=== PATIENT | male | born 1950 | race Caucasian/White ===

== ENCOUNTER 2017-11-17 10:00 | Outpatient (RCR) | payer MEDICARE, SELFPAY | END 2017-11-17 10:01 | disposition home or self-care (01) | LOC: PT 10:00 | PROVIDERS: PCP Family Medicine Addiction Medicine; Visit Provider Family Medicine Addiction Medicine | DX: M99.04 Segmental and somatic dysfunction of sacral region (principal); M54.31 Sciatica, right side; M62.838 Other muscle spasm | CPT/HCPCS: 97010; 97014; 97033; 97035; 97110; 97140; 97163; G0283 ==

== ENCOUNTER → 2018-09-17 09:47 | Outpatient (CLI) | payer MEDICARE, SELFPAY ==
[2018-09-17 11:31] LABS: Anion Gap 13.6 mEq/L (5-15); Blood Urea Nitrogen 19 mg/dL (7-18); Calcium 9.1 mg/dL (8.5-10.1); Carbon Dioxide 31 mmol/L (21.0-32.0); Chloride 102 mmol/L (98-107); Creatinine,Serum 1.13 mg/dL (0.70-1.30); Estimated Glomerular Filt Rate 65 ml/min (>60); GFR (African American) 79 ML/MIN (>60); Glucose 150 mg/dL (74-106); Potassium 3.6 mmoL/L (3.5-5.1); Sodium 143 mmol/L (136-145)
== END ==
PROVIDERS: Visit Provider Family Medicine Addiction Medicine
DX: M79.89 Other specified soft tissue disorders (principal); I10 Essential (primary) hypertension
CPT/HCPCS: 36415; 80048

== ENCOUNTER 2018-10-19 11:00 | Outpatient (RCR) | payer MEDICARE, SELFPAY | END 2018-10-19 11:05 | disposition home or self-care (01) | LOC: PT 11:00 | PROVIDERS: PCP Family Medicine Addiction Medicine; Visit Provider Orthopaedic Surgery Adult Reconstructive Orthopaedic Surgery | DX: Z96.641 Presence of right artificial hip joint (principal); M25.551 Pain in right hip | CPT/HCPCS: 97010; 97014; 97110; 97140; 97163; G0283 ==

== ENCOUNTER 2018-11-25 21:03 | Inpatient (IN) ==
[2018-11-25 21:16] LABS: Basophils % 0.3 % (0.1-2.0); Eosinophils # 0.3 K/mm3 (0.0-0.4); Eosinophils % 2.3 % (0.1-12.0); Hematocrit 39.2 % (42.0-52.0); Hemoglobin 12.9 g/dL (14.1-18.0); Lymphocytes # 2.4 K/mm3 (0.7-4.5); Lymphocytes % 19.4 % (10-50); Mean Corpuscular HGB Conc 32.8 g/dL (31.8-35.4); Mean Corpuscular Volume 88.2 fl (80-94); Mean Platelet Volume 7.3 fl (7.4-10.4); Monocytes # 0.8 K/mm3 (0.1-1.0); Monocytes % 6.6 % (1.7-9.3); Neutrophils # 8.8 K/mm3 (1.8-7.8); Neutrophils % 71.3 % (37.0-80.0); Platelet Count 234 K/mm3 (142-424); Red Blood Count 4.45 M/mm3 (4.60-6.20); Red Cell Distribution Width 15.2 % (11.5-17.5); White Blood Count 12.4 K/mm3 (4.8-10.8)
--- NOTE | 2018-11-25 21:19 | Emergency Department Note ---
ED Disposition Clinical Impression: ST elevation myocardial infarction (STEMI) Qualifiers: Involved coronary artery: unspecified coronary artery Qualified Code(s): I21.3 - ST elevation (STEMI) myocardial infarction of unspecified site Disposition: Admitted As Inpatient Condition on Discharge: Critical - Critical Care Critical Care Time: No Attestation: On 11/25/18, the high probability of a clinically significant, sudden or life threatening deterioration of the following system(s) required my full and direct attention, intervention and personal management. The time I documented below is in addition to time spent performing reported procedures but includes the following listed in this critical care notation. Medical Decision Making - Medical Records Medical records reviewed: Yes: I reviewed the patient's medical records. - Maikel Inquiry Pt receiving controlled substance: No Vital Signs: 11/25/18 21:03 11/25/18 21:20 11/25/18 22:02 Temperature 98.4 F 98.5 F Temperature Source Oral Pulse Rate 45 L Pulse Rate [Right] 58 L Respiratory Rate 18 18 18 Blood Pressure 135/85 Blood Pressure [Right Arm] 130/90 Blood Pressure Mean [Right Arm] 103 02 Sat by Pulse Oximetry 97 Oxygen Delivery Method Room Air Nasal Cannula - Lab Data Lab results reviewed: Yes: I reviewed the patient's lab results. Lab Results 11/25/18 21:05: WBC 12.4 H, RBC 4.45 L, Hgb 12.9 L, Hct 39.2 L, MCV 88.2, MCH 28.9, MCHC 32.8, RDW 15.2, Plt Count 234, MPV 7.3 L, Neut % (Auto) 71.3, Lymph % (Auto) 19.4, [place] % (Auto) 6.6, Eos % (Auto) 2.3, Baso % (Auto) 0.3, Neut # (Auto) 8.8 H, Lymph # (Auto) 2.4, [place] # (Auto) 0.8, Eos # (Auto) 0.3, Baso # (Auto) 0.0 11/25/18 21:05: Sodium 143, Potassium 3.0 L, Chloride 105, Carbon Dioxide 27, Anion Gap 14.0, BUN 22 H, Creatinine 1.35 H, Estimated Creat Clear 76, Estimated GFR 53 L, Est GFR ( Amer) 64, Glucose 155 H, Calcium 9.4, Troponin I 0.65 H 11/25/18 21:05: PT 10.7, INR 1.03, APTT 22.3 L Result diagrams: 11/25/18 21:05 11/25/18 21:05 Orders (Tests/Meds): ED MEDICATIONS Generic Name Dose Route Start Last Admin Trade Name Freq PRN Reason Stop Dose Admin Diphenhydramine HCl 50 mg 11/25/18 21:17 Benadryl 50mg/1ml Vial IV 11/25/18 21:18 ONCE ONE Fentanyl Citrate 50 mcg 11/25/18 21:17 11/25/18 22:07 Fentanyl 100mcg/2ml Vial IV 11/26/18 21:18 100 mcg Q3MINP PRN Administration Moderate to Severe Pain Fentanyl Citrate 25 mcg 11/25/18 21:17 Fentanyl 100mcg/2ml Vial IV 11/26/18 21:18 Q3MINP PRN Moderate to Severe Pain Flumazenil 0.2 mg 11/25/18 21:17 Romazicon 0.1mg/Ml 5ml Vial IV 11/25/18 23:00 NEEDED PRN Sedation Heparin Sodium (Porcine) 10,000 unit 11/25/18 21:17 11/25/18 21:58 Heparin 1,000 Units/Ml 10ml Vial ([employer]) IV 11/26/18 01:17 3,000 unit NEEDED PRN Administration [facility] [employer] Heparin Sodium/Sodium Chloride 3,000 unit 11/25/18 21:17 11/25/18 22:01 Heparin 1000 Units/500ml Ns ([employer] [facility] Magistrate) IV 11/25/18 21:18 3,000 unit ONCE ONE Administration Sodium Chloride 1,000 mls @ 999 mls/hr 11/25/18 21:15 11/25/18 21:10 Sod Chlor 0.9% 1000ml Bag IV 11/25/18 22:15 999 mls/hr .Q1H1M RAUL Administration Sodium Chloride 1,000 mls @ 25 mls/hr 11/25/18 21:30 Sod Chlor 0.9% 1000ml Bag IV 11/26/18 21:17 .Q25H RAUL Lidocaine HCl 20 ml 11/25/18 21:17 11/25/18 22:00 Lidocaine 1% 20ml Mdv IJ 11/25/18 21:18 10 ml ONCE ONE Administration Midazolam HCl 1 mg 11/25/18 21:17 11/25/18 22:09 Midazolam 1mg/Ml 5ml Vial IV 11/26/18 21:17 2 mg Q3MINP PRN Administration Sedation Midazolam HCl 1 mg 11/25/18 21:17 Midazolam 2mg/2ml Vial IV 11/26/18 21:17 Q3MINP PRN Sedation Naloxone HCl 0.4 mg 11/25/18 21:17 Narcan 0.4mg/Ml Vial IV 11/26/18 21:17 Q5MINP PRN Decreased Respirations Nitroglycerin 800 mcg 11/25/18 21:17 11/25/18 22:02 Nitroglycerin 800mcg/8ml Syr ([employer] Magistrate) IV 11/26/18 21:17 500 mcg NEEDED PRN Administration [facility] [employer] Verapamil HCl 2.5 mg 11/25/18 21:17 11/25/18 22:00 Verapamil 2.5mg/Ml 2ml Vial IV 11/25/18 21:18 2.5 mg ONCE ONE Administration Discontinued Medications Generic Name Dose Route Start Last Admin Trade Name Freq PRN Reason Stop Dose Admin Heparin Sodium (Porcine) 10,000 unit 11/25/18 21:09 11/25/18 21:10 Heparin Sodium 5,000 Units/Ml Vial SQ 11/25/18 21:10 10,000 unit ONCE ONE Administration Ticagrelor 180 mg 11/25/18 21:09 11/25/18 21:10 Brilinta 90mg Tablet PO 11/25/18 21:10 180 mg ONCE ONE Administration ORDERS Category Date Time Status XR chest portable Stat Exams 11/25/18 21:08 Taken 12-lead EKG Request [ECG Request by /Nse] Stat Y 11/25/18 21:22 Ordered - Radiology Data #1 Image(s): Chest Image Reviewed: Yes I reviewed the patient's radiology image Preliminary Findings: Abnormal (cm) - ECG Data Tracing #1 Normal Sinus Rhythm: Yes Arrhythmias present: other (second degree ht block ) Ischemic changes: ST elevation - Physician Consults Physician Consulted: caron Reason -: Admission Additional Consult: nathaniel Reason -: Pt condition Chest Pain HPI - General Chief Complaint: Chest Pain Stated Complaint: Stemi alert Time Seen by Provider: 11/25/18 21:05 Mode of Arrival: EMS Source of Information: Patient, EMS, Medical Record Limitations: No Limitations Description of Symptoms (Recalled from ER Triage Doc. by RN): Pt states CP 30 mins [employer]IC and soa 30mins ago. - History of Present Illness HPI narrative: acute onset of chest pain and was found to have acute stemi -pt with no other c/o at this time MD complaint: chest pain indicative of cardiac Onset (ago): hour(s) Duration: constant Activity at onset: during rest Pain location: substernal Severity: moderate Quality: heaviness Risk Factors for CAD: Family Hx of CAD Treatments prior to or on arrival for Cardiac Chest Pain: aspirin, nitroglycerin - SARI Score for Stemi Age of Patient: 60-69 years old Heart Rate: 50-69 bpm Systolic Blood Pressure: 120-139 mmhg Serum Creatinine: 1.20-1.59 mg/dl CHF [place] Class: I-No CHF Other Risk Factors: ST Segment Deviation Stemi Risk Score: 133 - Related Data Home Medications Medication Instructions Recorded Confirmed Amlodipine Besylate 10 mg PO DAILY 10/30/18 10/30/18 Atorvastatin Calcium [Atorvastatin 40 mg PO HS 10/30/18 10/30/18 40mg Tab] Lisinopril [Lisinopril 40mg Tablet] 40 mg PO DAILY 10/30/18 10/30/18 Montelukast Sodium [Singulair 10mg 10 mg PO PM 10/30/18 10/30/18 tablet] cloNIDine HCl [cloNIDine 0.2mg 0.2 mg PO DAILY 10/30/18 10/30/18 Tablet] hydroCHLOROthiazide [HCTZ 25mg 25 mg PO DAILY 10/30/18 10/30/18 tab] Previous Rx's Medication Instructions Recorded Hydrocod/Acet 5/325 mg [[place] 1 tab PO Q6HP PRN #8 tab 10/30/18 5/325mg tablet] levoFLOXacin [Levaquin 500mg 500 mg PO DAILY #7 tab 10/30/18 tab] Allergies Allergy/AdvReac Type Severity Reaction Status Date / Time cephalexin [From Keflex] Allergy Verified 10/30/18 04:16 [facility] History - Hepatitis A Screen Drug use history?: No High risk sexual behaviors?: No History of sexually transmitted infection?: No Currently employed?: No Childcare worker?: No Do you have indoor plumbing?: Yes Do you have electricity?: Yes Attestation statement:: This patient has been screened for Hepatitis A risk factors. I have reviewed the patient's past medical history: Yes Laterality Cases: Right: Total Hip Replacement, Bilateral: Tonsillectomy - Social History Alcohol Intake: never Occupational Status: retired ROS Obtained: Yes All systems reviewed & no additional complaints - Constitutional Constitutional: Denies fever(s) - Eyes Eyes: Denies change in vision - ENT Ears, Nose, Mouth, and Throat: Denies sore throat - Cardiovascular Cardiovascular: Reports chest pain, Reports dyspnea - Respiratory Respiratory: No cough - Gastrointestinal Gastrointestingal: Denies: abdominal pain - Genitourinary Male Genitourinary: Denies hematuria - Musculoskeletal Musculoskeletal: Denies joint swelling - Integumentary/Breasts Skin/Breast: Denies rash - Neurologic Neurologic: Denies seizure-like activity Physical Exam - General General appearance: alert, obese - Head Head exam: normocephalic - Eye Eye exam: Present: PERRL, EOMI - ENT ENT exam: Present: mucous membranes dry - Neck Neck exam: Present: trachea midline - Respiratory Respiratory exam: Present: normal lung sounds bilaterally. Absent: respiratory distress - Cardiovascular Cardiovascular exam: Present: bradycardia, systolic murmur - Abdominal Exam Abdominal exam: Present: soft - Extremities Exam Extremities exam: Present: full ROM - Neurological Exam Neurological exam: Present: alert, oriented X3, CN II-XII intact - Psychiatric Psychiatric exam: Present: normal affect - Skin Skin exam: Absent: rash
[2018-11-25 21:26] LABS: Activated Partial Thrombo Time 22.3 seconds (23.6-34.0); INR 1.03 (0.9-1.1); Prothrombin Time 10.7 seconds (9.4-11.8)
[2018-11-25 21:46] LABS: Calcium 9.4 mg/dL (8.5-10.1)
[2018-11-26 05:46] LABS: Basophils % 0.1 % (0.1-2.0); Eosinophils % 0.3 % (0.1-12.0); Hematocrit 36.4 % (42.0-52.0); Hemoglobin 11.8 g/dL (14.1-18.0); Lymphocytes # 0.9 K/mm3 (0.7-4.5); Lymphocytes % 9.9 % (10-50); Mean Corpuscular HGB Conc 32.6 g/dL (31.8-35.4); Mean Corpuscular Volume 88.7 fl (80-94); Mean Platelet Volume 7.7 fl (7.4-10.4); Monocytes # 0.5 K/mm3 (0.1-1.0); Monocytes % 5.9 % (1.7-9.3); Neutrophils # 7.3 K/mm3 (1.8-7.8); Neutrophils % 83.9 % (37.0-80.0); Platelet Count 219 K/mm3 (142-424); Red Cell Distribution Width 15.1 % (11.5-17.5); White Blood Count 8.8 K/mm3 (4.8-10.8)
[2018-11-26 05:56] LABS: Anion Gap 13.3 mEq/L (5-15); Chol/HDL Ratio 2.7 (1-3.5)
[2018-11-26 06:11] LABS: Calcium 8.5 mg/dL (8.5-10.1)
--- NOTE | 2018-11-26 07:28 | Pharmacy Consult Notes ---
[facility] Pharmacy VTE Monitoring - Patient Demographics Admission date: 11/25/18 Report Date: 11/26/18 Time: 07:28 Allergies/Adverse Reactions: Patient Allergies cephalexin [From Keflex] Allergy (Verified 11/25/18 23:22) Hives Height: 1.75 m Weight: 101.6 kg Patient Problems: Current Active Problems ST elevation myocardial infarction (STEMI) (Acute) - VTE Risk Labs: VTE Related Lab Results Hgb 11.8 g/dL (14.1-18.0) L 11/26/18 05:25 Hct 36.4 % (42.0-52.0) L 11/26/18 05:25 Plt Count 219 K/mm3 (142-424) 11/26/18 05:25 PT 10.7 seconds (9.4-11.8) 11/25/18 21:05 INR 1.03 (0.9-1.1) 11/25/18 21:05 APTT 22.3 seconds (23.6-34.0) L 11/25/18 21:05 BUN 19 mg/dL (7-18) H 11/26/18 05:25 Creatinine 1.21 mg/dL (0.70-1.30) 11/26/18 05:25 Estimated Creat Clear 85 mL/min (50-200) 11/26/18 05:25 Was VTE Risk Assessment Performed: Yes VTE Score: 6 VTE Risk Level: Moderate Risk - Prophylaxis VTE Prophylaxis Ordered?: Yes Types of VTE Prophylaxis: TEDS Knee High, Pharmacological Location of Applied Device: Bilateral Lower Extremeties Pharmacologic Type: Other (BRILINTA) - VTE Diagnosis Confirmed Treatment or plan recommended: Continue Current Treatment
--- NOTE | 2018-11-26 09:13 | Cardiology Report ---
APPROVED REPORT EXAM: Comprehensive 2D, Doppler, and color-flow Echocardiogram Automat Watcher: Olivia Woodson CRT Ht: 5 ft 9 in Wt: 224lbs BSA: 2.17 BP: 114/68 mmHg Indications: stemi, 4 stents last night, cp, sob, htn,external pacer 2D Dimensions LVOT 2.00 cm (M/F) 1.5-2.5 M-Mode Dimensions RVDd 2.30 cm (0.9-2.6)LA Diam 4.40 cm (1.9-4.0) LVDd 5.40 cm (3.5-5.7)Ao Diam 3.20 cm (2.0-3.7) LVDs 2.90 cm (3.5-5.7)AV Cusp 2.00 cm (1.5-2.6) IVSd 1.30 cm (0.6-1.1)PWd 1.10 cm (0.6-1.1) EF (Teich) 77.20% FS 46.30% EDV (Teich) 141.00 mLESV (Teich) 32.20 mL LV Diastology E/A Ratio 0.70MED E' 6.43 (< 7 cm/sec) E'/MED E' Ratio12.40 (>14)LAT E' 6.04 (<10 cm/sec) E/LAT E' Ratio 13.20 (>14) Aortic Valve AoV Peak Andrea. 179.00 (50-130 cm/s)AI PHT 403.00 ms AO Peak GR. 13.00 mmHg Mitral Valve MV E Max Andrea. 80.00 (40-130 cm/s)MV A Velocity 107.00 (40-130 cm/s) E/A Ratio 0.70 Pulmonary Valve PA Accel Time 102.00 (>120 msec) Tricuspid Valve TR P. [id number] cm/sRAP Estimate 10.00 mmHg RVSP 39.00 mmHg Left Ventricle Left atrium is mildly enlarged, left ventricle is normal size, mild concentric left ventricular hypertrophy, visually estimated ejection fraction approximately 50%, there is moderate hypokinesis involving the inferior apical, apical and distal septal wall. Grade 1 diastolic dysfunction seen without tissue Doppler evidence of raise left atrial pressure. Right Ventricle Right atrium and right ventricular mildly enlarged with normal contractility, there is a catheter noted traversing from inferior vena cava to right atrium and right ventricle which is likely a pacemaker lead. Aortic Valve Aortic valve is thickened and calcified leaflet continue to display good mobility, there is no aortic stenosis, there is mild aortic insufficiency. Mitral Valve Mitral valve is grossly normal, there is no mitral stenosis, there is mild mitral regurgitation. Tricuspid Valve Tricuspid valve is grossly normal, there is mild tricuspid regurgitation, tricuspid regurgitation jet velocity is inadequate for calculation of the right ventricular systolic pressure. Pulmonic Valve Pulmonic valve is poorly visualized. Great Vessels Aortic root is normal size. Pericardium No significant pericardial effusion noted. Conclusion 1. Biatrial enlargement, normal left ventricular size, mild concentric left ventricular hypertrophy, visually estimated ejection fraction 50% with segmental wall motion abnormalities described above, grade 1 diastolic dysfunction seen without tissue Doppler evidence of raise left atrial pressure. 2. Mildly enlarged right ventricle with normal contractility. 3. Mild aortic, mild mitral and tricuspid regurgitation. 4. No significant pericardial effusion noted. Inferior vena cava is normal size with normal inspiratory collapse. Electronically signed by : Mayco Dolan, 11/26/2018 09:13:00
--- NOTE | 2018-11-26 09:18 | Consult Report ---
History of Present Illness Consult date: 11/26/18 Requesting physician: Luc Jason Consult reason: chest pain Chief complaint: STEMI Additional Medical History:: 1. Hypertension, treated for many years 2. History of right hip surgery last month 3. Family history of colon cancer in his mother who at age 47 4. Family history of stroke in his father in his 70s History of present illness: 68-year-old white male presented to the ER via EMS for acute onset of chest pain while ambulating in his house. Patient states symptoms felt like an elephant sitting on his chest that included lightheadedness and dizziness and home oxygen monitor showing a heart rate in the 30s. Patient was diagnosed with inferior ST elevation NE and taken straight to the cardiac Second Time Worker where coronary stenting was performed. Due to bradycardia, a temporary intracardiac pacemaker was placed. This a.m. patient states he is feeling much better with no discomfort. He continues to intermittently pace. [facility] History Medical History: Reports:: Hypertension Denies:: Cancer, Diabetes Mellitus Type 1, Diabetes Mellitus Type 2, MRSA *Have you ever received a pneumonia vaccine?: No *Have you received a flu vaccine this season?: No (refused) Other Medical History: Reports: Sinus Problems (2 allergy shots once a week) Laterality Cases: Right: Total Hip Replacement, Bilateral: Tonsillectomy Other Surgeries: Yes: Colonoscopy (nov) Amputation: No Fractures: No - *Social History Educational Level: Completed High School Smoking Status: Never smoker Alcohol Intake: current Alcohol Intake Frequency:: a few times a week *Occupational Status:: retired Housing: house Household Members: significant other *Travel in the last 8 weeks: None Family Hx:: Heart Attack Meds Home Medications Medication Instructions Recorded Confirmed Type Amlodipine Besylate 10 mg PO DAILY 10/30/18 11/25/18 History Atorvastatin Calcium [Atorvastatin 40 mg PO HS 10/30/18 11/25/18 History 40mg Tab] Lisinopril [Lisinopril 40mg Tablet] 40 mg PO DAILY 10/30/18 11/25/18 History Montelukast Sodium [Singulair 10mg 10 mg PO HS 10/30/18 11/26/18 History tablet] hydroCHLOROthiazide [HCTZ 25mg 25 mg PO DAILY 10/30/18 11/25/18 History tab] Potassium Chloride [Micro-K 10mEq 10 meq PO DAILY 11/26/18 11/26/18 History cap] Allergies Allergy/AdvReac Type Severity Reaction Status Date / Time cephalexin [From Keflex] Allergy Hives Verified 11/25/18 23:22 Review of Systems - *Cardiovascular Reports chest pain, Reports shortness of breath - *Respiratory Reports shortness of breath, Denies cough - *Gastrointestinal Denies abdominal pain, Denies loose stools, Denies nausea, Denies vomiting - *Genitourinary Denies blood in urine - *Musculoskeletal Denies joint pain, Denies back pain - *Neurologic Denies seizure-like activity Exam Vital signs and Labs for Last 24 Hours: Temp Pulse Resp BP Pulse Ox 98.7 F 71 19 114/68 95 11/26/18 04:00 11/26/18 06:00 11/26/18 06:00 11/26/18 06:00 11/26/18 06:00 Laboratory Results - last 24 hr 11/25/18 21:04: Activated Clotting Time 317 H* 11/25/18 21:05: WBC 12.4 H, RBC 4.45 L, Hgb 12.9 L, Hct 39.2 L, MCV 88.2, MCH 28.9, MCHC 32.8, RDW 15.2, Plt Count 234, MPV 7.3 L, Neut % (Auto) 71.3, Lymph % (Auto) 19.4, [place] % (Auto) 6.6, Eos % (Auto) 2.3, Baso % (Auto) 0.3, Neut # (Auto) 8.8 H, Lymph # (Auto) 2.4, [place] # (Auto) 0.8, Eos # (Auto) 0.3, Baso # (Auto) 0.0 11/25/18 21:05: Sodium 143, Potassium 3.0 L, Chloride 105, Carbon Dioxide 27, Anion Gap 14.0, BUN 22 H, Creatinine 1.35 H, Estimated Creat Clear 76, Estimated GFR 53 L, Est GFR ( Amer) 64, Glucose 155 H, Calcium 9.4, Troponin I 0.65 H 11/25/18 21:05: PT 10.7, INR 1.03, APTT 22.3 L 11/26/18 05:25: WBC 8.8 D, RBC 4.10 L, Hgb 11.8 L, Hct 36.4 L, MCV 88.7, MCH 28.9, MCHC 32.6, RDW 15.1, Plt Count 219, MPV 7.7, Neut % (Auto) 83.9 H, Lymph % (Auto) 9.9 L, [place] % (Auto) 5.9, Eos % (Auto) 0.3, Baso % (Auto) 0.1, Neut # (Auto) 7.3, Lymph # (Auto) 0.9, [place] # (Auto) 0.5, Eos # (Auto) 0.0, Baso # (Auto) 0.0 11/26/18 05:25: Sodium 141, Potassium 3.3 L, Chloride 105, Carbon Dioxide 26, Anion Gap 13.3, BUN 19 H, Creatinine 1.21, Estimated Creat Clear 85, Estimated GFR 60, Est GFR ( Amer) 72, Glucose 182 H, Calcium 8.5, Magnesium 1.8, Triglycerides 96, Cholesterol 117 L, LDL Cholesterol 55, VLDL Cholesterol 19, HDL Cholesterol 43, Cholesterol/HDL Ratio 2.7 I & O for Last 24 hours: Intake & Output 11/23/18 11/24/18 11/25/18 11/26/18 11:59 11:59 11:59 11:59 Intake Total 1000 / 1000 Output Total 600 / 600 Balance 400 / 400 Weight 223 lb 15.834 oz - *Routine HEENT Exam Head: Present: normocephalic Eye: Present: EOMI, PERRL ENT: Present: mucous membranes moist - *Routine Neck Exam Present: supple. Absent: JVD, carotid bruit - *Routine Respiratory Exam Present: CTA bilaterally. Absent: accessory muscle use, rales, rhonchi, wheezes - *Routine Cardiovascular Exam Present: RRR, murmur. Absent: gallop, rubs - *Routine Abdominal Exam Present: soft. Absent: tenderness, distended, guarding - *Routine Extremities Exam Present: edema. Absent: calf tenderness - *Routine Neurological Exam Present: alert, oriented X3, moving all extremities Assessment and Plan (1) ST elevation myocardial infarction (STEMI) Current visit: Yes Status: Acute Qualifiers: Involved coronary artery: unspecified coronary artery Qualified Code(s): I21.3 - ST elevation (STEMI) myocardial infarction of unspecified site Category: Medical Code(s): I21.3 - ST elevation (STEMI) myocardial infarction of unspecified site (2) Bradycardia Current visit: Yes Status: Acute Category: Medical Code(s): R00.1 - Bradycardia, unspecified (3) History of hypertension Current visit: Yes Status: Acute Category: Medical Code(s): Z86.79 - Personal history of other diseases of the circulatory system - Assessment and plan all Dx Assessment and Plan for all problems:: 1. Continue dual antiplatelet therapy with aspirin 81 mg daily and Brilinta 90 mg twice daily. 2. Will reduce temporary pacemaker to VVI mode at 60 bpm and continue to follow. Patient may need a permanent pacemaker prior to discharge but would like to wait at least 48 hours to make that decision. 3. Echocardiogram performed this morning is pending at this time 4. Continue statin therapy with LDL goal less than 55 5. Continue nitroglycerin paste. 6. Supplemental potassium due to hypokalemia
--- NOTE | 2018-11-26 09:41 | History & Physical Report ---
*Admission Date: 11/25/18 *Chief complaint: Chest pain, STEMI *History of present illness: Mr. Cervantes is a pleasant 68-year-old male who states he was at home yesterday feeding his dog when he noted acute onset of chest pain feeling like "an elephant sitting on my chest". He says something just did not feel right at the time, he complained of feeling dizzy and lightheaded.. He was by himself as his partner had gone to get [employer]. He thought about waiting for his partner to return home but instead called 911 emergently as the pain was not easing up. He was brought by EMS to the ER where the Commercial Field Inspector had been activated due to a STEMI alert noticed on EKG in the field. He was emergently taken to the Commercial Field Inspector for intervention where 6 stents (4 in the RCA and 2 in the left circumflex) were placed. Additionally he had an intraprocedural temporary pacemaker placed prior to intervention with stenting due to bradycardia and arrhythmia. This morning he says he feels much better. Has very minimal pain and discomfort. Still requiring intermittent pacing though significantly improved on telemetry. He is accompanied by his partner. Denies any shortness of breath, nausea, dizziness, vomiting. [facility] History Medical History: Reports:: Hypertension Denies:: Cancer, Diabetes Mellitus Type 1, Diabetes Mellitus Type 2, MRSA *Have you ever received a pneumonia vaccine?: No *Have you received a flu vaccine this season?: No (refused) Other Medical History: Reports: Sinus Problems (2 allergy shots once a week) Laterality Cases: Right: Total Hip Replacement, Bilateral: Tonsillectomy Other Surgeries: Yes: Colonoscopy (nov) Amputation: No Fractures: No - *Social History Educational Level: Completed High School Smoking Status: Never smoker Alcohol Intake: current Alcohol Intake Frequency:: a few times a week *Occupational Status:: retired Housing: house Household Members: significant other *Travel in the last 8 weeks: None Family Hx:: Heart Attack Review of Systems - Review of Systems Review of systems:: pertinent systems reviewed and negative unless documented below - *Neurologic Denies seizure-like activity Meds Home Medications Medication Instructions Recorded Confirmed Type Amlodipine Besylate 10 mg PO DAILY 10/30/18 11/25/18 History Atorvastatin Calcium [Atorvastatin 40 mg PO HS 10/30/18 11/25/18 History 40mg Tab] Lisinopril [Lisinopril 40mg Tablet] 40 mg PO DAILY 10/30/18 11/25/18 History Montelukast Sodium [Singulair 10mg 10 mg PO HS 10/30/18 11/26/18 History tablet] hydroCHLOROthiazide [HCTZ 25mg 25 mg PO DAILY 10/30/18 11/25/18 History tab] Potassium Chloride [Micro-K 10mEq 10 meq PO DAILY 11/26/18 11/26/18 History cap] Allergies Allergy/AdvReac Type Severity Reaction Status Date / Time cephalexin [From KeAnthillz] Allergy Hives Verified 11/25/18 23:22 Exam Vital signs and Labs for Last 24 Hours: Temp Pulse Resp BP Pulse Ox 98.7 F 71 19 114/68 95 11/26/18 04:00 11/26/18 06:00 11/26/18 06:00 11/26/18 06:00 11/26/18 06:00 Laboratory Results - last 24 hr 11/25/18 21:04: Activated Clotting Time 317 H* 11/25/18 21:05: WBC 12.4 H, RBC 4.45 L, Hgb 12.9 L, Hct 39.2 L, MCV 88.2, MCH 28.9, MCHC 32.8, RDW 15.2, Plt Count 234, MPV 7.3 L, Neut % (Auto) 71.3, Lymph % (Auto) 19.4, [place] % (Auto) 6.6, Eos % (Auto) 2.3, Baso % (Auto) 0.3, Neut # (Auto) 8.8 H, Lymph # (Auto) 2.4, [place] # (Auto) 0.8, Eos # (Auto) 0.3, Baso # (Auto) 0.0 11/25/18 21:05: Sodium 143, Potassium 3.0 L, Chloride 105, Carbon Dioxide 27, Anion Gap 14.0, BUN 22 H, Creatinine 1.35 H, Estimated Creat Clear 76, Estimated GFR 53 L, Est GFR ( Amer) 64, Glucose 155 H, Calcium 9.4, Troponin I 0.65 H 11/25/18 21:05: PT 10.7, INR 1.03, APTT 22.3 L 11/26/18 05:25: WBC 8.8 D, RBC 4.10 L, Hgb 11.8 L, Hct 36.4 L, MCV 88.7, MCH 28.9, MCHC 32.6, RDW 15.1, Plt Count 219, MPV 7.7, Neut % (Auto) 83.9 H, Lymph % (Auto) 9.9 L, [place] % (Auto) 5.9, Eos % (Auto) 0.3, Baso % (Auto) 0.1, Neut # (Auto) 7.3, Lymph # (Auto) 0.9, [place] # (Auto) 0.5, Eos # (Auto) 0.0, Baso # (Auto) 0.0 11/26/18 05:25: Sodium 141, Potassium 3.3 L, Chloride 105, Carbon Dioxide 26, Anion Gap 13.3, BUN 19 H, Creatinine 1.21, Estimated Creat Clear 85, Estimated GFR 60, Est GFR ( Amer) 72, Glucose 182 H, Calcium 8.5, Magnesium 1.8, Triglycerides 96, Cholesterol 117 L, LDL Cholesterol 55, VLDL Cholesterol 19, HDL Cholesterol 43, Cholesterol/HDL Ratio 2.7 I & O for Last 24 hours: Intake & Output 11/23/18 11/24/18 11/25/18 11/26/18 23:59 23:59 23:59 23:59 Intake Total 1000 / 1000 Output Total 600 / 600 Balance 1000 / 725 -600 / -600 Weight 101.605 kg 101.6 kg - *Routine HEENT Exam Head: Present: normocephalic Eye: Present: EOMI, PERRL ENT: Present: mucous membranes moist - *Routine Neck Exam Present: supple. Absent: lymphadenopathy - *Routine Respiratory Exam Present: CTA bilaterally - *Routine Cardiovascular Exam Present: RRR Comments: with occasional ectopic beats - *Routine Abdominal Exam Present: soft, normoactive bowel sounds. Absent: tenderness - *Routine Extremities Exam Absent: cyanosis, clubbing, edema Comments: right radial insertion site with no bleeding. - *Routine Skin Exam Present: warm. Absent: rash - *Routine Neurological Exam Present: alert, oriented X3 Assessment and Plan (1) ST elevation myocardial infarction (STEMI) Current visit: Yes Status: Acute Qualifiers: Involved coronary artery: unspecified coronary artery Qualified Code(s): I21.3 - ST elevation (STEMI) myocardial infarction of unspecified site Category: Medical Code(s): I21.3 - ST elevation (STEMI) myocardial infarction of unspecified site (2) Bradycardia Current visit: Yes Status: Acute Category: Medical Code(s): R00.1 - Bradycardia, unspecified (3) History of hypertension Current visit: Yes Status: Acute Category: Medical Code(s): Z86.79 - Personal history of other diseases of the circulatory system (4) Class 1 obesity Current visit: Yes Status: Chronic Category: Medical Code(s): E66.9 - Obesity, unspecified complicates all aspects of care. - Assessment and plan all Dx Assessment and Plan for all problems:: 68-year-old male with history of hypertension who presented with STEMI to the ER. Emergently taken to [facility] [employer] [facility] for intervention. Continues to require intermittent pacing at this time. Currently on post-cath therapy with Brilinta, aspirin, verapamil. Will transition to goal-directed therapy including a statin, beta-patrick, JEREMIAH inhibitor in time when medically appropriate. Cardiology continue to follow along. Appreciate their recommendations on continued pacing need. Given acute TN, need for pacing, cardiac stenting, anticipate patient will be with us for the next 48 hours for monitoring as he has significant increased risk and sudden cardiac . Continues to require inpatient management. Patient is a full code Patient does not have a living will in place however has specified that he would prefer his partner who is at bedside to be his medical surrogate. Discussed the order of surrogate decision maker by law to patient and he states he does have adult children. Recommend he solidify his wishes with a living well over the coming weeks after discharge. Condition fair prognosis good
--- NOTE | 2018-11-26 14:35 | Electrocardiograph Report ---
APPROVED REPORT Exam: Resting ECG HR:71 bpm ECG Measurements Heart Rate 71 AXES PA 296 P 71 QRSd 88 QRS -26 QT 414 T70 QTc 449 <Conclusion> Electronic ventricular pacemaker Electronically signed by : Luc Jason, 11/26/2018 14:35:07
--- NOTE | 2018-11-26 14:38 | Electrocardiograph Report ---
APPROVED REPORT Exam: Resting ECG HR:48 bpm ECG Measurements Heart Rate 48 AXES OK P 68 QRSd 100 QRS 27 QT 474 T97 QTc 423 <Conclusion> Sinus rhythm with 2nd degree AV block (Mobitz I) ST elevation, consider inferior injury or acute infarct ACUTE OR Consider right ventricular involvement in acute inferior infarct Abnormal ECG Electronically signed by : Luc Jason, 11/26/2018 14:38:07
[2018-11-27 10:40] LABS: Anion Gap 14.3 mEq/L (5-15); Bilirubin,Direct 0.2 mg/dL (0.0-0.2); Bilirubin,Indirect 0.6 mg/dL (0.0-0.9); Bilirubin,Total 0.8 mg/dL (0.2-1.0); Calcium 8.7 mg/dL (8.5-10.1); Total Protein,Serum 7.3 gm/dL (6.4-8.2)
--- NOTE | 2018-11-27 12:02 | Progress Note ---
Internal Medicine - PN: Subj *Date: 11/27/18 *Time: 11:58 Interval history: Mr. Cervantes is comfortable in bed this morning Pacemaker is been turned down to 50 with normal sinus rhythm seen on telemetry. Patient's heart appears to be improving from arrhythmia standpoint. Overall patient feels well. Denies any chest pain, shortness of breath, nausea, vomiting. Is complaining of some constipation and difficulty going to the bathroom on the bedpan. Otherwise feels at his baseline at this time. Exam Vital signs and Labs for Last 24 Hours: Temp Pulse Resp BP Pulse Ox 97.7 F 62 17 148/91 H 95 11/27/18 04:00 11/27/18 10:00 11/27/18 10:00 11/27/18 10:00 11/27/18 10:00 Laboratory Results - last 24 hr 11/27/18 10:10: Sodium 142, Potassium 3.3 L, Chloride 103, Carbon Dioxide 28, Anion Gap 14.3, BUN 12 D, Creatinine 0.97, Estimated Creat Clear 103, Estimated GFR 77, Est GFR ( Amer) 93 D, Glucose 139 H, Calcium 8.7, Magnesium 1.9, Total Bilirubin 0.8, Direct Bilirubin 0.2, Indirect Bilirubin 0.6, AST 241 H, ALT 50, Alkaline Phosphatase 78, Total Protein 7.3, Albumin 4.0 I & O for Last 24 hours: Intake & Output 11/24/18 11/25/18 11/26/18 11/27/18 23:59 23:59 23:59 23:59 Intake Total 1000 / 1000 480 / 480 200 / 200 Output Total 1100 / 1100 475 / 475 Balance 1000 / 725 -620 / -620 -275 / -275 Weight 101.605 kg 101.6 kg Narrative: - *Routine HEENT Exam Head: Present: normocephalic Eye: Present: EOMI, PERRL ENT: Present: mucous membranes moist - *Routine Neck Exam Present: supple. Absent: lymphadenopathy - *Routine Respiratory Exam Present: CTA bilaterally - *Routine Cardiovascular Exam Present: Normal sinus rhythm on telemetry, regular rate and rhythm on exam. No ectopic beats, murmurs, gallops. - *Routine Abdominal Exam Present: soft, normoactive bowel sounds. Absent: tenderness - *Routine Extremities Exam Absent: cyanosis, clubbing, 1+ edema in bilateral lower extremities Comments: right radial insertion site with no bleeding. - *Routine Skin Exam Present: warm. Absent: rash - *Routine Neurological Exam Present: alert, oriented X3 Assessment and Plan (1) ST elevation myocardial infarction (STEMI) Current visit: Yes Status: Acute Qualifiers: Involved coronary artery: unspecified coronary artery Qualified Code(s): I21.3 - ST elevation (STEMI) myocardial infarction of unspecified site Category: Medical Code(s): I21.3 - ST elevation (STEMI) myocardial infarction of unspecified site (2) Bradycardia Current visit: Yes Status: Acute Category: Medical Code(s): R00.1 - Bradycardia, unspecified (3) History of hypertension Current visit: Yes Status: Acute Category: Medical Code(s): Z86.79 - Pers onal history of other diseases of the circulatory system (4) Class 1 obesity Current visit: Yes Status: Chronic Category: Medical Code(s): E66.9 - Obesity, unspecified - Assessment and plan all Dx Assessment and Plan for all problems:: 68-year-old male status post STEMI with placement of 6 stents. Has done well for the past 24 hours. No longer requiring external pacemaker for sinus rhythm. Patient initiated on statin and JEREMIAH inhibitor yesterday. If tolerates having the pacemaker turned down with a normal sinus rhythm seen on EKG, we will plan to pull pacer wires today. Patient otherwise doing well and asymptomatic. At t his time will need continued monitoring through tomorrow as he is still within a sensitive window and at risk for sudden cardiac given he is less than 48 hours out from his LA. Tolerating regular diet. No signs of bleeding on exam. Blood pressure improving. Continues to require inpatient management. Full code.
[2018-11-28 06:02] LABS: Basophils % 0.2 % (0.1-2.0); Eosinophils # 0.3 K/mm3 (0.0-0.4); Hematocrit 38.8 % (42.0-52.0); Lymphocytes # 1.5 K/mm3 (0.7-4.5); Lymphocytes % 14.4 % (10-50); Mean Corpuscular HGB Conc 30.9 g/dL (31.8-35.4); Mean Corpuscular Volume 91.6 fl (80-94); Mean Platelet Volume 7.3 fl (7.4-10.4); Monocytes # 0.8 K/mm3 (0.1-1.0); Monocytes % 7.6 % (1.7-9.3); Neutrophils # 7.6 K/mm3 (1.8-7.8); Neutrophils % 74.7 % (37.0-80.0); Platelet Count 202 K/mm3 (142-424); Red Blood Count 4.24 M/mm3 (4.60-6.20); Red Cell Distribution Width 15.3 % (11.5-17.5); White Blood Count 10.1 K/mm3 (4.8-10.8)
[2018-11-28 06:26] LABS: Albumin Level 3.2 gm/dL (3.4-5.0); Anion Gap 13.7 mEq/L (5-15); Bilirubin,Total 1.2 mg/dL (0.2-1.0); Calcium 8.6 mg/dL (8.5-10.1); Globulin 3.1 gm/dl (1.3-3.2); Total Protein,Serum 6.3 gm/dL (6.4-8.2)
--- NOTE | 2018-11-28 09:48 | Progress Note ---
Internal Medicine - PN: Subj *Date: 11/28/18 *Time: 09:44 Interval history: Mr. Cervantes is done well over the past 24 hours. Tolerated removal of pacemaker well with no arrhythmias or adverse events. Heart rate consistently 70-90. Has struggled with some hypertension over the past 12 to 24 hours even with increased doses of lisinopril, reinitiation of amlodipine. Denies chest pain, shortness of breath. Able to have bowel movement after some prune juice yesterday and states his stomach feels much better. Has no significant complaints this morning and overall feels improved. Exam Vital signs and Labs for Last 24 Hours: Temp Pulse Resp BP Pulse Ox 98.9 F 82 18 137/85 95 11/28/18 03:50 11/28/18 08:00 11/28/18 08:00 11/28/18 08:00 11/28/18 08:00 Laboratory Results - last 24 hr 11/27/18 10:10: Sodium 142, Potassium 3.3 L, Chloride 103, Carbon Dioxide 28, Anion Gap 14.3, BUN 12 D, Creatinine 0.97, Estimated Creat Clear 103, Estimated GFR 77, Est GFR ( Amer) 93 D, Glucose 139 H, Calcium 8.7, Magnesium 1.9, Total Bilirubin 0.8, Direct Bilirubin 0.2, Indirect Bilirubin 0.6, AST 241 H, ALT 50, Alkaline Phosphatase 78, Total Protein 7.3, Albumin 4.0 11/28/18 05:30: WBC 10.1, RBC 4.24 L, Hgb 12.0 L, Hct 38.8 L, MCV 91.6, MCH 28.3, MCHC 30.9 L, RDW 15.3, Plt Count 202, MPV 7.3 L, Neut % (Auto) 74.7, Lymph % (Auto) 14.4, [place] % (Auto) 7.6, Eos % (Auto) 3.0, Baso % (Auto) 0.2, Neut # (Auto) 7.6, Lymph # (Auto) 1.5, [place] # (Auto) 0.8, Eos # (Auto) 0.3, Baso # (Auto) 0.0 11/28/18 05:30: Sodium 142, Potassium 3.7, Chloride 106, Carbon Dioxide 26, Anion Gap 13.7, BUN 11, Creatinine 0.97, Estimated Creat Clear 113, Estimated GFR 77, Est GFR ( Amer) 93, Glucose 148 H, Calcium 8.6, Total Bilirubin 1.2 H, AST 122 H D, ALT 38, Alkaline Phosphatase 68, Total Protein 6.3 L, Albumin 3.2 L D, Globulin 3.1, Albumin/Globulin Ratio 1.0 L I & O for Last 24 hours: Intake & Output 11/25/18 11/26/18 11/27/18 11/28/18 23:59 23:59 23:59 23:59 Intake Total 1000 / 1000 480 / 480 1061 / 1061 480 / 480 Output Total 1100 / 1100 2500 / 2500 1400 / 1400 Balance 1000 / 725 -620 / -620 -1439 / -1439 -920 / -920 Weight 101.605 kg 101.6 kg 111.329 kg Narrative: - *Routine HEENT Exam Head: Present: normocephalic Eye: Present: EOMI, PERRL ENT: Present: mucous membranes moist - *Routine Neck Exam Present: supple. Absent: lymphadenopathy - *Routine Respiratory Exam Present: CTA bilaterally - *Routine Cardiovascular Exam Present: Normal sinus rhythm, regular rate, No ectopic beats, murmurs, gallops. - *Routine Abdominal Exam Present: soft, normoactive bowel sounds. Absent: tenderness - *Routine Extremities Exam Absent: cyanosis, clubbing, 1+ edema in bilateral lower extremities Comments: right radial insertion site with no bleeding; right femoral insertion site from sheath and pacemaker clean dry and intact with no bruising or bleeding - *Routine Skin Exam Present: warm. Absent: rash - *Routine Neurological Exam Present: alert, oriented X3 Assessment and Plan (1) ST elevation myocardial infarction (STEMI) Current visit: Yes Status: Acute Qualifiers: Involved coronary artery: right coronary artery Qualified Code(s): I21.11 - ST elevation (STEMI) myocardial infarction involving right coronary artery Category: Medical Code(s): I21.3 - ST elevation (STEMI) myocardial infarction of unspecified site AL affecting both right coronary and left circumflex. Received 6 stents. On goal-directed therapy except for beta-patrick at this time. Patient tolerating antiplatelet therapy, JEREMIAH inhibitor, statin. Continue to monitor on telemetry. (2) Bradycardia Current visit: Yes Status: Resolved Category: Medical Code(s): R00.1 - Bradycardia, unspecified (3) Class 1 obesity Current visit: Yes Status: Chronic Category: Medical Code(s): E66.9 - Obesity, unspecified Complicates all aspects of his care (4) Hypertension Current visit: Yes Status: Acute Qualifiers: Hypertension type: essential hypertension Qualified Code(s): I10 - Essential (primary) hypertension Category: Medical Code(s): I10 - Essential (primary) hypertension Patient has been more hypertensive since intervention. Currently on lisinopril 20 twice daily, amlodipine 10. Initiate HCTZ. Will obtain EKG today as patient would benefit from a beta-patrick for goal-directed therapy given post AL however CT interval greater than 200 at this time. If EKG shows CT interval lower than 200 (no first-degree block) we will look to initiate carvedilol for dual beta-blockade and blood pressure benefit. However if continues to have pro minent first-degree block, he has responded well to Nitropaste and would consider long-acting nitrate. Goal less than 130/80 - Assessment and plan all Dx Assessment and Plan for all problems:: 68-year-old male status post AL. Continues to have hypertension above goal. Repeat EKG today and further optimization of blood pressure management. Continues to require inpatient management at this time.
--- NOTE | 2018-11-28 23:41 | Discharge Summary ---
General - General Admission date:: 11/25/18 Discharge date: 11/29/18 HPI HPI: Mr. Cervantes is a pleasant 68-year-old male who states he was at home yesterday feeding his dog when he noted acute onset of chest pain feeling like "an elephant sitting on my chest". He says something just did not feel right at the time, he complained of feeling dizzy and lightheaded.. He was by himself as his partner had gone to get [employer]. He thought about waiting for his partner to return home but instead called 911 emergently as the pain was not easing up. He was brought by EMS to the ER where the Stave Jointer had been activated due to a STEMI alert noticed on EKG in the field. He was emergently taken to the [facility] for intervention where 6 stents (4 in the RCA and 2 in the left circumflex) were placed. Additionally he had an intraprocedural temporary pacemaker placed prior to intervention with stenting due to bradycardia and arrhythmia. This morning he says he feels much better. Has very minimal pain and discomfort. Still requiring intermittent pacing though significantly improved on telemetry. He is accompanied by his partner. Denies any shortness of breath, nausea, dizziness, vomiting. Hospital Course Hospital Course: Mr. Cervantes is a 68-year-old male who presented to the ER with a STEMI alert. Was emergently taken to the [facility] with placement of 6 stents (for the RCA, 2 in the left circumflex). Patient also had bradycardic arrhythmia needing pacemaker placement at time of left heart cath. Continued on temporary pacemaker for approximately 24 hours with gradual improvement in red devil pacer resuming function likely secondary to cardiac stenting from patient's DC. He was initiated on goal-directed therapy with JEREMIAH inhibitor and tapped at time of stent placement. Over the course of it his admission he gradually had a statin initiated as well as low-dose beta-patrick as his blood pressure and heart rate permitted. Pacemaker was removed after approximately 48 hours. Prior to removal, patient was turned down to 40 beats a minute and patient noted to have normal sinus rhythm. First-degree heart block was noted with a LA interval of 206 on EKG at time of removal however this improved over the next 24 hours to a LA interval of 190 allowing for initiation of low-dose carvedilol. Patient had no episodes of chest pain after heart cath. Was fatigued but able to ambulate independently and had no acute needs from physical therapy. Initial echo showed EF of approximately 50% with some regional wall motion abnormalities as expected. Patient tolerated regular diet. Blood pressure improved to goal of less than 130/80. Clinically he had stabilized and was medically stable for discharge home with close follow-up in the clinic and with cardiology. We will plan for cardiac rehab in the outpatient setting. Patient denies shortness of breath, chest pain, nausea, vomiting, bleeding or easy bruising. Plan to follow-up with cardiology in approximately 2 weeks Objective Vital signs: Temp Pulse Resp BP Pulse Ox 98.7 F 80 20 142/94 H 98 11/28/18 20:00 11/28/18 20:00 11/28/18 20:00 11/28/18 20:00 11/28/18 20:00 Narrative: - *Routine HEENT Exam Head: Present: normocephalic Eye: Present: EOMI, PERRL ENT: Present: mucous membranes moist - *Routine Neck Exam Present: supple. Absent: lymphadenopathy - *Routine Respiratory Exam Present: CTA bilaterally - *Routine Cardiovascular Exam Present: Normal sinus rhythm, regular rate, No ectopic beats, murmurs, gallops. - *Routine Abdominal Exam Present: soft, normoactive bowel sounds. Absent: tenderness - *Routine Extremities Exam Absent: cyanosis, clubbing, 1+ edema in bilateral lower extremities Comments: right radial insertion site with no bleeding; right femoral insertion site from sheath and pacemaker clean dry and intact with no bruising or bleeding - *Routine Skin Exam Present: warm. Absent: rash - *Routine Neurological Exam Present: alert, oriented X3 Results Labs on day of discharge: Labs from last 24 hours 11/28/18 11/28/18 05:30 05:30 WBC 10.1 RBC 4.24 L Hgb 12.0 L Hct 38.8 L MCV 91.6 MCH 28.3 MCHC 30.9 L RDW 15.3 Plt Count 202 MPV 7.3 L Neut % (Auto) 74.7 Lymph % (Auto) 14.4 [place] % (Auto) 7.6 Eos % (Auto) 3.0 Baso % (Auto) 0.2 Neut # (Auto) 7.6 Lymph # (Auto) 1.5 [place] # (Auto) 0.8 Eos # (Auto) 0.3 Baso # (Auto) 0.0 Sodium 142 Potassium 3.7 Chloride 106 Carbon Dioxide 26 Anion Gap 13.7 BUN 11 Creatinine 0.97 Estimated Creat Clear 113 Estimated GFR 77 Est GFR ( Amer) 93 Glucose 148 H Calcium 8.6 Total Bilirubin 1.2 H AST 122 H D ALT 38 Alkaline Phosphatase 68 Total Protein 6.3 L Albumin 3.2 L D Globulin 3.1 Albumin/Globulin Ratio 1.0 L DS: Diagnosis - Discharge Diagnosis (1) ST elevation myocardial infarction (STEMI) Status: Acute (2) Bradycardia Status: Resolved (3) Class 1 obesity Status: Chronic (4) Hypertension Status: Resolved Discharge Plan - Patient Discharge Instructions ACTIVITY: Limited activity, No heavy lifting DIET: low fat, low cholesterol Patient Instructions: Heart Attack, DI for Surgical Site Infection, DI for Bradycardia - Follow up Plan Follow up with: Wu Ponce MD [Staff Physician] - 12/06/18 11:45 am (please arrive 15 minutes early for appointment bring list of medicines and insurance cards) Rory Correa MD [Staff Physician] - 12/06/18 9:40 am Disposition: Home, Self-Senior Living Medications: Home Medications Medication Instructions Recorded Confirmed Type Amlodipine Besylate 10 mg PO DAILY 10/30/18 11/25/18 History Atorvastatin Calcium [Atorvastatin 40 mg PO HS 10/30/18 11/25/18 History 40mg Tab] Montelukast Sodium [Singulair 10mg 10 mg PO HS 10/30/18 11/26/18 History tablet] Potassium Chloride [Micro-K 10mEq 10 meq PO DAILY 11/26/18 11/26/18 History cap] Aspirin [Aspirin 81mg EC Tab] 81 mg PO DAILY 30 Days #30 11/28/18 Rx tablet. Carvedilol [Coreg 3.125mg Tablet] 3.125 mg PO BID 30 Days #60 tab 11/28/18 Rx Lisinopril [Zestril 20mg tab] 20 mg PO BID 30 Days #60 tab 11/28/18 Rx Ticagrelor [Brilinta 90mg Tablet] 90 mg PO BID 30 Days #60 tab 11/28/18 Rx Prescriptions/Medication Reconciliation: New Aspirin [Aspirin 81mg EC Tab] 81 mg PO DAILY 30 Days #30 tablet. Ticagrelor [Brilinta 90mg Tablet] 90 mg PO BID 30 Days #60 tab Carvedilol [Coreg 3.125mg Tablet] 3.125 mg PO BID 30 Days #60 tab Lisinopril [Zestril 20mg tab] 20 mg PO BID 30 Days #60 tab Continued Montelukast Sodium [Singulair 10mg tablet] 10 mg PO HS Atorvastatin Calcium [Atorvastatin 40mg Tab] 40 mg PO HS Amlodipine Besylate 10 mg PO DAILY Potassium Chloride [Micro-K 10mEq cap] 10 meq PO DAILY Discontinued Lisinopril [Lisinopril 40mg Tablet] 40 mg PO DAILY hydroCHLOROthiazide [HCTZ 25mg tab] 25 mg PO DAILY - Problem Reconciliation Problems Reviewed?: Yes
--- NOTE | 2018-11-29 09:14 | Progress Note ---
Subjective Date: 11/29/18 Time: 09:11 Principal diagnosis: STEMI Interval history: 68-year-old white male sitting in bedside chair in no acute distress. Patient denies any chest pain, pressure or tightness. He states he feels great. Temporary pacemaker wire pulled out on Thursday after patient maintained heart rates in the 80s. Due to to elevated blood pressure carvedilol was started yesterday as a part of goal-directed therapy after STEMI with improvement in blood pressure and heart rate in the 60s. Patient has been ambulating in the hallway today without complications. States he is ready to go home. Exam Vital signs and Labs for Last 24 Hours: Temp Pulse Resp BP Pulse Ox 97.6 F 76 19 149/92 H 97 11/29/18 08:00 11/29/18 08:00 11/29/18 08:00 11/29/18 08:00 11/29/18 08:00 I & O for Last 24 hours: Intake & Output 11/26/18 11/27/18 11/28/18 11/29/18 11:59 11:59 11:59 11:59 Intake Total 1000 / 1000 680 / 680 1341 / 1341 1320 / 1320 Output Total 600 / 600 975 / 975 3425 / 3425 500 / 500 Balance 400 / 400 -295 / -295 -2084 / -2084 820 / 820 Weight 223 lb 15.834 oz 245 lb 7 oz 243 lb 4 oz - *Routine HEENT Exam Head: Present: normocephalic Eye: Present: EOMI, PERRL ENT: Present: mucous membranes moist - *Routine Respiratory Exam Present: CTA bilaterally. Absent: accessory muscle use, rales, rhonchi, wheezes - *Routine Cardiovascular Exam Present: RRR. Absent: murmur, gallop, rubs - *Routine Neurological Exam Present: alert, oriented X3, moving all extremities Progress Note: A&P (1) ST elevation myocardial infarction (STEMI) Status: Acute Current Visit: Yes (2) Bradycardia Status: Resolved Current Visit: Yes (3) Class 1 obesity Status: Chronic Current Visit: Yes (4) Hypertension Status: Acute Current Visit: Yes Assessment and Plan for All Diagnoses:: 1. ST elevation CO with two-vessel stenting (RCA and circumflex) x6 stents total. On aspirin and Brilinta. Patient also on JEREMIAH inhibitor and beta-patrick along with statin therapy. 2. Marked bradycardia, resolved with temporary pacemaker bridging now removed. 3. Hypertension, improved blood pressure on multiple medications including JEREMIAH inhibitor, beta-patrick and calcium channel patrick 4. Hyperlipidemia, on statin therapy 5. Agree with discharge home. Follow-up in our office in 1 week.
--- NOTE | 2018-11-29 17:25 | Electrocardiograph Report ---
APPROVED REPORT Exam: Resting ECG HR:85 bpm ECG Measurements Heart Rate 85 AXES IL 190 P 80 QRSd 94 QRS -29 QT 374 T-34 QTc 445 <Conclusion> Sinus rhythm with premature atrial complexes Inferior infarct, age undetermined Abnormal ECG Electronically signed by : Laron Man, 11/29/2018 17:25:02
--- NOTE | 2018-12-01 13:45 | Electrocardiograph Report ---
APPROVED REPORT Exam: Resting ECG HR:76 bpm ECG Measurements Heart Rate 76 AXES AR 206 P 75 QRSd 92 QRS -19 QT 394 T2 QTc 443 <Conclusion> Normal sinus rhythm Old NS changes in III Abnormal ECG Electronically signed by : Luc Jason, 12/01/2018 13:45:36
== END 2018-11-29 12:45 | disposition home or self-care (01) | DRG 246 ==
LOC: ER 21:03 → CATHLAB 21:20 → ICU 21:56 → 2ND 11-26 17:35
PROVIDERS: ADMIT Internal Medicine Adolescent Medicine; ATTEND Internal Medicine Adolescent Medicine
CPT/HCPCS: 36415; 71010; 71045; 80048; 80053; 80061; 80076; 83735; 84484; 85025; 85347; 85610; 85730; 92941; 92943; 93005; 93306; 93458; 94761; 96365; 96375; 97162; 99152; 99153; 99284; C1725; C1769; C1876; C1894; C9606; C9607; C9608; J1644; Q9967; S0077

== ENCOUNTER 2018-12-14 10:08 | Outpatient (RCR) | payer MEDICARE, SELFPAY | END 2018-12-14 10:10 | disposition home or self-care (01) | LOC: PT 10:08 | PROVIDERS: Visit Provider Internal Medicine | DX: Z95.5 Presence of coronary angioplasty implant and graft (principal) | CPT/HCPCS: 93798 ==

== ENCOUNTER → 2019-01-10 12:57 | Outpatient (CLI) | payer MEDICARE, SELFPAY ==
[2019-01-10 14:38] LABS: Anion Gap 12.6 mEq/L (5-15); Blood Urea Nitrogen 16 mg/dL (7-18); Calcium 8.7 mg/dL (8.5-10.1); Carbon Dioxide 28 mmol/L (21.0-32.0); Chloride 105 mmol/L (98-107); Creatinine,Serum 1.08 mg/dL (0.70-1.30); Estimated Glomerular Filt Rate 68 ml/min (>60); GFR (African American) 83 ML/MIN (>60); Glucose 98 mg/dL (74-106); Potassium 3.6 mmoL/L (3.5-5.1); Sodium 142 mmol/L (136-145)
[2019-01-10 14:43] LABS: Hemoglobin A1C 5.6 % (0.0-7.0)
== END ==
PROVIDERS: Internal Medicine Adolescent Medicine; Visit Provider Nurse Practitioner Family
DX: I25.10 Atherosclerotic heart disease of native coronary artery without angina pectoris (principal); Z79.899 Other long term (current) drug therapy
CPT/HCPCS: 36415; 80048; 83036

== ENCOUNTER → 2019-02-07 11:23 | Outpatient (CLI) | payer MEDICARE, SELFPAY ==
[2019-02-07 13:56] LABS: Anion Gap 12.2 mEq/L (5-15); Blood Urea Nitrogen 16 mg/dL (7-18); Calcium 8.7 mg/dL (8.5-10.1); Carbon Dioxide 29 mmol/L (21.0-32.0); Chloride 106 mmol/L (98-107); Creatinine,Serum 0.97 mg/dL (0.70-1.30); Estimated Glomerular Filt Rate 77 ml/min (>60); GFR (African American) 93 ML/MIN (>60); Glucose 96 mg/dL (74-106); Potassium 4.2 mmoL/L (3.5-5.1); Sodium 143 mmol/L (136-145)
== END ==
PROVIDERS: Visit Provider Nurse Practitioner Family
DX: E78.5 Hyperlipidemia, unspecified (principal); I10 Essential (primary) hypertension; I25.10 Atherosclerotic heart disease of native coronary artery without angina pectoris; R60.9 Edema, unspecified; Z95.5 Presence of coronary angioplasty implant and graft
CPT/HCPCS: 36415; 80048

== ENCOUNTER 2019-09-03 11:21 | Emergency (ER) | payer MEDICARE, SELFPAY ==
[2019-09-03 11:22] VITALS: BP 171/90; PULSE 61; RESP 16; TEMP 37.2; O2SAT 97; BMI 34.4
[2019-09-03 11:58] LABS: Appearance,Urine SL CLOUDY (Clear); Bilirubin,Urine Negative (Negative); Blood, Urine Negative (Negative); Color,Urine YELLOW (Yellow); Glucose,Urine (UA) Negative (Negative); Ketones,Urine Negative (Negative); Leukocyte Esterase,Urine 2+ (Negative); Microscopic, Urine URINE MICROSCOPIC (MICROSCOPIC); Nitrate,Urine Negative (Negative); Protein,Urine Negative (Negative); Specific Gravity, Urine 1.015 (1.005-1.030); Urobilinogen,Urine 0.2 EU/dl (0.2)
[2019-09-03 12:12] LABS: Bacteria,Urine 1+ /lpf; Squamous Epithelial Cell,Urine Occasional #/hpf (0-5); WBC,Urine 20-50 #/hpf (0-3)
--- NOTE | 2019-09-03 13:33 | HMH.EDGENADL ---
ED Disposition Clinical Impression: UTI (urinary tract infection) Qualifiers: Urinary tract infection type: site unspecified Hematuria presence: without hematuria Qualified Code(s): N39.0 - Urinary tract infection, site not specified Disposition: Home, Self-Care Condition on Discharge: Good Instructions: DI for Urinary Tract Infection (UTI) Additional Instructions: Cipro as prescribed additional instructions for URINARY TRACT INFECTION: See your physician in 2-3 days for follow up and culture results. Return immediately if you have an uncontrollable fever greater than 102 degrees, severe back or abdominal pain, inability to urinate, or repetitive vomiting. Prescriptions: Ciprofloxacin HCl [Ciprofloxacin 500mg Tab] 500 mg PO BID #20 tab Transmission Status: Received by [employer] #[id number] Referrals: Wu Ponce MD [Primary Care Provider] - - Critical Care Critical Care Time: No Attestation: On 09/03/19, the high probability of a clinically significant, sudden or life threatening deterioration of the following system(s) required my full and direct attention, intervention and personal management. The time I documented below is in addition to time spent performing reported procedures but includes the following listed in this critical care notation. Medical Decision Making - Maikel Inquiry Pt receiving controlled substance: No Vital Signs: 09/03/19 11:22 09/03/19 13:43 Temperature 98.9 F 98.9 F Temperature Source Oral Pulse Rate 61 Pulse Rate [Left Radial] 61 Respiratory Rate 16 16 Blood Pressure 171/90 H Blood Pressure [Right Arm] 171/90 H Blood Pressure Mean [Right Arm] 117 Blood Pressure Source Automatic Cuff Blood Pressure Position Sitting Blood Pressure Position [Right Arm] Sitting 02 Sat by Pulse Oximetry 97 Oxygen Delivery Method Room Air Room Air - Lab Data Lab Results 09/03/19 11:35: Urine Color Yellow, Urine Appearance Sl cloudy, Urine pH 6.0, Ur Specific Percival 1.015, Urine Protein Negative, Urine Glucose (UA) Negative, Urine Ketones Negative, Urine Blood Negative, Urine Nitrate Negative, Urine Bilirubin Negative, Urine Urobilinogen 0.2, Ur Leukocyte Esterase 2+ A, Urine RBC 3-5, Urine WBC 20-50, Ur Squamous Epith Cells Occasional, Urine Bacteria 1+ Orders (Tests/Meds): ED MEDICATIONS Discontinued Medications Generic Name Dose Route Start Last Admin Trade Name Freq PRN Reason Stop Dose Admin Levofloxacin 500 mg 09/03/19 13:33 09/03/19 13:39 Levaquin 500mg Tab PO 09/03/19 13:34 500 mg ONCE ONE Administration Protocol ORDERS Category Date Time Status Urine Culture Stat Micro 09/03/19 11:35 Received General Adult HPI - General Chief complaint: Urogenital-Male Stated complaint: possible uti Time Seen by Provider: 09/03/19 13:23 Mode of Arrival: Ambulatory Limitations: No Limitations Description of Symptoms (Recalled from ER Triage Doc. by RN): TO ED PER PVT CAR WITH C/O DIFFICULTY URINATING, URINARY FREQ, URGENCY, AND PAIN IN TESTICLES WHEN URINATING. STATES SYMPTOMS STARTED YESTERDAY DENIES FEVER, CHILLS, NAUSEA, VOMITING - History of Present Illness HPI narrative: 2-day history of dysuria and hesitancy. Drank some cranberry juice and took ibuprofen and symptoms have improved. He says he thinks he has had this 1 previous time. No fever, flank pain, abdominal pain, or vomiting. No swelling of the scrotum or testicular pain. States he also has a history of a mildly enlarged prostate and is on medication for that. Has an appointment with his primary care provider, Dr. Ponce, on 09/05/2019. - Related Data Home Medications Medication Instructions Recorded Confirmed Atorvastatin Calcium [Lipitor 40mg 40 mg PO HS 10/30/18 01/31/19 Tab] Montelukast Sodium [Singulair 10mg 10 mg PO HS 10/30/18 01/31/19 tablet] amlodipine 10 mg tablet 5 mg PO DAILY tab 01/31/19 01/31/19 tamsulosin 0.4 mg capsule 0.4 mg
[2019-09-03 13:43] VITALS: BP 171/90; PULSE 61; RESP 16; TEMP 37.2; O2SAT 97
== END 2019-09-03 13:45 | disposition home or self-care (01) ==
PROVIDERS: Emergency Provider Emergency Medicine; PCP Internal Medicine Adolescent Medicine
DX: N30.00 Acute cystitis without hematuria (principal); I10 Essential (primary) hypertension; I25.10 Atherosclerotic heart disease of native coronary artery without angina pectoris; I25.2 Old myocardial infarction; Z88.1 Allergy status to other antibiotic agents; Z96.641 Presence of right artificial hip joint; Z90.09 Acquired absence of other part of head and neck; Z79.899 Other long term (current) drug therapy
CPT/HCPCS: 81001; 87086; 99282

== ENCOUNTER → 2020-01-19 12:47 | Outpatient (CLI) | payer MEDICARE, SELFPAY ==
--- NOTE | 2020-01-19 12:51 | MR_ITS ---
PROCEDURE: MR LUMBAR SPINE WO CON CLINICAL INDICATION: LOW BACK PAIN HX CORTISONE SHOTS IN BACK. HAD NERVES BURNT IN BACK. [id number] AGO PT FELL AND LANDED ON BACK AND HAS HAD BACK PAIN SINCE. NO PRIOR. COMPARISON: CT CT ABDOMEN PELVIS W CON from 10/30/2018 TECHNIQUE: Standard multiplanar multiecho sequences are performed without contrast. 3-D MIP and myelographic images are also rendered and reviewed FINDINGS: There is normal alignment. The spinal cord ends at the L1 level.. T11-T12: Degenerative disc disease with minimal bulging disc T12-L1: Degenerative disc disease. L1-L2: Degenerate disc disease with bulging disc with facet and ligamentum hypertrophy with mild bilateral foraminal narrowing. L2-L3: Degenerative disc disease with bulging disc along with moderate facet and ligamentum hypertrophy with a small broad-based left paracentral and foraminal disc protrusion. There is mild to moderate right foraminal narrowing and moderate to severe left foraminal narrowing with type 1 endplate changes at this level. L3-L4: Mild bulging disc with moderate facet and ligamentum hypertrophy. There is minimal right foraminal disc protrusion with moderate bilateral foraminal narrowing. There is borderline canal stenosis. L4-5: Concentric bulging disc with degenerative disc disease with facet and ligamentum hypertrophy with moderate bilateral foraminal narrowing. A sclerotic focus is present in the L4 vertebral body and may be due to a bone island. There is canal stenosis at this level with bilateral lateral recess narrowing. Small amount fluid is present in the facet joints with facet arthritic changes L5-S1: Severe degenerative disc disease with bulging disc with facet and ligamentum hypertrophy. Arthritic changes are present involving the facets with hypertrophy with severe bilateral foraminal narrowing No extruded herniated disc. There are bilateral renal cortical cysts. IMPRESSION: Multilevel lumbar spondylosis with bulging disc, degenerative disc disease, facet ligamentum hypertrophy with lateral recess and foraminal narrowing and canal stenosis. Please see above for detailed description at each level. Dictated by: Malik Mercedes MD 01/21/2020 18:33 Malik Mercedes MD in [facility] 01/21/2020 18:33
== END ==
PROVIDERS: PCP Internal Medicine Adolescent Medicine; Visit Provider Orthopaedic Surgery Adult Reconstructive Orthopaedic Surgery
DX: M54.5 Low back pain (principal)
CPT/HCPCS: 72148; 76376

== ENCOUNTER → 2020-10-26 09:24 | Outpatient (CLI) | payer MEDICARE, SELFPAY | PROVIDERS: Visit Provider Internal Medicine Adolescent Medicine | DX: R35.0 Frequency of micturition (principal) | CPT/HCPCS: 87086; 87088; 87186 ==

== ENCOUNTER → 2020-12-31 18:56 | Outpatient (CLI) | payer MEDICARE, SELFPAY ==
[2020-12-31 19:15] LABS: Hemoglobin A1C 5.9 % (4.0-6.0)
[2020-12-31 19:18] LABS: Alanine Aminotransferase 15 U/L (12-78); Albumin Level 4.1 g/dl (3.5-5.0); Albumin/Globulin Ratio 1.8 (1.1-1.8); Alkaline Phosphatase 52 U/L (38-126); Anion Gap 7.7 mEq/L (5-15); Aspartate Amino Transferase 29 U/L (17-59); Bilirubin,Total 0.9 mg/dl (0.2-1.3); Blood Urea Nitrogen 17 mg/dl (9-20); Calcium 9.2 mg/dl (8.4-10.2); Carbon Dioxide 34 mmol/L (22.0-30.0); Chloride 100 mmol/L (98-107); Chol/HDL Ratio 2.7 (1-3.5); Cholesterol 108 mg/dl (140-200); Estimated Glomerular Filt Rate 84 ml/min (>60); GFR (African American) 101 ML/MIN (>60); Globulin 2.3 g/dL (1.3-3.2); Glucose 145 mg/dl (74-100); HDL Cholesterol 40 mg/dl (40-60); Potassium 3.7 mmoL/L (3.5-5.1); Sodium 138 mmol/L (136-145); Total Protein,Serum 6.4 g/dl (6.3-8.2); Triglycerides 85 mg/dl (30-150); VLDL Cholesterol 17 mg/dL (0-40)
[2020-12-31 19:29] LABS: Direct LDL Cholesterol 80.67 mg/dL (100-129)
== END ==
PROVIDERS: Visit Provider Internal Medicine Adolescent Medicine
DX: I10 Essential (primary) hypertension (principal); E78.2 Mixed hyperlipidemia; Z79.899 Other long term (current) drug therapy
CPT/HCPCS: 80053; 80061; 83036

== ENCOUNTER → 2021-05-11 12:28 | Outpatient (CLI) | payer MEDICARE, SELFPAY | PROVIDERS: Visit Provider Internal Medicine Adolescent Medicine | DX: R30.0 Dysuria (principal) | CPT/HCPCS: 87086; 87088; 87186 ==

== ENCOUNTER 2022-04-22 00:02 | Emergency (ER) | payer MEDICARE, SELFPAY ==
[2022-04-22] VITALS (9 sets, daily range): BP systolic 160–176; BP diastolic 83–99; PULSE 74–84; RESP 16–20; TEMP 36.8–37.1; O2SAT 90–96; BMI 37.3; BMI 42.5
[2022-04-22 00:39] LABS: Microscopic, Urine URINE MICROSCOPIC (MICROSCOPIC)
--- NOTE | 2022-04-22 00:42 | PC.NURSE ---
Rounded on patient no concerns voiced at this time.
[2022-04-22 00:43] LABS: Appearance,Urine CLEAR (Clear); Basophils % 0.1 % (0.1-2.0); Bilirubin,Urine Negative (Negative); Blood, Urine TRACE-I (Negative); Color,Urine YELLOW (Yellow); Eosinophils # 0.2 K/mm3 (0.0-0.4); Eosinophils % 1.1 % (0.1-12.0); Glucose,Urine (UA) Negative (Negative); Hematocrit 42.2 % (42.0-52.0); Hemoglobin 14.3 g/dL (14.1-18.0); Ketones,Urine Negative (Negative); Leukocyte Esterase,Urine 1+ (Negative); Lymphocytes # 1.2 K/mm3 (0.7-4.5); Lymphocytes % 8.3 % (10-50); Mean Corpuscular HGB Conc 33.8 g/dL (31.8-35.4); Mean Corpuscular Hemoglobin 29.6 pg (27.0-31.2); Mean Corpuscular Volume 87.6 fl (80-94); Monocytes # 0.9 K/mm3 (0.1-1.0); Monocytes % 6.1 % (1.7-9.3); Neutrophils # 11.9 K/mm3 (1.8-7.8); Neutrophils % 84.3 % (37.0-80.0); Nitrate,Urine POSITIVE (Negative); PH,Urine 6.5 (5.0-8.5); Platelet Count 384 K/mm3 (142-424); Protein,Urine Negative (Negative); Red Blood Count 4.82 M/mm3 (4.60-6.20); Red Cell Distribution Width 13.4 % (11.5-17.5); White Blood Count 14.1 K/mm3 (4.8-10.8)
[2022-04-22 00:49] LABS: Chloride 97 mmol/L (98-107); Sodium 133 mmol/L (136-145)
[2022-04-22 00:50] LABS: Potassium 3.2 mmoL/L (3.5-5.1)
[2022-04-22 00:52] LABS: Alanine Aminotransferase 15 U/L (12-78); Alkaline Phosphatase 77 U/L (38-126); Aspartate Amino Transferase 22 U/L (17-59); Bilirubin,Total 1.4 mg/dl (0.2-1.3); Blood Urea Nitrogen 16 mg/dl (9-20); Creatinine Clearance Estimated 67 mL/min (50-200); Estimated Glomerular Filt Rate 96 ml/min (>60); GFR (African American) 116 ML/MIN (>60)
[2022-04-22 00:53] LABS: Albumin Level 3.4 g/dl (3.5-5.0); Albumin/Globulin Ratio 1.1 (1.1-1.8); Anion Gap 8.2 mEq/L (5-15); Calcium 8.4 mg/dl (8.4-10.2); Carbon Dioxide 31 mmol/L (22.0-30.0); Glucose 149 mg/dl (74-100); Total Protein,Serum 6.4 g/dl (6.3-8.2)
[2022-04-22 00:58] LABS: C-Reactive Protein 105.4 mg/L (0-4)
[2022-04-22 01:07] LABS: Bacteria,Urine 1+ /lpf
--- NOTE | 2022-04-22 01:12 | CT_ITS ---
PROCEDURE INFORMATION: Exam: CT Abdomen And Pelvis With Contrast Exam date and time: 04/22/2022 1:58 AM Age: 71 years old Clinical indication: Abdominal pain; Prior surgery; Additional info: Pain, hematuria, urinary retention TECHNIQUE: Imaging protocol: Computed tomography of the abdomen and pelvis with contrast. Radiation optimization: All CT scans at this facility use at least one of these dose optimization techniques: automated exposure control; mA and/or kV adjustment per patient size (includes targeted exams where dose is matched to clinical indication); or iterative reconstruction. Contrast material: ISOVUE; Contrast volume: 75 ml; Contrast route: IV; REPORTING DATA: Count of CT and Cardiac NM exams in prior 12 months: This patient has received 0 known CTs and 0 known cardiac nuclear medicine studies in the 12 months prior to the current study. COMPARISON: CT ABDOMEN PELVIS W CON 10/30/2018 5:10 AM FINDINGS: Liver: No acute findings. No mass. Gallbladder and bile ducts: The patient is status post cholecystectomy. Prominence of the common bile duct, not unexpected after cholecystectomy and not significantly changed. Pancreas: No acute findings, focal abnormality or ductal dilation. Spleen: No splenomegaly or focal abnormality. Adrenal glands: Normal. No mass. Kidneys and ureters: Simple appearing bilateral renal cysts. No enhancing renal lesion. No obstructive uropathy. There is subtle bilateral periureteral inflammatory changes, greater on the left. Stomach and bowel: No bowel obstruction or significant mucosal thickening. Appendix: No evidence of appendicitis. Intraperitoneal space: No free air. Trace free fluid in the left lower quadrant. Vasculature: No abdominal aortic aneurysm. Lymph nodes: No pathologically enlarged lymph nodes. Urinary bladder: Arvizu catheter in the urinary bladder. Diffusely thickened urinary bladder wall at least partially related to nondistention. Reproductive: Partially visualized bilateral hydroceles. Bones/joints: Status post right hip replacement. Multilevel degenerative changes in the spine, most severe at L5-S1 and L2-L3. No acute osseous findings. Soft tissues: Bilateral uncomplicated fat containing inguinal hernias. IMPRESSION: 1. No acute obstructive uropathy. 2. Subtle bilateral periureteral inflammatory changes, left greater than right. Consider urinary tract infection. 3. Arvizu catheter in the urinary bladder. Diffuse bladder wall thickening at least partially related to nondistention but cystitis and chronic outlet obstruction should be considered in the appropriate clinical circumstance. Further characterization with nonemergent ultrasound or cystography if clinically indicated. 4. Small bilateral partially visualized hydroceles are nonspecific. 5. Fat containing uncomplicated bilateral inguinal hernias. COMMENTS: Consistent with the [employer]'s Incidental Findings Committee white paper (J Am Yarely Radiol 2018): Any incidental renal lesion less than 1 cm or classified as too small to characterize, or any incidental cystic renal lesion characterized as simple-appearing, is likely benign. No follow-up imaging is recommended for these lesions per consensus recommendations based on imaging criteria.
[2022-04-22 01:16] LABS: Procalcitonin 0.066 ng/mL (0.0-2.0)
[2022-04-22 01:32] LABS: Erythrocyte Sedimentation Rate 62 mm/hr (0-20)
[2022-04-22 01:47] LABS: Lactic Acid 0.8 mmol/L (0.7-2.1)
--- NOTE | 2022-04-22 01:48 | PC.NURSE ---
patient gone to CT at this time.
--- NOTE | 2022-04-22 02:06 | PC.NURSE ---
patient back in room from [facility] at this time.
--- NOTE | 2022-04-22 03:13 | PC.NURSE ---
Rounded on patient, no concerns voiced at this time.
--- NOTE | 2022-04-22 03:44 | HMH.EDUROGM ---
Discharge Plan Disposition Patient Disposition: Home, Self-Care Prescriptions Prescriptions: New levofloxacin 500 mg tablet 500 mg PO DAILY Qty: 5 0RF No Action tamsulosin 0.4 mg capsule 0.4 mg PO DAILY carvedilol 3.125 mg tablet 6.25 mg PO BID indapamide 2.5 mg tablet 2.5 mg PO DAILY potassium chloride 10 mEq capsule, extended release 10 meq PO DAILY Qty: 30 5RF Rx Instructions: take one capsule by mouth once daily aspirin [Adult Low Dose Aspirin] 81 mg tablet,delayed release (DR/EC) 81 mg PO DAILY PRN (Reason: CAD) tadalafil [Cialis] 20 mg tablet 20 mg PO DAILY PRN (Reason: ED ) Rx Instructions: administer approximately 30min before sexual activity; do not use more than 1 dose per 24hrs atorvastatin 40 MG tablet 40 mg PO HS cyclobenzaprine 10 mg tablet 10 mg PO TIDP PRN (Reason: muscle relaxer) Label Comments: TAKE 1 TABLET BY MOUTH THREE TIMES DAILY NEEDED FOR PAIN tramadol 50 mg tablet 50 mg PO TIDP PRN (Reason: Pain) clopidogrel 75 mg tablet 75 mg PO DAILY Rx Instructions: TAKE ONE TABLET BY MOUTH ONCE A DAY lisinopril 40 mg tablet 40 mg PO BID Referrals Follow up/Referrals: Luc Jason MD [Primary Care Provider] - See instructions Clinical Impressions Clinical Impression: UTI (urinary tract infection), Lumbar radicular syndrome, Acute urinary retention Instructions Patient Instructions: DI for Urinary Tract Infection (UTI), DI for Urinary Retention in Men Discharge ED Provider: Angle (ED)Guillaume Male Urogenital HPI General Chief complaint: Urogenital-Male Stated complaint: Possible UTI Time Seen by Provider: 04/22/22 03:15 Mode of Arrival: Wheelchair Source of Information: Patient and Medical Record Limitations: No Limitations Description of Symptoms (Recalled from ER Triage Doc. by RN): pt c/o frequent urination with minimal output as well as, feeling like he is unable to void. pt thinks he has a UTI and reportedly had one two weeks ago. PVR 441ml pt also c/o some chronic lower back pain, pt scheduled for MRI Thursday. History of Present Illness HPI Narrative: pt with urinary sx and felt unable to void and presented to the ed - has hx of back pain and has radicular sx but no saddle parasthesia but some element of neurogenic claudication - back pain about same - no fever or rash Onset (ago): hour(s) Duration: intermittent Severity: moderate Reports urinary retention Related Data Home Medications Medication Instructions Recorded Confirmed atorvastatin 40 mg tablet 40 mg PO HS Cholesterol 10/30/18 04/22/22 tamsulosin 0.4 mg capsule 0.4 mg PO DAILY bph 01/31/19 04/22/22 carvedilol 3.125 mg tablet 6.25 mg PO BID High blood pressure 08/08/19 04/22/22 indapamide 2.5 mg tablet 2.5 mg PO DAILY . 08/08/19 04/22/22 tadalafil 20 mg tablet (Cialis) 20 mg PO DAILY PRN ED 02/28/20 04/22/22 aspirin 81 mg tablet,delayed 81 mg PO DAILY PRN CAD 08/28/20 04/22/22 release (Adult Low Dose Aspirin) clopidogrel 75 mg tablet 75 mg PO DAILY antiplatelet 04/22/22 04/22/22 cyclobenzaprine 10 mg tablet 10 mg PO TIDP PRN muscle relaxer 04/22/22 04/22/22 lisinopril 40 mg tablet 40 mg PO BID High blood pressure 04/22/22 04/22/22 tramadol 50 mg tablet 50 mg PO TIDP PRN Pain 04/22/22 04/22/22 Previous Rx's Medication Instructions Recorded potassium chloride 10 mEq 10 meq PO DAILY Supplement #30 caps 08/08/19 capsule,extended release levofloxacin 500 mg tablet 500 mg PO DAILY #5 tabs 04/22/22 Allergies Allergy/AdvReac Type Severity Reaction Status Date / Time cephalexin [From Keflex] Allergy Hives Verified 04/22/22 00:44 [facility] Disclaimer: The information contained in this section may have been updated after the patient was seen, as this information can be updated by other users. Social History Smoking Status: Never smoker alcohol intake: never substance use type: denies use cu
--- NOTE | 2022-04-22 04:09 | PC.NURSE ---
in room at this time.
--- NOTE | 2022-04-22 04:13 | PC.NURSE ---
Asked MD if patient would be able to have rocephin with cephalexin allergy. Apparent reaction per patient to cephalexin is a rash. MD states that they are safe.
== END 2022-04-22 04:58 | disposition home or self-care (01) ==
PROVIDERS: Emergency Provider Emergency Medicine; PCP Internal Medicine Adolescent Medicine
DX: N39.0 Urinary tract infection, site not specified (principal); R33.9 Retention of urine, unspecified
CPT/HCPCS: 51702; 72158; 74177; 76376; 80053; 81001; 83605; 84145; 85025; 85651; 86140; 87086; 87088; 87186; 96361; 96374; 96375; 99284; 99285; A9576; J0131; J0696; Q9967

== ENCOUNTER → 2022-04-22 12:52 | Outpatient (CLI) | payer MEDICARE, SELFPAY ==
--- NOTE | 2022-04-22 12:59 | MR_ITS ---
FINAL REPORT CLINICAL HISTORY: LOWER BACK PAIN , LESION NOTED L4 VERTEBRAL BODY ON CT weakness in both legs COMPARISON: January 19, 2020 FINDINGS: Multiplanar MR imaging of the lumbar spine was performed without and with contrast. On the sagittal T2-weighted images, disc degeneration is seen throughout. The vertebral alignment is normal. There is no evidence of fracture. There is a presumed hemangioma in L3. There are multiple other small masses in the lumbar vertebrae that are stable and likely benign. There is severe endplate change at multiple levels but greatest at L4-L5. Findings have significantly progressed. There is contrast enhancement of the L4-L5 endplates. The spite the contrast enhancement severe degenerative change of the endplates is favored over osteomyelitis. Correlate clinically. The conus has an unremarkable appearance. L1-2: There is an annular bulge, facet arthropathy, and vertebral osteophytes. There is moderate bilateral neural foraminal narrowing. L2-3: There is an annular bulge, facet arthropathy, and vertebral osteophytes. A right paracentral disc protrusion indents the thecal sac. There is moderate central canal stenosis with an AP thecal sac diameter of 6 mm. There is moderate right and severe left neural foraminal narrowing. L3-4: There is an annular bulge, facet arthropathy, and vertebral osteophytes. There is moderate right and severe left neural foraminal narrowing. There is moderate central canal stenosis with an AP thecal sac diameter of 6 mm. L4-5: There is an annular bulge, facet arthropathy, and vertebral osteophytes. There is moderate central canal stenosis with an AP thecal sac diameter of 6 mm. There is severe bilateral neural foraminal narrowing. L5-S1: There is an annular bulge, facet arthropathy, and vertebral osteophytes. There is partial lumbarization of S1. There is moderate right and severe left neural foraminal narrowing. IMPRESSION: Overall progression of degenerative change with severe, worsening endplate change and contrast enhancement at L4-L5. Findings at L4-L5 favor severe degenerative endplate change attendant osteomyelitis. Right paracentral disc protrusion at L2-L3 indents the thecal sac. Multilevel areas of neural foraminal narrowing and central canal stenosis. Presumed hemangioma in L3 with multiple other small stable masses which are likely benign. Reviewed, Interpreted and Dictated by Rod Taylor III, MD Transcribed by Misael Gupta Authenticated and [facility]
== END ==
PROVIDERS: PCP Internal Medicine Adolescent Medicine; Visit Provider Orthopaedic Surgery Adult Reconstructive Orthopaedic Surgery
DX: M54.50 Low back pain, unspecified (principal)
CPT/HCPCS: 72158; 76376; A9576

== ENCOUNTER → 2022-05-19 10:48 | Outpatient (CLI) | payer MEDICARE, SELFPAY ==
[2022-05-19 12:07] LABS: Basophils % 0.3 % (0.1-2.0); Eosinophils # 0.2 K/mm3 (0.0-0.4); Eosinophils % 2.6 % (0.1-12.0); Hematocrit 43.5 % (42.0-52.0); Hemoglobin 13.8 g/dL (14.1-18.0); Lymphocytes # 1.4 K/mm3 (0.7-4.5); Lymphocytes % 19.1 % (10-50); Mean Corpuscular HGB Conc 31.8 g/dL (31.8-35.4); Mean Corpuscular Hemoglobin 28.3 pg (27.0-31.2); Mean Corpuscular Volume 89.1 fl (80-94); Mean Platelet Volume 7.5 fl (7.4-10.4); Monocytes # 0.4 K/mm3 (0.1-1.0); Monocytes % 5.9 % (1.7-9.3); Neutrophils # 5.2 K/mm3 (1.8-7.8); Neutrophils % 72.1 % (37.0-80.0); Platelet Count 222 K/mm3 (142-424); Red Blood Count 4.89 M/mm3 (4.60-6.20); Red Cell Distribution Width 13.9 % (11.5-17.5); White Blood Count 7.2 K/mm3 (4.8-10.8)
[2022-05-19 12:25] LABS: Alanine Aminotransferase 15 U/L (12-78); Albumin Level 3.4 g/dl (3.5-5.0); Albumin/Globulin Ratio 1.5 (1.1-1.8); Alkaline Phosphatase 81 U/L (38-126); Anion Gap 8.8 mEq/L (5-15); Aspartate Amino Transferase 26 U/L (17-59); Bilirubin,Total 0.8 mg/dl (0.2-1.3); Blood Urea Nitrogen 11 mg/dl (9-20); Calcium 8.6 mg/dl (8.4-10.2); Carbon Dioxide 31 mmol/L (22.0-30.0); Chloride 100 mmol/L (98-107); Estimated Glomerular Filt Rate 111 ml/min (>60); GFR (African American) 135 ML/MIN (>60); Globulin 2.3 g/dL (1.3-3.2); Glucose 121 mg/dl (74-100); Potassium 3.8 mmoL/L (3.5-5.1); Sodium 136 mmol/L (136-145); Total Protein,Serum 5.7 g/dl (6.3-8.2)
== END ==
PROVIDERS: PCP Internal Medicine Adolescent Medicine; Visit Provider Nurse Practitioner Family
DX: N30.00 Acute cystitis without hematuria (principal)
CPT/HCPCS: 36415; 80053; 85025

== ENCOUNTER → 2022-05-20 15:28 | Outpatient (CLI) | payer MEDICARE, SELFPAY ==
--- NOTE | 2022-05-20 15:37 | CT_ITS ---
FINAL REPORT TECHNIQUE: Axial images through the abdomen and pelvis were performed without contrast. This study was performed with techniques to keep radiation doses as low as reasonably achievable, (ALARA). Individualized dose reduction techniques using automated exposure control or adjustment of mA and/or kV according to the patient's size were employed. CLINICAL HISTORY: HEMATURIA COMPARISON: 04/22/2022 FINDINGS: ABDOMEN: The lung bases are clear. The heart size is normal. There is a low-attenuation area in the left lobe of the liver with known portal vein to hepatic vein shunt. The liver is otherwise homogeneous. The gallbladder is absent. There are scattered calcifications throughout the pancreas, probably due to chronic pancreatitis. The spleen is normal. No adrenal mass is identified. The aorta is normal in caliber. There is no significant free fluid or adenopathy. There are benign-appearing cysts in both kidneys. Individual cysts measure up to 3.2 cm in diameter. Multiple exophytic foci are seen arising from the lateral aspect of the left kidney, probably due to small cysts. There may be a tiny nonobstructing stone in the lower pole of the left kidney. There is no hydronephrosis. PELVIS: The appendix is normal. Streak artifact is seen from right hip prosthesis. There are small cysts arising from the wall of the urinary bladder. There is no significant free fluid or adenopathy. IMPRESSION: Chronic pancreatitis. Stable benign-appearing cysts in both kidneys. Nonobstructing left renal stone. Reviewed, Interpreted and Dictated by Bernard Taveras MD Transcribed by Shante Mejia Authenticated and [facility]
== END ==
PROVIDERS: PCP Internal Medicine Adolescent Medicine; Visit Provider Nurse Practitioner Family
DX: R31.9 Hematuria, unspecified (principal)
CPT/HCPCS: 74176

== ENCOUNTER → 2022-09-01 09:45 | Outpatient (CLI) | payer MEDICARE, SELFPAY ==
[2022-09-01 11:14] LABS: Alanine Aminotransferase 14 U/L (12-78); Albumin Level 4.1 g/dl (3.5-5.0); Albumin/Globulin Ratio 1.7 (1.1-1.8); Alkaline Phosphatase 56 U/L (38-126); Anion Gap 9.6 mEq/L (5-15); Aspartate Amino Transferase 25 U/L (17-59); Bilirubin,Total 1.2 mg/dl (0.2-1.3); Blood Urea Nitrogen 15 mg/dl (9-20); Calcium 9.4 mg/dl (8.4-10.2); Carbon Dioxide 36 mmol/L (22.0-30.0); Chloride 98 mmol/L (98-107); Estimated Glomerular Filt Rate 83 ml/min (>60); GFR (African American) 101 ML/MIN (>60); Globulin 2.4 g/dL (1.3-3.2); Glucose 106 mg/dl (74-100); Lipase 189 U/L (23-300); Potassium 3.6 mmoL/L (3.5-5.1); Sodium 140 mmol/L (136-145); Total Protein,Serum 6.5 g/dl (6.3-8.2); Triglycerides 103 mg/dl (30-150)
[2022-09-01 13:36] LABS: Basophils % 0.4 % (0.1-2.0); Eosinophils # 0.4 K/mm3 (0.0-0.4); Eosinophils % 5.4 % (0.1-12.0); Hematocrit 45.4 % (42.0-52.0); Hemoglobin 14.8 g/dL (14.1-18.0); Lymphocytes # 1.9 K/mm3 (0.7-4.5); Lymphocytes % 27.9 % (10-50); Mean Corpuscular HGB Conc 32.5 g/dL (31.8-35.4); Mean Corpuscular Hemoglobin 28.9 pg (27.0-31.2); Mean Corpuscular Volume 88.8 fl (80-94); Monocytes # 0.6 K/mm3 (0.1-1.0); Monocytes % 7.9 % (1.7-9.3); Neutrophils # 4.1 K/mm3 (1.8-7.8); Neutrophils % 58.4 % (37.0-80.0); Platelet Count 202 K/mm3 (142-424); Red Blood Count 5.12 M/mm3 (4.60-6.20); White Blood Count 6.9 K/mm3 (4.8-10.8)
[2022-09-02 16:05] LABS: IgG, Subclass 1 543 mg/dL (248-810); IgG, Subclass 2 222 mg/dL (130-555); IgG, Subclass 3 32 mg/dL (15-102); IgG, Subclass 4 9 mg/dL (2-96)
[2022-09-27 11:54] LABS: Phosphatidylethanol (PEth) NEGATIVE
== END ==
PROVIDERS: Physician Assistant; PCP Nurse Practitioner Family; Visit Provider Nurse Practitioner Family
DX: K86.1 Other chronic pancreatitis (principal); Z79.899 Other long term (current) drug therapy; Z71.41 Alcohol abuse counseling and surveillance of alcoholic
CPT/HCPCS: G0480; 36415; 80053; 80321; 82787; 83690; 84478; 85025

== ENCOUNTER 2023-03-04 10:00 | Outpatient (RCR) | payer MEDICARE, SELFPAY | END 2023-03-04 11:00 | disposition home or self-care (01) | LOC: PT 10:00 | PROVIDERS: PCP Nurse Practitioner Family; Visit Provider Orthopaedic Surgery | DX: M48.061 Spinal stenosis, lumbar region without neurogenic claudication (principal) | CPT/HCPCS: 97110; 97163; 97530; 97535 ==

== ENCOUNTER 2023-04-01 12:00 | Outpatient (CLI) | payer MEDICARE, SELFPAY ==
[2023-04-01 12:15] LABS: Basophils % 0.3 % (0.1-2.0); Eosinophils # 0.2 K/mm3 (0.0-0.4); Eosinophils % 3.5 % (0.1-12.0); Hematocrit 42.9 % (42.0-52.0); Hemoglobin 15.1 g/dL (14.1-18.0); Lymphocytes # 2.1 K/mm3 (0.7-4.5); Lymphocytes % 29.9 % (10-50); Mean Corpuscular HGB Conc 35.2 g/dL (31.8-35.4); Mean Corpuscular Hemoglobin 30.3 pg (27.0-31.2); Mean Corpuscular Volume 86.1 fl (80-94); Mean Platelet Volume 7.9 fl (7.4-10.4); Monocytes # 0.4 K/mm3 (0.1-1.0); Monocytes % 5.5 % (1.7-9.3); Neutrophils # 4.2 K/mm3 (1.8-7.8); Neutrophils % 60.8 % (37.0-80.0); Platelet Count 201 K/mm3 (142-424); Red Blood Count 4.99 M/mm3 (4.60-6.20); Red Cell Distribution Width 14.5 % (11.5-17.5); White Blood Count 6.9 K/mm3 (4.8-10.8)
[2023-04-01 13:02] LABS: Alanine Aminotransferase 21 U/L (12-78); Albumin Level 4.3 g/dl (3.5-5.0); Albumin/Globulin Ratio 1.9 (1.1-1.8); Alkaline Phosphatase 58 U/L (38-126); Anion Gap 10.7 mEq/L (5-15); Aspartate Amino Transferase 36 U/L (17-59); Bilirubin,Total 1.1 mg/dl (0.2-1.3); Blood Urea Nitrogen 22 mg/dl (9-20); Calcium 9.6 mg/dl (8.4-10.2); Carbon Dioxide 31 mmol/L (22.0-30.0); Chloride 103 mmol/L (98-107); Chol/HDL Ratio 3.6 (1-3.5); Cholesterol 135 mg/dl (140-200); Estimated Glomerular Filt Rate 66 ml/min (>60); GFR (African American) 80 ML/MIN (>60); Globulin 2.3 g/dL (1.3-3.2); Glucose 90 mg/dl (74-100); HDL Cholesterol 37 mg/dl (40-60); Potassium 3.7 mmoL/L (3.5-5.1); Sodium 141 mmol/L (136-145); Total Protein,Serum 6.6 g/dl (6.3-8.2); Triglycerides 116 mg/dl (30-150); VLDL Cholesterol 23 mg/dL (0-40)
[2023-04-01 13:12] LABS: Direct LDL Cholesterol 73.64 mg/dL (100-129)
== END 2023-04-01 23:59 ==
PROVIDERS: PCP Internal Medicine; Visit Provider Internal Medicine
DX: I21.11 ST elevation (STEMI) myocardial infarction involving right coronary artery (principal); I25.10 Atherosclerotic heart disease of native coronary artery without angina pectoris; I10 Essential (primary) hypertension; E78.2 Mixed hyperlipidemia; R60.0 Localized edema; E66.9 Obesity, unspecified; Z68.35 Body mass index [BMI] 35.0-35.9, adult; Z79.899 Other long term (current) drug therapy
CPT/HCPCS: 36415; 80053; 80061; 85025

== ENCOUNTER 2023-05-29 15:25 | Outpatient (CLI) | payer MEDICARE, SELFPAY ==
--- NOTE | 2023-05-29 15:25 | CT_ITS ---
FINAL REPORT CLINICAL HISTORY: dizziness COMPARISON: None FINDINGS: Axial images of the head were obtained without contrast. Coronal and sagittal reformatted images were also obtained. This study was performed with techniques to keep radiation doses as low as reasonably achievable (ALARA). Individualized dose reduction techniques using automated exposure control or adjustment of mA and/or kV according to the patient's size were employed. There is mild generalized age appropriate atrophy. There is no evidence of intracranial hemorrhage or mass. The ventricular size is within normal limits. There is no evidence of shift of the midline structures. No skull abnormality is seen on the bone window images. IMPRESSION: No acute intracranial abnormality. Reviewed, Interpreted and Dictated by Rod Taylor III, MD Transcribed by Maya Quintanilla Authenticated and [facility]
== END 2023-05-29 23:59 | disposition home or self-care (01) ==
LOC: RAD 15:25
PROVIDERS: PCP Internal Medicine; Visit Provider Nurse Practitioner
DX: R42 Dizziness and giddiness (principal)
CPT/HCPCS: 70450

== ENCOUNTER 2023-06-02 14:16 | Outpatient (CLI) | payer MEDICARE, SELFPAY | END 2023-06-02 23:59 | disposition home or self-care (01) | LOC: RT 14:17 | PROVIDERS: PCP Internal Medicine; Visit Provider Nurse Practitioner | DX: R42 Dizziness and giddiness (principal); M54.9 Dorsalgia, unspecified; G89.29 Other chronic pain; R94.31 Abnormal electrocardiogram [ECG] [EKG]; R06.00 Dyspnea, unspecified | CPT/HCPCS: 93270 ==

== ENCOUNTER 2023-06-04 13:11 | Outpatient (CLI) | payer MEDICARE, SELFPAY ==
[2023-06-04 13:51] LABS: Creatinine,Urine Random 49 mg/dL (Not Estab.)
[2023-06-04 13:54] LABS: Microalbumin/Creatinine Ratio 74.4
[2023-06-04 14:06] LABS: Anion Gap 11.7 mEq/L (5-15); Blood Urea Nitrogen 17 mg/dl (9-20); Calcium 9.5 mg/dl (8.4-10.2); Carbon Dioxide 31 mmol/L (22.0-30.0); Chloride 102 mmol/L (98-107); Estimated Glomerular Filt Rate 74 ml/min (>60); GFR (African American) 89 ML/MIN (>60); Glucose 127 mg/dl (74-100); Potassium 3.7 mmoL/L (3.5-5.1); Sodium 141 mmol/L (136-145)
[2023-06-04 14:17] LABS: NT Pro Brain Natriuretic Pep. 885 pg/mL (0-125)
== END 2023-06-04 23:59 | disposition home or self-care (01) ==
LOC: LAB.DROPOF 13:12
PROVIDERS: PCP Internal Medicine; Visit Provider Internal Medicine
DX: R79.89 Other specified abnormal findings of blood chemistry; I50.9 Heart failure, unspecified; I11.0 Hypertensive heart disease with heart failure
CPT/HCPCS: 80048; 82043; 82570; 83880

== ENCOUNTER 2023-06-16 11:42 | Outpatient (CLI) | payer MEDICARE, SELFPAY ==
--- NOTE | 2023-06-16 | CA_ITS ---
APPROVED REPORT Exam: Pharmacologic Technologist: Funmi Fairchild, Ht: 5 ft 7 in Wt: 233 lbs BSA: 2.16 m2 HR: 69 bpm BP: 211/108 mmHg Medical History Medications: Lisinopril,,,,, Gabapentin,,,,, Atorvastatin,,,,, Carvedilol,,,,, TAMSULOSIN,,,,, Tylenol,,,,, Montelukast,,,,, CloPIdogrel,,,,, Meclizine,,,,, INdapamide,,,,, CiALIS,,,,, Cardiac Risk Factors: HTN, Hyperlipidemia, FHX of CAD Stress Test Details Test: LEXISCAN HR Resting HR: 69 bpm Max Heart Rate (APMHR): 149 bpm Max HR Achieved: 104 bpm Target HR (85% APMHR): 127 bpm % of APMHR: 70 Recovery HR: 86 bpm BP Resting BP: 211/108 mmHg Max BP: 214/114 mmHg Recovery BP: 200.0/118.0 mmHg ECG Resting ECG: Normal sinus rhythm, frequent PACs, atrial runs Stress ECG: Significant ST changes Arrhythmia: PACs, atrial runs, PVCs Clinical Exercise duration: 04:43 min Highest Stage Achieved: Stress ECG Conclusion The patient's blood pressure is noted to be elevated at baseline, for which she underwent pharmacologic stress testing. During lexiscan pt experinced dyspnea and dizziness. PACs and PVCs noted. Ectopy: PACs, PVCs, atrial runs ST changes: No significant ST changes. Conclusion: EKG portion unremarkable related to lexiscan infusion. Myoview images reported separately. Test Summary REST . . . . . . . Sitting REST 05:06 . . 69 . 211/108 . . Stage 1 . . . . . . . Myoview Injected Stage 1 01:00 . . 83 . . . . Stage 2 01:00 . . 87 . 204/ 99 . . Stage 3 01:00 . . 89 . 183/110 . . Stage 4 01:00 . . 82 . 211/ 99 . . Stage 4 01:43 . . 76 . 211/ 99 . Stop exercise at 04:43 RECOVERY 01:00 . . 83 . 214/114 . . RECOVERY 02:00 . . 81 . 214/114 . . RECOVERY 03:00 . . 82 . 200/118 . . RECOVERY 04:00 . . 79 . 200/118 . . RECOVERY 05:00 . . 79 . 200/118 . . RECOVERY 06:00 . . 74 . 210/117 . . RECOVERY 07:00 . . 76 . 210/117 . . RECOVERY 08:00 . . 76 . 210/117 . . RECOVERY 08:29 . . 69 . 210/117 . . Electronically signed by : Sylvia Ortiz MD 06/18/2023 14:26:50
--- NOTE | 2023-06-16 11:42 | NM_ITS ---
APPROVED REPORT Exam: Nuclear Stress Test Indication: CAD, 6 STENTS, H/O [place], HTN, HYPERLIPIDEMIA, FM HX, SOB, FATIGUE Patient Location: Outpatient Stress Tech: Funmi [facility] Tech:Shirley Elena, ARRT, RT (R)(N) Ht: 5 ft 7 in Wt: 230 lbs HR: 69 bpm BP: 211/108 mmHg BSA: 2.15 m2 TID: 1.08 BMI: 36.0 History: CAD, 6 STENTS, H/O [place], HTN, HYPERLIPIDEMIA, FM HX, SOB, FATIGUE PT WAS UNABLE TO LAY ON STOMACH FOR PRONE IMAGES Procedure: Patient received 0.0 mg of intravenous Lexiscan, resting heart rate 69 bpm, resting blood pressure 211/108 mmHg, with Lexiscan maximum heart rate achieved was 104 bpm which is % of the maximum predicted heart rate and blood pressure was 214/114 mmHg. With Lexiscan, patient denied any complaint of chest pain. Cardiac Stress and Resting SPECT Images: Cardiac Stress and Resting SPECT images were obtained using technetium 99m Myoview 30.7 mCi stress and 10.51 mCi at rest. The patient is unable to lie on his abdomen. Therefore, prone stress imaging could not be performed. This may affect the diagnostic interpretation of the study findings. Resting and stress imaging in supine positions demonstrate a large sized, severe, fixed perfusion defect in the basal to mid inferior LV wall. Gated imaging demonstrates moderate reduction in global LV systolic function. There is akinesis of the basal to mid inferior LV wall. LVEF is calculated at 38%. Conclusion: Large sized, severe, fixed perfusion defect in the basal to mid inferior LV wall. No evidence of reversible ischemia. Gated imaging demonstrates moderate reduction in global LV systolic function. There is akinesis of the basal to mid inferior LV wall. LVEF is calculated at 38%. Electronically signed by : Sylvia Ortiz MD 06/18/2023 14:28:39
--- NOTE | 2023-06-16 12:46 | CA_ITS ---
APPROVED REPORT EXAM: Comprehensive 2D, Doppler, and color-flow Echocardiogram Tree Girdler: Olivia Woodson CRT Ht: 5 ft 7 in Wt: 234lbs BSA: 2.16 BP: 156/84 mmHg Indications: Abnormal ECG, Peripheral Edema, CAD, Hyperlipidemia, Hypertension/HDD 2D Dimensions LA Volume 83.30 mL LA Volume Index 38.56 mL/m2 (M/F) 16-34 M-Mode Dimensions RVDd 2.89 cm (0.9-2.6) LA Diam 4.62 cm (1.9-4.0) LVDd 5.10 cm (3.5-5.7) LVDs 3.57 cm (3.5-5.7) IVSd 1.87 cm (0.6-1.1) PWd 1.23 cm (0.6-1.1) EF (Teich) 56.90% FS 30.00% EDV (Teich) 123.80 mL TAPSE 3.02 (<1.7) ESV (Teich) 53.30 mL LV Diastology E Decel Time 200 (160-240 msec) E/A Ratio 1.1 MED A' 10.70 cm/s LAT A' 10.10 cm/s Aortic Valve AI PHT 506.00 ms AO Peak GR. 24.70 mmHg Mitral Valve MV E Max Andrea. 115.0 (40-130 cm/s) MV A Velocity 103.0 (40-130 cm/s) E/A Ratio 1.11 MV PHT 59.0 ms Pulmonary Valve PV Peak Velocity 145.0 (50-150 cm/s) Tricuspid Valve TR P. Velocity 403.00 cm/s RAP Estimate 10.00 mmHg RVSP 74.90 mmHg Left Ventricle The left ventricle is normal size. LVEDd=5.6 cm. LVESd=3.7 cm. The left ventricular systolic function is normal. The left ventricular ejection fraction is within the normal range. There is increased LV wall thickness. There is normal LV segmental wall motion. Transmitral Doppler flow pattern suggests impaired LV relaxation. LVEF is 50-55%. Right Ventricle The right ventricle is normal size. The right ventricular systolic function is normal. Atria Left atrium is mildly dilated. The right atrium size is normal. There is no Doppler evidence of interatrial shunt. Aortic Valve The aortic valve opens well. There is no aortic valvular stenosis. Mild aortic regurgitation. Mitral Valve The mitral valve is normal in structure. No evidence of mitral valve stenosis. Trace mitral valve regurgitation. Tricuspid Valve The tricuspid valve leaflets are thin and pliable. Trace tricuspid regurgitation. RVSP is 25-30 mmHg. Pulmonic Valve The pulmonary valve is normal in structure. Trace pulmonic regurgitation. Great Vessels The aortic root is normal in size. The ascending aorta is not well visualized. IVC is normal in size and collapses >50% with inspiration. Pericardium There is no pericardial effusion. Other Information Study Quality: Fair Conclusion Normal biventricular size and systolic function. Mild LA dilation. Mild AI. Electronically signed by : Sylvia Ortiz MD 06/21/2023 16:01:15
[2023-06-16] MEDS: SODIUM CHLORIDE 0.9% 10ML SYR (RAD ONLY) 10 ML IV ×2 (13:41)
[2023-06-16] MEDS: ISOTOPE MYOVIEW (PER STUDY) 1 DOSE IV (13:41)
[2023-06-16] MEDS: REGADENOSON 0.4MG/5ML SYRINGE 0.400000000000000022 MG IV (13:41)
[2023-06-16] MEDS: cloNIDine 0.1MG TABLET 0.100000000000000006 MG PO (14:27)
== END 2023-06-16 23:59 | disposition home or self-care (01) ==
LOC: RAD 11:42
PROVIDERS: PCP Internal Medicine; Visit Provider Nurse Practitioner
DX: R94.31 Abnormal electrocardiogram [ECG] [EKG] (principal); M54.9 Dorsalgia, unspecified; G89.29 Other chronic pain; R06.00 Dyspnea, unspecified; R42 Dizziness and giddiness
CPT/HCPCS: 78452; 93017; 93018; 93306; A9502; J2785

== ENCOUNTER 2023-07-07 11:04 | Day surgery (SDC) | payer MEDICARE, SELFPAY ==
[2023-07-07] VITALS (11 sets, daily range): BP systolic 123–198; BP diastolic 84–95; PULSE 67–90; RESP 16–21; TEMP 36.2–36.7; O2SAT 93–96; BMI 36.8
--- NOTE | 2023-07-07 07:18 | IR_ITS ---
APPROVED REPORT Patient Location: Outpatient PROCEDURES 1. Pocket formation for Permanent Pacemaker Placement. 2. Placement of an atrial sensing and pacing coil into the right atrial appendage. 3. Placement of a ventricular sensing and pacing coil in the right ventricular apex. 4. Permanent Pacemaker Placement. INDICATION Sick sinus syndrome Informed consent was obtained prior to the procedure. COMPLICATIONS NONE Estimated Blood Loss: LESS THAN 10 ML TECHNIQUE 1% Lidocaine with epinephrine used to anesthetized the left anterior aspect of the chest. Scalpel was used to make the initial cutaneous incision while electrocautery was used to dissect down tinto the fascia. The fascia was lifted off the pectoralis muscle and digitally manipulated creating a pocket for the pacemaker. The patient was then placed in Trendelenburg position and the subclavian vein was accessed twice via the Selinger technique, there are two wires in the vein. A 6 Trinidadian sheath was placed under fluoroscopic guidance into the subclavian vein over one of the wires while keeping the other wire in place within the subclavian vein. The dilator was removed from the sheath. Using fluoroscopic guidance, the ventricular lead was placed into the right ventricular apex, screwed and secured into place. Electronic interrogation proved acceptable thresholds and voltage within the lead. Using 3-0 silk, the ventricular lead was then secured into place. Lead was secured to the facia using the 3-0 silk. Following this, the sheath was pealed away. An additional 6 Trinidadian fresh sheath and dilator was placed over the existing wire. Using fluoroscopic guidance, the atrial lead was the placed into the right atrial appendage and screwed and secured in place. Electrical interrogation demonstrated acceptable thresholds and voltage number. The atrial lead was then secured into place using 3-0 silk. 1 gram of Ancef was used to flush the pocket. Following the pacemaker generator being secured to the fascia and in place, Monocryl was used to close the subcutaneous layers while ezio were used to close the cutaneous layer. A pressure dressing was placed and the patient was transferred to the postop holding area in stable condition for postoperative care. INTERROGATION Generator Model number: Tmaara DIAZ [id number] Generator Serial number: [id number] Atrial lead model number: Tendril STS [id number] Atrial lead serial number: [id number] P-wave: 0.4mV Impedance: 440 Ohms Threshold: Right Ventricular lead model number: Shayy STS [id number] Right Ventricular lead serial number: [id number] R-wave: >12.0mV Impedance: 680 Ohms Threshold: 0.5V@0.4ms Pacing Parameters: Mode: DDDR Base/Max Track:60 ppm / 130 ppm No diaphragmatic stimulation at 10 volts. IMPRESSION 1. Successful pocket formation for Permanent Pacemaker Placement. 2. Successful placement of an atrial sensing and pacing coil into the right atrial appendage. 3. Successful placement of a ventricular sensing and pacing coil in the right ventricular apex. 4. Successful permanent Pacemaker Placement. PLAN 1. Postop wound care. Electronically signed by : Rory Correa MD 07/09/2023 10:34:33
[2023-07-07 11:30] LABS: Chloride 103 mmol/L (98-107); Sodium 141 mmol/L (136-145)
[2023-07-07 11:31] LABS: Potassium 3.4 mmoL/L (3.5-5.1)
[2023-07-07 11:33] LABS: Blood Urea Nitrogen 19 mg/dl (9-20); Estimated Glomerular Filt Rate 74 ml/min (>60); GFR (African American) 89 ML/MIN (>60)
[2023-07-07 11:34] LABS: Anion Gap 11.4 mEq/L (5-15); Calcium 9.5 mg/dl (8.4-10.2); Carbon Dioxide 30 mmol/L (22.0-30.0); Glucose 122 mg/dl (74-100)
--- NOTE | 2023-07-07 14:12 | P.PNANES_ITS ---
[facility] Disclaimer: The information contained in this section may have been updated after the patient was seen, as this information can be updated by other users. Medical History Paroxysmal A-fib Sick sinus syndrome Tachy-devonte syndrome Heart failure Surgical History H/O removal of cyst History of tonsillectomy and adenoidectomy Hx of cholecystectomy History of total right hip replacement History of back surgery Family History Mother Cancer colon cancer metastasized to liver and other organs Father Coronary artery disease Stroke Heart attack Sister Alcoholism Lupus Social History (Updated 07/07/23 @ 12:12 by Mary Gill RN) Smoking Status: Never smoker alcohol intake: current alcohol intake frequency: a few times a month substance use type: denies use current occupational status: other Travel in the last 8 weeks: None household members: other housing: other caffeine: Yes (couple cups of coffee) [facility] Anesthesia Checklist Patient Identification Patient Identification: Arm Band and Verbal (Name & ) Structural Data Admitted From: Home Planned Operative Procedure/s: Dual Chamber PPM Consent for Planned Operative Procedure(s) Verified: Yes Verified Documents: Surgical Consent and History and Physical NPO Status Verified Time NPO: 08:00 Chart Verification Results Verified: CBC, BMP, ECG and Chest Xray Additional verifications Patient : No Anesthesia Reactions: No Cardiovascular Assessment Pulse Rhythm: Irregular Peripheral Edema: No Airway Assessment Mallampati Score:: Class II C-Spine Mobility Assessed: Yes (FROM) TMJ Mobility Assessed: Yes Dentition: Good Dentition (Top front permanent bridge intact. Nothing loose per pt.) Neurological Assessment Level of Consciousness: Awake, Alert, Appropriate and Follows Commands Hx Seizures: No Numbness or tingling in extremities: No Anesthesia Plan Anesthesia Risk discussed: Yes Anesthesia Plan: Verified ASA Class: III Anesthesia Type: MAC
[2023-07-07 14:20] LABS: Basophils % 0.4 % (0.1-2.0); Eosinophils # 0.3 K/mm3 (0.0-0.4); Eosinophils % 3.8 % (0.1-12.0); Hematocrit 40.8 % (42.0-52.0); Hemoglobin 14.2 g/dL (14.1-18.0); Lymphocytes # 1.8 K/mm3 (0.7-4.5); Lymphocytes % 24.9 % (10-50); Mean Corpuscular HGB Conc 34.7 g/dL (31.8-35.4); Mean Corpuscular Hemoglobin 30.9 pg (27.0-31.2); Mean Corpuscular Volume 89.1 fl (80-94); Mean Platelet Volume 8.1 fl (7.4-10.4); Monocytes # 0.6 K/mm3 (0.1-1.0); Monocytes % 7.7 % (1.7-9.3); Neutrophils # 4.5 K/mm3 (1.8-7.8); Neutrophils % 63.1 % (37.0-80.0); Platelet Count 201 K/mm3 (142-424); Red Blood Count 4.58 M/mm3 (4.60-6.20); Red Cell Distribution Width 14.4 % (11.5-17.5); White Blood Count 7.2 K/mm3 (4.8-10.8)
--- NOTE | 2023-07-07 15:31 | XR_ITS ---
FINAL REPORT CLINICAL HISTORY: Post pacemaker COMPARISON: None FINDINGS: A single portable view of the chest was obtained. An atrioventricular pacemaker is present with ezio adjacent to the pacemaker. The mediastinum is within normal limits. No acute pulmonary abnormality is identified. Mild chronic changes of the lung bases are present. There is no evidence of pneumothorax. The bony thorax is intact. IMPRESSION: No active cardiopulmonary disease. Reviewed, Interpreted and Dictated by Bernard Taveras MD Transcribed by Maya Quintanilla Authenticated and . [facility]
--- NOTE | 2023-07-07 15:35 | P.PNANES_ITS ---
[facility] Anesthesia Record Part I Anesthesia Record I Intake, IV Amount: 500 Hydration: Adequate Estimated blood loss (mL): 25 Urine output (mL): 0 Blood Products used (#): none Blood Pressure: 123/84 SaO2: 94 Pulse Rate: 67 Airway Patency: Patent Respiratory Rate: 16 Temperature: 97.2 F Patient is:: Awake (Talking) and Stable Stable to PACU at:: 15:35
== END 2023-07-07 17:54 | disposition home or self-care (01) ==
PROVIDERS: PCP Internal Medicine; Visit Provider Internal Medicine
DX: I49.5 Sick sinus syndrome (principal); R94.31 Abnormal electrocardiogram [ECG] [EKG]; E66.9 Obesity, unspecified; I25.10 Atherosclerotic heart disease of native coronary artery without angina pectoris; E78.2 Mixed hyperlipidemia; R60.0 Localized edema; I45.5 Other specified heart block; I48.0 Paroxysmal atrial fibrillation; Z79.899 Other long term (current) drug therapy; Z68.36 Body mass index [BMI] 36.0-36.9, adult; I10 Essential (primary) hypertension; E78.5 Hyperlipidemia, unspecified
CPT/HCPCS: 33208; 36415; 71045; 80048; 85025; C1785; C1898

== ENCOUNTER 2023-07-30 10:00 | Outpatient (RCR) | payer MEDICARE, SELFPAY ==
--- NOTE | 2023-06-19 12:11 | HMH.PTOPWND ---
Rehab Outpt Wound Evaluation Rehab OP Wound Evaluation Start: 06/19/23 11:59 Freq: Status: Active Protocol: Document 06/19/23 12:00 LYNDON (Rec: 06/19/23 12:11 PHODODIE [id number]) E-signed By Gadiel Russo, PT Subjective/History History History This is the initial PT eval for Rory Cervantes, 72 yowm who presents with c/o B LE edema increased x ~ 1 yr. He reports having an extensive lumbar surgery ~ 1 yr ago which required extensive rehab . He also has hx of cardiac issues with past AL, stents x 6 and recent issues with HTN control. He reports feeling much better over the past several weeks now that his HTN is better controlled with medication changes, Subjective Subjective Pt has no c/opain at this time . Minimal edema in the R LE, but 1+ pitting edema in the L foot and ankle. New diagnosis of cancer in past 12 No months? Lymphedema Eval Classification of Lymphedema Secondary Lymphedema Yes Stemmer's sign Stemmer's Sign yes Stage of Lymphedema Lymphedema stages Stage I (Pitting edema, reduces w/ elevation, no fibrosis) Skin Changes Dry Skin Yes Discoloration of Skin Yes Other Changes Yes Pain Scale Pain Scale (0-10) 0 Affected Extremities Areas Affected by Lymphedema/Edema Right Lower Extremity,Left Lower Extremity Lower Extremity Measurements Left MTP Measurement (cm) 25.5 Heel Measurement (cm) 34.4 10 cm Proximal to Lateral Malleoli 27.1 Measurement (cm) 20 cm Proximal to Lateral Malleoli 38.9 Measurement (cm) 30 cm Proximal to Lateral Malleoli 38.7 Measurement (cm) 40 cm Proximal to Lateral Malleoli 43.1 Measurement (cm) 50 cm Proximal to Lateral Malleoli 49.8 Measurement (cm) 60 cm Proximal to Lateral Malleoli 0 Measurement (cm) Lower Extremity Measurement Total (cm) 257.5 Right MTP Measurement (cm) 25.1 Heel Measurement (cm) 34.4 10 cm Proximal to Lateral Malleoli 26.5 Measurement (cm) 20 cm Proximal to Lateral Malleoli 36.0 Measurement (cm) 30 cm Proximal to Lateral Malleoli 40.3 Measurement (cm) 40 cm Proximal to Lateral Malleoli 41.3 Measurement (cm) 50 cm Proximal to Lateral Malleoli 49.1 Measurement (cm) 60 cm Proximal to Lateral Malleoli 0 Measurement (cm) Lower Extremity Measurement Total (cm) 252.7 Manual Lymphatic Drainage Treatment Area MLD Treatment Area Right Upper Extremity,Left Upper Extremity Wound Problems/Impairments Impairments Problems/Impairmments Palpation Tenderness,Impaired Endurance,Impaired Balance, Increased Edema,Lymphedema Present,Impaired Self Care/ Self Management Prognosis Rehab Potential Good Clinical Impression Consistent with Diagnosis Yes Short Term Goals Number of Weeks 2 Decrease Edema Yes: no pitting edema Patient to Understand Lymphedema Yes Treatment and Exercises Decrease Girth Measurments by (cm) Yes: L LE total by 5 cm Jail Goals Number of Weeks 4 Decrease Lymphedema Yes: no fibrotic edema Patient to be Ind w/ HEP Yes Patient to be Ind w/ Donning/Jackpot Yes Compression Garments Patient to Adhere Lymphedema Precautions Yes Decrease Girth Measurments by (cm) Yes: B LE total by 10 cm ea Outpatient Therapy Plan of Care Treatment Plan May Include Therapeutic Exercise Including Home Yes Exercise Program Manual Therapy Techniques Yes Neuromuscular Re-education Yes Therapeutic Activities to Return to Yes Previous Functional/Work Level ADL/Self Care Education Yes Orthotics/Bracing/Splinting Yes Vasopneumatic Compression Pump Yes Manual Lymphatic Drainage Yes Eval/Re-Eval Yes Frequency Times per week 2 Duration Number of Weeks 4 Addendums This patient is a candidate for social No or vocational rehab? Patient/Guardian verbally acknowledges Yes understanding of treatment program and consents to further treatment? Patient/Guardian verbally acknowledges Yes understanding of diagnosis, prognosis and goals for treatment? Eval Complexity PT Charges 69663 - High Complexity PHYSICIAN CERTIFICATION: I certify the specified therapy services for Rory Cervantes are required, authorized, and reviewed every 30 days.
--- NOTE | 2023-07-20 15:00 | HMH.RHREAS ---
Rehab Reassessment Rehab OP Re-assessment Start: 06/19/23 11:59 Freq: Status: Active Protocol: Document 07/20/23 14:52 PHORNE (Rec: 07/20/23 15:00 PHORNE Laptop) E-signed By Gadiel Russo, PT Rehab Re-assessment Subjective Subjective Pt reports no c/o increased discomfort in B LE, but he continues to have difficulty with swelling any time he sits for any length of time. He reports he bought 2 pair of compression stockings to wear during the day. Objective Objective Notes Circumferential Measurements: R LE total is 241.2 cm which is -11.5 cm since IE. L LE total is 243.4 cm which is -14.1 cm since IE. Edema: 1+ pitting edema remains in B ankle and foot. Pain 0/10 this date. Assessment Progress Assessment Progressing as Expected Assessment Notes Pt has shown significant reduction in overall edema based on circumferential measurements. He continues to have pitting edema in B ankles and feet and can not sit for long periods of time without increased edema. He continues to need skilled intervention to return to prior level of function. Patient goals met ST/3 LT/[address] LT/5 Plan Plan Continue per initial POC. Frequency of Therapy 2 x/wk Duration of therapy 4 wks Time and Billing Re-Eval Time 11 Re-Eval Billing Units 0 PHYSICIAN CERTIFICATION: I certify the specified therapy services for Rory Cervantes are required, authorized, and reviewed every 30 days.
== END 2023-07-30 11:05 | disposition home or self-care (01) ==
LOC: PT 10:00
PROVIDERS: Visit Provider Internal Medicine
DX: I89.0 Lymphedema, not elsewhere classified (principal)
CPT/HCPCS: 97110; 97140; 97163; 97164

== ENCOUNTER 2023-10-06 11:01 | Day surgery (SDC) | payer MEDICARE, SELFPAY ==
[2023-07-31 11:27] VITALS: BMI 36.8
[2023-10-01 12:57] VITALS: BMI 38.0
[2023-10-06 11:12] VITALS: BP 135/75; PULSE 63; RESP 18; TEMP 36.2; O2SAT 97
[2023-10-06] MEDS: LACTATED RINGERS 1000ML 1,000 ML 25 ML IV (11:17)
--- NOTE | 2023-10-06 11:27 | P.PCN_ITS ---
Procedure: Date: 10/06/23 Patient Date of :: 1950 Procedure Performed:: Colonoscopy with polypectomy Indications:: History of colon polyps Performing Provider:: Jose Cueva MD Referring Provider:: . Sedation:: Monitored anesthesia care Procedure:: After informed consent was obtained the patient was taken to the endoscopy suite. Sedation ensued after the patient was transferred to the left lateral d ecubitus position. Pulse, blood pressure, and oxygen saturation were monitored throughout the procedure. Digital rectal exam revealed no significant abnormality. The colonoscope was placed in position. The entire colon was evaluated. The colonoscope was carefully removed and the patient was transferred to recovery in stable condition. Please see findings and specimens below for detail. Findings:: Bowel preparation fair Moderate spasticity/lack of relaxation Hemorrhoidal tags Sessile cecal polyp Specimens:: Sessile cecal polyp (cold snare and cold biopsy forceps) Recommendations:: Timing of repeat colonoscopy is pending pathology will likely be around 3-5 years. Complications:: No immediate Estimated blood obtained (mL): 1 Colonoscopy Component Colonoscopy Component Was a colonoscopy performed during today's procedure?: Yes Recommended follow up colonoscopy of at least 10 years?: No If no, follow up colonoscopy recommended in ___ years?: (See above) Reason for not recommending >/= 10 yr follow-up interval?: (See above)
--- NOTE | 2023-10-06 11:32 | P.PNANES_ITS ---
[facility] Disclaimer: The information contained in this section may have been updated after the patient was seen, as this information can be updated by other users. Medical History Hypertension Febrile illness, acute UTI (urinary tract infection) Pacemaker Paroxysmal A-fib Sick sinus syndrome Tachy-devonte syndrome Heart failure Surgical History H/O removal of cyst History of tonsillectomy and adenoidectomy Hx of cholecystectomy History of total right hip replacement History of back surgery Family History Mother Cancer Father Coronary artery disease Stroke Heart attack Sister Alcoholism Lupus Social History Smoking Status: Never smoker alcohol intake: current alcohol intake frequency: a few times a month substance use type: denies use current occupational status: other Travel in the last 8 weeks: None household members: other housing: other caffeine: Yes (couple cups of coffee) [facility] Anesthesia Checklist Patient Identification Patient Identification: Arm Band and Verbal (Name & ) Structural Data Admitted From: Home Planned Operative Procedure/s: Colonoscopy Consent for Planned Operative Procedure(s) Verified: Yes Verified Documents: Surgical Consent and History and Physical NPO Status Verified Time NPO: 00:00 Additional verifications Anesthesia Reactions: No Airway Assessment Mallampati Score:: Class IV C-Spine Mobility Assessed: Yes TMJ Mobility Assessed: Yes Dentition: Good Dentition Neurological Assessment Level of Consciousness: Awake Hx Seizures: No Numbness or tingling in extremities: No Anesthesia Plan Anesthesia Risk discussed: Yes Anesthesia Plan: Verified ASA Class: III Anesthesia Type: MAC
[2023-10-06 11:40] VITALS: O2SAT 97
[2023-10-06 12:04] VITALS: BP 96/61; PULSE 67; RESP 18; TEMP 36.8; O2SAT 93
[2023-10-06 12:14] VITALS: BP 100/63; PULSE 62; RESP 18; O2SAT 95
[2023-10-06 12:24] VITALS: BP 97/70; PULSE 61; RESP 18; O2SAT 97
[2023-10-06 12:40] VITALS: BP 101/67; PULSE 68; RESP 18; O2SAT 96
== END 2023-10-06 12:40 | disposition home or self-care (01) ==
PROVIDERS: PCP Internal Medicine; Visit Provider Surgery
PROC: 0DJD8ZZ Inspection of Lower Intestinal Tract, Via Natural or Artificial Opening Endoscopic (ICD-10-PCS; CPT 45385; principal; 2023-10-06 11:55)
DX: Z12.11 Encounter for screening for malignant neoplasm of colon (principal); Z86.010 Personal history of colon polyps; D12.0 Benign neoplasm of cecum; K64.9 Unspecified hemorrhoids
CPT/HCPCS: 45385; J7120

== ENCOUNTER 2023-10-13 11:43 | Inpatient (IN) | payer MEDICARE, SELFPAY ==
[2023-10-13] VITALS (8 sets, daily range): BP systolic 158–179; BP diastolic 81–110; PULSE 60–82; RESP 18; TEMP 36.7–36.8; O2SAT 94–98; BMI 38.0; BMI 37.6
--- NOTE | 2023-10-13 12:12 | CT_ITS ---
FINAL REPORT CLINICAL HISTORY: perineal abscess, hx deep space infxn r/o fistula COMPARISON: Abdomen and pelvis dated 05/20/2022 FINDINGS: Axial images through the pelvis were performed by computed tomography after the administration of IV contrast. Sagittal and coronal reconstruction images were performed. This study was performed with techniques to keep radiation doses as low as reasonably achievable (ALARA). Individualized dose reduction techniques using automated exposure control or adjustment of mA and/or kV according to the patient's size were employed. There is streak artifact resulting secondary to posterior fusion hardware at the L4-5 and L5-S1 levels, and a prosthetic right hip. There are bilateral bladder diverticula present, larger on the right than on the left, and there is lobular indentation of the prostate into the inferior aspect of the bladder. There is inflammatory reaction in the left perineal area, with a small amount of subcutaneous emphysema, and a small fluid collection measuring 2.2 cm in greatest diameter. This is best seen on image #89 of series 1001. No free fluid is noted in the pelvis. IMPRESSION: Inflammatory reaction in the left perineal area, with a small amount of subcutaneous emphysema and a small fluid collection as described above measuring 2.2 cm in diameter. This does not clearly connect to any viscera in the pelvis. Reviewed, Interpreted and Dictated by Bernard Taveras MD Transcribed by Maya Quintanilla Authenticated and . [facility]
--- NOTE | 2023-10-13 12:31 | HMH.EDGENADL ---
Discharge Plan Disposition Patient Disposition: Admitted Condition: Fair Chief Complaint: Skin/Abscess/Foreign Body Prescriptions Prescriptions: No Action [place] 3-6-9 1,200 mg capsule 1 cap PO DAILY Men's 50 Plus Multivitamin 400-20-370 mcg tablet 1 tab PO DAILY acetaminophen [Tylenol Extra Strength] 500 mg tablet 500 mg PO Q6H PRN (Reason: Pain) lisinopril 40 mg tablet 40 mg PO BID Qty: 180 3RF Xarelto 20 mg tablet 20 mg PO DAILY Qty: 30 3RF Rx Instructions: must administer with evening meal tadalafil [Cialis] 20 mg tablet 20 mg PO DAILY PRN (Reason: ED ) Rx Instructions: administer approximately 30min before sexual activity; do not use more than 1 dose per 24hrs montelukast 10 mg tablet 10 mg PO DAILY Qty: 30 2RF hydrochlorothiazide 25 mg tablet 25 mg PO QDAY Qty: 90 3RF atorvastatin 40 mg tablet 40 mg PO DAILY Qty: 90 1RF levocetirizine 5 mg tablet 5 mg PO QPM PRN (Reason: (Drug) Ingestion) tamsulosin 0.4 mg capsule 0.8 mg PO DAILY 90 Days Qty: 180 0RF carvedilol [Coreg] 25 mg tablet 25 mg PO BID Qty: 60 5RF Rx Instructions: give with food (meal/snack) Referrals Follow up/Referrals: Rory Pak DO [Primary Care Provider] - See instructions Clinical Impressions Clinical Impression: Abscess of perineum Instructions Patient Instructions: DI for Skin Abscess Print Language Print Language: Nepali Discharge ED Provider: Lincoln Sr Adult HPI General Chief complaint: Skin/Abscess/Foreign Body Stated complaint: possible boil inner thigh Time Seen by Provider: 10/13/23 11:50 Mode of Arrival: Ambulatory Source of Information: Patient Limitations: No Limitations Description of Symptoms (Recalled from ER Triage Doc. by RN): PT REPORTS PAINFUL BOIL TO PERINEUM STARTED 2 DAYS AGO History of Present Illness HPI narrative: Patient is a 72-year-old male with history of hypertension, sick sinus syndrome s/p pacemaker placement, CAD, A-fib on Xarelto, perineal abscess requiring operative incision and drainage. Patient arrives today for about 3 days of worsening perineal pain and swelling. He reports that it has grown slightly. He denies any significant drainage from the area or bleeding. He denies history of IBS or IBD. Has noticed no blood in stool or pus in the stool. Is urinating appropriately. Denies any pain in the testicles. Has tried Tylenol at home which provides moderate relief of the pain, however the swelling is still there. He denies any fevers, chills, vomiting, diarrhea. About 20 years ago, patient had a similar presentation which required operative intervention and IV antibiotics for a month. Related Data Home Medications ?Medication ?Instructions ?Recorded ?Confirmed tadalafil 20 mg tablet (Cialis) 20 mg PO DAILY PRN ED 02/28/20 10/06/23 acetaminophen 500 mg tablet 500 mg PO Q6H PRN Pain 03/26/23 10/06/23 (Tylenol Extra Strength) fish, borage, flaxseed oils-omega 1 cap PO DAILY 03/26/23 10/06/23 3,6,9 comb no.1 1,200 mg capsule ([place] 3-6-9) [id number]-pdn-gngdm acid-vit 1 tab PO DAILY 03/26/23 10/06/23 K-lycop 400 mcg-20 mcg-370 mcg tablet (Men's 50 Plus Multivitamin) levocetirizine 5 mg tablet 5 mg PO QPM PRN (Drug) Ingestion 08/24/23 10/06/23 Previous Rx's ?Medication ?Instructions ?Recorded tamsulosin 0.4 mg capsule 0.8 mg (2 x 0.4 mg) PO DAILY bph 04/27/23 90 days #180 caps montelukast 10 mg tablet 10 mg PO DAILY #30 tabs 05/13/23 hydrochlorothiazide 25 mg tablet 25 mg PO QDAY #90 tabs 07/02/23 carvedilol 25 mg tablet (Coreg) 25 mg PO BID #60 tabs 08/04/23 atorvastatin 40 mg tablet 40 mg PO DAILY #90 tabs 08/14/23 lisinopril 40 mg tablet 40 mg PO BID High blood pressure 08/17/23 #180 tabs rivaroxaban 20 mg tablet (Xarelto) 20 mg PO DAILY #30 tabs 08/17/23 Allergies Allergy/AdvReac Type Severity Reaction Status Date / Time cephalexin [From Keflex] Allergy Hives Verified 10/06/23 11:10 [facility] Disclaimer: The information contained in this section may have been updated after the patient was seen, as this information can be updated by other users. Medical History Hypertension Febrile illness, acute UTI (urinary tract infection) Pacemaker Paroxysmal A-fib Sick sinus syndrome Tachy-devonte syndrome Heart failure Surgical History H/O removal of cyst History of tonsillectomy and adenoidectomy Hx of cholecystectomy History of total right hip replacement History of back surgery Family History Mother Cancer Father Coronary artery disease Stroke Heart attack Sister Alcoholism Lupus Social History Smoking Status: Never smoker alcohol intake: current alcohol intake frequency: a few times a month substance use type: denies use current occupational status: other Travel in the last 8 weeks: None household members: other housing: other caffeine: Yes (couple cups of coffee) ROS Obtained: Yes All systems reviewed & no additional complaints except as documented Physical Exam General General appearance: alert and in no apparent distress Head Head exam: atraumatic and normocephalic Eye Eye exam: Present normal appearance Chest Chest inspection: Present symmetric chest wall rise Respiratory Respiratory exam: Absent respiratory distress or stridor Cardiovascular Cardiovascular exam: Present regular rate, normal rhythm and Pacemaker/defibrillator Abdominal Exam Abdominal exam: Absent distention exam: Present normal testicular lie, circumcised and other (There is roughly a 6 cm x 2 cm area of erythema and in the central aspect of the erythema there is an area of fluctuance that is about 3 cm x 1 cm with scant sanguinous discharge coming from the central punctum. No fluid is able to be expressed on my exam. No lymphadenopathy noted.); Absent testicular tenderness, urethral discharge or scrotal swelling Extremities Exam Extremities exam: Present normal inspection Neurological Exam Neurological exam: Present alert and oriented X3 Psychiatric Psychiatric exam: Present normal mood Skin Skin exam: Present warm and dry Medical Decision Making Maikel Inquiry Pt receiving controlled substance: No Vital Signs: 10/13/23 11:44 10/13/23 12:19 10/13/23 13:01 Temperature 98.2 F Temperature Source Oral Pulse Rate 62 64 Pulse Rate [Radial] 82 Respiratory Rate 18 Blood Pressure 172/87 H 177/86 H Blood Pressure [Left Arm] 179/81 H Blood Pressure Mean 99 Blood Pressure Mean [Left Arm] 113 Blood Pressure Source [Left Arm] Automatic Cuff Blood Pressure Position [Left Arm] Sitting 02 Sat by Pulse Oximetry 98 98 96 Oxygen Delivery Method Room Air Room Air 10/13/23 14:01 Temperature Temperature Source Pulse Rate 61 Pulse Rate [Radial] Respiratory Rate Blood Pressure 158/82 H Blood Pressure [Left Arm] Blood Pressure Mean Blood Pressure Mean [Left Arm] Blood Pressure Source [Left Arm] Blood Pressure Position [Left Arm] 02 Sat by Pulse Oximetry 97 Oxygen Delivery Method Lab Data Lab Results 10/13/23 12:12: WBC 11.2 H, RBC 4.73, Hgb 14.2, Hct 43.2, MCV 91.4, MCH 30.0, MCHC 32.8, RDW 13.9, Plt Count 196, MPV 8.4, Neut % (Auto) 80.1 H, Lymph % (Auto) 12.2, [place] % (Auto) 5.9, Eos % (Auto) 1.5, Baso % (Auto) 0.4, Neut # (Auto) 9.0 H, Lymph # (Auto) 1.4, [place] # (Auto) 0.7, Eos # (Auto) 0.2, Baso # (Auto) 0.0, ESR 41 H, Sodium 140, Potassium 3.4 L, Chloride 101, Carbon Dioxide 35 H, Anion Gap 7.4, BUN 14, Creatinine 1.00, Estimated Creat Clear 106, Estimated GFR 74, Est GFR ( Amer) 89, Glucose 110 H, Calcium 8.9, Total Bilirubin 1.8 H, AST 28, ALT 16, Alkaline Phosphatase 59, C-Reactive Protein 58.4 H, Total Protein 7.2, Albumin 4.2, Globulin 3.0, Albumin/Globulin Ratio 1.4 10/13/23 12:12 10/13/23 12:12 Orders (Tests/Meds): ED MEDICATIONS Generic Name Dose Route Start Last Admin Trade Name Freq PRN Reason Stop Dose Admin Piperacillin Sod/Tazobactam 100 mls @ 200 mls/hr 10/13/23 15:30 Sod 4.5 gm/ Sodium Chloride IV 10/23/23 15:29 Q8H RAUL Miscellaneous 1 each 10/13/23 15:30 Vancomycin Consult Request NOTAPPLIC 11/12/23 15:29 CONSULT PHARM[facility]Y [facility] Discontinued Medications Generic Name Dose Route Start Last Admin Trade Name Alex PRN Reason Stop Dose Admin Acetaminophen 1,000 mg 10/13/23 12:12 10/13/23 13:01 Acetaminophen 500mg Tab PO 10/13/23 12:13 1,000 mg ONCE ONE Administration Iopamidol 75 ml 10/13/23 13:28 10/13/23 13:28 Iopamidol-370 (76%);100ml Bottle IV 10/13/23 13:29 75 ml ONCE ONE Administration Ketorolac Tromethamine 15 mg 10/13/23 12:12 10/13/23 13:01 Ketorolac 30mg/Ml Vial IV 10/13/23 12:13 15 mg ONCE ONE Administration Sodium Chloride 10 ml 10/13/23 13:28 10/13/23 13:28 Sodium Chloride 0.9% 10ml Syr (Rad Only) IV 10/13/23 13:29 10 ml ONCE ONE Administration ORDERS Category Date Time Status CT pelvis w con Stat Cat Scan 10/13/23 12:12 Completed C-Reactive Protein Stat Lab 10/13/23 12:12 Completed Complete Blood Count Auto Diff Stat Lab 10/13/23 12:12 Completed Comprehensive Metabolic Panel Stat Lab 10/13/23 12:12 Completed Erythrocyte Sedimentation Rate Stat Lab 10/13/23 12:12 Completed Blood Culture Stat Micro 10/13/23 12:12 Received Medical Decision Narrative: In summary, this 72-year-old male presents to the emergency department today with perineal pain, abscess. On initial evaluation patient is afebrile, hemodynamically stable and in no acute distress. Physical exam reveals area of fluctuance and erythema in the perineum. Differential diagnosis includes but is not limited to abscess, cellulitis, deep space infection, fistula. Based on these concerns, I ordered CBC CMP ESR CRP CT pelvis with IV contrast. Patient received Tylenol, Toradol, vancomycin, Zosyn for treatment. Labs personally reviewed demonstrate mild leukocytosis to 11, elevated CRP, no electrolyte disturbance.. CT imaging personally interpreted demonstrate area of fat stranding in the left proximal scrotal area extending into the perineum. Abscess measuring 4 x 2 cm.. Scant foci of gas. lrinec score calculated to be 4. I had an interactive discussion with general surgery, Dr. Drake who reviewed patient's imaging and clinical history with myself. We came to the joint agreement that patient should be started on broad-spectrum antibiotics and watched overnight with frequent reassessments with positive operative intervention tomorrow. N.p.o. at midnight.. Consulted hospitalist who agrees to admit the patient to service for further workup benefit and management and patient returns to their service hemodynamically stable condition. On reassessment patient reports improvement in his pain. All questions answered. Admitted to the hospital in hemodynamically stable condition.. Of note, social determinants of health include lives far away. Critical Care Critical Care Time Critical Care Time: No
[2023-10-13 12:44] LABS: Basophils % 0.4 % (0.1-2.0); Eosinophils # 0.2 K/mm3 (0.0-0.4); Eosinophils % 1.5 % (0.1-12.0); Hematocrit 43.2 % (42.0-52.0); Hemoglobin 14.2 g/dL (14.1-18.0); Lymphocytes # 1.4 K/mm3 (0.7-4.5); Lymphocytes % 12.2 % (10-50); Mean Corpuscular HGB Conc 32.8 g/dL (31.8-35.4); Mean Corpuscular Volume 91.4 fl (80-94); Mean Platelet Volume 8.4 fl (7.4-10.4); Monocytes # 0.7 K/mm3 (0.1-1.0); Monocytes % 5.9 % (1.7-9.3); Neutrophils % 80.1 % (37.0-80.0); Platelet Count 196 K/mm3 (142-424); Red Blood Count 4.73 M/mm3 (4.60-6.20); Red Cell Distribution Width 13.9 % (11.5-17.5); White Blood Count 11.2 K/mm3 (4.8-10.8)
[2023-10-13 12:54] LABS: Albumin Level 4.2 g/dl (3.5-5.0); Chloride 101 mmol/L (98-107); Potassium 3.4 mmoL/L (3.5-5.1); Sodium 140 mmol/L (136-145)
[2023-10-13 12:56] LABS: Alanine Aminotransferase 16 U/L (12-78); Anion Gap 7.4 mEq/L (5-15); Aspartate Amino Transferase 28 U/L (17-59); Blood Urea Nitrogen 14 mg/dl (9-20); Carbon Dioxide 35 mmol/L (22.0-30.0); Creatinine Clearance Estimated 106 mL/min (50-200); Estimated Glomerular Filt Rate 74 ml/min (>60); GFR (African American) 89 ML/MIN (>60)
[2023-10-13 12:57] LABS: Albumin/Globulin Ratio 1.4 (1.1-1.8); Alkaline Phosphatase 59 U/L (38-126); Bilirubin,Total 1.8 mg/dl (0.2-1.3); Calcium 8.9 mg/dl (8.4-10.2); Glucose 110 mg/dl (74-100); Total Protein,Serum 7.2 g/dl (6.3-8.2)
[2023-10-13] MEDS: KETOROLAC 30MG/ML VIAL 15 MG IV (13:01)
[2023-10-13] MEDS: ACETAMINOPHEN 500MG TAB 1000 MG PO (13:01)
--- NOTE | 2023-10-13 13:01 | PC.NURSE ---
PT MEDICATED AND WARM BLANKET PROVIDED. CALL LIGHT WITHIN REACH
[2023-10-13 13:02] LABS: C-Reactive Protein 58.4 mg/L (0-4)
--- NOTE | 2023-10-13 13:16 | PC.NURSE ---
PT TO CT
[2023-10-13] MEDS: IOPAMIDOL-370 (76%);100ML BOTTLE 75 ML IV (13:28)
[2023-10-13] MEDS: SODIUM CHLORIDE 0.9% 10ML SYR (RAD ONLY) 10 ML IV (13:28)
[2023-10-13 15:06] LABS: Erythrocyte Sedimentation Rate 41 mm/hr (0-20)
--- NOTE | 2023-10-13 15:17 | PC.NURSE ---
paged for er md
--- NOTE | 2023-10-13 15:22 | PC.NURSE ---
poncho garcia speaking with
--- NOTE | 2023-10-13 15:38 | P.HP_ITS ---
History of Present Illness *Admission Date: 10/13/23 *Reason for visit:: abscess *History of present illness: 72-year-old male with history of tacky/bradycardia syndrome, CAD, hypertension. Presented to the ER with complaint of painful lesion in his perineum for the past 2 days. Denies any fever, nausea, vomiting. States that he noticed a painful lesion and felt like he was sitting on something 2 days ago. Had his partner take a look at it and found to have a tender lesion that was draining dark smelly material. Denies any known history of IBS or IBD. Of note had a colonoscopy performed a week ago with no noted lesion at that time. Has been having normal urine output and stool output. On workup in the ER, found to have White count of 11.2, CT of abdomen pelvis with abscess with small amount of gas. Low concern for necrotizing fasciitis. Surgery consulted and evaluated in the ER. Plan for initial IV antibiotics and reevaluation for I&D in the morning. Medicine consulted for admission. On evaluation after arriving to the floor, patient is comfortable on room air. Denies any chest pain or shortness of breath. [facility] Disclaimer: The information contained in this section may have been updated after the patient was seen, as this information can be updated by other users. Medical History Hypertension Febrile illness, acute UTI (urinary tract infection) Pacemaker Paroxysmal A-fib Sick sinus syndrome Tachy-devonte syndrome Heart failure Surgical History H/O removal of cyst History of tonsillectomy and adenoidectomy Hx of cholecystectomy History of total right hip replacement History of back surgery Family History Mother Cancer Father Coronary artery disease Stroke Heart attack Sister Alcoholism Lupus Social History Smoking Status: Never smoker alcohol intake: current alcohol intake frequency: a few times a month substance use type: denies use current occupational status: other Travel in the last 8 weeks: None household members: other housing: other caffeine: Yes (couple cups of coffee) Review of Systems Review of Systems Review of systems (narrative): 14 point review of systems performed, pertinent positives and negatives as per HPI Meds Home Medications and Allergies Home Medications ?Medication ?Instructions ?Recorded ?Confirmed ?Type tadalafil 20 mg tablet (Cialis) 20 mg PO DAILYP PRN Erectile 02/28/20 10/13/23 History Dysfunction acetaminophen 500 mg tablet 500 mg PO Q6HP PRN Mild Pain 03/26/23 10/13/23 History (Tylenol Extra Strength) (Scale Score 1-4) fish, borage, flaxseed oils-omega 1 cap PO DAILY 03/26/23 10/13/23 History 3,6,9 comb no.1 1,200 mg capsule ([place] 3-6-9) wvqnmmzdawec-opq-bzeqk acid-vit 1 tab PO DAILY 03/26/23 10/13/23 History K-lycop 400 mcg-20 mcg-370 mcg tablet (Men's 50 Plus Multivitamin) carvedilol 25 mg tablet (Coreg) 25 mg PO BID #60 tabs 08/04/23 10/13/23 Rx atorvastatin 40 mg tablet 40 mg PO DAILY #90 tabs 08/14/23 10/13/23 Rx hydrochlorothiazide 25 mg tablet 25 mg PO DAILY 10/13/23 10/13/23 History lisinopril 40 mg tablet 40 mg PO BID 10/13/23 10/13/23 History rivaroxaban 20 mg tablet (Xarelto) 20 mg PO QPMWITHMEAL 10/13/23 10/13/23 History New Prescriptions to Start Prescriptions: Allergies Allergy/AdvReac Type Severity Reaction Status Date / Time cephalexin [From Keflex] Allergy Hives Verified 10/06/23 11:10 Exam Data for Last 24 hours Vital signs and Labs for Last 24 Hours: Temp Pulse Resp BP Pulse Ox O2 Del Method 98.2 F 62 18 176/110 H 94 L Room Air 10/13/23 11:44 10/13/23 15:25 10/13/23 11:44 10/13/23 15:25 10/13/23 15:25 10/13/23 15:25 Laboratory Results - last 24 hr 10/13/23 12:12: WBC 11.2 H, RBC 4.73, Hgb 14.2, Hct 43.2, MCV 91.4, MCH 30.0, MCHC 32.8, RDW 13.9, Plt Count 196, MPV 8.4, Neut % (Auto) 80.1 H, Lymph % (Auto) 12.2, [place] % (Auto) 5.9, Eos % (Auto) 1.5, Baso % (Auto) 0.4, Neut # (Auto) 9.0 H, Lymph # (Auto) 1.4, [place] # (Auto) 0.7, Eos # (Auto) 0.2, Baso # (Auto) 0.0, ESR 41 H, Sodium 140, Potassium 3.4 L, Chloride 101, Carbon Dioxide 35 H, Anion Gap 7.4, BUN 14, Creatinine 1.00, Estimated Creat Clear 106, Estimated GFR 74, Est GFR ( Amer) 89, Glucose 110 H, Calcium 8.9, Total Bilirubin 1.8 H, AST 28, ALT 16, Alkaline Phosphatase 59, C-Reactive Protein 58.4 H, Total Protein 7.2, Albumin 4.2, Globulin 3.0, Albumin/Globulin Ratio 1.4 I & O for Last 24 hours: Intake & Output 10/10/23 10/11/23 10/12/23 10/13/23 23:59 23:59 23:59 23:59 Weight 110.223 kg Constitutional Constitutional: no acute distress *Routine HEENT Exam Head: Present normocephalic Eye: Present EOMI and PERRL ENT: Present mucous membranes moist *Routine Neck Exam Neck: Present supple; Absent lymphadenopathy *Routine Respiratory Exam Respiratory: Present CTA bilaterally; Absent rhonchi, wheezes or crackles *Routine Cardiovascular Exam Cardiovascular: Present RRR *Routine Abdominal Exam Abdominal: Present soft and normoactive bowel sounds; Absent tenderness *Routine Rectal Exam Rectal:: deferred *Routine Genitalia Exam Genitalia:: normal male Comment:: Tender draining abscess left perineum, draining old blood and purulent material. *Routine Extremities Exam Extremities: Absent cyanosis, clubbing or edema *Routine Skin Exam Skin: Present warm; Absent rash *Routine Neurological Exam Neurological: Present alert, oriented X3 and moving all extremities; Absent altered mental status Assessment and Plan *Assessment and plan (1) Abscess of perineum: Status: Acute Category: Medical Code(s): L02.215 - Cutaneous abscess of perineum (2) Hypertension: Status: Resolved Qualifiers: Hypertension type: essential hypertension Qualified Code(s): I10 - Essential (primary) hypertension Category: Medical Code(s): I10 - Essential (primary) hypertension (3) Pacemaker: Status: Acute Category: Medical Code(s): Z95.0 - Presence of cardiac pacemaker (4) HLD (hyperlipidemia): Status: Chronic Qualifiers: Hyperlipidemia type: mixed hyperlipidemia Qualified Code(s): E78.2 - Mixed hyperlipidemia Category: Medical Code(s): E78.5 - Hyperlipidemia, unspecified (5) CAD (coronary artery disease): Status: Chronic Qualifiers: Associated angina: without angina Coronary Disease-Associated Artery/Lesion type: [place] artery [place] vs. 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 Discussed case with ER, request admission for IV antibiotics. I agreed to admit for further management. Started on vancomycin and ertapenem. Surgery evaluating. Problems addressed as follows: Perineal abscess -Per my review of CT, small abscess about an inch in diameter, gas but low concern for gas producing infection. His lesion is spontaneous draining, suspect air has gotten the wound from expressing purulence and material. -Continue IV vancomycin and ertapenem daily. -Close monitoring of kidney function while on antibiotics. -Surgery consulted, plan for I&D in the morning. Patient n.p.o. at midnight - Kidney function normal with BUN 14, creatinine 1.0. Glucose normal at 110. Inflammatory markers elevated with CRP 58. White count elevated 11.2. Hemoglobin 14.4. Continue carvedilol 25 mg twice daily for hypertension and CAD Continue hydrochlorothiazide daily for hypertension Continue lisinopril 40 mg twice daily for hypertension Holding relative low, last dose last night on 10/11 Repeat CBC, CMP, magnesium ordered for the morning Full code Holding anticoagulation in the setting of possible I&D Cardiac diet, n.p.o. at midnight
--- NOTE | 2023-10-13 15:38 | PC.NURSE ---
kylee at bs
--- NOTE | 2023-10-13 15:38 | PC.NURSE ---
DR GOLDBERG AT BEDSIDE
--- NOTE | 2023-10-13 15:44 | EXP.SURG.CON ---
History of Present Illness *Admission Date: 10/13/23 *Reason for visit:: Perineal abscess *History of present illness: Patient is a 72-year-old male from [place] with a history of hypertension, sick sinus syndrome with previous pacemaker placement, coronary artery disease, atrial fibrillation on Xarelto. Patient states that about 20 years ago he had a mass removed from the left perineum and it sounds as though he developed a wound dehiscence secondary to soft tissue infection in the area had to heal by secondary intention. He was in his usual state of health until past 2 or 3 days when he had increasing pain in the left perineum and had noted some swelling. Thorough evaluation in the emergency department revealed leukocytosis of 11,000. C-reactive protein of 58. He had a pelvic CT performed which reveals inflammatory reaction in the left perineal area with a small amount of subcutaneous emphysema and small fluid collection measuring 2.2 cm. Given these findings surgery was consulted. [facility] Disclaimer: The information contained in this section may have been updated after the patient was seen, as this information can be updated by other users. Medical History Hypertension Febrile illness, acute UTI (urinary tract infection) Pacemaker Paroxysmal A-fib Sick sinus syndrome Tachy-devonte syndrome Heart failure Surgical History H/O removal of cyst History of tonsillectomy and adenoidectomy Hx of cholecystectomy History of total right hip replacement History of back surgery Family History Lupus Sister Coronary artery disease Father Alcoholism Sister Heart attack Father Cancer Mother Stroke Father Social History Smoking Status: Never smoker alcohol intake: current alcohol intake frequency: a few times a month substance use type: denies use current occupational status: other Travel in the last 8 weeks: None household members: other housing: other caffeine: Yes (couple cups of coffee) Meds Home Medications and Allergies Home Medications ?Medication ?Instructions ?Recorded ?Confirmed ?Type tadalafil 20 mg tablet (Cialis) 20 mg PO DAILYP PRN Erectile 02/28/20 10/13/23 History Dysfunction acetaminophen 500 mg tablet 500 mg PO Q6HP PRN Mild Pain 03/26/23 10/13/23 History (Tylenol Extra Strength) (Scale Score 1-4) fish, borage, flaxseed oils-omega 1 cap PO DAILY 03/26/23 10/13/23 History 3,6,9 comb no.1 1,200 mg capsule ([place] 3-6-9) lbrdjmpkturl-gcr-ydvvj acid-vit 1 tab PO DAILY 03/26/23 10/13/23 History K-lycop 400 mcg-20 mcg-370 mcg tablet (Men's 50 Plus Multivitamin) carvedilol 25 mg tablet (Coreg) 25 mg PO BID #60 tabs 08/04/23 10/13/23 Rx atorvastatin 40 mg tablet 40 mg PO DAILY #90 tabs 08/14/23 10/13/23 Rx hydrochlorothiazide 25 mg tablet 25 mg PO DAILY 10/13/23 10/13/23 History lisinopril 40 mg tablet 40 mg PO BID 10/13/23 10/13/23 History rivaroxaban 20 mg tablet (Xarelto) 20 mg PO QPMWITHMEAL 10/13/23 10/13/23 History New Prescriptions to Start Prescriptions: Allergies Allergy/AdvReac Type Severity Reaction Status Date / Time cephalexin [From Keflex] Allergy Hives Verified 10/06/23 11:10 Exam (Inpt) Vital signs and Labs for Last 24 Hours: Temp Pulse Resp BP Pulse Ox O2 Del Method 98.2 F 62 18 176/110 H 94 L Room Air 10/13/23 11:44 10/13/23 15:25 10/13/23 11:44 10/13/23 15:25 10/13/23 15:25 10/13/23 15:25 Laboratory Results - last 24 hr 10/13/23 12:12: WBC 11.2 H, RBC 4.73, Hgb 14.2, Hct 43.2, MCV 91.4, MCH 30.0, MCHC 32.8, RDW 13.9, Plt Count 196, MPV 8.4, Neut % (Auto) 80.1 H, Lymph % (Auto) 12.2, [place] % (Auto) 5.9, Eos % (Auto) 1.5, Baso % (Auto) 0.4, Neut # (Auto) 9.0 H, Lymph # (Auto) 1.4, [place] # (Auto) 0.7, Eos # (Auto) 0.2, Baso # (Auto) 0.0, ESR 41 H, Sodium 140, Potassium 3.4 L, Chloride 101, Carbon Dioxide 35 H, Anion Gap 7.4, BUN 14, Creatinine 1.00, Estimated Creat Clear 106, Estimated GFR 74, Est GFR ( Amer) 89, Glucose 110 H, Calcium 8.9, Total Bilirubin 1.8 H, AST 28, ALT 16, Alkaline Phosphatase 59, C-Reactive Protein 58.4 H, Total Protein 7.2, Albumin 4.2, Globulin 3.0, Albumin/Globulin Ratio 1.4 I & O for Labs for Last 24 Hours: Intake & Output 10/11/23 10/12/23 10/13/23 10/14/23 11:59 11:59 11:59 11:59 Weight 243 lb Constitutional: no acute distress Head: Present normocephalic Cardiac: Present Reg Rate and Rhythm Comments:: In the left perineum near the base of the scrotum there is a linear area of erythema and induration with some central fluctuance consistent with soft tissue infection with abscess. Results Labs 10/13/23 12:12 10/13/23 12:12 Labs: Laboratory Results - last 24 hr 10/13/23 12:12: WBC 11.2 H, RBC 4.73, Hgb 14.2, Hct 43.2, MCV 91.4, MCH 30.0, MCHC 32.8, RDW 13.9, Plt Count 196, MPV 8.4, Neut % (Auto) 80.1 H, Lymph % (Auto) 12.2, [place] % (Auto) 5.9, Eos % (Auto) 1.5, Baso % (Auto) 0.4, Neut # (Auto) 9.0 H, Lymph # (Auto) 1.4, [place] # (Auto) 0.7, Eos # (Auto) 0.2, Baso # (Auto) 0.0, ESR 41 H, Sodium 140, Potassium 3.4 L, Chloride 101, Carbon Dioxide 35 H, Anion Gap 7.4, BUN 14, Creatinine 1.00, Estimated Creat Clear 106, Estimated GFR 74, Est GFR ( Amer) 89, Glucose 110 H, Calcium 8.9, Total Bilirubin 1.8 H, AST 28, ALT 16, Alkaline Phosphatase 59, C-Reactive Protein 58.4 H, Total Protein 7.2, Albumin 4.2, Globulin 3.0, Albumin/Globulin Ratio 1.4 Assessment and Plan *Assessment and plan (1) Abscess of perineum: Status: Acute Category: Medical Code(s): L02.215 - Cutaneous abscess of perineum Plan Given the patient's comorbidities and due to the fact that he is on anticoagulant, I feel the best plan of action would be admission for initiation of broad-spectrum antibiotic coverage, holding anticoagulants, and plan for early interval incision and drainage under anesthesia.
--- NOTE | 2023-10-13 15:44 | EXP.PHA.CONS ---
Pharmacy Consult Date: 10/13/23 Time: 15:45 Referring provider: DR. LUBIN Reason for Consult:: VANCOMYCIN DOSING Allergies Allergy/AdvReac Type Severity Reaction Status Date / Time cephalexin [From Keflex] Allergy Hives Verified 10/06/23 11:10 Home Medications ?Medication ?Instructions ?Recorded ?Confirmed ?Type tadalafil 20 mg tablet (Cialis) 20 mg PO DAILYP PRN Erectile 02/28/20 10/13/23 History Dysfunction acetaminophen 500 mg tablet 500 mg PO Q6HP PRN Mild Pain 03/26/23 10/13/23 History (Tylenol Extra Strength) (Scale Score 1-4) fish, borage, flaxseed oils-omega 1 cap PO DAILY 03/26/23 10/13/23 History 3,6,9 comb no.1 1,200 mg capsule ([place] 3-6-9) tjfcvalbsfwb-sgs-iutch acid-vit 1 tab PO DAILY 03/26/23 10/13/23 History K-lycop 400 mcg-20 mcg-370 mcg tablet (Men's 50 Plus Multivitamin) carvedilol 25 mg tablet (Coreg) 25 mg PO BID #60 tabs 08/04/23 10/13/23 Rx atorvastatin 40 mg tablet 40 mg PO DAILY #90 tabs 08/14/23 10/13/23 Rx hydrochlorothiazide 25 mg tablet 25 mg PO DAILY 10/13/23 10/13/23 History lisinopril 40 mg tablet 40 mg PO BID 10/13/23 10/13/23 History rivaroxaban 20 mg tablet (Xarelto) 20 mg PO QPMWITHMEAL 10/13/23 10/13/23 History New Prescriptions to Start Prescriptions: Height: 1.7 m Weight: 110.223 kg Laboratory Results:: Laboratory Results - last 24 hr 10/13/23 12:12: WBC 11.2 H, RBC 4.73, Hgb 14.2, Hct 43.2, MCV 91.4, MCH 30.0, MCHC 32.8, RDW 13.9, Plt Count 196, MPV 8.4, Neut % (Auto) 80.1 H, Lymph % (Auto) 12.2, [place] % (Auto) 5.9, Eos % (Auto) 1.5, Baso % (Auto) 0.4, Neut # (Auto) 9.0 H, Lymph # (Auto) 1.4, [place] # (Auto) 0.7, Eos # (Auto) 0.2, Baso # (Auto) 0.0, ESR 41 H, Sodium 140, Potassium 3.4 L, Chloride 101, Carbon Dioxide 35 H, Anion Gap 7.4, BUN 14, Creatinine 1.00, Estimated Creat Clear 106, Estimated GFR 74, Est GFR ( Amer) 89, Glucose 110 H, Calcium 8.9, Total Bilirubin 1.8 H, AST 28, ALT 16, Alkaline Phosphatase 59, C-Reactive Protein 58.4 H, Total Protein 7.2, Albumin 4.2, Globulin 3.0, Albumin/Globulin Ratio 1.4 Medical History: Medical History (Updated 10/13/23 @ 15:31 by Lincoln Sr MD) Hypertension Febrile illness, acute UTI (urinary tract infection) Pacemaker Paroxysmal A-fib Sick sinus syndrome Tachy-devonte syndrome Heart failure Assessment and Plan Assessment and plan all Dx Assessment and Plan for all problems:: Pharmacokinetic dosing service Objective: Patient: Floor: Age: 72 yo Serum creatinine: 1 mg/dL Height: 67.0 Inches Weight (kg): 110.2 Assessment: IBW (kg): 66.10 Dosing wt(kg): 110.2 Estimated Creatinine clearance (ml/min): 63.3 CRCL method: Cockcroft and Gault using ibw(default). Drug selected: Vancomycin Loading dose (mg): 0 Vd (liters): 88.2 (factor used: 0.8 L/kg) Kuldeep (hr-1): 0.057 Half life (hrs): 12.16 Recommended dose: 1500 mg Interval: 12 hrs Infusion time (hrs): 2.0 Predicted peak (mcg/mL): 32.4 Predicted trough (mcg/mL): 18.32 Total body weight is being used for vancomycin dosing. Recommendations: Give Vancomycin 1500 mg q 12 hrs with an expected Cpeak of 32.4 mcg/ml and an expected Ctrough of 18.32 mcg/ml ----Vanco only - ignore for aminoglycosides----- CLvanco= 5.03 L/hr AUC 0-24 /SARANYA Data: SARANYA 0.5 mcg/mL: AUC/SARANYA: 1192.8 SARANYA 1.0 mcg/mL: AUC/SARANYA: 596.4 --------- SARANYA 1.5 mcg/mL: AUC/SARANYA: 397.6 SARANYA 2.0 mcg/mL: AUC/SARANYA: 298.2
--- NOTE | 2023-10-13 15:46 | HMH.PHAINT1 ---
Pharmacy Intervention Comments: MEDICATION RECONCILIATION COMPLETED ON PATIENT USING EXTERNAL FILL HISTORY FROM PHARMACY AND LIST FROM CARDIOLOGY OFFICE. -JUSTUS FINNEGAN, [place]
--- NOTE | 2023-10-13 15:47 | PC.NURSE ---
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
[2023-10-13] MEDS: ERTAPENEM SODIUM 1 GM in 0.9 % SODIUM CHLORIDE 50 ML IV (15:53)
--- NOTE | 2023-10-13 16:10 | PC.NURSE ---
REPORT CALLED KATHE ONTIVEROS
--- NOTE | 2023-10-13 16:37 | PC.NURSE ---
arrived by wheelchair from ed.
--- NOTE | 2023-10-13 18:01 | PC.NURSE ---
pt arrived to the floor about 1630 from the ED. pt will be started on abx and reevaluated in the morning by Dr. Drake to decide if an I &D is necessary. consent signed and in the chart. Pt has elevated BP in the 170s/90s-100s that was present in the ER. pt on room air, a & Ox4, and independent. IV in the rt forearm SL. Dr Ponce evaluated perianal wound which has a small amount of foul smelling sanguineous fluid and is between the gluteal folds below the scrotum. 4x4 gauze placed between the area per Dr. Ponce's request. pt verbalizes no pain at the moment. call light within reach.
--- NOTE | 2023-10-13 18:19 | PC.NURSE ---
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
[2023-10-13] MEDS: CARVEDILOL 25MG TABLET 25 MG PO (20:43)
[2023-10-14] VITALS (23 sets, daily range): BP systolic 102–183; BP diastolic 65–102; PULSE 57–91; RESP 16–21; TEMP 36.4–37.6; O2SAT 90–96; BMI 28.1
--- NOTE | 2023-10-14 03:27 | PC.NURSE ---
NPO after Midnight for R&D of perineal abcess. Consent signed. Resting in bed at this time. No complaints voiced. Ambulatory to the Bathroom independently.
[2023-10-14] MEDS: VANCOMYCIN/WATER FOR INJ (PEG) 1.5 GM/300 ML PIGGYBACK IV ×2 (04:27→17:56)
--- NOTE | 2023-10-14 06:14 | PC.NURSE ---
Patient transported via bed to OR for I & D of perineal abcess.
--- NOTE | 2023-10-14 06:18 | PC.NURSE ---
pt off floor to surgery @06:17
[2023-10-14] MEDS: CLINDAMYCIN PHOSPHATE/D5W 900 MG/50 ML PIGGYBACK 100 MG IV (06:44)
[2023-10-14] MEDS: ROPIVACAINE 0.5% 30ML VIAL 150 MG (07:00)
[2023-10-14] MEDS: LIDOCAINE 1% 20ML MDV 20 ML (07:00)
--- NOTE | 2023-10-14 07:04 | P.OP_ITS ---
Date of procedure: 10/14/23 Pre-op Diagnosis:: Left perineal abscess Post-op Diagnosis:: Same Procedure performed:: Incision and drainage of complex left perineal abscess with debridement of skin and subcutaneous tissue Surgeon:: Rod Drake MD SOFTWARE DEVELOPMENT INTERN:: Arvind Lan Anesthesia: LMA Estimated blood loss (mL): 15 Operative findings:: He had some necrosis of the skin with focal underlying necrosis of subcutaneous tissues consistent with focal necrotizing cellulitis. There was brown discharge/pus present. Operative note:: Patient was taken the operating room. He was given preoperative intravenous antibiotics. In the operating room he was placed in a supine position. General anesthesia was induced via LMA. He was positioned in lithotomy position. The area was prepped and draped in the standard surgical fashion. There was evidence of some focal necrosis of the skin with an area that was draining. Limited incision was made with electrocautery. There was brownish pus which exuded from the wound. This was sent for culture. Wound was probed. It was open somewhat superiorly. It did track deeply. Wound was opened and any loculations were broken free. There was noted to be some necrosis of subcutan eous tissues medially towards the scrotum. This was debrided with electrocautery. Some of the overlying devitalized/necrotic skin was debrided with electrocautery. Local anesthetic was infiltrated. Wound was packed with a dry 4 x 4 gauze. Clean dry sterile dressing was applied. . Condition: stable Disposition: PACU Complications:: None immediately apparent
--- NOTE | 2023-10-14 07:14 | P.PNANES_ITS ---
[facility] Disclaimer: The information contained in this section may have been updated after the patient was seen, as this information can be updated by other users. Medical History Hypertension Febrile illness, acute UTI (urinary tract infection) Pacemaker Paroxysmal A-fib Sick sinus syndrome Tachy-devonte syndrome Heart failure Surgical History H/O removal of cyst History of tonsillectomy and adenoidectomy Hx of cholecystectomy History of total right hip replacement History of back surgery Family History Mother Cancer Father Coronary artery disease Stroke Heart attack Sister Alcoholism Lupus Social History Smoking Status: Never smoker alcohol intake: current alcohol intake frequency: a few times a month substance use type: denies use current occupational status: other Travel in the last 8 weeks: None household members: other housing: other caffeine: Yes (couple cups of coffee) [facility] Anesthesia Checklist Patient Identification Patient Identification: Arm Band Structural Data Admitted From: Inpatient Planned Operative Procedure/s: I&D Perineal Abscess Consent for Planned Operative Procedure(s) Verified: Yes Verified Documents: Surgical Consent and History and Physical NPO Status Verified Time NPO: 00:00 Additional verifications Anesthesia Reactions: No Airway Assessment Mallampati Score:: Class II C-Spine Mobility Assessed: Yes TMJ Mobility Assessed: Yes Dentition: Good Dentition Neurological Assessment Level of Consciousness: Awake, Alert and Appropriate Anesthesia Plan Anesthesia Risk discussed: Yes Anesthesia Plan: Verified ASA Class: III Anesthesia Type: General
--- NOTE | 2023-10-14 07:14 | P.PNANES_ITS ---
[facility] Anesthesia Record Part I Anesthesia Record I Intake, IV Amount: 300 Hydration: Adequate Estimated blood loss (mL): 5 Urine output (mL): 0 Blood Products used (#): none Blood Pressure: 102/66 SaO2: 93 Pulse Rate: 71 Airway Patency: Patent Respiratory Rate: 16 Temperature: 99.6 F Patient is:: Drowsy and Stable Stable to PACU at:: 07:10
--- NOTE | 2023-10-14 07:36 | SUR.PHASEI ---
0736- called report to Luz Maria RN on second floor. Current vitals given. Patient to be transported by this RN in bed to room 214. Dressing CDI, no complaints of pain form the patient.
[2023-10-14 09:06] LABS: Basophils % 0.2 % (0.1-2.0); Eosinophils # 0.2 K/mm3 (0.0-0.4); Eosinophils % 1.5 % (0.1-12.0); Hematocrit 40.9 % (42.0-52.0); Hemoglobin 13.5 g/dL (14.1-18.0); Lymphocytes # 0.7 K/mm3 (0.7-4.5); Lymphocytes % 7.2 % (10-50); Mean Corpuscular Hemoglobin 30.4 pg (27.0-31.2); Mean Corpuscular Volume 92.2 fl (80-94); Mean Platelet Volume 8.3 fl (7.4-10.4); Monocytes # 0.3 K/mm3 (0.1-1.0); Neutrophils # 8.7 K/mm3 (1.8-7.8); Neutrophils % 88.1 % (37.0-80.0); Platelet Count 183 K/mm3 (142-424); Red Blood Count 4.43 M/mm3 (4.60-6.20); Red Cell Distribution Width 13.8 % (11.5-17.5); White Blood Count 9.9 K/mm3 (4.8-10.8)
[2023-10-14 09:09] LABS: MANUAL DIFFERENTIAL MANUAL DIFFERENTIAL (MANUAL DIFF)
[2023-10-14 09:10] LABS: Albumin Level 3.9 g/dl (3.5-5.0); Chloride 103 mmol/L (98-107); Potassium 3.7 mmoL/L (3.5-5.1); Sodium 138 mmol/L (136-145)
[2023-10-14 09:12] LABS: Anion Gap 8.7 mEq/L (5-15); Blood Urea Nitrogen 15 mg/dl (9-20); Carbon Dioxide 30 mmol/L (22.0-30.0); Creatinine Clearance Estimated 71 mL/min (50-200); Estimated Glomerular Filt Rate 66 ml/min (>60); GFR (African American) 80 ML/MIN (>60)
[2023-10-14 09:13] LABS: Alanine Aminotransferase 14 U/L (12-78); Albumin/Globulin Ratio 1.4 (1.1-1.8); Alkaline Phosphatase 65 U/L (38-126); Aspartate Amino Transferase 25 U/L (17-59); Bilirubin,Total 1.3 mg/dl (0.2-1.3); Calcium 8.3 mg/dl (8.4-10.2); Globulin 2.7 g/dL (1.3-3.2); Glucose 165 mg/dl (74-100); Magnesium 1.8 mg/dl (1.6-2.3); Total Protein,Serum 6.6 g/dl (6.3-8.2)
[2023-10-14 09:19] LABS: C-Reactive Protein 55.6 mg/L (0-4)
[2023-10-14] MEDS: LISINOPRIL 20MG TABLET 40 MG PO ×2 (09:27→20:11)
[2023-10-14] MEDS: hydroCHLOROthiazide 25MG TABLET 25 MG PO (09:27)
[2023-10-14] MEDS: CARVEDILOL 25MG TABLET 25 MG PO ×2 (09:27→20:11)
--- NOTE | 2023-10-14 10:17 | EXP.ANES.II ---
[facility] Anesthesia Record Part II Anesthesia Record Part II Discharge Time: 07:30 Destination: Surgical Day Care (OP Surgery) PACU nurse assessment reviewed?: Yes Patient Condition:: Good Anesthesia Complications:: None Swallowing reflex intact?: Yes Airway Patency: Patent Cyanosis?: No Blood Pressure: 128/70 SaO2: 95 Respiratory Rate: 18 Pulse Rate: 65 Temperature: 99.6 F Mental Status: Alert & Oriented Pain level:: 0 Nausea and/or vomitting:: None Intake, IV Amount: 0 Hydration: Adequate
[2023-10-14 10:43] LABS: Lymphocytes % 12 % (10-50); Monocytes % 3 % (2-9); Neutrophils % 85 % (42-76); Platelet Estimate Normal; RBC Morphology Normal; Total Cells Counted 100
--- NOTE | 2023-10-14 15:38 | P.PN_ITS ---
Subjective *Date: 10/14/23 *Time: 15:38 Interval history: Status post surgery this morning. Tolerated well. Having a little bit of pain in the left perineal region. Afebrile. Stable on room air. Tolerating p.o. intake. Has had 2 bowel movements this morning. Medical Exam Vital signs and Labs for Last 24 Hours: Vital Signs Temp Pulse Pulse Resp BP BP Pulse Ox 10/14/23 14:50 10/14/23 14:20 67 18 169/75 H 94 L 10/14/23 13:20 64 18 167/65 H 92 L 10/14/23 13:00 10/14/23 12:20 98.7 F 63 19 150/77 H 95 10/14/23 11:20 61 18 144/69 H 92 L 10/14/23 11:00 10/14/23 10:20 69 18 173/78 H 91 L 10/14/23 10:19 18 10/14/23 09:50 98.6 F 67 19 173/96 H 94 L 10/14/23 09:20 99.3 F 69 19 183/91 H 93 L 10/14/23 09:00 10/14/23 08:50 71 19 143/90 H 94 L 10/14/23 08:35 57 L 19 126/73 93 L 10/14/23 08:20 63 20 119/91 H 90 L 10/14/23 08:05 66 20 142/102 H 92 L 10/14/23 07:52 10/14/23 07:50 97.6 F 65 21 143/91 H 92 L 10/14/23 07:30 99.6 F 65 18 128/70 95 10/14/23 07:25 99.6 F 61 18 135/83 96 10/14/23 07:20 99.6 F 66 18 126/77 95 10/14/23 07:15 99.6 F 71 16 102/66 L 10/14/23 07:10 99.6 F 70 18 102/66 L 94 L 10/14/23 05:00 10/14/23 04:00 98.7 F 91 H 18 142/82 H 90 L 10/14/23 03:00 10/14/23 01:00 10/14/23 00:00 98.5 F 68 18 156/95 H 96 10/13/23 23:00 10/13/23 21:00 10/13/23 20:00 97 10/13/23 20:00 98.3 F 61 18 165/98 H 97 10/13/23 19:00 10/13/23 18:14 10/13/23 17:00 98.2 F 70 18 96 10/13/23 17:00 10/13/23 16:17 98.0 F 60 18 172/95 H O2 Del Method 10/14/23 14:50 Room Air 10/14/23 14:20 Room Air 10/14/23 13:20 Room Air 10/14/23 13:00 Room Air 10/14/23 12:20 Room Air 10/14/23 11:20 Room Air 10/14/23 11:00 Room Air 10/14/23 10:20 Room Air 10/14/23 10:19 10/14/23 09:50 Room Air 10/14/23 09:20 Room Air 10/14/23 09:00 Room Air 10/14/23 08:50 Room Air 10/14/23 08:35 Room Air 10/14/23 08:20 Room Air 10/14/23 08:05 Room Air 10/14/23 07:52 Room Air 10/14/23 07:50 Room Air 10/14/23 07:30 Room Air 10/14/23 07:25 Room Air 10/14/23 07:20 Room Air 10/14/23 07:15 10/14/23 07:10 Room Air 10/14/23 05:00 Room Air 10/14/23 04:00 Room Air 10/14/23 03:00 Room Air 10/14/23 01:00 Room Air 10/14/23 00:00 Room Air 10/13/23 23:00 Room Air 10/13/23 21:00 Room Air 10/13/23 20:00 Room Air 10/13/23 20:00 Room Air 10/13/23 19:00 Room Air 10/13/23 18:14 Room Air 10/13/23 17:00 Room Air 10/13/23 17:00 Room Air 10/13/23 16:17 Room Air Intake and Output 10/13/23 10/14/23 10/14/23 23:59 07:59 15:59 Intake Total 960 / 1500 540 / 1500 Output Total 201 / 501 300 / 501 Balance 759 / 999 240 / 999 Intake: Intake, Oral Amount 360 / 900 540 / 900 Intake, Total IV Amount 600 / 600 0 / 600 Vancomycin/Water For Inj (Peg) 300 / 300 1.5 gm In 300 ml @ 150 mls/hr IV Q12H [facility] Rx#:[id number] Output: Output, Urine Amount 201 / 501 300 / 501 Other: Number of Voids 0 Number of Unmeasured Voids 0 1 Number of Bowel Movements 1 1 Weight 109.032 kg 81.42 kg Patient Weight 10/14/23 23:59 Weight 81.42 kg Laboratory Results - last 24 hr 10/14/23 08:58: WBC 9.9, RBC 4.43 L, Hgb 13.5 L, Hct 40.9 L, MCV 92.2, MCH 30.4, MCHC 33.0, RDW 13.8, Plt Count 183, MPV 8.3, Neut % (Auto) 88.1 H, Lymph % (Auto) 7.2 L, [place] % (Auto) 3.0, Eos % (Auto) 1.5, Baso % (Auto) 0.2, Neut # (Auto) 8.7 H, Lymph # (Auto) 0.7, [place] # (Auto) 0.3, Eos # (Auto) 0.2, Baso # (Auto) 0.0, Total Counted 100, Neutrophils % (Manual) 85 H, Lymphocytes % (Manual) 12, Monocytes % (Manual) 3, Platelet Estimate Normal, RBC Morphology Normal, Sodium 138, Potassium 3.7, Chloride 103, Carbon Dioxide 30, Anion Gap 8.7, BUN 15, Creatinine 1.10, Estimated Creat Clear 71, Estimated GFR 66, Est GFR ( Amer) 80, Glucose 165 H D, Calcium 8.3 L, Magnesium 1.8, Total Bilirubin 1.3, AST 25, ALT 14, Alkaline Phosphatase 65, C-Reactive Protein 55.6 H, Total Protein 6.6, Albumin 3.9, Globulin 2.7, Albumin/Globulin Ratio 1.4 I & O for Labs for Last 24 Hours: Intake & Output 10/11/23 10/12/23 10/13/23 10/14/23 23:59 23:59 23:59 23:59 Intake Total 1500 / 1500 Output Total 501 / 501 Balance 999 / 999 Weight 109.032 kg 81.42 kg Microbiology Reports for the Last 24 Hours: Microbiology 10/13/23 12:12 Blood Blood Culture - Preliminary NO GROWTH AFTER 24 HOURS 10/13/23 12:33 Blood Blood Culture - Preliminary NO GROWTH AFTER 24 HOURS Constitutional: Present no acute distress, obese and cooperative Head: Present atraumatic and normocephalic ENT: Present normal exam Respiratory: Present normal respiratory effort; Absent rhonchi, wheezes or crackles Cardiac: Present Reg Rate and Rhythm GI: Present soft and normal bowel sounds; Absent distention or tenderness (male): Present normal inspection Comment:: Incision left perineum lateral to scrotum. Gauze packing in place. Slight bloody discharge Extremities: Present normal inspection and full ROM Skin: Present intact; Absent erythema Neuro: Present Grossly Intact, alert, awake, oriented x 3 and moves all extremities Assessment and Plan *Assessment and plan (1) Abscess of perineum: Status: Acute Category: Medical Code(s): L02.215 - Cutaneous abscess of perineum (2) Hypertension: Status: Resolved Qualifiers: Hypertension type: essential hypertension Qualified Code(s): I10 - Essential (primary) hypertension Category: Medical Code(s): I10 - Essential (primary) hypertension (3) Pacemaker: Status: Acute Category: Medical Code(s): Z95.0 - Presence of cardiac pacemaker (4) HLD (hyperlipidemia): Status: Chronic Qualifiers: Hyperlipidemia type: mixed hyperlipidemia Qualified Code(s): E78.2 - Mixed hyperlipidemia Category: Medical Code(s): E78.5 - Hyperlipidemia, unspecified (5) CAD (coronary artery disease): Status: Chronic Qualifiers: Coronary Disease-Associated Artery/Lesion type: [place] artery [place] vs. 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 Discussed case with ER, request admission for IV antibiotics. I agreed to admit for further management. Started on vancomycin and ertapenem. Status post surgical incision and drainage today. Tolerated well. Continue to monitor overnight with IV antibiotics. Surgery assisting with care. Problems addressed as follows: Perineal abscess -Per my review of CT, small abscess about an inch in diameter, gas but low concern for gas producing infection. His lesion is spontaneous draining, suspect air has gotten the wound from expressing purulence and material. -Continue IV vancomycin and ertapenem daily. -Close monitoring of kidney function while on antibiotics. Repeat CBC, CMP, CRP, and magnesium ordered for the morning - White count normal at 9.9, kidney function normal with BUN 15, creatinine 1.1. CRP stable at 55. -Surgery consulted, plan for I&D in the morning. Patient n.p.o. at midnight - Kidney function normal with BUN 14, creatinine 1.0. Glucose normal at 110. Inflammatory markers elevated with CRP 58. White count elevated 11.2. Hemoglobin 14.4. Continue carvedilol 25 mg twice daily for hypertension and CAD Continue hydrochlorothiazide daily for hypertension Continue lisinopril 40 mg twice daily for hypertension Holding Xarelto, last dose last night on 10/11 Full code Holding anticoagulation, will resume tomorrow. Cardiac diet
[2023-10-14] MEDS: ERTAPENEM SODIUM 1 GM in 0.9 % SODIUM CHLORIDE 50 ML IV (16:47)
--- NOTE | 2023-10-14 17:37 | PC.NURSE ---
Pt is currently resting in bed. Has ambulated in room without difficulty. Has had a shower this shift. No complaints voiced. BP has been elevated at times this shift but has improved this afternoon. DSG to perineum has been changed this shift x3 due to soiling. Small amount sanguineous drainage noted. Pt tolerated well. Education on DSG change provided to significant other and also performed. No concerns noted at this time. Call light within reach.
--- NOTE | 2023-10-14 20:03 | PC.NURSE ---
Dr Donald notified re HTN. Patient to receive Coreg 25 mg and Lisinopril 40 mg .
[2023-10-14] MEDS: ATORVASTATIN 40MG TABLET 40 MG PO (20:11)
--- NOTE | 2023-10-14 21:24 | PC.NURSE ---
manual BP 178/100. Dr Donald notified.
[2023-10-14] MEDS: AMLODIPINE 5MG TABLET 5 MG PO (21:52)
--- NOTE | 2023-10-14 21:58 | PC.NURSE ---
Medicated with Norvasc 5 mg po as ordered for elevated BP.
[2023-10-15 04:00] VITALS: BP 162/94; PULSE 70; RESP 16; TEMP 36.5; O2SAT 97; BMI 38.2
[2023-10-15] MEDS: VANCOMYCIN/WATER FOR INJ (PEG) 1.5 GM/300 ML PIGGYBACK IV (04:36)
[2023-10-15 06:22] LABS: Basophils % 0.3 % (0.1-2.0); Eosinophils # 0.2 K/mm3 (0.0-0.4); Eosinophils % 1.5 % (0.1-12.0); Hemoglobin 12.9 g/dL (14.1-18.0); Lymphocytes # 1.5 K/mm3 (0.7-4.5); Lymphocytes % 15.1 % (10-50); Mean Corpuscular HGB Conc 32.3 g/dL (31.8-35.4); Mean Corpuscular Volume 92.9 fl (80-94); Monocytes # 0.6 K/mm3 (0.1-1.0); Monocytes % 5.9 % (1.7-9.3); Neutrophils # 7.7 K/mm3 (1.8-7.8); Neutrophils % 77.1 % (37.0-80.0); Platelet Count 193 K/mm3 (142-424); Red Blood Count 4.31 M/mm3 (4.60-6.20); Red Cell Distribution Width 13.7 % (11.5-17.5)
[2023-10-15 06:24] LABS: Albumin Level 3.5 g/dl (3.5-5.0); Chloride 106 mmol/L (98-107); Potassium 3.2 mmoL/L (3.5-5.1); Sodium 139 mmol/L (136-145)
[2023-10-15 06:26] LABS: Alanine Aminotransferase 11 U/L (12-78); Aspartate Amino Transferase 22 U/L (17-59); Blood Urea Nitrogen 17 mg/dl (9-20); Creatinine Clearance Estimated 106 mL/min (50-200); Estimated Glomerular Filt Rate 83 ml/min (>60); GFR (African American) 101 ML/MIN (>60)
[2023-10-15 06:27] LABS: Albumin/Globulin Ratio 1.3 (1.1-1.8); Alkaline Phosphatase 59 U/L (38-126); Anion Gap 8.2 mEq/L (5-15); Bilirubin,Total 0.6 mg/dl (0.2-1.3); Calcium 8.3 mg/dl (8.4-10.2); Carbon Dioxide 28 mmol/L (22.0-30.0); Globulin 2.6 g/dL (1.3-3.2); Glucose 137 mg/dl (74-100); Magnesium 1.9 mg/dl (1.6-2.3); Total Protein,Serum 6.1 g/dl (6.3-8.2)
[2023-10-15 06:33] LABS: C-Reactive Protein 35.9 mg/L (0-4)
[2023-10-15 07:45] VITALS: BP 143/99; PULSE 59; RESP 18; TEMP 36.8; O2SAT 95
--- NOTE | 2023-10-15 08:32 | P.DS_ITS ---
General Admission date:: 10/13/23 Discharge date: 10/15/23 HPI HPI HPI: 72-year-old male with history of tacky/bradycardia syndrome, CAD, hypertension. Presented to the ER with complaint of painful lesion in his perineum for the past 2 days. Denies any fever, nausea, vomiting. States that he noticed a painful lesion and felt like he was sitting on something 2 days ago. Had his partner take a look at it and found to have a tender lesion that was draining dark smelly material. Denies any known history of IBS or IBD. Of note had a colonoscopy performed a week ago with no noted lesion at that time. Has been having normal urine output and stool output. On workup in the ER, found to have White count of 11.2, CT of abdomen pelvis with abscess with small amount of gas. Low concern for necrotizing fasciitis. Surgery consulted and evaluated in the ER. Plan for initial IV antibiotics and reevaluation for I&D in the morning. Medicine consulted for admission. On evaluation after arriving to the floor, patient is comfortable on room air. Denies any chest pain or shortness of breath. Hospital Course Hospital Course Hospital Course: 72-year-old male with abscess to the perineum. Discussed case with ER, request admission for IV antibiotics. I agreed to admit for further management. Started on vancomycin and ertapenem. Status post surgical incision and drainage 10/13, Tolerated well. Treated for 48 hours with IV antibiotics. Did well during admission. Tolerating dressing changes. Will transition oral antibiotics and discharge home. Close follow-up with surgery next week. Patient's partner counseled on wound care, home health ordered. Problems addressed as follows: Perineal abscess -Per my review of CT, small abscess about an inch in diameter, gas but low concern for gas producing infection. His lesion is spontaneous draining, suspect air has gotten the wound from expressing purulence and material. Initiated on vancomycin and ertapenem. Taken for I&D with tolerance of procedure. Overall doing better. CRP improved from 55-35 with source control and IV antibiotics. Trending in the right direction. White count remained normal, 10 on day of discharge. Kidney function electrolytes normal. Surgery assisted with care. Recommended daily dressing change with dry gauze or as needed if becomes soiled. Home health ordered to assist with dressing changes a few times a week and to monitor wound. Follow-up with surgery in 1 week for evaluation. Addition to clindamycin 300 mg 3 times a day for 5 days and Levaquin 750 mg daily for an additional 4 doses to complete 7 days total of broad-spectrum antibiotics. Continue carvedilol 25 mg twice daily for hypertension and CAD Continue hydrochlorothiazide daily for hypertension Continue lisinopril 40 mg twice daily for hypertension Resume Xarelto Stable to discharge home. Counseled on wound care needs, antibiotics. Pain meds sent for pain control during dressing changes. Total time spent on discharge 36 minutes in counseling, documentation, chart review, and direct care with patient. Exam Data for Last 24 hours Vital signs and Labs for Last 24 Hours: Temp Pulse Resp BP Pulse Ox O2 Del Method 98.2 F 59 L 18 143/99 H 95 Room Air 10/15/23 07:45 10/15/23 07:45 10/15/23 07:45 10/15/23 07:45 10/15/23 07:45 10/15/23 07:45 Laboratory Results - last 24 hr 10/14/23 08:58: WBC 9.9, RBC 4.43 L, Hgb 13.5 L, Hct 40.9 L, MCV 92.2, MCH 30.4, MCHC 33.0, RDW 13.8, Plt Count 183, MPV 8.3, Neut % (Auto) 88.1 H, Lymph % (Auto) 7.2 L, [place] % (Auto) 3.0, Eos % (Auto) 1.5, Baso % (Auto) 0.2, Neut # (Auto) 8.7 H, Lymph # (Auto) 0.7, [place] # (Auto) 0.3, Eos # (Auto) 0.2, Baso # (Auto) 0.0, Total Counted 100, Neutrophils % (Manual) 85 H, Lymphocytes % (Manual) 12, Monocytes % (Manual) 3, Platelet Estimate Normal, RBC Morphology Normal, Sodium 138, Potassium 3.7, Chloride 103, Carbon Dioxide 30, Anion Gap 8.7, BUN 15, Creatinine 1.10, Estimated Creat Clear 71, Estimated GFR 66, Est GFR ( Amer) 80, Glucose 165 H D, Calcium 8.3 L, Magnesium 1.8, Total Bilirubin 1.3, AST 25, ALT 14, Alkaline Phosphatase 65, C-Reactive Protein 55.6 H, Total Protein 6.6, Albumin 3.9, Globulin 2.7, Albumin/Globulin Ratio 1.4 10/15/23 05:26: WBC 10.0, RBC 4.31 L, Hgb 12.9 L, Hct 40.0 L, MCV 92.9, MCH 30.0, MCHC 32.3, RDW 13.7, Plt Count 193, MPV 8.0, Neut % (Auto) 77.1, Lymph % (Auto) 15.1, [place] % (Auto) 5.9, Eos % (Auto) 1.5, Baso % (Auto) 0.3, Neut # (Auto) 7.7, Lymph # (Auto) 1.5, [place] # (Auto) 0.6, Eos # (Auto) 0.2, Baso # (Auto) 0.0, Sodium 139, Potassium 3.2 L, Chloride 106, Carbon Dioxide 28, Anion Gap 8.2, BUN 17, Creatinine 0.90, Estimated Creat Clear 106, Estimated GFR 83, Est GFR ( Amer) 101 D, Glucose 137 H, Calcium 8.3 L, Magnesium 1.9, Total Bilirubin 0.6, AST 22, ALT 11 L, Alkaline Phosphatase 59, C-Reactive Protein 35.9 H D, Total Protein 6.1 L, Albumin 3.5 D, Globulin 2.6, Albumin/Globulin Ratio 1.3 I & O for Last 24 hours: Intake & Output 10/12/23 10/13/23 10/14/23 10/15/23 23:59 23:59 23:59 23:59 Intake Total 3050 / 3050 300 / 300 Output Total 601 / 601 525 / 525 Balance 2449 / 2449 -225 / -225 Weight 109.032 kg 81.42 kg 110.359 kg Microbiology Reports for the Last 24 Hours: Microbiology 10/14/23 06:45 Groin - Abscess Gram Stain - Final 10/14/23 06:45 Groin - Abscess Abscess Culture - Preliminary NO GROWTH AFTER 24 HOURS 10/13/23 12:12 Blood Blood Culture - Preliminary NO GROWTH AFTER 24 HOURS 10/13/23 12:33 Blood Blood Culture - Preliminary NO GROWTH AFTER 24 HOURS Constitutional Constitutional: no acute distress, obese and cooperative *Routine HEENT Exam Head: Present normocephalic Eye: Present EOMI and PERRL ENT: Present mucous membranes moist *Routine Neck Exam Neck: Present supple; Absent lymphadenopathy *Routine Respiratory Exam Respiratory: Present CTA bilaterally; Absent rhonchi, wheezes or crackles *Routine Cardiovascular Exam Cardiovascular: Present RRR *Routine Abdominal Exam Abdominal: Present soft and normoactive bowel sounds; Absent tenderness *Routine Rectal Exam Patient deferred: visual exam *Routine Exam Comments: Physical normal, 1 inch by half manage incision left of scrotum and perineal region, beefy red appearance. No drainage or purulence. No surrounding erythema. *Routine Extremities Exam Extremities: Absent cyanosis, clubbing or edema *Routine Skin Exam Skin: Present warm; Absent rash *Routine Neurological Exam Neurological: Present alert, oriented X3 and moving all extremities; Absent altered mental status Results Data Completed and Pending Labs on day of discharge: Labs from last 24 hours 10/15/23 10/14/23 05:26 08:58 WBC 10.0 9.9 RBC 4.31 L 4.43 L Hgb 12.9 L 13.5 L Hct 40.0 L 40.9 L MCV 92.9 92.2 MCH 30.0 30.4 MCHC 32.3 33.0 RDW 13.7 13.8 Plt Count 193 183 MPV 8.0 8.3 Neut % (Auto) 77.1 88.1 H Lymph % (Auto) 15.1 7.2 L [place] % (Auto) 5.9 3.0 Eos % (Auto) 1.5 1.5 Baso % (Auto) 0.3 0.2 Neut # (Auto) 7.7 8.7 H Lymph # (Auto) 1.5 0.7 [place] # (Auto) 0.6 0.3 Eos # (Auto) 0.2 0.2 Baso # (Auto) 0.0 0.0 Total Counted 100 Neutrophils % (Manual) 85 H Lymphocytes % (Manual) 12 Monocytes % (Manual) 3 Platelet Estimate Normal RBC Morphology Normal Sodium 139 138 Potassium 3.2 L 3.7 Chloride 106 103 Carbon Dioxide 28 30 Anion Gap 8.2 8.7 BUN 17 15 Creatinine 0.90 1.10 Estimated Creat Clear 106 71 Estimated GFR 83 66 Est GFR ( Amer) 101 D 80 Glucose 137 H 165 H D Calcium 8.3 L 8.3 L Magnesium 1.9 1.8 Total Bilirubin 0.6 1.3 AST 22 25 ALT 11 L 14 Alkaline Phosphatase 59 65 C-Reactive Protein 35.9 H D 55.6 H Total Protein 6.1 L 6.6 Albumin 3.5 D 3.9 Globulin 2.6 2.7 Albumin/Globulin Ratio 1.3 1.4 Preliminary micro results at discharge 10/14/23 06:45 Abscess Culture - Preliminary Groin - Abscess NO GROWTH AFTER 24 HOURS 10/13/23 12:12 Blood Culture - Preliminary Blood NO GROWTH AFTER 24 HOURS 10/13/23 12:33 Blood Culture - Preliminary Blood NO GROWTH AFTER 24 HOURS DS: Diagnosis Discharge Diagnosis (1) Abscess of perineum: Status: Acute Code(s): L02.215 - Cutaneous abscess of perineum (2) Hypertension: Status: Resolved Code(s): I10 - Essential (primary) hypertension Qualifiers: Hypertension type: essential hypertension Qualified Code(s): I10 - Essential (primary) hypertension (3) Pacemaker: Status: Acute Code(s): Z95.0 - Presence of cardiac pacemaker (4) HLD (hyperlipidemia): Status: Chronic Code(s): E78.5 - Hyperlipidemia, unspecified Qualifiers: Hyperlipidemia type: mixed hyperlipidemia Qualified Code(s): E78.2 - Mixed hyperlipidemia (5) CAD (coronary artery disease): Status: Chronic Code(s): I25.10 - Atherosclerotic heart disease of solomon coronary artery without angina pectoris Qualifiers: Associated angina: without angina Coronary Disease-Associated Artery/Lesion type: [place] artery [place] vs. transplanted heart: solomon heart Qualified Code(s): I25.10 - Atherosclerotic heart disease of solomon coronary artery without angina pectoris (6) Paroxysmal A-fib: Status: Acute Code(s): I48.0 - Paroxysmal atrial fibrillation (7) Chronic anticoagulation: Status: Acute Code(s): Z79.01 - floatman (current) use of anticoagulants Meds Home Medications and Allergies Home Medications ?Medication ?Instructions ?Recorded ?Confirmed ?Type tadalafil 20 mg tablet (Cialis) 20 mg PO DAILYP PRN Erectile 02/28/20 10/13/23 History Dysfunction acetaminophen 500 mg tablet 500 mg PO Q6HP PRN Mild Pain 03/26/23 10/13/23 History (Tylenol Extra Strength) (Scale Score 1-4) fish, borage, flaxseed oils-omega 1 cap PO DAILY 03/26/23 10/13/23 History 3,6,9 comb no.1 1,200 mg capsule ([place] 3-6-9) quzqvmswaane-trv-nnvrx acid-vit 1 tab PO DAILY 03/26/23 10/13/23 History K-lycop 400 mcg-20 mcg-370 mcg tablet (Men's 50 Plus Multivitamin) carvedilol 25 mg tablet (Coreg) 25 mg PO BID #60 tabs 08/04/23 10/13/23 Rx atorvastatin 40 mg tablet 40 mg PO DAILY #90 tabs 08/14/23 10/13/23 Rx hydrochlorothiazide 25 mg tablet 25 mg PO DAILY 10/13/23 10/13/23 History lisinopril 40 mg tablet 40 mg PO BID 10/13/23 10/13/23 History rivaroxaban 20 mg tablet (Xarelto) 20 mg PO QPMWITHMEAL 10/13/23 10/13/23 History clindamycin HCl 150 mg capsule 300 mg (2 x 150 mg) PO TID 5 days 10/15/23 Rx #30 caps levofloxacin 750 mg tablet 750 mg PO DAILY 4 days #4 tabs 10/15/23 Rx oxycodone-acetaminophen 5 mg-325 1 tab PO Q6H PRN pain 3 days #12 10/15/23 Rx mg tablet tabs New Prescriptions to Start Prescriptions: clindamycin HCl Wu Ponce levofloxacin Wu Ponce oxycodone-acetaminophen Wu Ponce Allergies Allergy/AdvReac Type Severity Reaction Status Date / Time cephalexin [From Keflex] Allergy Hives Verified 10/06/23 11:10 Discharge Plan Disposition Patient Disposition: Home Health Service Condition: Fair Discharge Order Discharge Orders: Discharge Order (Routine); Ordered 10/15/23 Ordered By: Wu Ponce Follow up Plan Follow up with: Rod Drake MD [Staff Physician] - 10/27/23 10:15 am Rory Pak DO [Primary Care Provider] - 10/22/23 11:30 am Prescriptions/Medication Reconciliation: New clindamycin HCl 150 mg Capsule 300 mg PO TID 5 Days Qty: 30 0RF oxycodone-acetaminophen 5-325 mg tablet 1 tab PO Q6H PRN (Reason: pain) 3 Days Qty: 12 0RF levofloxacin 750 mg tablet 750 mg PO DAILY 4 Days Qty: 4 0RF Rx Instructions: start 10/16/23 Continued [place] 3-6-9 1,200 mg capsule 1 cap PO DAILY Men's 50 Plus Multivitamin 400-20-370 mcg tablet 1 tab PO DAILY acetaminophen [Tylenol Extra Strength] 500 mg tablet 500 mg PO Q6HP PRN (Reason: Mild Pain (Scale Score 1-4)) tadalafil [Cialis] 20 mg tablet 20 mg PO DAILYP PRN (Reason: Erectile Dysfunction) Rx Instructions: administer approximately 30min before sexual activity; do not use more than 1 dose per 24hrs atorvastatin 40 mg tablet 40 mg PO DAILY Qty: 90 1RF carvedilol [Coreg] 25 mg tablet 25 mg PO BID Qty: 60 5RF Rx Instructions: give with food (meal/snack) hydrochlorothiazide 25 mg tablet 25 mg PO DAILY lisinopril 40 mg tablet 40 mg PO BID Xarelto 20 mg tablet 20 mg PO QPMWITHMEAL Rx Instructions: must administer with evening meal Problem Reconciliation Problems Reviewed?: Yes Patient Discharge Instructions ACTIVITY: Continue current activity DIET: continue same diet Patient Instructions: DI for Incision and Drainage of a Skin Abscess, DI for Surgical Site Infection, DI for Skin Abscess Print Language: German Providers Primary Care Provider: Rory Pak Admit Provider: Wu Ponce Attending Provider: Wu Ponce
[2023-10-15] MEDS: hydroCHLOROthiazide 25MG TABLET 25 MG PO (08:43)
[2023-10-15] MEDS: CARVEDILOL 25MG TABLET 25 MG PO (08:43)
[2023-10-15] MEDS: LISINOPRIL 20MG TABLET 40 MG PO (08:44)
--- NOTE | 2023-10-15 09:44 | SW/DCPLANNER ---
Addendum entered by Jaqui Mccall 10/15/23 13:51: Suge[facility] w/ [facility] stated that patient has been accepted for services. Original Note: I spoke w/ this patient regarding plans once medically stable for discharge. Patient will require daily dressing changes and stated that his partner can assist. Patient is agreeable to home health services and prefers to use [facility]. Patient information/order for wound care will be faxed at time of discharge. Patient will discharge home later today.
--- NOTE | 2023-10-15 11:08 | EXP.SURG.PN ---
Subjective Narrative: Patient without complaints. Has tolerated dressing changes. Exam Data for Last 24 hours Vital signs and Labs for Last 24 Hours: Temp Pulse Resp BP Pulse Ox O2 Del Method 98.2 F 59 L 18 143/99 H 95 Room Air 10/15/23 07:45 10/15/23 07:45 10/15/23 07:45 10/15/23 07:45 10/15/23 07:45 10/15/23 07:45 Laboratory Results - last 24 hr 10/15/23 05:26: WBC 10.0, RBC 4.31 L, Hgb 12.9 L, Hct 40.0 L, MCV 92.9, MCH 30.0, MCHC 32.3, RDW 13.7, Plt Count 193, MPV 8.0, Neut % (Auto) 77.1, Lymph % (Auto) 15.1, [place] % (Auto) 5.9, Eos % (Auto) 1.5, Baso % (Auto) 0.3, Neut # (Auto) 7.7, Lymph # (Auto) 1.5, [place] # (Auto) 0.6, Eos # (Auto) 0.2, Baso # (Auto) 0.0, Sodium 139, Potassium 3.2 L, Chloride 106, Carbon Dioxide 28, Anion Gap 8.2, BUN 17, Creatinine 0.90, Estimated Creat Clear 106, Estimated GFR 83, Est GFR ( Amer) 101 D, Glucose 137 H, Calcium 8.3 L, Magnesium 1.9, Total Bilirubin 0.6, AST 22, ALT 11 L, Alkaline Phosphatase 59, C-Reactive Protein 35.9 H D, Total Protein 6.1 L, Albumin 3.5 D, Globulin 2.6, Albumin/Globulin Ratio 1.3 I & O for Last 24 hours: Intake & Output 10/12/23 10/13/23 10/14/23 10/15/23 11:59 11:59 11:59 11:59 Intake Total 1500 / 1500 2390 / 2390 Output Total 501 / 501 625 / 625 Balance 999 / 999 1765 / 1765 Weight 243 lb 179 lb 8 oz 243 lb 4.8 oz Microbiology Reports for the Last 24 Hours: Microbiology 10/14/23 06:45 Groin - Abscess Gram Stain - Final 10/14/23 06:45 Groin - Abscess Abscess Culture - Preliminary NO GROWTH AFTER 24 HOURS 10/13/23 12:12 Blood Blood Culture - Preliminary NO GROWTH AFTER 24 HOURS 10/13/23 12:33 Blood Blood Culture - Preliminary NO GROWTH AFTER 24 HOURS *Routine Skin Exam Comments: Some induration and tenderness. Progress Note: A&P Assessment and plan (1) Abscess of perineum: Status: Acute Assessment and plan: May be able to discharge on dressing changes and antibiotics with early outpatient follow-up. (2) Hypertension: Status: Resolved (3) Pacemaker: Status: Acute (4) HLD (hyperlipidemia): Status: Chronic (5) CAD (coronary artery disease): Status: Chronic (6) Paroxysmal A-fib: Status: Acute (7) Chronic anticoagulation: Status: Acute
[2023-10-15] MEDS: CLINDAMYCIN 150MG CAPSULE 300 MG PO (12:54)
[2023-10-15] MEDS: levoFLOXacin 750 MG TABLET PO (12:55)
--- NOTE | 2023-10-16 11:27 | SW/DCPLANNER ---
Hospital follow up phone call: patient stated that he is doing well at home. 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 I did reach out to [facility] and they will be contacting patient today regarding start of services.
== END 2023-10-15 14:10 | disposition home health service (06) | DRG 603 ==
LOC: ER 15:31 → 2ND 15:59
PROVIDERS: Surgery; Admitting Provider Internal Medicine Adolescent Medicine; Emergency Provider Emergency Medicine; PCP Internal Medicine; Visit Provider Internal Medicine Adolescent Medicine
PROC: 0HD9XZZ Extraction of Perineum Skin, External Approach (ICD-10-PCS; principal; 2023-10-14 06:25)
DX: L02.215 Cutaneous abscess of perineum (principal); I96 Gangrene, not elsewhere classified; I10 Essential (primary) hypertension; Z95.0 Presence of cardiac pacemaker; E78.2 Mixed hyperlipidemia; I25.10 Atherosclerotic heart disease of native coronary artery without angina pectoris; I48.0 Paroxysmal atrial fibrillation; Z79.01 Long term (current) use of anticoagulants; I48.91 Unspecified atrial fibrillation
CPT/HCPCS: 36415; 72193; 80053; 83735; 85007; 85025; 85027; 85651; 86140; 87040; 87070; 87075; 87077; 87205; 88304; 99285; J1100; J1335; J1885; J2405; J3010; Q9967

== ENCOUNTER 2023-12-15 11:49 | Outpatient (CLI) | payer MEDICARE, SELFPAY | END 2023-12-15 23:59 | disposition home or self-care (01) | LOC: LAB.DROPOF 12-16 10:18 | PROVIDERS: PCP Internal Medicine; Visit Provider Internal Medicine | DX: J06.9 Acute upper respiratory infection, unspecified (principal) | CPT/HCPCS: 87635 ==

== ENCOUNTER 2024-01-08 10:08 | Outpatient (CLI) | payer MEDICARE, SELFPAY ==
--- NOTE | 2024-01-08 10:12 | XR_ITS ---
FINAL REPORT TECHNIQUE: Chest PA & Lateral CLINICAL HISTORY: persistant cough COMPARISON: 07/07/2023 FINDINGS: 2 views of the chest were performed. There is mild cardiomegaly. There is a left subclavian pacemaker. The mediastinum is within normal limits. There is no acute cardiopulmonary process. There are no pleural effusions. There is no pneumothorax. The bony thorax appears intact. IMPRESSION: No acute cardiopulmonary process. Reviewed, Interpreted and Dictated by Bernard Taveras MD Transcribed by Christine Barrios Authenticated and [facility]
== END 2024-01-08 23:59 | disposition home or self-care (01) ==
LOC: RAD 10:10
PROVIDERS: PCP Internal Medicine; Visit Provider Internal Medicine
DX: J40 Bronchitis, not specified as acute or chronic (principal)
CPT/HCPCS: 71046

== ENCOUNTER 2024-04-15 14:03 | Outpatient (CLI) | payer MEDICARE, SELFPAY ==
[2024-04-15 14:15] LABS: Basophils % 0.7 % (0.1-2.0); Eosinophils # 0.3 K/mm3 (0.0-0.4); Hematocrit 42.2 % (42.0-52.0); Hemoglobin 14.6 g/dL (14.1-18.0); Lymphocytes # 1.4 K/mm3 (0.7-4.5); Mean Corpuscular HGB Conc 34.6 g/dL (31.8-35.4); Mean Corpuscular Hemoglobin 29.9 pg (27.0-31.2); Mean Corpuscular Volume 86.3 fl (80-94); Mean Platelet Volume 10.4 fl (7.4-10.4); Monocytes # 0.6 K/mm3 (0.1-1.0); Monocytes % 10.5 % (1.7-9.3); Neutrophils # 3.3 K/mm3 (1.8-7.8); Neutrophils % 57.6 % (37.0-80.0); Platelet Count 175 K/mm3 (142-424); Red Blood Count 4.89 M/mm3 (4.60-6.20); Red Cell Distribution Width 13.2 % (11.5-17.5); White Blood Count 5.7 K/mm3 (4.8-10.8)
[2024-04-15 15:33] LABS: Alanine Aminotransferase 15 U/L (12-78); Albumin Level 4.4 g/dl (3.5-5.0); Albumin/Globulin Ratio 2.2 (1.1-1.8); Alkaline Phosphatase 60 U/L (38-126); Anion Gap 9.9 mEq/L (5-15); Aspartate Amino Transferase 30 U/L (17-59); Bilirubin,Total 1.3 mg/dl (0.2-1.3); Blood Urea Nitrogen 14 mg/dl (9-20); Calcium 9.2 mg/dl (8.4-10.2); Carbon Dioxide 30 mmol/L (22.0-30.0); Chloride 102 mmol/L (98-107); Chol/HDL Ratio 3.6 (1-3.5); Cholesterol 132 mg/dl (140-200); Estimated Glomerular Filt Rate 83 ml/min (>60); GFR (African American) 100 ML/MIN (>60); Glucose 110 mg/dl (74-100); HDL Cholesterol 37 mg/dl (40-60); Potassium 3.9 mmoL/L (3.5-5.1); Sodium 138 mmol/L (136-145); Total Protein,Serum 6.4 g/dl (6.3-8.2); Triglycerides 64 mg/dl (30-150); VLDL Cholesterol 13 mg/dL (0-40)
[2024-04-15 15:43] LABS: Direct LDL Cholesterol 70.58 mg/dL (100-129)
[2024-04-15 17:08] LABS: Hemoglobin A1C 5.7 % (4.0-6.0)
[2024-04-25 15:18] LABS: Testosterone, Total, LC/MS 282 ng/dL (.)
== END 2024-04-15 23:59 | disposition home or self-care (01) ==
LOC: LAB.DROPOF 14:04
PROVIDERS: PCP Internal Medicine; Visit Provider Internal Medicine
DX: R53.83 Other fatigue (principal); N53.14 Retrograde ejaculation; E78.5 Hyperlipidemia, unspecified; Z13.220 Encounter for screening for lipoid disorders; Z13.1 Encounter for screening for diabetes mellitus
CPT/HCPCS: 80053; 80061; 83036; 84403; 85025

== ENCOUNTER 2024-05-24 15:57 | Emergency (ER) | payer MEDICARE, SELFPAY ==
[2024-05-24] VITALS (8 sets, daily range): BP systolic 173–216; BP diastolic 78–110; PULSE 58–78; RESP 18; TEMP 36.8–36.9; O2SAT 95–98; BMI 38.9
--- NOTE | 2024-05-24 17:29 | ED_ITS ---
Discharge Plan Disposition Patient Disposition: Xfer Short-Term Hosp Chief Complaint: PAIN Prescriptions Prescriptions: No Action [place] 3-6-9 1,200 mg capsule 1 cap PO DAILY Men's 50 Plus Multivitamin 400-20-370 mcg tablet 1 tab PO DAILY acetaminophen [Tylenol Extra Strength] 500 mg tablet 500 mg PO Q6HP PRN (Reason: Mild Pain (Scale Score 1-4)) tadalafil [Cialis] 20 mg tablet 20 mg PO DAILYP PRN (Reason: Erectile Dysfunction) Qty: 90 0RF Rx Instructions: administer approximately 30min before sexual activity; do not use more than 1 dose per 24hrs triamcinolone acetonide [Nasacort] 55 mcg aerosol,spray 2 spray intranasal DAILY Rx Instructions: administer into each nostril levocetirizine 5 mg tablet 5 mg PO DAILY PRN amlodipine 10 mg tablet 10 mg PO DAILY Qty: 30 2RF tamsulosin 0.4 mg capsule 0.8 mg PO DAILY Qty: 180 3RF Eliquis 5 mg tablet 5 mg PO BID Qty: 60 2RF atorvastatin 40 mg tablet See Rx Instructions .ROUTE .COMPLEX Qty: 90 1RF Dose Instruction: TAKE ONE TABLET BY MOUTH ONCE A DAY GENERIC FOR LIPITOR Rx Instructions: TAKE ONE TABLET BY MOUTH ONCE A DAY GENERIC FOR LIPITOR carvedilol 25 mg tablet See Rx Instructions .ROUTE .COMPLEX Qty: 180 3RF Dose Instruction: TAKE ONE TABLET BY MOUTH 2 TIMES A DAY WITH FOOD OR A SNACK Rx Instructions: TAKE ONE TABLET BY MOUTH 2 TIMES A DAY WITH FOOD OR A SNACK hydrochlorothiazide 25 mg tablet 25 mg PO DAILY lisinopril 40 mg tablet 40 mg PO BID Referrals Follow up/Referrals: Rory Pak DO [Primary Care Provider] - See instructions Clinical Impressions Clinical Impression: Multiple rib fractures, Mass of thyroid gland Print Language Print Language: Sammarinese Discharge ED Provider: Emmanuel Vines General Adult HPI <Val Purvis APRN - Last Filed: 05/24/24 19:13> General Chief complaint: PAIN Stated complaint: AO 05/24/24 0900 Right elbow,R knee,side injury Time Seen by Provider: 05/24/24 17:17 Mode of Arrival: Wheelchair Source of Information: Patient Description of Symptoms (Recalled from ER Triage Doc. by RN): Pt presents for evaluation of left upper back pain after falling this morning while walking his dogs. Pt states he felt a popping sensation. Has a small lac to left elbow and abrasion left knee. Related Data Home Medications ?Medication ?Instructions ?Recorded ?Confirmed acetaminophen 500 mg tablet 500 mg PO Q6HP PRN Mild Pain 03/26/23 04/22/24 (Tylenol Extra Strength) (Scale Score 1-4) fish, borage, flaxseed oils-omega 1 cap PO DAILY 03/26/23 04/22/24 3,6,9 comb no.1 1,200 mg capsule ([place] 3-6-9) asdixzvuutzb-rhg-zfnbe acid-vit 1 tab PO DAILY 03/26/23 04/22/24 K-lycop 400 mcg-20 mcg-370 mcg tablet (Men's 50 Plus Multivitamin) hydrochlorothiazide 25 mg tablet 25 mg PO DAILY 10/13/23 04/22/24 lisinopril 40 mg tablet 40 mg PO BID 10/13/23 04/22/24 levocetirizine 5 mg tablet 5 mg PO DAILY PRN 04/14/24 04/22/24 triamcinolone acetonide 55 mcg 2 spray intranasal DAILY 04/14/24 04/22/24 nasal spray aerosol (Nasacort) Previous Rx's ?Medication ?Instructions ?Recorded tamsulosin 0.4 mg capsule 0.8 mg (2 x 0.4 mg) PO DAILY #180 10/23/23 caps apixaban 5 mg tablet (Eliquis) 5 mg PO BID #60 tabs 02/26/24 atorvastatin 40 mg tablet See Rx Instructions .Route 02/29/24 .COMPLEX #90 tabs carvedilol 25 mg tablet See Rx Instructions .Route 03/04/24 .COMPLEX #180 tabs amlodipine 10 mg tablet 10 mg PO DAILY #30 tabs 04/15/24 tadalafil 20 mg tablet (Cialis) 20 mg PO DAILYP PRN Erectile 04/22/24 Dysfunction #90 tabs Allergies Allergy/AdvReac Type Severity Reaction Status Date / Time cephalexin (From Keflex) Allergy Hives Verified 05/09/24 11:14 [facility] <Val Purvis, CORNER CUTTER - Last Filed: 05/24/24 19:13> [facility] Disclaimer: The information contained in this section may have been updated after the patient was seen, as this information can be updated by other users. Medical History Hypertension Febrile illness, acute UTI (urinary tract infection) Pacemaker Paroxysmal A-fib Sick sinus syndrome Tachy-devonte syndrome Heart failure Surgical History H/O removal of cyst groin History of tonsillectomy and adenoidectomy Hx of cholecystectomy History of total right hip replacement History of back surgery Family History Mother Cancer colon cancer metastasized to liver and other organs Father Coronary artery disease Stroke Heart attack Sister Alcoholism Lupus Social History Smoking Status: Never smoker alcohol intake: current alcohol intake frequency: a few times a month substance use type: denies use current occupational status: other Travel in the last 8 weeks: None household members: other housing: other caffeine: Yes (couple cups of coffee) Have you lived/traveled outside US in past 30 days?: No Contact w/someone who lives/traveled outside US past 30 days?: No Exposure to someone with infectious disease in past 14 days?: No Do you have a fever (greater than 100.4 F or 38 C)?: No Have you tested positive for COVID-19: No Exposed to someone with COVID-19 in past 14 days?: No Do you have a sore throat?: No Do you have a cough?: No Do you have any weakness?: No Do you have any diarrhea?: No Are you experiencing any unusual bleeding?: No Do you have any muscle aches/pain?: No Do you have any abdominal pain?: No Are you experiencing loss of taste or smell?: No Other Medical History Have you received the Flu Vaccine for this season: No Have you received the Pneumonia Vaccine: Yes <Val Purvis APRN - Last Filed: 05/24/24 19:13> ROS Obtained: Yes Systems reviewed as appropriate & no additional complaints except as documented Physical Exam <Val Purvis APRN - Last Filed: 05/24/24 19:13> General General appearance: alert and in no apparent distress Head Head exam: atraumatic and normocephalic Eye Eye exam: Present normal appearance and PERRL ENT ENT exam: Present normal exam Neck Neck exam: Present normal inspection and full ROM; Absent tenderness Chest Chest inspection: Present normal inspection and symmetric chest wall rise; Absent tenderness Respiratory Respiratory exam: Present normal lung sounds bilaterally; Absent respiratory distress or wheezes Cardiovascular Cardiovascular exam: Present regular rate Abdominal Exam Abdominal exam: Present soft and normal bowel sounds; Absent tenderness Comment: L rib area tenderness Extremities Exam Extremities exam: Present normal inspection, full ROM and other (no left knee tenderness, Patella intact and midline. Quadricep muscle intact. No posterior left knee tenderness. Patient has full ROM of left shoulder, minimal anterior left shoulder tenderness. Patient has minimal left lateral humerus tenderness. No left benjamin) Back Exam Back exam: Present normal inspection and full ROM; Absent tenderness Neurological Exam Neurological exam: Present alert and oriented X3 Psychiatric Psychiatric exam: Present normal affect and normal mood Skin Skin exam: Present warm, dry and other (Left knee abrasions, left upper extremity abrasion) Medical Decision Making <Val Purvis APRN - Last Filed: 05/24/24 19:13> Medical Records Screening: Per USPSTF and CDC recommendations, given the prevalence of disease in our region, it is our hospital?s policy to screen for HIV and viral Hepatitis for all patients aged 18 and over and those with ongoing risk factors. Maikel Inquiry Pt receiving controlled substance: No Vital Signs: 05/24/24 16:57 05/24/24 18:42 Temperature 98.5 F Temperature Source Oral Pulse Rate 58 L Pulse Rate [Right] 73 Respiratory Rate 18 18 Blood Pressure 199/110 H Blood Pressure [Right Arm] 216/92 H Blood Pressure Mean [Right Arm] 133 Blood Pressure Source Automatic Cuff Blood Pressure Source [Right Arm] Automatic Cuff Blood Pressure Position Sitting Blood Pressure Position [Right Arm] Sitting 02 Sat by Pulse Oximetry 95 96 Oxygen Delivery Method Room Air Room Air Orders (Tests/Meds): ORDERS Category Date Time Status CT chest wo con Stat Cat Scan 05/24/24 17:37 Completed Humerus XR left [XR humerus LT] Stat Exams 05/24/24 17:37 Completed Knee XR left 3 views [XR knee LT 3V] Stat Exams 05/24/24 17:37 Completed Shoulder XR left minimum 2 views [XR shoulder LT min 2V Exams 05/24/24 17:37 Completed ] Stat XR elbow LT min 3V Stat Exams 05/24/24 17:37 Completed Medical Decision Narrative: In summary, patient is a 73-year-old male PMHx pacemaker (on Eliquis), hypertension, HLD, coronary stent placement, CAD, obesity, history of MO, chronic back pain who presents to the ED after a fall that occurred earlier today. Patient states he was walking his dogs when he slipped on the wet gravel, landing on his left knee, left shoulder, left upper arm & left rib area. Patient did not try to catch himself. Patient denies any previous injuries to the area. He denies hitting his head, denies loss of consciousness. Patient states when he fell he hurt his rib area pop . Patient has been ambulatory since the fall. Denies fever, chills, chest pain, shortness of breath, neck pain, neck rigidity, headache, visual disturbances. Upon initial evaluation patient is alert, oriented and cooperative. He is hypertensive, states he only took his blood pressure medication prior to arrival. He has not had any Tylenol or Motrin for pain, declines any at this time upon physical exam, patient has no left knee tenderness, has small abrasions over left knee. Patella intact and midline. Quadricep muscle intact. No posterior left knee tenderness. Patient has full ROM of left shoulder, minimal anterior left shoulder tenderness. Patient has minimal left lateral humerus tenderness. No left hand tenderness. No C-spine tenderness. Discussed with patient that we will proceed with left shoulder, left knee, left humerus, left elbow imaging and CT of the chest Noncon. I informally and independently interpreted the left shoulder, left knee, left humerus and left elbow as no acute findings. CT Pending, informal interpretation is L rib fracture 5, 6 & 7. Hyperdense area in L mediastinum. Care tranferred to attending, Dr. Vines. <Emmanuel Vines MD - Last Filed: 05/24/24 19:30> Vital Signs: 05/24/24 16:57 05/24/24 18:42 Temperature 98.5 F Temperature Source Oral Pulse Rate 58 L Pulse Rate [Right] 73 Respiratory Rate 18 18 Blood Pressure 199/110 H Blood Pressure [Right Arm] 216/92 H Blood Pressure Mean [Right Arm] 133 Blood Pressure Source Automatic Cuff Blood Pressure Source [Right Arm] Automatic Cuff Blood Pressure Position Sitting Blood Pressure Position [Right Arm] Sitting 02 Sat by Pulse Oximetry 95 96 Oxygen Delivery Method Room Air Room Air Orders (Tests/Meds): ORDERS Category Date Time Status CT chest wo con Stat Cat Scan 05/24/24 17:37 Completed Humerus XR left [XR humerus LT] Stat Exams 05/24/24 17:37 Completed Knee XR left 3 views [XR knee LT 3V] Stat Exams 05/24/24 17:37 Completed Shoulder XR left minimum 2 views [XR shoulder LT min 2V Exams 05/24/24 17:37 Completed ] Stat XR elbow LT min 3V Stat Exams 05/24/24 17:37 Completed ECG Data Tracing #1: Independently interpreted by me rate is 64, rhythm is regular, axis is normal, no ST elevation in anatomical contiguous leads, atrial pacemaker. Medical Decision Narrative: In summary, patient is a 73-year-old male PMHx pacemaker (on Eliquis), hypertension, HLD, coronary stent placement, CAD, obesity, history of MO, chronic back pain who presents to the ED after a fall that occurred earlier today. Patient states he was walking his dogs when he slipped on the wet gravel, landing on his left knee, left shoulder, left upper arm & left rib area. Patient did not try to catch himself. Patient denies any previous injuries to the area. He denies hitting his head, denies loss of consciousness. Patient states when he fell he hurt his rib area pop . Patient has been ambulatory since the fall. Denies fever, chills, chest pain, shortness of breath, neck pain, neck rigidity, headache, visual disturbances. Upon initial evaluation patient is alert, oriented and cooperative. He is hypertensive, states he only took his blood pressure medication prior to arrival. He has not had any Tylenol or Motrin for pain, declines any at this time upon physical exam, patient has no left knee tenderness, has small abrasions over left knee. Patella intact and midline. Quadricep muscle intact. No posterior left knee tenderness. Patient has full ROM of left shoulder, minimal anterior left shoulder tenderness. Patient has minimal left lateral humerus tenderness. No left hand tenderness. No C-spine tenderness. Discussed with patient that we will proceed with left shoulder, left knee, left humerus, left elbow imaging and CT of the chest Noncon. I informally and independently interpreted the left shoulder, left knee, left humerus and left elbow as no acute findings. CT Pending, informal interpretation is L rib fracture 5, 6 & 7. Hyperdense area in L mediastinum. Care tranferred to attending, Dr. Vines. Emmanuel Vines: Upon assumption of care patient was hemodynamically stable. Patient has downtrending blood pressure 178 systolic upon my evaluation. Trauma survey reviewed by me fractures of ribs 4 through 8 on the left, there is an incidental masslike heterogenous enlargement the left thyroid gland which will need further definitive evaluation and management. The case was discussed with Dr. Simms at [facility] given that patient has high risk of decompensation over the next 24 to 48 hours from pulmonary contusions and he graciously accepted patient for transfer for continued evaluation at this time. Critical Care <Val Purvis, MIKE - Last Filed: 05/24/24 19:13> Critical Care Time Critical Care Time: No
--- NOTE | 2024-05-24 17:37 | XR_ITS ---
PROCEDURE INFORMATION: Exam: XR Left Knee Exam date and time: 05/24/2024 6:03 PM Age: 73 years old Clinical indication: Injury or trauma; Fall; Blunt trauma; Knee; Left; Additional info: Fall, anterior knee pain TECHNIQUE: Imaging protocol: Radiologic exam of the left knee. Views: 3 views. COMPARISON: No relevant prior studies available. FINDINGS: Bones/joints: Osseous alignment is normal. No acute fracture. Moderate joint space narrowing compartment. Mild tricompartmental osteophyte formation. No significant joint fluid. Soft tissues: Normal. IMPRESSION: No acute abnormality. Mild osteoarthritis
--- NOTE | 2024-05-24 17:37 | CT_ITS ---
PROCEDURE INFORMATION: Exam: CT Chest Without Contrast; Diagnostic Exam date and time: 05/24/2024 5:58 PM Age: 73 years old Clinical indication: Injury or trauma; Fall; Blunt trauma (contusions or hematomas); Additional info: Fall L rib pain TECHNIQUE: Imaging protocol: Diagnostic computed tomography of the chest without contrast. Radiation optimization: All CT scans at this facility use at least one of these dose optimization techniques: automated exposure control; mA and/or kV adjustment per patient size (includes targeted exams where dose is matched to clinical indication); or iterative reconstruction. COMPARISON: CR XR CHEST 2V 01/08/2024 10:28 AM FINDINGS: Lungs: Unremarkable. No consolidation. No masses. Pleural spaces: Unremarkable. No pneumothorax. No pleural effusion. Heart: Unremarkable. No cardiomegaly. No pericardial effusion. Lymph nodes: Unremarkable. No enlarged lymph nodes. Vasculature: Unremarkable. No aortic aneurysm. Bones/joints: There are nondisplaced nonsegmental fractures posterolateral left 4th and 6th ribs as well as the lateral left 8th rib. Mildly displaced nonsegmental posterolateral fracture of the left 7th rib. Heterogeneous enlargement of the left lobe of the thyroid gland measuring 4 cm in greatest diameter. Moderate degenerative disc changes and anterior osteophyte formation throughout the lower thoracic spine. No vertebral body compression. Soft tissues: Unremarkable. IMPRESSION: 1. Nonsegmental fractures of the left 4th through 8th ribs 2. Masslike heterogeneous enlargement of the left lobe of the thyroid gland. Correlation with thyroid ultrasound recommended
--- NOTE | 2024-05-24 17:37 | XR_ITS ---
PROCEDURE INFORMATION: Exam: XR Left Shoulder Exam date and time: 05/24/2024 6:03 PM Age: 73 years old Clinical indication: Injury or trauma; Fall; Blunt trauma (contusions or hematomas); Shoulder; Left; Additional info: Fall on L shoulder TECHNIQUE: Imaging protocol: Radiologic exam of the left shoulder. Views: 2 or more views. COMPARISON: CR XR HUMERUS LT 05/24/2024 6:03 PM FINDINGS: Bones/joints: Osseous alignment is normal. No acute fracture. Moderate osteophyte formation humeral head. Acromioclavicular joint appears normal. Soft tissues: Normal. IMPRESSION: No acute abnormality. Moderate degenerative changes of the glenohumeral joint.
--- NOTE | 2024-05-24 17:37 | XR_ITS ---
PROCEDURE INFORMATION: Exam: XR Left Humerus Exam date and time: 05/24/2024 6:03 PM Age: 73 years old Clinical indication: Injury or trauma; Fall; Blunt trauma (contusions or hematomas); Arm, upper; Left TECHNIQUE: Imaging protocol: Radiologic exam of the left humerus. Views: 2 or more views. COMPARISON: CR XR SHOULDER LT MIN 2V 05/24/2024 6:03 PM FINDINGS: Bones/joints: Osseous alignment is normal. No acute fracture. Prominent osteophyte formation of the humeral head noted. Moderate degenerative changes noted in the left elbow. Soft tissues: Normal. IMPRESSION: No acute abnormality. Chronic findings as noted.
--- NOTE | 2024-05-24 17:37 | XR_ITS ---
PROCEDURE INFORMATION: Exam: XR Left Elbow Exam date and time: 05/24/2024 6:03 PM Age: 73 years old Clinical indication: Injury or trauma; Fall; Blunt trauma (contusions or hematomas); Elbow; Left TECHNIQUE: Imaging protocol: Radiologic exam of the left elbow. Views: 3 or more views. COMPARISON: CR XR HUMERUS LT 05/24/2024 6:03 PM FINDINGS: Bones/joints: Osseous alignment is normal. No acute fracture. Mild diffuse joint space narrowing moderate diffuse osteophyte formation throughout the left elbow. No evidence of joint fluid. Soft tissues: Normal. IMPRESSION: Moderate osteoarthritis. No acute
--- NOTE | 2024-05-24 17:40 | ECG_ITS ---
APPROVED REPORT Exam: Resting ECG HR:64 bpm ECG Measurements Heart Rate 64 AXES IA 197 P 109 QRSd 104 QRS 31 QT 421 T 76 QTc 430 Conclusion ELECTRONIC ATRIAL PACEMAKER ABNORMAL ECG No STEMI Electronically signed by : MIN LÓPEZ, 05/25/2024 06:32:15
--- NOTE | 2024-05-24 18:40 | PC.NURSE ---
PT noted to have a small abrasion to left knee that is scabbed over. Pt has a 2 x2 skin tear to his left elbow. Wet gauze and gauze wrap applied.
--- NOTE | 2024-05-24 19:00 | PC.NURSE ---
Mustapha JAMIL to bedside to reassess patient's right arm. due to increased swelling noted. Pt has a strong pulse, brisk cap refill, sensation still intact. Compression applied, ice pack applied, and arm elevated. Reminded pt to press call light for any needs. call light with in reach
--- NOTE | 2024-05-24 19:18 | PC.NURSE ---
Called [facility] per Dr. Vines for possible transfer for multiple rib fractures. Dr. Vines is currently on the phone with .
--- NOTE | 2024-05-24 19:51 | PC.NURSE ---
This RN attempts to call report twice.
--- NOTE | 2024-05-24 19:59 | PC.NURSE ---
Report called to Jonelle Samuel RN
--- OUTSIDE RECORDS SUMMARY | 2024-05-26 21:40 | XMS_ITS | Continuity of Care Document ---
Author Organization [facility]. If a dditional information is needed, contact Health Information Management at [phone] [address] [place] [address] Phone Care Team Providers Care Special Needs Babysitter Name Role Phone Unavailable Unavailable Unavailable Unavailable Unavailable Unavailable Unavailable Unavailable Unavailable Problems Urinary tract infectious dis ease Onset:04-Apr-2022 Terrance Viktor APRNNP Blood in urine Onset:04-Apr-2022 Terrance Viktor APRNNP Allergies and Adverse Reactions Cephalexin(Allergy) Onset: 04-Apr-2022 Reaction:HIVES Social History Smoking Status Never smoked tobacco Recorded: 04-Apr-2022
--- OUTSIDE RECORDS SUMMARY | 2024-05-26 21:40 | XMS_ITS | Data Portability ---
Author Organization [facility] [place] & GALILEA Price ADMIN Address [address] [place] [id number] Assessment Encounter Date Assessment Date Assessment LastModified by Organization Details LastModified Time 08/22/2022 08/22/2022 71-year-old male with recent incidental finding on non contrast CT that indicated possible chronic pancreatitis. He is asymptomatic in this regard and denies a history of pancreatitis or risk factors such as alcohol use. He has undergone remote cholecystectomy . -Will obtain CT report from [facility] -Will obtain lab workup per below to evaluate for possible autoimmune pancreatitis, hypertriglyceri demia, and qualitative measure of alcohol use -I will have him follow-up in a couple of months after he has had time to recover from his upcoming orthopedic surgery. At that time, we will plan to schedule an endoscopic ultrasound for further evaluation if appears able to tolerate the procedure. -Screening colonoscopy will be due 11/2023. [email or web address] Not available 08/22/2022 14:12:22 05/17/2024 05/17/2024 ASSESSMENT: Rory Cervantes is a 73-year-old male with a history of urinary issues, including nocturia, weak urinary stream, and blood in urine, likely secondary to benign prostatic hyperplasia (BPH) and bladder diverticula. He also has a history of urinary tract infections and retrograde ejaculation, likely due to tamsulosin use and possibly his back surgery. PLAN: 1. Ordered a PSA blood test to screen for prostate cancer. 2. Recommended a pressure flow study (UroCuff) to assess bladder function. 3. Discussed potential surgical options for BPH, including cystoscopy and transrectal ultrasound to determine the appropriate procedure based on anatomy and size. 4. Advised against the use of finasteride and dutasteride due to potential long-term side effects and limited efficacy in symptom improvement. 5. Scheduled a follow-up appointment in two weeks to review test results and discuss further management options. [email or web address] Not available 05/17/2024 11:42:03 Plan of Treatment Reminders Order Date Submit Date Provider Last Modified By Organization Details Last Modified Time Details Appointments NURSE ONLY 15 2024 11:00A M CKY Uro Nurse Not available Not available Not available PROCEDURE 30 2024 10:15A M BRITTNI MARSHALL MD Not available Not available Not available Lab PSA, total, serum or plasma 2024 025 glory [email or web address] [facility] (Registration ), [address], [place], [address], 05/24/2024 07:46:08 C-reactiv e protein, quantitat adriana, serum or plasma [address], [address], [address], [place], [address], 11/12/2022 06:18:47 ESR (erythroc yte sedimenta tion rate), blood 2022 023 [facility], [address], [address], [place], [address], 11/06/2022 15:09:54 CMP, serum or plasma 2022 023 [facility], [address], [address], [place], [address], 11/06/2022 15:09:52 CBC w/ auto diff 2022 023 [facility], [address], [address], [place], [address], 11/06/2022 15:09:53 C-reactiv e protein, quantitat adriana, serum or plasma 2022 023 [place] [address] [facility], [address], [address], [place], [address], 10/14/2022 06:58:56 ESR (erythroc yte sedimenta tion rate), blood 2022 023 ASHLEY [facility], [address], [address], [place], [address], 10/08/2022 13:10:17 CBC w/ auto diff 2022 023 ASHLEY [facility], [address], [address], [place], [address], 10/08/2022 13:10:16 CMP, serum or plasma 2022 023 ASHLEY [facility], [address], [address], [place], [address], 10/08/2022 13:10:14 phosphati dylethano l, QN, blood 2022 023 [email or web address] 4 [facility] (Lab), [address] [place] [address], [place], [address], 09/04/2022 09:36:53 [address] s 1+2+3+4, serum 2022 023 [email or web address] 4 [facility] (Lab), [address] [place] [address], [place], [address], 09/04/2022 09:36:54 lipase, serum or plasma 2022 023 [email or web address] 4 Not available 09/04/2022 09:36:54 CMP, serum or plasma 2022 023 [facility] (Lab), [address] [place] [address], [place], [address], 09/01/2022 12:10:43 CBC w/ auto diff 2022 023 ASHELY [facility] (Lab), [address] [facility] [address], [place], [address], 09/01/2022 14:05:16 triglycer ides, serum 2022 023 [email or web address] 4 [facility] (Lab), [address], [place], [address], 09/04/2022 09:36:54 Referral None recorded. Procedures bladder scan (PROC) [address] [facility], [address] [facility] [address], [place], [address], 05/17/2024 12:59:16 Surgeries None recorded. Imaging None recorded. Medication Orders minocycli ne 100 mg capsule 2022 023 [facility], [address] [place] [address], [id number], 11/05/2022 11:56:14 levofloxa campos 750 mg tablet 2022 023 [facility], [address] [place] [address], [id number], 10/07/2022 09:26:40 linezolid 600 mg tablet 2022 023 [facility], [address] [place] [address], [id number], 10/07/2022 09:28:36 Patient TargetsNo targets recorded. Patient InstructionsNo instructions recorded. Reason for Referral None Reported. Results Created Date Observation Date Name Description Value Unit Range Abnormal Flag Note LastModifiedBy Organization Detail LastModifiedTime 10/08/19 23 10/08/2022 CMP14 +EGFR glucose 128 mg/dL 70-99 above high normal Not Available [facility] ([facility]) [address] [facility] [address], [place], [address], 10/08/2022 13:10:14 10/08/1910/08/2022 CMP14 +EGFR BUN 11 mg/dL 8-27 Not Available [facility] ([facility]) [address] [facility], [place], [address], 10/08/2022 13:10:14 10/08/19 23 10/08/2022 CMP14 +EGFR creatinine 1.06 mg/dL 0.76-1 .27 Not Available [facility] ([facility]) [address] [facility], [place], [address], 10/08/2022 13:10:14 10/08/1910/08/2022 CMP14 +EGFR eGFR 75 mL/mi n/1.7 3 >59 Not Available [facility] ([facility]) [address] [facility], [place], [address], 10/08/2022 13:10:14 10/08/1910/08/2022 CMP14 +EGFR BUN/creatini ne ratio 10 10-24 Not Available [facility] ([facility]) [address] [facility], [place], [address], 10/08/2022 13:10:14 10/08/1910/08/2022 CMP14 +EGFR sodium 145 mmol/ L 134-14 4 above high normal Not Available [facility] ([facility]) [address] [place], [address], 10/08/2022 13:10:14 10/08/1910/08/2022 CMP14 +EGFR potassium 3.5 mmol/ L 3.5-5. 2 Not Available [facility] ([facility]) [address] [place], [address], 10/08/2022 13:10:14 10/08/1910/08/2022 CMP14 +EGFR chloride 101 mmol/ L 96-106 Not Available [facility] ([facility]) [address] [facility] [place], [address], 10/08/2022 13:10:14 10/08/1910/08/2022 CMP14 +EGFR carbon dioxide, total 27 mmol/ L Not Available [facility] ([facility]) [address] [facility], [place], [address], 10/08/2022 13:10:14 10/08/1910/08/2022 CMP14 +EGFR calcium 9.2 mg/dL 8.6-10 .2 Not Available [facility] ([facility]) [address] [facility] [place], [address], 10/08/2022 13:10:14 10/08/1910/08/2022 CMP14 +EGFR protein, total 5.8 g/dL 6.0-8. 5 below low normal Not Available [facility] ([facility]) [address] [facility], [place], [address], 10/08/2022 13:10:14 10/08/1910/08/2022 CMP14 +EGFR albumin 3.8 g/dL 3.9-4. 9 below low normal Not Available [facility] ([facility]) [address] [facility] [place], [address], 10/08/2022 13:10:14 10/08/1910/08/2022 CMP14 +EGFR globulin, total 2.0 g/dL 1.5-4. 5 Not Available [facility] ([facility]) [address] [facility] [place], [address], 10/08/2022 13:10:14 10/08/1910/08/2022 CMP14 +EGFR A/G ratio 1.9 1.2-2. 2 Not Available [facility] ([facility]) [address] [facility] [place], [address], 10/08/2022 13:10:14 10/08/1910/08/2022 CMP14 +EGFR bilirubin, total 0.5 mg/dL 0.0-1. 2 Not Available [facility] ([facility]) [address] [place], [address], 10/08/2022 13:10:14 10/08/1910/08/2022 CMP14 +EGFR alkaline phosphatase 79 IU/L 44-121 Not Available [facility] [address] [facility], [place], [address], 10/08/2022 13:10:14 10/08/1910/08/2022 CMP14 +EGFR AST (SGOT) 13 IU/L 0-40 Not Available [facility] ([facility]) [address] [facility], [place], [address], 10/08/2022 13:10:14 10/08/1910/08/2022 CMP14 +EGFR ALT (SGPT) 5 IU/L 0-44 Not Available [facility] ([facility]) [address] [facility], [place], [address], 10/08/2022 13:10:14 10/08/19 23 10/08/2022 CBC WITH DIFFE RENTI AL/PL ATELE T WBC 7.4 x10e3 /uL 3.4-10 .8 Not Available [facility] ([facility]) [address] [place], [address], 10/08/2022 13:10:16 10/08/1910/08/2022 CBC WITH DIFFE RENTI AL/PL ATELE T RBC 3.65 x10e6 /uL 4.14-5 .80 below low normal Not Available [facility] ([facility]) [address] [place], [address], 10/08/2022 13:10:16 10/08/19 23 10/08/2022 CBC WITH DIFFE RENTI AL/PL ATELE T hemoglobin 10.2 g/dL 13.0-1 7.7 below low normal Not Available [facility] ([facility]) [address] [place], [address], 10/08/2022 13:10:16 10/08/19 23 10/08/2022 CBC WITH DIFFE RENTI AL/PL ATELE T hematocrit 31.8 % 37.5-5 1.0 below low normal Not Available [facility] ([facility]) [address] [facility], [place], [address], 10/08/2022 13:10:16 10/08/1910/08/2022 CBC WITH DIFFE RENTI AL/PL ATELE T MCV 87 fL 79-97 Not Available [facility] ([facility]) [address] [facility], [place], [address], 10/08/2022 13:10:16 10/08/1910/08/2022 CBC WITH DIFFE RENTI AL/PL ATELE T MCH 27.9 pg 26.6-3 3.0 Not Available [facility] ([facility]) [address] [place], [address], 10/08/2022 13:10:16 10/08/1910/08/2022 CBC WITH DIFFE RENTI AL/PL ATELE T MCHC 32.1 g/dL 31.5-3 5.7 Not Available [facility] ([facility]) [address] [place], [address], 10/08/2022 13:10:16 10/08/1910/08/2022 CBC WITH DIFFE RENTI AL/PL ATELE T RDW 12.9 % 11.6-1 5.4 Not Available [facility] ([facility]) [address] [place], [address], 10/08/2022 13:10:16 10/08/19 23 10/08/2022 CBC WITH DIFFE RENTI AL/PL ATELE T platelets 241 x10e3 /uL 150-45 0 Not Available [facility] ([facility]) [address] [facility], [place], [address], 10/08/2022 13:10:16 10/08/19 23 10/08/2022 CBC WITH DIFFE RENTI AL/PL ATELE T neutrophils 63 % not estab. Not Available [facility] ([facility]) [address] [facility], [place], [address], 10/08/2022 13:10:16 10/08/19 23 10/08/2022 CBC WITH DIFFE RENTI AL/PL ATELE T lymphs 20 % not estab. Not Available [facility] ([facility]) [address] [facility], [place], [address], 10/08/2022 13:10:16 10/08/19 23 10/08/2022 CBC WITH DIFFE RENTI AL/PL ATELE T monocytes 9 % not estab. Not Available [facility] ([facility]) [address] [facility], [place], [address], 10/08/2022 13:10:16 10/08/19 23 10/08/2022 CBC WITH DIFFE RENTI AL/PL ATELE T eos 7 % not estab. Not Available [facility] ([facility]) [address] [facility], [place], [address], 10/08/2022 13:10:16 10/08/19 23 10/08/2022 CBC WITH DIFFE RENTI AL/PL ATELE T basos 1 % not estab. Not Available [facility] ([facility]) [address] [facility], [place], [address], 10/08/2022 13:10:16 10/08/19 23 10/08/2022 CBC WITH DIFFE RENTI AL/PL ATELE T immature cells IT NETWORK ARCHITECT Not Available [facility] ([facility]) [address] [facility], [place], [address], 10/08/2022 13:10:16 10/08/19 23 10/08/2022 CBC WITH DIFFE RENTI AL/PL ATELE T neutrophils (absolute) 4.8 x10e3 /uL 1.4-7. 0 Not Available [facility] ([facility]) [address] [facility], [place], [address], 10/08/2022 13:10:16 10/08/19 23 10/08/2022 CBC WITH DIFFE RENTI AL/PL ATELE T lymphs (absolute) 1.5 x10e3 /uL 0.7-3. 1 Not Available [facility] ([facility]) [address] [facility], [place], [address], 10/08/2022 13:10:16 10/08/19 23 10/08/2022 CBC WITH DIFFE RENTI AL/PL ATELE T monocytes(ab solute) 0.6 x10e3 /uL 0.1-0. 9 Not Available [facility] ([facility]) [address] [facility], [place], [address], 10/08/2022 13:10:16 10/08/19 23 10/08/2022 CBC WITH DIFFE RENTI AL/PL ATELE T eos (absolute) 0.5 x10e3 /uL 0.0-0. 4 above high normal Not Available [facility] ([facility]) [address] [facility], [place], [address], 10/08/2022 13:10:16 10/08/19 23 10/08/2022 CBC WITH DIFFE RENTI AL/PL ATELE T baso (absolute) 0.0 x10e3 /uL 0.0-0. 2 Not Available [facility] ([facility]) [address] [place], [address], 10/08/2022 13:10:16 10/08/19 23 10/08/2022 CBC WITH DIFFE RENTI AL/PL ATELE T immature granulocytes 0 % not estab. Not Available [facility] ([facility]) [address] [facility], [place], [address], 10/08/2022 13:10:16 10/08/19 23 10/08/2022 CBC WITH DIFFE RENTI AL/PL ATELE T immature grans (abs) 0.0 x10e3 /uL 0.0-0. 1 Not Available [facility] ([facility]) [address] [facility], [place], [address], 10/08/2022 13:10:16 10/08/19 23 10/08/2022 CBC WITH DIFFE RENTI AL/PL ATELE T NRBC IT NETWORK ARCHITECT Not Available [facility] ([facility]) [address] [facility], [place], [address], 10/08/2022 13:10:16 10/08/19 23 10/08/2022 CBC WITH DIFFE RENTI AL/PL ATELE T hematology comments: IT NETWORK ARCHITECT Not Available [facility] ([facility]) [address] [facility], [place], [address], 10/08/2022 13:10:16 10/08/19 23 10/08/2022 SEDIM ENTAT ION RATE- WESTE RGREN sedimentatio n rate-westerg eder 5 mm/HR 0-30 Not Available [facility] ([facility]) [address] [place], [address], 10/08/2022 13:10:17 10/08/19 23 10/08/2022 C-YVONNE CTIVE PROTE IN, QUANT C-reactive protein, quant 11 mg/L 0-10 above high normal Not Available [facility] ([facility]) [address] [place], [address], 10/08/2022 13:10:18 11/07/19 23 11/06/2022 CMP14 +EGFR glucose 154 mg/dL 70-99 above high normal Not Available [facility] ([facility]) [address] [place], [address], 11/06/2022 15:09:52 11/07/19 23 11/06/2022 CMP14 +EGFR BUN 12 mg/dL 8-27 Not Available [facility] ([facility]) [address] [facility], [place], [address], 11/06/2022 15:09:52 11/07/19 23 11/06/2022 CMP14 +EGFR creatinine 0.92 mg/dL 0.76-1 .27 Not Available [facility] ([facility]) [address] [facility], [place], [address], 11/06/2022 15:09:52 11/07/19 23 11/06/2022 CMP14 +EGFR eGFR 89 mL/mi n/1.7 3 >59 Not Available [facility] ([facility]) [address] [facility], [place], [address], 11/06/2022 15:09:52 11/07/19 23 11/06/2022 CMP14 +EGFR BUN/creatini ne ratio 13 10-24 Not Available [facility] ([facility]) [address] [facility], [place], [address], 11/06/2022 15:09:52 11/07/19 23 11/06/2022 CMP14 +EGFR sodium 141 mmol/ L 134-14 4 Not Available [facility] ([facility]) [address] [facility], [place], [address], 11/06/2022 15:09:52 11/07/19 23 11/06/2022 CMP14 +EGFR potassium 3.7 mmol/ L 3.5-5. 2 Not Available [facility] ([facility]) [address] [facility], [place], [address], 11/06/2022 15:09:52 11/07/19 23 11/06/2022 CMP14 +EGFR chloride 98 mmol/ L 96-106 Not Available [facility] ([facility]) [address] [facility], [place], [address], 11/06/2022 15:09:52 11/07/19 23 11/06/2022 CMP14 +EGFR carbon dioxide, total 29 mmol/ L 20 Not Available [facility] ([facility]) [address] [facility], [place], [address], 11/06/2022 15:09:52 11/07/19 23 11/06/2022 CMP14 +EGFR calcium 9.4 mg/dL 8.6-10 .2 Not Available [facility] ([facility]) [address] [facility] [place], [address], 11/06/2022 15:09:52 11/07/19 23 11/06/2022 CMP14 +EGFR protein, total 6.1 g/dL 6.0-8. 5 Not Available [facility] ([facility]) [address] [facility], [place], [address], 11/06/2022 15:09:52 11/07/19 23 11/06/2022 CMP14 +EGFR albumin 4.3 g/dL 3.8-4. 8 Not Available [facility] ([facility]) [address] [facility], [place], [address], 11/06/2022 15:09:52 11/07/19 23 11/06/2022 CMP14 +EGFR globulin, total 1.8 g/dL 1.5-4. 5 Not Available [facility] ([facility]) [address] [facility], [place], [address], 11/06/2022 15:09:52 11/07/19 23 11/06/2022 CMP14 +EGFR A/G ratio 2.4 1.2-2. 2 above high normal Not Available [facility] ([facility]) [address] [facility] [place], [address], 11/06/2022 15:09:52 11/07/19 23 11/06/2022 CMP14 +EGFR bilirubin, total 0.8 mg/dL 0.0-1. 2 Not Available [facility] ([facility]) [address] [place], [address], 11/06/2022 15:09:52 11/07/19 23 11/06/2022 CMP14 +EGFR alkaline phosphatase 65 IU/L 44-121 Not Available [facility]) [address] [facility], [place], [address], 11/06/2022 15:09:52 11/07/19 23 11/06/2022 CMP14 +EGFR AST (SGOT) 19 IU/L 0-40 Not Available [facility] ([facility]) [address] [facility], [place], [address], 11/06/2022 15:09:52 11/07/19 23 11/06/2022 CMP14 +EGFR ALT (SGPT) 8 IU/L 0-44 Not Available [facility] ([facility]) [address] [place], [address], 11/06/2022 15:09:52 11/07/19 23 11/06/2022 CBC WITH DIFFE RENTI AL/PL ATELE T WBC 4.3 x10e3 /uL 3.4-10 .8 Not Available [facility] ([facility]) [address] [place], [address], 11/06/2022 15:09:53 11/07/19 23 11/06/2022 CBC WITH DIFFE RENTI AL/PL ATELE T RBC 4.04 x10e6 /uL 4.14-5 .80 below low normal Not Available [facility] ([facility]) [address] [place], [address], 11/06/2022 15:09:53 11/07/19 23 11/06/2022 CBC WITH DIFFE RENTI AL/PL ATELE T hemoglobin 11.9 g/dL 13.0-1 7.7 below low normal Not Available [facility] ([facility]) [address] [facility], [place], [address], 11/06/2022 15:09:53 11/07/19 23 11/06/2022 CBC WITH DIFFE RENTI AL/PL ATELE T hematocrit 34.8 % 37.5-5 1.0 below low normal Not Available [facility] ([facility]) [address] [facility], [place], [address], 11/06/2022 15:09:53 11/07/19 23 11/06/2022 CBC WITH DIFFE RENTI AL/PL ATELE T MCV 86 fL 79-97 Not Available [facility] ([facility]) [address] [facility], [place], [address], 11/06/2022 15:09:53 11/07/19 23 11/06/2022 CBC WITH DIFFE RENTI AL/PL ATELE T MCH 29.5 pg 26.6-3 3.0 Not Available [facility] ([facility]) [address] [place], [address], 11/06/2022 15:09:53 11/07/19 23 11/06/2022 CBC WITH DIFFE RENTI AL/PL ATELE T MCHC 34.2 g/dL 31.5-3 5.7 Not Available [facility] ([facility]) [address] [place], [address], 11/06/2022 15:09:53 11/07/19 23 11/06/2022 CBC WITH DIFFE RENTI AL/PL ATELE T RDW 14.9 % 11.6-1 5.4 Not Available [facility] ([facility]) [address] [place], [address], 11/06/2022 15:09:53 11/07/19 23 11/06/2022 CBC WITH DIFFE RENTI AL/PL ATELE T platelets 151 x10e3 /uL 150-45 0 Not Available [facility] ([facility]) [address] [facility], [place], [address], 11/06/2022 15:09:53 11/07/19 23 11/06/2022 CBC WITH DIFFE RENTI AL/PL ATELE T neutrophils 57 % not estab. Not Available [facility] ([facility]) [address] [facility], [place], [address], 11/06/2022 15:09:53 11/07/19 23 11/06/2022 CBC WITH DIFFE RENTI AL/PL ATELE T lymphs 26 % not estab. Not Available [facility] ([facility]) [address] [facility], [place], [address], 11/06/2022 15:09:53 11/07/19 23 11/06/2022 CBC WITH DIFFE RENTI AL/PL ATELE T monocytes 9 % not estab. Not Available [facility] ([facility]) [address] [facility], [place], [address], 11/06/2022 15:09:53 11/07/19 23 11/06/2022 CBC WITH DIFFE RENTI AL/PL ATELE T eos 6 % not estab. Not Available [facility] ([facility]) [address] [facility], [place], [address], 11/06/2022 15:09:53 11/07/19 23 11/06/2022 CBC WITH DIFFE RENTI AL/PL ATELE T basos 1 % not estab. Not Available [facility] ([facility]) [address] [facility], [place], [address], 11/06/2022 15:09:53 11/07/19 23 11/06/2022 CBC WITH DIFFE RENTI AL/PL ATELE T immature cells IT NETWORK ARCHITECT Not Available [facility] ([facility]) [address] [facility], [place], [address], 11/06/2022 15:09:53 11/07/19 23 11/06/2022 CBC WITH DIFFE RENTI AL/PL ATELE T neutrophils (absolute) 2.5 x10e3 /uL 1.4-7. 0 Not Available [facility] ([facility]) [address] [facility], [place], [address], 11/06/2022 15:09:53 11/07/19 23 11/06/2022 CBC WITH DIFFE RENTI AL/PL ATELE T lymphs (absolute) 1.1 x10e3 /uL 0.7-3. 1 Not Available [facility] ([facility]) [address] [facility], [place], [address], 11/06/2022 15:09:53 11/07/19 23 11/06/2022 CBC WITH DIFFE RENTI AL/PL ATELE T monocytes(ab solute) 0.4 x10e3 /uL 0.1-0. 9 Not Available [facility] ([facility]) [address] [facility], [place], [address], 11/06/2022 15:09:53 11/07/19 23 11/06/2022 CBC WITH DIFFE RENTI AL/PL ATELE T eos (absolute) 0.3 x10e3 /uL 0.0-0. 4 Not Available [facility] ([facility]) [address] [facility], [place], [address], 11/06/2022 15:09:53 11/07/19 23 11/06/2022 CBC WITH DIFFE RENTI AL/PL ATELE T baso (absolute) 0.0 x10e3 /uL 0.0-0. 2 Not Available [facility] ([facility]) [address] [place], [address], 11/06/2022 15:09:53 11/07/19 23 11/06/2022 CBC WITH DIFFE RENTI AL/PL ATELE T immature granulocytes 1 % not estab. Not Available [facility] ([facility]) [address] [facility], [place], [address], 11/06/2022 15:09:53 11/07/19 23 11/06/2022 CBC WITH DIFFE RENTI AL/PL ATELE T immature grans (abs) 0.0 x10e3 /uL 0.0-0. 1 Not Available [facility] ([facility]) [address] [facility], [place], [address], 11/06/2022 15:09:53 11/07/19 23 11/06/2022 CBC WITH DIFFE RENTI AL/PL ATELE T NRBC IT NETWORK ARCHITECT Not Available [facility] ([facility]) [address] [facility], [place], [address], 11/06/2022 15:09:53 11/07/19 23 11/06/2022 CBC WITH DIFFE RENTI AL/PL ATELE T hematology comments: IT NETWORK ARCHITECT Not Available [facility] ([facility]) [address] [facility], [place], [address], 11/06/2022 15:09:53 11/07/19 23 11/06/2022 SEDIM ENTAT ION RATE- WESTE RGREN sedimentatio n rate-westerg eder COMMEN T mm/HR Test not perfo rmed. Insuf ficie nt speci men to perfo rm or compl ete alana sis. Not Available [facility] ([facility]) [address] [facility], [place], [address], 11/06/2022 15:09:54 11/07/19 23 11/06/2022 C-YVONNE CTIVE PROTE IN, QUANT C-reactive protein, quant 4 mg/L 0-10 Not Available [facility] ([facility]) [address] [facility], [place], [place], [address], 11/06/2022 15:09:55 11/07/19 23 11/06/2022 PLEAS E NOTE please note Commen t The date and/o r time of colle ction was not indic ated on the requi sitio n as requi red by state and darci al law. The date of recei pt of the speci men was used as the colle ction date if not suppl ied. Not Available [facility] ([facility]) [address] [facility] [address], [place], [address], 11/06/2022 15:09:56 11/07/19 23 11/06/2022 SPECI MEN STATU S REPOR T specimen status report COMMEN T Test not perfo rmed. Insuf ficie nt speci men to perfo rm or compl ete alana sis. TEST: [id number] Sedim entat ion Rate- West[place] rgren Not Available [facility] ([facility]) [address] [facility] [address], [place], [address], 11/06/2022 15:09:56 05/18/19 25 05/17/2024 PROST ATE SPECI FIC AG (PSA) prostate specific Ag (PSA) 0.5 NG/mL 0-4.0 Not Available [facility] ([facility]) [address] [facility], [place], [address], 05/17/2024 13:52:16 05/18/19 25 05/17/2024 bladd er scan (PROC ) Calculated Residual Urine: 317ml Not Available [facility] [address] [facility] [address], [place], [address], 05/17/2024 11:28:25 09/04/19 23 09/03/2022 trans -thor acic echoc ardio gram (TTE) (PROC ) No observ ation record ed. [email or web address] [address] , [place], [address], 09/10/2022 10:04:36 Result Notes None recorded. Problems Name Problem SNOMED Code Status Onset Date Resolution Date Notes Provider Name and Address Organization Details Recorded Time Benign prostatic hyperplasi a with outflow obstructio n 662256203 Active 2024 BRITTNI MARSHALL MD [address], [place], [address] , [place] [facility] [place] 5 11:41:30 Chronic pancreatit is 394079586 Active 2022 Jessica cantu, [place] - [facility] [place] [facility] [place] 3 13:07:11 Abnormal radiograph ic imaging of pancreas 857217846 Active 2022 Jessica cantu, [place] [facility] [place] [facility] [place] 3 13:07:11 Body mass index 30+ - obesity 905088972 Active Jessica Cui null, [place] [facility] [place] 3 13:07:11 Sciatica 48606647 Active [place] cantu, [place] [facility] [place] 3 13:07:11 Osteoarthr itis of hip 271082902 Active [place] cantu, [place] [facility] [place] [facility] [place] 3 13:07:11 Mixed hyperlipid emia 724830418 Active [place] cantu, [place] [facility] [place] 3 13:07:11 Essential hypertensi on 59122734 Active [place] cantu, [place] [facility] [place] 3 13:07:11 Allergic rhinitis 23654135 Active [place] cantu[place] [facility] [place] 3 13:07:11 History of total hip arthroplas ty 055263604162 Active [place] cantu, [place] [facility] [place] 3 13:07:11 Problem Notes None recorded. Procedures Surgical History Date Name Laterality Status Provider Name and Address Organization Details Recorded Time 02/16/19 20 Joint Replacement completed Kassidy MALLORY - [facility] - [facility] [place] 11/05/2022 11:23:29 02/16/19 20 Hip Surgery completed Kassidy MALLORY [facility] [place] 11/05/2022 11:23:29 02/16/19 19 Colonoscopy [facility]ostomo [place] [facility] [place] 11/05/2022 11:23:29 02/16/19 00 Other completed Kassidy MALLORY [facility] & [place] 11/05/2022 11:23:29 02/16/18 65 Tonsillectomy/A denoidectomy completed Kassidy MALLORY [facility] & [place] 11/05/2022 11:23:29 Imaging Results Imaging Date Name Status LastModified by Organization Details LastModified Time 09/03/2022 trans-thoracic echocardiogram (TTE) (PROC) completed [address] [place], [address], 09/10/2022 10:04:36 Procedure Notes None recorded. Medical Equipment None Reported. Allergies No known drug allergies Medications Name Sig Start Date Stop Date Status Note LastModified by Organization Details LastModified Time cyclobenzap rine 10 mg tablet TAKE 1 TABLET BY MOUTH THREE TIMES DAILY NEEDED FOR PAIN active Not Available Not Available No t Available atorvastati n 40 mg tablet 1 {tablet} by oral route. active Not Available Not Available No t Available methocarbam ol 500 mg tablet active Not Available Not Available Not Available potassium chloride ER 10 mEq capsule,ext ended release TAKE 1 CAPSULE BY MOUTH ONCE DAILY active Not Available Not Available No t Available carvedilol 12.5 mg tablet active Not Available Not Available Not Available Klor-Con 10 mEq tablet,exte nded release 1 {tablet_w ith_food} by oral route. 2018 active Not Available Not Available Not Avai lable Cardizem CD 360 mg capsule,ext ended release 1 {capsule} by oral route. 2017 active Not Available Not Available Not Avai lable indapamide 2.5 mg tablet active Not Available Not Available Not Available ibuprofen 800 mg tablet TAKE 1 TABLET BY MOUTH EVERY 8 HOURS 08/22 completed Not Available Not Available Not Available hydrocodone 5 mg-acetamin ophen 325 mg tablet active Not Available Not Available No t Available minocycline 100 mg capsule Take 1 capsule every 12 hours by oral route. active Not Available Not Available No t Available prednisone 20 mg tablet active Not Available Not Available Not Available clopidogrel 75 mg tablet TAKE 1 TABLET BY MOUTH ONCE DAILY active Not Available Not Available No t Available tramadol 50 mg tablet active Not Available Not Available No t Available ondansetron 8 mg disintegrat ing tablet active Not Available Not Available N ot Available oxycodone-a cetaminophe n 5 mg-325 mg tablet 1 {tablet_a s_needed} 4 times a day by oral route. active Not Available Not Available No t Available methocarbam ol 750 mg tablet 1 {tablet} 6 times a day by oral route. active Not Available Not Available No t Available tamsulosin 0.4 mg capsule active Not Available Not Available Not Available linezolid 600 mg tablet Take 1 tablet every 12 hours by oral route. active Not Available Not Available No t Available amlodipine 10 mg tablet 1 {tablet} by oral route. active Not Available Not Available No t Available hydrocodone 7.5 mg-acetamin ophen 325 mg tablet active Not Available Not Available No t Available triamcinolo ne acetonide 55 mcg nasal spray aerosol active Not Available Not Available Not Available Senokot 8.6 mg tablet 2 {tablets_ at_bedtim e_as_need ed}s by oral route. active Not Available Not Available No t Available gabapentin 300 mg capsule active Not Available Not Available Not Available triamterene 37.5 mg-hydrochl orothiazide 25 mg tablet 1 {tablet_i n_the_mor aster} by oral route. active Not Available Not Available No t Available montelukast 10 mg tablet 1 {tablet_i n_the_eve aster} by oral route. active Not Available Not Available No t Available hydrochloro thiazide 25 mg tablet 1 {tablet_i n_the_mor aster} by oral route. active Not Available Not Available No t Available furosemide 20 mg tablet active Not Available Not Available Not Available levofloxaci n 500 mg tablet active Not Available Not Available Not Available levofloxaci n 750 mg tablet Take 1 tablet every day by oral route. active Not Available Not Available No t Available methylpredn isolone 4 mg tablets in a dose pack active Not Available Not Available Not Available lisinopril 40 mg tablet active Not Available Not Available Not Available ondansetron 4 mg disintegrat ing tablet DISSOLVE 1 TABLET IN MOUTH EVERY 6 HOURS NEEDED FOR NAUSEA AND VOMITING active Not Available Not Available No t Available Lovenox 40 mg/0.4 mL subcutaneou s syringe 0.4 {ml}s by sub-q route. active Not Available Not Available No t Available daptomycin 500 mg intravenous solution active Not Available Not Available Not Available tadalafil 20 mg tablet TAKE 1 TABLET BY MOUTH ONCE DAILY NEEDED FOR ERECTILE DYSFUNCTI ON. ADMINISTE R JOSEA TELY 30 MINUTES BEFORE SEXUAL ACTIVITY. DO NOT USE MORE THAN 1 DOSE IN 24 HOURS active Not Available Not Available No t Available nitrofurant oin monohydrate /macrocryst als 100 mg capsule TAKE 1 CAPSULE BY MOUTH TWICE DAILY UNTIL ALL TAKEN WITH FOOD active Not Available Not Available No t Available EpiPen 0.3 mg/0.3 mL injection, auto-inject or 2018 active Not Available Not Available Not Avai lable Golytely 236 gram-22.74 gram-6.74 gram-5.86 gram oral solution 2018 active Not Available Not Available Not Avai lable Prevnar 13 (PF) 0.5 mL intramuscul ar syringe 2018 active Not Available Not Available Not Avai lable Eliquis 5 mg tablet Take 1 tablet twice a day by oral route. active Not Available Not Available No t Available Vitals Date Recorded Body weight Body mass index (BMI) Body height Body temperature Heart rate Oxygen saturation Oxygen saturation in Arterial blood by Pulse oximetry Systolic blood pressure Diastolic blood pressure Provider Name and Address Organization Details Last Updated DateTime 3 21139.3 6 g 33.7 kg/m2 170.18 cm 98.1 [degF] 78 /min 98 % 98 % 192 mm[Hg] 105 mm[Hg] Idalia Bernardo [facility] 3 11:59:26 Date Recorded Body height Oxygen saturation Oxygen saturation in Arterial blood by Pulse oximetry Heart rate Body temperature Body mass index (BMI) Body weight Systolic blood pressure Diastolic blood pressure Provider Name and Address Organization Details Last Updated DateTime 3 170.18 cm 98 % 98 % 76 /min 98.7 [degF] 35.6 kg/m2 218278. 62 g 150 mm[Hg] 86 mm[Hg] Reta Nuñez [facility] & [place] 3 09:00:06 Date Recorded Body height Body mass index (BMI) Body weight Body temperature Heart rate Oxygen saturation Oxygen saturation in Arterial blood by Pulse oximetry Systolic blood pressure Diastolic blood pressure Provider Name and Address Organization Details Last Updated DateTime 3 170.18 cm 34.2 kg/m2 03535.5 7 g 98.6 [degF] 72 /min 96 % 96 % 138 mm[Hg] 100 mm[Hg] Kassidy Crisostomo [facility] & [place] 3 11:26:05 Date Recorded Body height Body mass index (BMI) Body weight Oxygen saturation Oxygen saturation in Arterial blood by Pulse oximetry Heart rate Systolic blood pressure Diastolic blood pressure Provider Name and Address Organization Details Last Updated DateTime 5 170.18 cm 39.3 kg/m2 029363. 68 g 97 % 97 % 65 /min 140 mm[Hg] 90 mm[Hg] Marry Mckeon [facility] & [place] 5 11:28:09 Social History Question Answer Notes LastModified by [employer] Details LastModified Time Tobacco Smoking Status Never Smoker Kassidy Crisostomo [facility] & [place] 11/05/2022 11:23:23 Do You Have An Advance Directive? Yes [email or web address] Information not available 11/05/2022 What Is Your Level Of Alcohol Consumption? None [email or web address] Information not available 11/05/2022 Are You Blind Or Do You Have Difficulty Seeing? No Information not available 11/05/2022 What Was The Date Of Your Most Recent Tobacco Screening? 08/21/2022 [email or web address] Information not available 11/05/2022 Are You Passively Exposed To Smoke? No [email or web address] Information no t available 11/05/2022 Do You Feel Stressed (tense, Restless, Nervous, Or Anxious, Or Unable To Sleep At Night)? HA0020-3 [email or web address] Information not available 11/05/2022 Do You Use Any Illicit Or Recreational Drugs? No Information not available 11/05/2022 Sex: Unknown Functional Status Question Answer Note LastModified by Organizat ion Details LastModified Time What is your exercise level? Occasional [email or web address] Information not available 11/05/2022 Mental Status None recorded. Family History Relationship Description Onset Age of this Age Resolved Age Notes LastModified by Organization Details LastModified Time Father Heart disease pt. added direct ly (08/21) [email or web address] Not available 09/09/2022 14:27:07 Father Cerebrovascu lar accident pt. added direct ly (08/21) [email or web address] Not available 09/09/2022 14:27:07 Medical History Condition Response Arthritis Y Heart Attack ([place]) Y Back Problems Y Hypertension Y Immunizations Vaccine Type Date Status Note Provider Issac e and Address Organization Details Recorded Time Tdap 12/17/2016 [facility] [place] [facility] [place] 09/10/2022 13:07:18 Past Encounters Encounter ID Performer Location Encounter Start Date Encounter Closed Date Diagnosis/Indication Diagnosis SNOMED-CT Code Diagnosis ICD10 Code Diagnosis Note [id number] Zackary Quintanilla PA-C [facility] [address] [facility] [address] [place] [address] 08/22/2022 11:07:47 08/22/2022 13:25:34 Chronic pancreatitis 277746533 K86.1 Abnormal r adiographic imaging of pancreas 717091568 R93.3 History of polyp of colon 115006449 Z86.010 [id number] Malik Auguste MD [facility] [address] [facility] [address] [place] [address] 10/07/2022 08:46:37 10/07/2022 09:38:19 Osteomyelitis of vertebra 351798661 M46.20 This is a very complicate d infection and involves the patient's lumbar spine. Cultures were negative. Thus, he has been on an empiric regimen of levofloxac in and daptomycin . On exam, his infection appears to be controlled . However, his CRP remains quite elevated. He has no reliable way to receive intravenou s antibiotic s at home now that he has been discharged from rehab. He is unwilling to come to the infusion center to receive antibiotic s. Thus, I am going to continue the levofloxac in 750 mg per day orally. I am going to switch the daptomycin to linezolid 600 mg p.o. b.i.d. The 6 week treatment course will be up as of 10/15. He is going to need long-term consolidat ion/suppre ssive therapy given the retained hardware, which places him at a significan t risk of relapse. I will repeat his basic laboratory work inflammato ry markers today. He will follow up with me again in 1 week. I removed his PICC line today. [id number] Malik Auguste MD [facility] Disease [address] [facility] [address] [place] [address] 11/05/2022 10:51:29 11/05/2022 11:59:48 Osteomyelitis of vertebra 206123599 M46.20 This involved the lumbar spine and was culture negative; this has been a very complicate d infection The patient completed several weeks of induction therapy. Based on his history and exam from today as well as recent laboratory work, I do not believe there is any major acute infection persisting . However, he is at high risk for relapse. Consequent ly, I am going to start consolidat ion minocyclin e 100 mg p.o. b.i.d.. Again, I do not have an exact pathogen. However, I suspect Staphyloco ccus aureus or a related pathogen is most likely. More than likely minocyclin e will cover such. I am choosing minocyclin e over doxycyclin e, as the spectrum of coverage of the latter is greater in general. I will repeat his basic laboratory work inflammato ry and markers today. I did advise him to take precaution s to prevent phototoxic ity with minocyclin e. He will follow up again in 1 month. I will re-evaluat e him clinically and repeat his laboratory work again at that time. He will need periodic monitoring of his LFTs on minocyclin e. I anticipate at least 3 months of consolidat ion therapy followed by long-term suppressiv e therapy. [id number] BRITTNI MARSHALL MD [facility] [address] [facility] [address] [place] [address] 05/17/2024 10:49:43 05/17/2024 11:46:49 Benign prostatic hyperplasia with outflow obstruction 600788270 N40.1 Screening for malignant neoplasm of prostate 777019253 Z12.5 Health Concerns Section Related Observation LastModified by Organization Detai ls LastModified Time None Recorded Concern Status LastModified by Organization Details LastModified Time None Recorded Advance Directives Directive Y: Payers Encounter Date Sequence Insurance Name Policy Number Policy Keith Covered Member ID Keith Member ID Guarantor Name 08/22/2022 1 [place] Rory Cervantes [id number] Rory Cervantes 08/22/2022 2 [employer] OPTIONS (MEDICARE SUPPLEMENT) Rory Cervantes [id number] Rory Cervantes 10/07/2022 1 [place] Rory Cervantes [id number] Rory Cervantes 10/07/2022 2 [employer] OPTIONS (MEDICARE SUPPLEMENT) Rory Cervantes [id number] Rory Cervantes 11/05/2022 1 [place] Rory Cervantes [id number] Rory Cervantes 11/05/2022 2 [employer] OPTIONS (MEDICARE SUPPLEMENT) Rory Cervantes [id number] Rory Cervantes 05/17/2024 1 [place] Rory Cervantes [id number] Rory Cervantes 05/17/2024 2 [employer] (MEDICARE SUPPLEMENT) Rory Cervantes [id number] Rory Cervantes Notes Date Note Type Note Provider Name and Address Organization Details Recorded Time 08/22/2022 text/html is a very pleasant 71-year-old male who was referred by Jaja Romero APRN for evaluation of recent incidental finding of possible chronic pancreatitis while undergoing CT renal stone protocol in evaluation of urinary complaints. He denies a prior history of acute pancreatitis. He did undergo remote cholecystectomy due to symptomatic GB disease, states he was told he had multiple gallstones at that time. He denies a history of regular alcohol consumption or binge drinking. He has no known family history of pancreatitis or pancreatic cancer. He denies abdominal pain, nausea, vomiting, or poor appetite. His primary complaint today is low back pain. He is scheduled to undergo major back surgery next . He states he is expected to have an extended recovery time for this. 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 While he was in the hospital, he underwent an I&D. Cultures were negative. He has been on an empiric regimen of daptomycin and levofloxacin. He just recently got released from rehab. His back pain is minimal. All of his surgical incisions remain healed. He is had no fever. He denies any nausea, vomiting, diarrhea, rashes with antibiotics. No PICC line issues. Apparently, since being discharged home, he has no one to help him with intravenous antibiotic infusions. 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 While he was in the hospital, he underwent an I&D. Cultures were negative. He Completed several weeks of an empiric quinolone and daptomycin. I switched him to oral linezolid and levofloxacin at his last visit due to PICC line issues. This completed his 6 week course of antibiotics. He was supposed to come back to clinic earlier. Consequently, he has been off all antibiotics for the past of couple weeks. He states he is doing well. He has no back pain. His surgical incisions remain healed. He denies having had any side effects with the previous antibiotics. No fever other complaints.. Malik Auguste MD [address], [place], [address], [facility] & [place] 11/05/2022 11:56:31 05/17/2024 text/html 05/17/24 CC: [id number] referred to my office for BPH, nocturia 2-3x, incomplete emptying, taking tamsulosin 0.8mg w/o significant improvement. Rory Cervantes is a 73-year-old male who presents for a new patient visit. He has been on a double dose of tamsulosin for approximately three years, initially prescribed by a provider in [place]. Despite this treatment, he continues to experience urinary issues, including nocturia and a weak urinary stream. He reports that he often has to force urination and experiences intermittent bursts of urine flow. He also mentions a history of blood in the urine, which began during a five-week rehabilitation period following a 14-hour back surgery performed by Dr. Jacobo in [place] in August of the previous year. During this period, he had a catheter placed, which was later replaced due to complications, including constipation. Mr. Cervantes has a history of urinary tract infections, occurring at least once or twice a year. He denies any family history of prostate issues or prostate cancer. He has not had a recent PSA test. He also reports experiencing retrograde ejaculation, which he attributes to his tamsulosin use and possibly his back surgery. 04/15/24 Hgb 14.6, Hct 42.2, Cr 0.90, GFR CT pelvis w ([facility]): bilateral bladder diverticular present, larger on R than L, there is lobular indentation of the prostate into the interior aspect of the /21/23 Cr 0.92, GFR 89, Hgb 10.2, Hct 31.808/ Hgb 9.4, Hct 28.7, Cr 1.0, GFR Cr 0.9, GFR 86, Hgb 9.9, Hct 30.307/ Hgb 14.8, Hct 45.4, Cr 0.90, GFR 83 BRITTNI MARSHALL MD [address] [facility], [place], [address], [facility] & [place] 05/17/2024 12:59:30
--- OUTSIDE RECORDS SUMMARY | 2024-05-26 21:40 | XMS_ITS ---
Author Organization Unknown TREATMENT PLAN Planned [facility] Start Date Provider Encounter for Check-up [id number] [facility]
--- OUTSIDE RECORDS SUMMARY | 2024-05-26 21:40 | XMS_ITS ---
Laboratory report Created on: April 27, 2024 TRANG SALINAS : 1950 Sex: Male Author Organization Unknown PROBLEMS Problems List Code Description RESULTS Laboratory Orders Date Order Code Test 2024-04-15 [id number] TESTOSTERONE, TO BENJAMIN, LC/MS Laboratory Results Date LOINC Test Value Unit Reference Range Interpre tation 2024-04-15 2986-8 TESTOSTERONE, TO BENJAMIN, LC/MS 282 NG/DL
--- OUTSIDE RECORDS SUMMARY | 2024-05-26 21:40 | XMS_ITS | Continuity of Care Document ---
Author Organization [facility] Address [address] [place] [address] Assessment Encounter Date Assessment Date Assessment LastModified by Organization Details LastModified Time 05/17/2024 05/17/2024 ASSESSMENT: Rory Cervantes is a [...] Appointments NURSE ONLY 15 2024 11:00A M LAMINE Uro Nurse Not available Not available Not available PROCEDURE 30 2024 10:15A M BRITTNI MARSHALL MD Not available Not available Not available Lab PSA, total, serum or plasma 2024 025 glory [email or web address] [facility] (Registration ), [address] [facility] [facility], [place], [address], 05/24/2024 07:46:08 Referral None recorded. Procedures bladder scan (PROC) 2024 025 [email or web address] [facility], [address], [place], [address], 05/17/2024 12:59:16 Surgeries None recorded. Imaging None recorded. Medication Orders None recorded. Patient TargetsNo targets recorded. Patient InstructionsNo instructions recorded. Reason for Referral None Reported. Results Created Date Observation Date Name Description Value Unit Range Abnormal Flag Note LastModifiedBy Organization Detail LastModifiedTime 05/18/1905/17/2024 bladd er scan (PROC ) Calculated Residual Urine: 317ml Not Available [facility] [address] [facility] [address], [place], [address], 05/17/2024 11:28:25 Result Notes None recorded. Problems Name Problem SNOMED Code Status Onset Date Resolution Date Notes Provider Name and Address Organization Details Recorded Time Benign prostatic hyperplasi a with outflow obstructio n 839533121 Active 2024 BRITTNI MARSHALL MD [address] [facility], [place], [address] , [facility] [place] [facility] [place] 5 11:41:30 Chronic pancreatit is 039417916 Active 2022 Jessica cantu, [place] - [facility] & [place] 3 13:07:11 Abnormal radiograph ic imaging of pancreas 230394184 Active 2022 Jessica cantu, [place] - [facility] [place] [facility] [place] 3 13:07:11 Body mass index 30+ - obesity 982857505 Active Jsesica cantu, [place] - [facility] - [place] [facility] [place] 3 13:07:11 Sciatica 13865860 Active Jessica cantu, [place] - [facility] [place] [facility] [place] 3 13:07:11 Osteoarthr itis of hip 075846527 Active Jessica cantu, [place] - [facility] [place] [facility] [place] 3 13:07:11 Mixed hyperlipid emia 115604874 Active Jessica cantu, SHAWNEE Hawkins [facility] - [place] [facility] [place] 3 13:07:11 Essential hypertensi on 68296479 Active Jessica cantu, SHAWNEE DUMONT - [place] [facility] [place] 3 13:07:11 Allergic rhinitis 49197491 Active Jessica cantu, [facility]EE [facility] [place] [facility] [place] 3 13:07:11 History of total hip arthroplas ty 123273574889 Active Jessica cantu, SHAWNEE Hawkins [place] [facility] [place] 3 13:07:11 Problem Notes None recorded. Procedures Surgical History Date Name Laterality Status Provider Name and Address Organization Details Recorded Time 02/16/19 20 Joint Replacement completed Kassidy Hawkins [place] [facility] [place] 11/05/2022 11:23:29 02/16/19 20 Hip Surgery completed Kassidy DUMONT [facility] & [place] 11/05/2022 11:23:29 02/16/19 19 Colonoscopy completed Kassidy Hawkins [place] [facility] [place] 11/05/2022 11:23:29 02/16/19 00 Other completed Kassidy Hawkins [facility] & [place] 11/05/2022 11:23:29 02/16/18 65 Tonsillectomy/A denoidectomy completed Kassidy Hawkins [facility] & [place] 11/05/2022 11:23:29 Imaging Results None recorded. Procedure Notes None recorded. Medical Equipment None [...] NEEDED FOR ERECTILE DYSFUNCTI ON. ADMINISTE R APPROXIMA TELY 30 MINUTES BEFORE SEXUAL ACTIVITY. DO [...] No t Available Vitals Date Recorded Body height Body mass index (BMI) Body weight Oxygen saturation Oxygen saturation in Arterial blood by Pulse oximetry Heart rate Systolic blood pressure Diastolic blood pressure Provider Name and Address Organization Details Last Updated DateTime 5 170.18 cm 39.3 kg/m2 673143. 68 g 97 % 97 % 65 /min 140 mm[Hg] 90 mm[Hg] Marry DUMONT [facility] & [place] 11:28:09 Social History Question Answer Notes LastModified by Organizat ion Details LastModified Time Tobacco Smoking Status Never Smoker Kassidy cantu, [facility] DUMONT [facility] & [place] 11/05/2022 11:23:23 Do You Have An Advance Directive? Yes [email or web address] Information not available 11/05/2022 What Is Your Level Of Alcohol Consumption? None [email or web address] Information not available 11/05/2022 Are You Blind Or Do You Have Difficulty Seeing? No [email or web address] Information not available 11/05/2022 What Was The Date Of Your Most Recent Tobacco Screening? 08/21/2022 [email or web address] Information not available 11/05/2022 Are You Passively Exposed To Smoke? No Information no t available 11/05/2022 Do You Feel Stressed (tense, Restless, Nervous, Or Anxious, Or Unable To Sleep At Night)? [id number] Information not available 11/05/2022 Do You Use Any Illicit Or Recreational Drugs? No [email or web address] Information not available 11/05/2022 Sex: Unknown Functional Status Question Answer Note LastModified by Organizat ion Details LastModified Time What is your exercise level? Occasional [email or web address] Information not available 11/05/2022 Mental Status None recorded. Family History Relationship Description Onset Age of this Age Resolved Age Notes LastModified by Organization Details LastModified Time Father Heart disease pt. added direct ly (08/21) [email or web address] Not available 09/09/2022 14:27:07 Father Cerebrovascu lar accident pt. added direct ly (08/21) [email or web address] Not available 09/09/2022 14:27:07 Medical History Condition Response Arthritis Y Heart Attack ([place]) Y Back Problems Y Hypertension Y Immunizations Vaccine Type Date Status Note Provider Nam e and Address Organization Details Recorded Time Tdap 12/17/2016 completed Jessica Cui pepe, [facility]AWNEE DUMONT [facility] & [place] 09/10/2022 13:07:18 Past Encounters Encounter ID Performer Location Encounter Start Date Encounter Closed Date Diagnosis/Indication Diagnosis SNOMED-CT Code Diagnosis ICD10 Code Diagnosis Note [id number] BRITTNI MARSHALL MD [facility] [place] [address] 05/17/2024 10:49:43 05/17/2024 11:46:49 Benign prostatic hyperplasia with outflow obstruction 996812009 N40.1 Screening for malignant neoplasm of prostate 724529932 Z12.5 Health Concerns Section Related Observation LastModified by Organization Detai ls LastModified Time None Recorded Concern Status LastModified by Organization Details LastModified Time None Recorded Payers Encounter Date Sequence Insurance Name Policy Number Policy Keith Covered Member ID Keith Member ID Guarantor Name 05/17/2024 1 [place] Rory Cervantes [id number] Rory Cervantes 05/17/2024 2 [facility] (MEDICARE SUPPLEMENT) Rory Cervantes [id number] Rory Cervantes Notes Date Note Type Note Provider Name and Address Organization Details Recorded Time 05/17/2024 text/html 05/17/24 CC: [id number]-male referred to my office for BPH, nocturia 2-3x, incomplete emptying, taking tamsulosin 0.8mg w/o significant improvement. Rory Cervantes is a 73-year-old male who presents for a new patient visit. He has been on a double dose of tamsulosin for approximately three years, initially prescribed by a provider in [place]. Despite this treatment, he continues to experience urinary issues, including nocturia and a weak urinary stream. He reports that he often has to force urination and experiences intermittent bursts of urine flow. He also mentions a history of blood in the urine, which began during a five-week rehabilitation period following a 14-hour back surgery performed by Dr. Jacobo in [place] in August of the previous year. During [...] 42.2, Cr 0.90, GFR CT pelvis w ([facility]): bilateral bladder diverticular present, larger on R than L, there is lobular indentation of the prostate into the interior aspect of the sujwlrj91/21/23 Cr 0.92, GFR 89, Hgb 10.2, Hct 31.808 Hgb 9.4, Hct 28.7, Cr 1.0, GFR Cr 0.9, GFR 86, Hgb 9.9, Hct 30.307/ Hgb 14.8, Hct 45.4, Cr 0.90, GFR 83 BRITTNI MARSHALL MD [address], [place], [address], [facility] - [facility] & [place] 05/17/2024 12:59:30
== END 2024-05-24 20:50 | disposition short-term general hospital (02) ==
PROVIDERS: Emergency Provider Emergency Medicine; PCP Internal Medicine
DX: S22.49XA Multiple fractures of ribs, unspecified side, initial encounter for closed fracture (principal); E07.9 Disorder of thyroid, unspecified; M54.9 Dorsalgia, unspecified; M25.562 Pain in left knee; M25.512 Pain in left shoulder; M79.602 Pain in left arm; R07.81 Pleurodynia; I10 Essential (primary) hypertension; I25.10 Atherosclerotic heart disease of native coronary artery without angina pectoris; Z95.0 Presence of cardiac pacemaker; Z79.01 Long term (current) use of anticoagulants; W01.0XXA Fall on same level from slipping, tripping and stumbling without subsequent striking against object, initial encounter; Y93.89 Activity, other specified; Y92.89 Other specified places as the place of occurrence of the external cause
CPT/HCPCS: 71250; 73030; 73060; 73080; 73562; 93005; 99284

== ENCOUNTER 2024-06-09 13:59 | Outpatient (CLI) | payer MEDICARE, SELFPAY ==
[2024-06-09 17:48] LABS: Free T4 (Free Thyroxine) 1.69 ng/dl (0.78-2.19)
[2024-06-09 18:01] LABS: Thyroid Stimulating Hormone 0.86 uIU/mL (0.465-4.68)
== END 2024-06-09 23:59 | disposition home or self-care (01) ==
LOC: LAB.DROPOF 13:59
PROVIDERS: PCP Internal Medicine; Visit Provider Internal Medicine
DX: E07.9 Disorder of thyroid, unspecified (principal); Z13.29 Encounter for screening for other suspected endocrine disorder
CPT/HCPCS: 84439; 84443

== ENCOUNTER 2024-06-14 10:23 | Outpatient (CLI) | payer MEDICARE, SELFPAY ==
--- OUTSIDE RECORDS SUMMARY | 2024-06-14 10:26 | XMS_ITS | Continuity of Care Document ---
Author Organization Formerly [facility]. If a dditional information is needed, contact Health Information Management at [phone] Address [address] [place] [address] Phone Care Team Providers Care Spray Mixer Name Role Phone Unavailable Unavailable Unavailable Unavailable Unavailable Unavailable Unavailable Unavailable Unavailable Problems Urinary tract infectious dis ease Onset:04-Apr-2022 Terrance Viktor APRNNP Blood in urine Onset:04-Apr-2022 Terrance Viktor APRNNP Allergies and Adverse Reactions Cephalexin(Allergy) Onset: 04-Apr-2022 Reaction:HIVES Social History Smoking Status Never smoked tobacco Recorded: 04-Apr-2022
--- OUTSIDE RECORDS SUMMARY | 2024-06-14 10:26 | XMS_ITS | Data Portability ---
Author Organization [facility] [place] & GALILEA Price ADMIN Address [address] [place] [id number] Assessment Encounter Date Assessment Date Assessment LastModified by Organization Details LastModified Time 08/22/2022 08/22/2022 71-year-old male with recent incidental finding on non contrast CT that indicated possible chronic pancreatitis. He is asymptomatic in this regard and denies a history of pancreatitis or risk factors such as alcohol use. He has undergone remote cholecystectomy . -Will obtain CT report from [facility] -Will obtain lab workup per below to [...] procedure. -Screening colonoscopy will be due 11/2023. [email or web address] Not available 08/22/2022 14:12:22 05/17/2024 05/17/2024 ASSESSMENT: [...] serum or plasma 2024 025 glory [email or web address] [facility] (Registration ), [address], [place], [address], 05/24/2024 07:46:08 C-reactiv e protein, quantitat adriana, serum or plasma [address], [address], [address], [place], [address], 11/12/2022 06:18:47 ESR (erythroc yte sedimenta tion rate), blood 2022 023 [facility], [address], [address], [place], [address], 11/06/2022 15:09:54 CMP, serum or plasma 2022 023 [facility], [address], [address], [place], [address], 11/06/2022 15:09:52 CBC w/ auto diff 2022 023 [facility], [address], [address], [place], [address], 11/06/2022 15:09:53 C-reactiv e protein, quantitat adriana, serum or plasma 2022 023 [place] [id number] [facility], [address], [address], [place], [address], 10/14/2022 06:58:56 ESR (erythroc yte sedimenta tion rate), blood 2022 023 [facility], [address], [address], [place], [address], 10/08/2022 13:10:17 CBC w/ auto diff 2022 023 [facility], [address], [address], [place], [address], 10/08/2022 13:10:16 CMP, serum or plasma 2022 023 [facility], [address], [address], [place], [address], 10/08/2022 13:10:14 phosphati dylethano l, QN, blood 2022 023 [email or web address] 4 [facility] (Lab), [address], [place], [address], 09/04/2022 09:36:53 [address] s 1+2+3+4, serum 2022 023 [email or web address] 4 [facility] (Lab), [address], [place], [address], 09/04/2022 09:36:54 lipase, serum or plasma 2022 023 [email or web address] Not available 09/04/2022 09:36:54 CMP, serum or plasma 2022 023 [facility] (Lab), [address], [place], [address], 09/01/2022 12:10:43 CBC w/ auto diff 2022 023 ASHLEY [facility] (Lab), [address], [place], [address], 09/01/2022 14:05:16 triglycer ides, serum 2022 023 [email or web address] 4 [facility] (Lab), [address], [place], [address], 09/04/2022 09:36:54 Referral None recorded. Procedures bladder scan (PROC) [address] [facility], [address] [facility] [address], [place], [address], 05/17/2024 12:59:16 Surgeries None recorded. Imaging None recorded. Medication Orders minocycli ne 100 mg capsule 2022 023 [facility], [address] [place] [address], [id number], 11/05/2022 11:56:14 levofloxa campos 750 mg tablet 2022 023 [facility], [address] [place] [address], [id number], 10/07/2022 09:26:40 linezolid 600 mg tablet 2022 023 [facility], [address] [place] [address], [id number], 10/07/2022 09:28:36 Patient TargetsNo targets recorded. Patient InstructionsNo instructions recorded. Reason for Referral None Reported. Results Created Date Observation Date Name Description Value Unit Range Abnormal Flag Note LastModifiedBy Organization Detail LastModifiedTime 10/08/19 23 10/08/2022 CMP14 +EGFR glucose 128 mg/dL 70-99 above high normal Not Available [facility]) [address] [facility], [place], [address], 10/08/2022 13:10:14 10/08/1910/08/2022 CMP14 +EGFR BUN 11 mg/dL 8-27 Not Available [facility] ([facility]) [address] [facility], [place], [address], 10/08/2022 13:10:14 10/08/19 23 10/08/2022 CMP14 +EGFR creatinine 1.06 mg/dL 0.76-1 .27 Not Available [facility] ([facility]) [address] [facility], [place], [address], 10/08/2022 13:10:14 10/08/1910/08/2022 CMP14 +EGFR eGFR 75 mL/mi n/1.7 3 >59 Not Available [facility] ([facility]) [address] [facility], [place], [address], 10/08/2022 13:10:14 10/08/1910/08/2022 CMP14 +EGFR BUN/creatini ne ratio 10 10-24 Not Available [facility]) [address] [facility], [place], [address], 10/08/2022 13:10:14 10/08/1910/08/2022 CMP14 +EGFR sodium 145 mmol/ L 134-14 4 above high normal Not Available [facility] ([facility]) [address] [place], [address], 10/08/2022 13:10:14 10/08/1910/08/2022 CMP14 +EGFR potassium 3.5 mmol/ L 3.5-5. 2 Not Available [facility] ([facility]) [address] [place], [address], 10/08/2022 13:10:14 10/08/1910/08/2022 CMP14 +EGFR chloride 101 mmol/ L 96-106 Not Available [facility] ([facility]) [address] [facility] [place], [address], 10/08/2022 13:10:14 10/08/1910/08/2022 CMP14 +EGFR carbon dioxide, total 27 mmol/ L Not Available [facility] ([facility]) [address] [facility], [place], [address], 10/08/2022 13:10:14 10/08/1910/08/2022 CMP14 +EGFR calcium 9.2 mg/dL 8.6-10 .2 Not Available [facility] ([facility]) [address] [facility] [place], [address], 10/08/2022 13:10:14 10/08/1910/08/2022 CMP14 +EGFR protein, total 5.8 g/dL 6.0-8. 5 below low normal Not Available [facility] ([facility]) [address] [facility], [place], [address], 10/08/2022 13:10:14 10/08/1910/08/2022 CMP14 +EGFR albumin 3.8 g/dL 3.9-4. 9 below low normal Not Available [facility] ([facility]) [address] [facility] [place], [address], 10/08/2022 13:10:14 10/08/1910/08/2022 CMP14 +EGFR globulin, total 2.0 g/dL 1.5-4. 5 Not Available [facility] ([facility]) [address] [facility] [place], [address], 10/08/2022 13:10:14 10/08/1910/08/2022 CMP14 +EGFR A/G ratio 1.9 1.2-2. 2 Not Available [facility] ([facility]) [address] [facility] [place], [address], 10/08/2022 13:10:14 10/08/1910/08/2022 CMP14 +EGFR bilirubin, total 0.5 mg/dL 0.0-1. 2 Not Available [facility] ([facility]) [address] [place], [address], 10/08/2022 13:10:14 10/08/1910/08/2022 CMP14 +EGFR alkaline phosphatase 79 IU/L 44-121 Not Available [facility] [address] [facility], [place], [address], 10/08/2022 13:10:14 10/08/1910/08/2022 CMP14 +EGFR AST (SGOT) 13 IU/L 0-40 Not Available [facility] ([facility]) [address] [facility], [place], [address], 10/08/2022 13:10:14 10/08/1910/08/2022 CMP14 +EGFR ALT (SGPT) 5 IU/L 0-44 Not Available [facility] ([facility]) [address] [facility], [place], [address], 10/08/2022 13:10:14 10/08/19 23 10/08/2022 CBC WITH DIFFE RENTI AL/PL ATELE T WBC 7.4 x10e3 /uL 3.4-10 .8 Not Available [facility] ([facility]) [address] [place], [address], 10/08/2022 13:10:16 10/08/1910/08/2022 CBC WITH DIFFE RENTI AL/PL ATELE T RBC 3.65 x10e6 /uL 4.14-5 .80 below low normal Not Available [facility] ([facility]) [address] [place], [address], 10/08/2022 13:10:16 10/08/19 23 10/08/2022 CBC WITH DIFFE RENTI AL/PL ATELE T hemoglobin 10.2 g/dL 13.0-1 7.7 below low normal Not Available [facility] ([facility]) [address] [place], [address], 10/08/2022 13:10:16 10/08/19 23 10/08/2022 CBC WITH DIFFE RENTI AL/PL ATELE T hematocrit 31.8 % 37.5-5 1.0 below low normal Not Available [facility] ([facility]) [address] [facility], [place], [address], 10/08/2022 13:10:16 10/08/1910/08/2022 CBC WITH DIFFE RENTI AL/PL ATELE T MCV 87 fL 79-97 Not Available [facility] ([facility]) [address] [facility], [place], [address], 10/08/2022 13:10:16 10/08/1910/08/2022 CBC WITH DIFFE RENTI AL/PL ATELE T MCH 27.9 pg 26.6-3 3.0 Not Available [facility] ([facility]) [address] [place], [address], 10/08/2022 13:10:16 10/08/1910/08/2022 CBC WITH DIFFE RENTI AL/PL ATELE T MCHC 32.1 g/dL 31.5-3 5.7 Not Available [facility] ([facility]) [address] [place], [address], 10/08/2022 13:10:16 10/08/1910/08/2022 CBC WITH DIFFE RENTI AL/PL ATELE T RDW 12.9 % 11.6-1 5.4 Not Available [facility] ([facility]) [address] [place], [address], 10/08/2022 13:10:16 10/08/19 23 10/08/2022 CBC WITH DIFFE RENTI AL/PL ATELE T platelets 241 x10e3 /uL 150-45 0 Not Available [facility] ([facility]) [address] [facility], [place], [address], 10/08/2022 13:10:16 10/08/19 23 10/08/2022 CBC WITH DIFFE RENTI AL/PL ATELE T neutrophils 63 % not estab. Not Available [facility] ([facility]) [address] [facility], [place], [address], 10/08/2022 13:10:16 10/08/19 23 10/08/2022 CBC WITH DIFFE RENTI AL/PL ATELE T lymphs 20 % not estab. Not Available [facility] ([facility]) [address] [facility], [place], [address], 10/08/2022 13:10:16 10/08/19 23 10/08/2022 CBC WITH DIFFE RENTI AL/PL ATELE T monocytes 9 % not estab. Not Available [facility] ([facility]) [address] [facility], [place], [address], 10/08/2022 13:10:16 10/08/19 23 10/08/2022 CBC WITH DIFFE RENTI AL/PL ATELE T eos 7 % not estab. Not Available [facility] ([facility]) [address] [facility], [place], [address], 10/08/2022 13:10:16 10/08/19 23 10/08/2022 CBC WITH DIFFE RENTI AL/PL ATELE T basos 1 % not estab. Not Available [facility] ([facility]) [address] [facility], [place], [address], 10/08/2022 13:10:16 10/08/19 23 10/08/2022 CBC WITH DIFFE RENTI AL/PL ATELE T immature cells SOLUTIONS MANAGER Not Available [facility] ([facility]) [address] [facility], [place], [address], 10/08/2022 13:10:16 10/08/19 23 10/08/2022 CBC WITH DIFFE RENTI AL/PL ATELE T neutrophils (absolute) 4.8 x10e3 /uL 1.4-7. 0 Not Available [facility] ([facility]) [address] [facility], [place], [address], 10/08/2022 13:10:16 10/08/19 23 10/08/2022 CBC WITH DIFFE RENTI AL/PL ATELE T lymphs (absolute) 1.5 x10e3 /uL 0.7-3. 1 Not Available [facility] ([facility]) [address] [facility], [place], [address], 10/08/2022 13:10:16 10/08/19 23 10/08/2022 CBC WITH DIFFE RENTI AL/PL ATELE T monocytes(ab solute) 0.6 x10e3 /uL 0.1-0. 9 Not Available [facility] ([facility]) [address] [facility], [place], [address], 10/08/2022 13:10:16 10/08/19 23 10/08/2022 CBC WITH DIFFE RENTI AL/PL ATELE T eos (absolute) 0.5 x10e3 /uL 0.0-0. 4 above high normal Not Available [facility] ([facility]) [address] [facility], [place], [address], 10/08/2022 13:10:16 10/08/19 23 10/08/2022 CBC WITH DIFFE RENTI AL/PL ATELE T baso (absolute) 0.0 x10e3 /uL 0.0-0. 2 Not Available [facility] ([facility]) [address] [place], [address], 10/08/2022 13:10:16 10/08/19 23 10/08/2022 CBC WITH DIFFE RENTI AL/PL ATELE T immature granulocytes 0 % not estab. Not Available [facility] ([facility]) [address] [facility], [place], [address], 10/08/2022 13:10:16 10/08/19 23 10/08/2022 CBC WITH DIFFE RENTI AL/PL ATELE T immature grans (abs) 0.0 x10e3 /uL 0.0-0. 1 Not Available [facility] ([facility]) [address] [facility], [place], [address], 10/08/2022 13:10:16 10/08/19 23 10/08/2022 CBC WITH DIFFE RENTI AL/PL ATELE T NRBC SOLUTIONS MANAGER Not Available [facility] ([facility]) [address] [facility], [place], [address], 10/08/2022 13:10:16 10/08/19 23 10/08/2022 CBC WITH DIFFE RENTI AL/PL ATELE T hematology comments: SOLUTIONS MANAGER Not Available [facility] ([facility]) [address] [facility], [place], [address], 10/08/2022 13:10:16 10/08/19 23 10/08/2022 SEDIM ENTAT ION RATE- WESTE RGREN sedimentatio n rate-westerg eder 5 mm/HR 0-30 Not Available [facility] ([facility]) [address] [place], [address], 10/08/2022 13:10:17 10/08/19 23 10/08/2022 C-YVONNE CTIVE PROTE IN, QUANT C-reactive protein, quant 11 mg/L 0-10 above high normal Not Available [facility] ([facility]) [address] [place], [address], 10/08/2022 13:10:18 11/07/19 23 11/06/2022 CMP14 +EGFR glucose 154 mg/dL 70-99 above high normal Not Available [facility] ([facility]) [address] [place], [address], 11/06/2022 15:09:52 11/07/19 23 11/06/2022 CMP14 +EGFR BUN 12 mg/dL 8-27 Not Available [facility] ([facility]) [address] [facility], [place], [address], 11/06/2022 15:09:52 11/07/19 23 11/06/2022 CMP14 +EGFR creatinine 0.92 mg/dL 0.76-1 .27 Not Available [facility] ([facility]) [address] [facility], [place], [address], 11/06/2022 15:09:52 11/07/19 23 11/06/2022 CMP14 +EGFR eGFR 89 mL/mi n/1.7 3 >59 Not Available [facility] ([facility]) [address] [facility], [place], [address], 11/06/2022 15:09:52 11/07/19 23 11/06/2022 CMP14 +EGFR BUN/creatini ne ratio 13 10-24 Not Available [facility] [address] [facility], [place], [address], 11/06/2022 15:09:52 11/07/19 23 11/06/2022 CMP14 +EGFR sodium 141 mmol/ L 134-14 4 Not Available [facility] ([facility]) [address] [facility], [place], [address], 11/06/2022 15:09:52 11/07/19 23 11/06/2022 CMP14 +EGFR potassium 3.7 mmol/ L 3.5-5. 2 Not Available [facility] ([facility]) [address] [facility], [place], [address], 11/06/2022 15:09:52 11/07/19 23 11/06/2022 CMP14 +EGFR chloride 98 mmol/ L 96-106 Not Available [facility] ([facility]) [address] [facility], [place], [address], 11/06/2022 15:09:52 11/07/19 23 11/06/2022 CMP14 +EGFR carbon dioxide, total 29 mmol/ L 20 Not Available [facility] ([facility]) [address] [facility], [place], [address], 11/06/2022 15:09:52 11/07/19 23 11/06/2022 CMP14 +EGFR calcium 9.4 mg/dL 8.6-10 .2 Not Available [facility] ([facility]) [address] [facility] [place], [address], 11/06/2022 15:09:52 11/07/19 23 11/06/2022 CMP14 +EGFR protein, total 6.1 g/dL 6.0-8. 5 Not Available [facility] ([facility]) [address] [facility], [place], [address], 11/06/2022 15:09:52 11/07/19 23 11/06/2022 CMP14 +EGFR albumin 4.3 g/dL 3.8-4. 8 Not Available [facility] ([facility]) [address] [facility], [place], [address], 11/06/2022 15:09:52 11/07/19 23 11/06/2022 CMP14 +EGFR globulin, total 1.8 g/dL 1.5-4. 5 Not Available [facility] ([facility]) [address] [facility], [place], [address], 11/06/2022 15:09:52 11/07/19 23 11/06/2022 CMP14 +EGFR A/G ratio 2.4 1.2-2. 2 above high normal Not Available [facility] ([facility]) [address] [facility] [place], [address], 11/06/2022 15:09:52 11/07/19 23 11/06/2022 CMP14 +EGFR bilirubin, total 0.8 mg/dL 0.0-1. 2 Not Available [facility] ([facility]) [address] [place], [address], 11/06/2022 15:09:52 11/07/19 23 11/06/2022 CMP14 +EGFR alkaline phosphatase 65 IU/L 44-121 Not Available [facility] [address] [facility], [place], [address], 11/06/2022 15:09:52 11/07/19 23 11/06/2022 CMP14 +EGFR AST (SGOT) 19 IU/L 0-40 Not Available [facility] ([facility]) [address] [facility], [place], [address], 11/06/2022 15:09:52 11/07/19 23 11/06/2022 CMP14 +EGFR ALT (SGPT) 8 IU/L 0-44 Not Available [facility] ([facility]) [address] [place], [address], 11/06/2022 15:09:52 11/07/19 23 11/06/2022 CBC WITH DIFFE RENTI AL/PL ATELE T WBC 4.3 x10e3 /uL 3.4-10 .8 Not Available [facility] ([facility]) [address] [place], [address], 11/06/2022 15:09:53 11/07/19 23 11/06/2022 CBC WITH DIFFE RENTI AL/PL ATELE T RBC 4.04 x10e6 /uL 4.14-5 .80 below low normal Not Available [facility] ([facility]) [address] [place], [address], 11/06/2022 15:09:53 11/07/19 23 11/06/2022 CBC WITH DIFFE RENTI AL/PL ATELE T hemoglobin 11.9 g/dL 13.0-1 7.7 below low normal Not Available [facility] ([facility]) [address] [facility], [place], [address], 11/06/2022 15:09:53 11/07/19 23 11/06/2022 CBC WITH DIFFE RENTI AL/PL ATELE T hematocrit 34.8 % 37.5-5 1.0 below low normal Not Available [facility] ([facility]) [address] [facility], [place], [address], 11/06/2022 15:09:53 11/07/19 23 11/06/2022 CBC WITH DIFFE RENTI AL/PL ATELE T MCV 86 fL 79-97 Not Available [facility] ([facility]) [address] [facility], [place], [address], 11/06/2022 15:09:53 11/07/19 23 11/06/2022 CBC WITH DIFFE RENTI AL/PL ATELE T MCH 29.5 pg 26.6-3 3.0 Not Available [facility] ([facility]) [address] [place], [address], 11/06/2022 15:09:53 11/07/19 23 11/06/2022 CBC WITH DIFFE RENTI AL/PL ATELE T MCHC 34.2 g/dL 31.5-3 5.7 Not Available [facility] ([facility]) [address] [place], [address], 11/06/2022 15:09:53 11/07/19 23 11/06/2022 CBC WITH DIFFE RENTI AL/PL ATELE T RDW 14.9 % 11.6-1 5.4 Not Available [facility] ([facility]) [address] [place], [address], 11/06/2022 15:09:53 11/07/19 23 11/06/2022 CBC WITH DIFFE RENTI AL/PL ATELE T platelets 151 x10e3 /uL 150-45 0 Not Available [facility] ([facility]) [address] [facility], [place], [address], 11/06/2022 15:09:53 11/07/19 23 11/06/2022 CBC WITH DIFFE RENTI AL/PL ATELE T neutrophils 57 % not estab. Not Available [facility] ([facility]) [address] [facility], [place], [address], 11/06/2022 15:09:53 11/07/19 23 11/06/2022 CBC WITH DIFFE RENTI AL/PL ATELE T lymphs 26 % not estab. Not Available [facility] ([facility]) [address] [facility], [place], [address], 11/06/2022 15:09:53 11/07/19 23 11/06/2022 CBC WITH DIFFE RENTI AL/PL ATELE T monocytes 9 % not estab. Not Available [facility] ([facility]) [address] [facility], [place], [address], 11/06/2022 15:09:53 11/07/19 23 11/06/2022 CBC WITH DIFFE RENTI AL/PL ATELE T eos 6 % not estab. Not Available [facility] ([facility]) [address] [facility], [place], [address], 11/06/2022 15:09:53 11/07/19 23 11/06/2022 CBC WITH DIFFE RENTI AL/PL ATELE T basos 1 % not estab. Not Available [facility] ([facility]) [address] [facility], [place], [address], 11/06/2022 15:09:53 11/07/19 23 11/06/2022 CBC WITH DIFFE RENTI AL/PL ATELE T immature cells SOLUTIONS MANAGER Not Available [facility]) [address] [facility], [place], [address], 11/06/2022 15:09:53 11/07/19 23 11/06/2022 CBC WITH DIFFE RENTI AL/PL ATELE T neutrophils (absolute) 2.5 x10e3 /uL 1.4-7. 0 Not Available [facility] ([facility]) [address] [facility], [place], [address], 11/06/2022 15:09:53 11/07/19 23 11/06/2022 CBC WITH DIFFE RENTI AL/PL ATELE T lymphs (absolute) 1.1 x10e3 /uL 0.7-3. 1 Not Available [facility] ([facility]) [address] [facility], [place], [address], 11/06/2022 15:09:53 11/07/19 23 11/06/2022 CBC WITH DIFFE RENTI AL/PL ATELE T monocytes(ab solute) 0.4 x10e3 /uL 0.1-0. 9 Not Available [facility] ([facility]) [address] [facility], [place], [address], 11/06/2022 15:09:53 11/07/19 23 11/06/2022 CBC WITH DIFFE RENTI AL/PL ATELE T eos (absolute) 0.3 x10e3 /uL 0.0-0. 4 Not Available [facility] ([facility]) [address] [facility], [place], [address], 11/06/2022 15:09:53 11/07/19 23 11/06/2022 CBC WITH DIFFE RENTI AL/PL ATELE T baso (absolute) 0.0 x10e3 /uL 0.0-0. 2 Not Available [facility] ([facility]) [address] [place], [address], 11/06/2022 15:09:53 11/07/19 23 11/06/2022 CBC WITH DIFFE RENTI AL/PL ATELE T immature granulocytes 1 % not estab. Not Available [facility] ([facility]) [address] [facility], [place], [address], 11/06/2022 15:09:53 11/07/19 23 11/06/2022 CBC WITH DIFFE RENTI AL/PL ATELE T immature grans (abs) 0.0 x10e3 /uL 0.0-0. 1 Not Available [facility] ([facility]) [address] [facility], [place], [address], 11/06/2022 15:09:53 11/07/19 23 11/06/2022 CBC WITH DIFFE RENTI AL/PL ATELE T NRBC SOLUTIONS MANAGER Not Available [facility] ([facility]) [address] [facility], [place], [address], 11/06/2022 15:09:53 11/07/19 23 11/06/2022 CBC WITH DIFFE RENTI AL/PL ATELE T hematology comments: SOLUTIONS MANAGER Not Available [facility]) [address] [facility], [place], [address], 11/06/2022 15:09:53 11/07/19 23 11/06/2022 SEDIM ENTAT ION RATE- WESTE RGREN sedimentatio n rate-westerg eder COMMEN T mm/HR Test not perfo rmed. Insuf ficie nt speci men to perfo rm or compl ete alana sis. Not Available [facility] ([facility]) [address] [facility], [place], [address], 11/06/2022 15:09:54 11/07/19 23 11/06/2022 C-YVONNE CTIVE PROTE IN, QUANT C-reactive protein, quant 4 mg/L 0-10 Not Available [facility]) [address] [facility], [place], [address], 11/06/2022 15:09:55 11/07/19 23 11/06/2022 PLEAS E NOTE please note Commen t The date and/o r time of colle ction was not indic ated on the requi sitio n as requi red by state and [place]arci al law. The date of recei pt of the speci men was used as the colle ction date if not suppl ied. Not Available [facility] ([facility]) [address] [facility], [place], [address], 11/06/2022 15:09:56 11/07/19 23 11/06/2022 SPECI MEN STATU S REPOR T specimen status report COMMEN T Test not perfo rmed. Insuf ficie nt speci men to perfo rm or compl ete alana sis. TEST: [id number] Sedim entat ion Rate- Weste rgren Not Available [facility] ([facility]) [address] [facility], [place], [address], 11/06/2022 15:09:56 05/18/19 25 05/17/2024 PROST ATE SPECI FIC AG (PSA) prostate specific Ag (PSA) 0.5 NG/mL 0-4.0 Not Available [facility] ([facility] [address] [facility], [place], [address], 05/17/2024 13:52:16 05/18/19 25 05/17/2024 bladd er scan (PROC ) Calculated Residual Urine: 317ml Not Available [facility] [address] [facility] [address], [place], [address], 05/17/2024 11:28:25 09/04/19 23 09/03/2022 trans -thor acic echoc ardio gram (TTE) (PROC ) No observ ation record ed. [id number] , [place], [address], 09/10/2022 10:04:36 Result Notes None recorded. Problems Name Problem SNOMED Code Status Onset Date Resolution Date Notes Provider Name and Address Organization Details Recorded Time Benign prostatic hyperplasi a with outflow obstructio n 653718119 Active 2024 BRITTNI MARSHALL MD [address], [place], [address] , [place] [facility] - [facility] 5 11:41:30 Chronic pancreatit is 593307964 Active 2022 Jessica cantu, [place] [facility] 13:07:11 Abnormal radiograph ic imaging of pancreas 437635442 Active 2022 Jessica cantu, [place] [facility] [place] 13:07:11 Body mass index 30+ - obesity 610786004 Active Jessica Cui null, [place] [facility] - [facility] [place] 3 13:07:11 Sciatica 20896191 Active Jessica cantu, [place] [facility] - [facility] 3 13:07:11 Osteoarthr itis of hip [id number] Active [place]u, [place] - [facility] - [facility] & [place] 3 13:07:11 Mixed hyperlipid emia 246579719 Active Jessica acntu, [place] - [facility] - [facility] [place] 3 13:07:11 Essential hypertensi on 23835088 Active [place]u, [place] [facility] - [facility] & [place] 3 13:07:11 Allergic rhinitis 89594239 Active [place] [facility] - [facility] & [place] 3 13:07:11 History of total hip arthroplas ty 261981999061 [place] [facility] & [place] 3 13:07:11 Problem Notes None recorded. Procedures Surgical History Date Name Laterality Status Provider Name and Address Organization Details Recorded Time 02/16/19 20 Joint Replacement completed Kassidy MALLORY - [facility] - [facility] & [place] 11/05/2022 11:23:29 02/16/19 20 Hip Surgery completed Kassidy [facility]ALLORY [facility] [place] 11/05/2022 11:23:29 02/16/19 19 [facility] [place] [facility] [place] 11/05/2022 11:23:29 02/16/19 00 Other completed Kassidy MALLORY [facility] & [place] 11/05/2022 11:23:29 02/16/18 65 Tonsillectomy/A denoidectomy completed Kassidy MALLORY [facility] & [place] 11/05/2022 11:23:29 Imaging Results Imaging Date Name Status LastModified by Organization Details LastModified Time 09/03/2022 trans-thoracic echocardiogram (TTE) (PROC) completed [address] [place], [address], 09/10/2022 10:04:36 Procedure Notes None recorded. Medical [...] Address Organization Details Last Updated DateTime 3 05601.3 6 g 33.7 kg/m2 170.18 cm 98.1 [degF] 78 /min 98 % 98 % 192 mm[Hg] 105 mm[Hg] Idalia Bernardo [facility] 3 11:59:26 Date Recorded Body height Oxygen saturation Oxygen saturation in Arterial blood by Pulse oximetry Heart rate Body temperature Body mass index (BMI) Body weight Systolic blood pressure Diastolic blood pressure Provider Name and Address Organization Details Last Updated DateTime 3 170.18 cm 98 % 98 % 76 /min 98.7 [degF] 35.6 kg/m2 617159. 62 g 150 mm[Hg] 86 mm[Hg] Reta Nuñez [facility] & [place] 3 09:00:06 Date Recorded Body height Body mass index (BMI) Body weight Body temperature Heart rate Oxygen saturation Oxygen saturation in Arterial blood by Pulse oximetry Systolic blood pressure Diastolic blood pressure Provider Name and Address Organization Details Last Updated DateTime 3 170.18 cm 34.2 kg/m2 39510.5 7 g 98.6 [degF] 72 /min 96 % 96 % 138 mm[Hg] 100 mm[Hg] Kassidy Crisostomo [facility] & [place] 3 11:26:05 Date Recorded Body height Body mass index (BMI) Body weight Oxygen saturation Oxygen saturation in Arterial blood by Pulse oximetry Heart rate Systolic blood pressure Diastolic blood pressure Provider Name and Address Organization Details Last Updated DateTime 5 170.18 cm 39.3 kg/m2 491340. 68 g 97 % 97 % 65 /min 140 mm[Hg] 90 mm[Hg] Marry Mckeon [facility] & [place] 5 11:28:09 Social History Question Answer Notes LastModified by [employer] Details LastModified Time Tobacco Smoking Status Never Smoker Kassidy Crisostomo [facility] & [place] 11/05/2022 11:23:23 Do You Have An Advance Directive? Yes [email or web address] Information not available 11/05/2022 What Is Your Level Of Alcohol Consumption? None Information not available 11/05/2022 Are You Blind Or Do You Have Difficulty Seeing? No [email or web address] Information not available 11/05/2022 What Was The Date Of Your Most Recent Tobacco Screening? 08/21/2022 [email or web address] Information not available 11/05/2022 Are You Passively Exposed To Smoke? No Information no t available 11/05/2022 Do You Feel Stressed (tense, Restless, Nervous, Or Anxious, Or Unable To Sleep At Night)? [id number] [email or web address] Information not available 11/05/2022 Do You Use Any Illicit Or Recreational Drugs? No [email or web address] Information not available 11/05/2022 Sex: Unknown Functional Status Question Answer Note LastModified by Organizat ion Details LastModified Time What is your exercise level? Occasional Information not available 11/05/2022 Mental Status None recorded. Family History Relationship Description Onset Age of this Age Resolved Age Notes LastModified by Organization Details LastModified Time Father Heart disease pt. added direct ly (08/21) [email or web address] Not available 09/09/2022 14:27:07 Father Cerebrovascu lar accident pt. added direct ly (08/21) [email or web address] Not available 09/09/2022 14:27:07 Medical History Condition Response Arthritis Y Heart Attack (CT) Y Back Problems Y Hypertension Y Immunizations Vaccine Type Date Status Note Provider Issac e and Address Organization Details Recorded Time Tdap 12/17/2016 [facility] [place] & [place] 09/10/2022 13:07:18 Past Encounters Encounter ID Performer Location Encounter Start Date Encounter Closed Date Diagnosis/Indication Diagnosis SNOMED-CT Code Diagnosis ICD10 Code Diagnosis Note [id number] Zackary Quintanilla PA-C [facility] [address] [facility] [address] [place] [address] 08/22/2022 11:07:47 08/22/2022 13:25:34 Chronic pancreatitis 868903050 K86.1 Abnormal r adiographic imaging of pancreas 878231375 R93.3 History of polyp of colon 730207266 Z86.010 [id number] Malik Auguste MD [facility] [address] [facility] [address] [place] [address] 10/07/2022 08:46:37 10/07/2022 09:38:19 Osteomyelitis of vertebra 331073201 M46.20 This is a very complicate d [...] week. I removed his PICC line today. [id number] Malik Auguste MD [facility] [address] [facility] [address] [place] [address] 11/05/2022 10:51:29 11/05/2022 11:59:48 Osteomyelitis of vertebra 634532100 M46.20 This involved the lumbar spine and [...] therapy followed by long-term suppressiv e therapy. [id number] BRITTNI MARSHALL MD [facility] 00 [address] [facility] [address] [place] [address] 05/17/2024 10:49:43 05/17/2024 11:46:49 Benign prostatic hyperplasia with outflow obstruction 394391714 N40.1 Screening for malignant neoplasm of prostate 734643549 Z12.5 Health Concerns Section Related Observation LastModified by Organization Detai ls LastModified Time None Recorded Concern Status LastModified by Organization Details LastModified Time None Recorded Advance Directives Directive Y: Payers Encounter Date Sequence Insurance Name Policy Number Policy Keith Covered Member ID Keith Member ID Guarantor Name 08/22/2022 1 [place] Rory Cervantes [id number] Rory Cervantes 08/22/2022 2 [employer] OPTIONS (MEDICARE SUPPLEMENT) Rory Cervantes [id number] Rory Cervantes 10/07/2022 1 [place] Rory Cervantes [id number] Rory Cervantes 10/07/2022 2 [employer] OPTIONS (MEDICARE SUPPLEMENT) Rory Cervantes [id number] Rory Cervantes 11/05/2022 1 [place] Rory Cervantes [id number] Rory Cervantes 11/05/2022 2 [employer] (MEDICARE SUPPLEMENT) Rory Cervantes [id number] Rory Cervantes 05/17/2024 1 [place] Rory Cervantes [id number] Rory Cervantes 05/17/2024 2 [employer] (MEDICARE SUPPLEMENT) Rory Cervantes [id number] Rory Cervantes Notes Date Note Type Note [...] recovery time for this. Zackary Quintanilla PA-C [address], [place], [address], [place] - [facility] - [place] & [place] 08/22/2022 14:12:42 10/07/2022 text/html This is a [...] infusions. Malik Auguste MD [address], [place], [address], [facility] & [place] 10/07/2022 10:25:59 11/05/2022 text/html This is a [...] complaints.. Malik Auguste MD [address], [place], [address], [facility] & [place] 11/05/2022 11:56:31 05/17/2024 text/html 05/17/24 CC: [id number] referred to my office for BPH, nocturia 2-3x, incomplete emptying, taking tamsulosin 0.8mg w/o significant improvement. Rory Cervantes is a 73-year-old male who presents for a new patient visit. He has been on a double dose of tamsulosin for approximately three years, initially prescribed by a provider in [place]. Despite this treatment, he continues to experience urinary issues, including nocturia and a weak urinary stream. He reports that he often has to force urination and experiences intermittent bursts of urine flow. He also mentions a history of blood in the urine, which began during a five-week rehabilitation period following a 14-hour back surgery performed by Dr. Jacobo in [place] in August of the previous year. During [...] 42.2, Cr 0.90, GFR CT pelvis w ([facility]): bilateral bladder diverticular present, larger on R than L, there is lobular indentation of the prostate into the interior aspect of the [id number]/21/23 Cr 0.92, GFR 89, Hgb 10.2, Hct 31.808/ Hgb 9.4, Hct 28.7, Cr 1.0, GFR Cr 0.9, GFR 86, Hgb 9.9, Hct 30.307/ Hgb 14.8, Hct 45.4, Cr 0.90, GFR 83 BRITTNI MARSHALL MD [address] [facility], [place], [address], [facility] & [place] 05/17/2024 12:59:30
--- NOTE | 2024-06-14 10:30 | US_ITS ---
FINAL REPORT TECHNIQUE: Limited sonographic images of the thyroid were obtained. CLINICAL HISTORY: Thyroid mass FINDINGS: The right lobe of the thyroid measures 4.8 x 1.6 x 1.9 cm. The left lobe of the thyroid measures 6.8 x 4.2 x 4.6 cm. The thyroid is diffusely heterogeneous with multiple nodules bilaterally. Right lobe: There is a 1.5 cm cystic cyst, solid, an ovoid nodule measuring 1.4 cm consistent with TR 3. This is located in the lower pole of the right lobe. Multiple other smaller nodules are seen. Left lobe. There is a solid, hypoechoic, ovoid nodule in the upper pole measuring 1.9 cm consistent with TR 4. IMPRESSION: TR 4 nodule in the left lobe. Recommend biopsy. Reviewed, Interpreted and Dictated by Bernard Taveras MD Transcribed by Shante Mejia Authenticated and [facility]
== END 2024-06-14 23:59 | disposition home or self-care (01) ==
LOC: RAD 10:24
PROVIDERS: PCP Internal Medicine; Visit Provider Internal Medicine
DX: E07.9 Disorder of thyroid, unspecified (principal)
CPT/HCPCS: 76536

== ENCOUNTER 2024-06-24 07:45 | Outpatient (CLI) | payer MEDICARE, SELFPAY ==
--- OUTSIDE RECORDS SUMMARY | 2024-06-24 07:47 | XMS_ITS | Data Portability ---
Author Organization [facility] [place] [facility] ADMIN Address [address] [place] [id number] Assessment Encounter Date Assessment Date Assessment LastModified by Organization Details LastModified Time 08/22/2022 08/22/2022 71-year-old male with recent incidental finding on non contrast CT that indicated possible chronic pancreatitis. He is asymptomatic in this regard and denies a history of pancreatitis or risk factors such as alcohol use. He has undergone remote cholecystectomy . -Will obtain CT report from [facility] -Will obtain lab workup per below to [...] procedure. -Screening colonoscopy will be due 11/2023. Not available 08/22/2022 14:12:22 05/17/2024 05/17/2024 ASSESSMENT: [...] Organization Details Last Modified Time Details Appointments PROCEDURE 30 2024 10:15A Marcus MARSHALL MD Not available Not available Not available Lab PSA, total, serum or plasma 2024 025 glory [email or web address] [facility] (Registration ), [address], [place], [address], 05/24/2024 07:46:08 C-reactiv e protein, quantitat adriana, serum or plasma 2022 023 [email or web address] [id number] [facility], [address], [address], [place], [address], 11/12/2022 06:18:47 ESR (erythroc yte sedimenta tion rate), blood 2022 023 ASHLEY [facility], [address], [address], [place], [address], 11/06/2022 15:09:54 CMP, serum or plasma 2022 023 ASHLEY [facility], [address], [address], [place], [address], 11/06/2022 15:09:52 CBC w/ auto diff 2022 023 ASHLEY [facility], [address], [address], [place], [address], 11/06/2022 15:09:53 C-reactiv e protein, quantitat adriana, serum or plasma 2022 [facility]23 [facility], [address], [address], [place], [address], 10/14/2022 06:58:56 ESR (erythroc yte sedimenta tion rate), blood 2022 023 ASHLEY [facility], [address], [address], [place], [address], 10/08/2022 13:10:17 CBC w/ auto diff 2022 023 HART [facility], [address], [address], [place], [address], 10/08/2022 13:10:16 CMP, serum or plasma 2022 023 ASHLEY [facility], [address], [address], [place], [address], 10/08/2022 13:10:14 phosphati dylethano l, QN, blood 2022 023 [email or web address] 4 [facility] (Lab), [address], [place], [address], 09/04/2022 09:36:[address] s 1+2+3+4, serum 2022 023 [email or web address] 4 [facility] (Lab), [address], [place], [address], 09/04/2022 09:36:54 lipase, serum or plasma 2022 023 [email or web address] 4 Not available 09/04/2022 09:36:54 CMP, serum or plasma 2022 023 [facility] (Lab), [address], [place], [address], 09/01/2022 12:10:43 CBC w/ auto diff 2022 023 [facility] (Lab), [facility], [place], [address], 09/01/2022 14:05:16 triglycer ides, serum 2022 023 [email or web address] 4 [facility] (Lab), [address] [place] [address] [address], [place], [address], 09/04/2022 09:36:54 Referral None recorded. Procedures bladder scan (PROC) [address] [facility], [address], [place], [address], 05/17/2024 12:59:16 Surgeries None recorded. Imaging None recorded. Medication Orders minocycli ne 100 mg capsule 2022 023 [facility], [address] [place] [address], [place], [id number], 11/05/2022 11:56:14 levofloxa campos 750 mg tablet 2022 023 [facility], [address] [facility] [address], [place], [id number], 10/07/2022 09:26:40 linezolid 600 mg tablet 2022 023 [facility], [address] [place] [address] S, [place], [id number], 10/07/2022 09:28:36 Patient TargetsNo targets recorded. Patient InstructionsNo instructions recorded. Reason for Referral None Reported. Results Created Date Observation Date Name Description Value Unit Range Abnormal Flag Note LastModifiedBy Organization Detail LastModifiedTime 10/08/1910/08/2022 CMP14 +EGFR glucose 128 mg/dL 70-99 above high normal Not Available [facility] ([facility]) [address], [place], [address], 10/08/2022 13:10:14 10/08/1910/08/2022 CMP14 +EGFR BUN 11 mg/dL 8-27 Not Available [facility] ([facility]) [address] [facility] [place], [address], 10/08/2022 13:10:14 10/08/1910/08/2022 CMP14 +EGFR creatinine 1.06 mg/dL 0.76-1 .27 Not Available [facility] ([facility]) [address] [facility], [place], [address], 10/08/2022 13:10:14 10/08/1910/08/2022 CMP14 +EGFR eGFR 75 mL/mi n/1.7 3 >59 Not Available [facility] ([facility]) [address] [facility], [place], [address], 10/08/2022 13:10:14 10/08/1910/08/2022 CMP14 +EGFR BUN/creatini ne ratio 10 10-24 Not Available [facility] ([facility]) [address] [facility] [place], [address], 10/08/2022 13:10:14 10/08/1910/08/2022 CMP14 +EGFR sodium 145 mmol/ L 134-14 4 above high normal Not Available [facility] ([facility]) [address] [place], [address], 10/08/2022 13:10:14 10/08/1910/08/2022 CMP14 +EGFR potassium 3.5 mmol/ L 3.5-5. 2 Not Available [facility] ([facility]) [address] [place], [address], 10/08/2022 13:10:14 10/08/1910/08/2022 CMP14 +EGFR chloride 101 mmol/ L 96-106 Not Available [facility] ([facility]) [address] [place], [address], 10/08/2022 13:10:14 10/08/1910/08/2022 CMP14 +EGFR carbon dioxide, total 27 mmol/ L Not Available [facility] ([facility]) [address] [facility], [place], [address], 10/08/2022 13:10:14 10/08/1910/08/2022 CMP14 +EGFR calcium 9.2 mg/dL 8.6-10 .2 Not Available [facility] ([facility]) [address] [place], [address], 10/08/2022 13:10:14 10/08/1910/08/2022 CMP14 +EGFR protein, total 5.8 g/dL 6.0-8. 5 below low normal Not Available [facility] ([facility]) [address] [place], [address], 10/08/2022 13:10:14 10/08/19 23 10/08/2022 CMP14 +EGFR albumin 3.8 g/dL 3.9-4. 9 below low normal Not Available [facility] ([facility]) [address] [place], [address], 10/08/2022 13:10:14 10/08/19 23 10/08/2022 CMP14 +EGFR globulin, total 2.0 g/dL 1.5-4. 5 Not Available [facility] ([facility]) [address] [place], [address], 10/08/2022 13:10:14 10/08/1910/08/2022 CMP14 +EGFR A/G ratio 1.9 1.2-2. 2 Not Available [facility] ([facility]) [address] [place], [address], 10/08/2022 13:10:14 10/08/1910/08/2022 CMP14 +EGFR bilirubin, total 0.5 mg/dL 0.0-1. 2 Not Available [facility] ([facility]) [address] [place], [address], 10/08/2022 13:10:14 10/08/1910/08/2022 CMP14 +EGFR alkaline phosphatase 79 IU/L 44-121 Not Available [facility] ([facility]) [address] [facility], [place], [address], 10/08/2022 13:10:14 10/08/1910/08/2022 CMP14 +EGFR AST (SGOT) 13 IU/L 0-40 Not Available [facility] ([facility]) [address] [facility] [place], [address], 10/08/2022 13:10:14 10/08/1910/08/2022 CMP14 +EGFR ALT (SGPT) 5 IU/L 0-44 Not Available [facility] ([facility]) [address] [place], [address], 10/08/2022 13:10:14 10/08/1910/08/2022 CBC WITH DIFFE RENTI AL/PL ATELE T WBC 7.4 x10e3 /uL 3.4-10 .8 Not Available [facility] ([facility]) [address] [place], [address], 10/08/2022 13:10:16 10/08/1910/08/2022 CBC WITH DIFFE RENTI AL/PL ATELE T RBC 3.65 x10e6 /uL 4.14-5 .80 below low normal Not Available [facility] ([facility]) [address] [place], [address], 10/08/2022 13:10:16 10/08/19 23 10/08/2022 CBC WITH DIFFE RENTI AL/PL ATELE T hemoglobin 10.2 g/dL 13.0-1 7.7 below low normal Not Available [facility] ([facility]) [address] [facility], [place], [address], 10/08/2022 13:10:16 10/08/1910/08/2022 CBC WITH DIFFE RENTI AL/PL ATELE T hematocrit 31.8 % 37.5-5 1.0 below low normal Not Available [facility] ([facility]) [address] [facility], [place], [address], 10/08/2022 13:10:16 10/08/1910/08/2022 CBC WITH DIFFE RENTI AL/PL ATELE T MCV 87 fL 79-97 Not Available [facility] ([facility]) [address] [facility], [place], [address], 10/08/2022 13:10:16 10/08/19 23 10/08/2022 CBC WITH DIFFE RENTI AL/PL ATELE T MCH 27.9 pg 26.6-3 3.0 Not Available [facility] ([facility]) [address] [facility], [place], [address], 10/08/2022 13:10:16 10/08/1910/08/2022 CBC WITH DIFFE RENTI AL/PL ATELE T MCHC 32.1 g/dL 31.5-3 5.7 Not Available [facility] ([facility]) [address] [facility], [place], [address], 10/08/2022 13:10:16 10/08/1910/08/2022 CBC WITH DIFFE RENTI AL/PL ATELE T RDW 12.9 % 11.6-1 5.4 Not Available [facility] ([facility]) [address] [facility], [place], [address], 10/08/2022 13:10:16 10/08/19 23 10/08/2022 CBC WITH DIFFE RENTI AL/PL ATELE T platelets 241 x10e3 /uL 150-45 0 Not Available [facility] ([facility]) [address] [facility], [place], [address], 10/08/2022 13:10:16 10/08/19 23 10/08/2022 CBC WITH DIFFE RENTI AL/PL ATELE T neutrophils 63 % not estab. Not Available [facility] ([facility]) [address] [facility], [place], [address], 10/08/2022 13:10:16 10/08/19 23 10/08/2022 CBC WITH DIFFE RENTI AL/PL ATELE T lymphs 20 % not estab. Not Available [facility] ([facility]) [address] [facility], [place], [address], 10/08/2022 13:10:16 10/08/1910/08/2022 CBC WITH DIFFE RENTI AL/PL ATELE T monocytes 9 % not estab. Not Available [facility] ([facility]) [address] [facility], [place], [address], 10/08/2022 13:10:16 10/08/19 23 10/08/2022 CBC WITH DIFFE RENTI AL/PL ATELE T eos 7 % not estab. Not Available [facility] ([facility]) [address] [facility], [place], [address], 10/08/2022 13:10:16 10/08/19 23 10/08/2022 CBC WITH DIFFE RENTI AL/PL ATELE T basos 1 % not estab. Not Available [facility] ([facility]) [address] [facility], [place], [address], 10/08/2022 13:10:16 10/08/1910/08/2022 CBC WITH DIFFE RENTI AL/PL ATELE T immature cells COMPUTER SERVICE TECHNICIAN Not Available [facility] ([facility]) [address] [facility], [place], [address], 10/08/2022 13:10:16 08/22/10/08/2022 CBC WITH DIFFE RENTI AL/PL ATELE T neutrophils (absolute) 4.8 x10e3 /uL 1.4-7. 0 Not Available [facility] ([facility]) [address] [facility], [place], [address], 10/08/2022 13:10:16 10/08/19 23 10/08/2022 CBC WITH DIFFE RENTI AL/PL ATELE T lymphs (absolute) 1.5 x10e3 /uL 0.7-3. 1 Not Available [facility] ([facility]) [address] [facility], [place], [address], 10/08/2022 13:10:16 10/08/1910/08/2022 CBC WITH DIFFE RENTI AL/PL ATELE T monocytes(ab solute) 0.6 x10e3 /uL 0.1-0. 9 Not Available [facility] ([facility]) [address] [facility], [place], [address], 10/08/2022 13:10:16 10/08/19 23 10/08/2022 CBC WITH DIFFE RENTI AL/PL ATELE T eos (absolute) 0.5 x10e3 /uL 0.0-0. 4 above high normal Not Available [facility] ([facility]) [address] [facility], [place], [address], 10/08/2022 13:10:16 10/08/19 23 10/08/2022 CBC WITH DIFFE RENTI AL/PL ATELE T baso (absolute) 0.0 x10e3 /uL 0.0-0. 2 Not Available [facility] ([facility]) [address] [place], [address], 10/08/2022 13:10:16 10/08/19 23 10/08/2022 CBC WITH DIFFE RENTI AL/PL ATELE T immature granulocytes 0 % not estab. Not Available [facility] ([facility]) [address] [place], [address], 10/08/2022 13:10:16 10/08/19 23 10/08/2022 CBC WITH DIFFE RENTI AL/PL ATELE T immature grans (abs) 0.0 x10e3 /uL 0.0-0. 1 Not Available [facility] ([facility]) [address] [facility], [place], [address], 10/08/2022 13:10:16 10/08/19 23 10/08/2022 CBC WITH DIFFE RENTI AL/PL ATELE T NRBC COMPUTER SERVICE TECHNICIAN Not Available [facility] ([facility]) [address] [facility], [place], [address], 10/08/2022 13:10:16 10/08/19 23 10/08/2022 CBC WITH DIFFE RENTI AL/PL ATELE T hematology comments: COMPUTER SERVICE TECHNICIAN Not Available [facility] ([facility]) [address] [facility], [place], [address], 10/08/2022 13:10:16 10/08/19 23 10/08/2022 SEDIM ENTAT ION RATE- WESTE RGREN sedimentatio n rate-westerg eder 5 mm/HR 0-30 Not Available [facility] ([facility]) [address] [facility], [place], [address], 10/08/2022 13:10:17 10/08/19 23 10/08/2022 C-YVONNE CTIVE PROTE IN, QUANT C-reactive protein, quant 11 mg/L 0-10 above high normal Not Available [facility] ([facility]) [address] [facility], [place], [address], 10/08/2022 13:10:18 11/07/19 23 11/06/2022 CMP14 +EGFR glucose 154 mg/dL 70-99 above high normal Not Available [facility] ([facility]) [address] [place], [address], 11/06/2022 15:09:52 11/07/19 23 11/06/2022 CMP14 +EGFR BUN 12 mg/dL 8-27 Not Available [facility] ([facility]) [address] [facility], [place], [address], 11/06/2022 15:09:52 11/07/19 23 11/06/2022 CMP14 +EGFR creatinine 0.92 mg/dL 0.76-1 .27 Not Available [facility] ([facility]) [address] [facility], [place], [address], 11/06/2022 15:09:52 11/07/19 23 11/06/2022 CMP14 +EGFR eGFR 89 mL/mi n/1.7 3 >59 Not Available [facility] ([facility]) [address] [facility], [place], [address], 11/06/2022 15:09:52 11/07/19 23 11/06/2022 CMP14 +EGFR BUN/creatini ne ratio 13 10-24 Not Available [facility] ([facility]) [address] [facility], [place], [address], 11/06/2022 15:09:52 11/07/19 23 11/06/2022 CMP14 +EGFR sodium 141 mmol/ L 134-14 4 Not Available [facility] ([facility]) [address] [facility], [place], [address], 11/06/2022 15:09:52 11/07/19 23 11/06/2022 CMP14 +EGFR potassium 3.7 mmol/ L 3.5-5. 2 Not Available [facility] ([facility]) [address] [place], [address], 11/06/2022 15:09:52 11/07/19 23 11/06/2022 CMP14 +EGFR chloride 98 mmol/ L 96-106 Not Available [facility] ([facility]) [address] [place], [address], 11/06/2022 15:09:52 11/07/19 23 11/06/2022 CMP14 +EGFR carbon dioxide, total 29 mmol/ L 20- Not Available [facility] ([facility]) [address] [facility] [place], [address], 11/06/2022 15:09:52 11/07/19 23 11/06/2022 CMP14 +EGFR calcium 9.4 mg/dL 8.6-10 .2 Not Available [facility] ([facility]) [address] [place], [address], 11/06/2022 15:09:52 11/07/19 23 11/06/2022 CMP14 +EGFR protein, total 6.1 g/dL 6.0-8. 5 Not Available [facility] ([facility]) [address] [place], [address], 11/06/2022 15:09:52 11/07/19 23 11/06/2022 CMP14 +EGFR albumin 4.3 g/dL 3.8-4. 8 Not Available [facility] ([facility]) [address] [place], [address], 11/06/2022 15:09:52 11/07/19 23 11/06/2022 CMP14 +EGFR globulin, total 1.8 g/dL 1.5-4. 5 Not Available [facility] ([facility]) [address] [place], [address], 11/06/2022 15:09:52 11/07/19 23 11/06/2022 CMP14 +EGFR A/G ratio 2.4 1.2-2. 2 above high normal Not Available [facility] ([facility]) [address] [place], [address], 11/06/2022 15:09:52 11/07/19 23 11/06/2022 CMP14 +EGFR bilirubin, total 0.8 mg/dL 0.0-1. 2 Not Available [facility] ([facility]) [address] [facility] [place], [address], 11/06/2022 15:09:52 11/07/19 23 11/06/2022 CMP14 +EGFR alkaline phosphatase 65 IU/L 44-121 Not Available [facility] ([facility]) [address] [facility] [place], [address], 11/06/2022 15:09:52 11/07/19 23 11/06/2022 CMP14 +EGFR AST (SGOT) 19 IU/L 0-40 Not Available [facility] ([facility]) [address] [facility] [place], [address], 11/06/2022 15:09:52 11/07/19 23 11/06/2022 CMP14 +EGFR ALT (SGPT) 8 IU/L 0-44 Not Available [facility] ([facility]) [address] [place], [address], 11/06/2022 15:09:52 11/07/19 23 11/06/2022 CBC WITH DIFFE RENTI AL/PL ATELE T WBC 4.3 x10e3 /uL 3.4-10 .8 Not Available [facility] ([facility]) [address] [place], [address], 11/06/2022 15:09:53 11/07/19 23 11/06/2022 CBC WITH DIFFE RENTI AL/PL ATELE T RBC 4.04 x10e6 /uL 4.14-5 .80 below low normal Not Available [facility] ([facility]) [address] [place], [address], 11/06/2022 15:09:53 11/07/19 23 11/06/2022 CBC WITH DIFFE RENTI AL/PL ATELE T hemoglobin 11.9 g/dL 13.0-1 7.7 below low normal Not Available [facility] ([facility]) [address] [facility], [place], [address], 11/06/2022 15:09:53 11/07/19 23 11/06/2022 CBC WITH DIFFE RENTI AL/PL ATELE T hematocrit 34.8 % 37.5-5 1.0 below low normal Not Available [facility] ([facility]) [address] [place], [address], 11/06/2022 15:09:53 11/07/19 23 11/06/2022 CBC WITH DIFFE RENTI AL/PL ATELE T MCV 86 fL 79-97 Not Available [facility] ([facility]) [address] [place], [address], 11/06/2022 15:09:53 11/07/19 23 11/06/2022 CBC WITH DIFFE RENTI AL/PL ATELE T MCH 29.5 pg 26.6-3 3.0 Not Available [facility] ([facility]) [address] [place], [address], 11/06/2022 15:09:53 11/07/19 23 11/06/2022 CBC WITH DIFFE RENTI AL/PL ATELE T MCHC 34.2 g/dL 31.5-3 5.7 Not Available [facility] ([facility]) [address] [place], [address], 11/06/2022 15:09:53 11/07/19 23 11/06/2022 CBC WITH DIFFE RENTI AL/PL ATELE T RDW 14.9 % 11.6-1 5.4 Not Available [facility] ([facility]) [address] [place], [address], 11/06/2022 15:09:53 11/07/19 23 11/06/2022 CBC WITH DIFFE RENTI AL/PL ATELE T platelets 151 x10e3 /uL 150-45 0 Not Available [facility] ([facility]) [address] [place], [address], 11/06/2022 15:09:53 11/07/19 23 11/06/2022 CBC WITH DIFFE RENTI AL/PL ATELE T neutrophils 57 % not estab. Not Available [facility] ([facility]) [address] [facility], [place], [address], 11/06/2022 15:09:53 11/07/19 23 11/06/2022 CBC WITH DIFFE RENTI AL/PL ATELE T lymphs 26 % not estab. Not Available [facility] ([facility]) [address] [facility], [place], [address], 11/06/2022 15:09:53 11/07/19 23 11/06/2022 CBC WITH DIFFE RENTI AL/PL ATELE T monocytes 9 % not estab. Not Available [facility] ([facility]) [address] [facility], [place], [address], 11/06/2022 15:09:53 11/07/19 23 11/06/2022 CBC WITH DIFFE RENTI AL/PL ATELE T eos 6 % not estab. Not Available [facility] ([facility]) [address] [facility], [place], [address], 11/06/2022 15:09:53 11/07/19 23 11/06/2022 CBC WITH DIFFE RENTI AL/PL ATELE T basos 1 % not estab. Not Available [facility] ([facility]) [address] [facility], [place], [address], 11/06/2022 15:09:53 11/07/19 23 11/06/2022 CBC WITH DIFFE RENTI AL/PL ATELE T immature cells COMPUTER SERVICE TECHNICIAN Not Available [facility] ([facility]) [address] [facility], [place], [address], 11/06/2022 15:09:53 11/07/19 23 11/06/2022 CBC WITH DIFFE RENTI AL/PL ATELE T neutrophils (absolute) 2.5 x10e3 /uL 1.4-7. 0 Not Available [facility] ([facility]) [address] [place], [address], 11/06/2022 15:09:53 11/07/19 23 11/06/2022 CBC WITH DIFFE RENTI AL/PL ATELE T lymphs (absolute) 1.1 x10e3 /uL 0.7-3. 1 Not Available [facility] ([facility]) [address] [facility], [place], [address], 11/06/2022 15:09:53 11/07/19 23 11/06/2022 CBC WITH DIFFE RENTI AL/PL ATELE T monocytes(ab solute) 0.4 x10e3 /uL 0.1-0. 9 Not Available [facility] ([facility]) [address] [facility], [place], [address], 11/06/2022 15:09:53 11/07/19 23 11/06/2022 CBC WITH DIFFE RENTI AL/PL ATELE T eos (absolute) 0.3 x10e3 /uL 0.0-0. 4 Not Available [facility] ([facility]) [address] [facility], [place], [address], 11/06/2022 15:09:53 11/07/19 23 11/06/2022 CBC WITH DIFFE RENTI AL/PL ATELE T baso (absolute) 0.0 x10e3 /uL 0.0-0. 2 Not Available [facility] ([facility]) [address] [place], [address], 11/06/2022 15:09:53 11/07/19 23 11/06/2022 CBC WITH DIFFE RENTI AL/PL ATELE T immature granulocytes 1 % not estab. Not Available [facility] ([facility]) [address] [place], [address], 11/06/2022 15:09:53 11/07/19 23 11/06/2022 CBC WITH DIFFE RENTI AL/PL ATELE T immature grans (abs) 0.0 x10e3 /uL 0.0-0. 1 Not Available [facility] ([facility]) [address] [facility], [place], [address], 11/06/2022 15:09:53 11/07/19 23 11/06/2022 CBC WITH DIFFE RENTI AL/PL ATELE T NRBC COMPUTER SERVICE TECHNICIAN Not Available [facility] ([facility]) [address] [facility], [place], [address], 11/06/2022 15:09:53 11/07/19 23 11/06/2022 CBC WITH DIFFE RENTI AL/PL ATELE T hematology comments: COMPUTER SERVICE TECHNICIAN Not Available [facility] ([facility]) [address] [facility], [place], [address], 11/06/2022 15:09:53 11/07/19 23 11/06/2022 SEDIM ENTAT ION RATE- WESTE RGREN sedimentatio n rate-westerg eder COMMEN T mm/HR Test not perfo rmed. Insuf ficie nt speci men to perfo rm or compl ete alana sis. Not Available [facility] ([facility]) [address] [facility], [place], [address], 11/06/2022 15:09:54 11/07/19 23 11/06/2022 C-YVONNE CTIVE PROTE IN, QUANT C-reactive protein, quant 4 mg/L 0-10 Not Available [facility] ([facility]) [address] [facility], [place], [address], 11/06/2022 15:09:55 11/07/19 23 11/06/2022 PLEAS E NOTE please note Commen t The date and/o r time of colle ction was not indic ated on the requi sitio n as requi red by state and darci al law. The date of recei pt of the speci men was used as the colle ction date if not suppl ied. Not Available [facility] ([facility]) [address] [facility], [place], [address], 11/06/2022 15:09:56 11/07/19 23 11/06/2022 SPECI MEN STATU S REPOR T specimen status report COMMEN T Test not perfo rmed. Insuf ficie nt speci men to perfo rm or compl ete alana sis. TEST: [id number] Sedim entat ion Rate- Weste rgren Not Available [facility] ([facility]) [address] [facility] [address], [place], [address], 11/06/2022 15:09:56 05/18/19 25 05/17/2024 PROST ATE SPECI FIC AG (PSA) prostate specific Ag (PSA) 0.5 NG/mL 0-4.0 Not Available [facility] ([facility]) [address] [facility], [place], [address], 05/17/2024 13:52:16 05/18/19 25 05/17/2024 bladd er scan (PROC ) Calculated Residual Urine: 317ml Not Available [facility] [address] [facility] [address], [place], [address], 05/17/2024 11:28:25 09/04/19 23 09/03/2022 trans -thor acic echoc ardio gram (TTE) (PROC ) No observ ation record ed. [id number] , [place], [address], 09/10/2022 10:04:36 Result Notes None recorded. Problems Name Problem SNOMED Code Status Onset Date Resolution Date Notes Provider Name and Address Organization Details Recorded Time Benign prostatic hyperplasi a with outflow obstructio n 069585217 Active 2024 BRITTNI MARSHALL MD [address], [place], [address] , [facility] & [place] 5 11:41:30 Chronic pancreatit is 608140674 Active 2022 Jessica cantu, [place] - LPNT - [facility] & [place] 3 13:07:11 Abnormal radiograph ic imaging of pancreas 764066806 Active 2022 [place]u, [place] [facility] & [place] 3 13:07:11 Body mass index 30+ - obesity 693491303 Active eJssica Cui null, [place] - [facility] - [facility] & [place] 3 13:07:11 Sciatica 21275005 Active Jessica cantu, [place] - [facility] - [facility] & [place] 3 13:07:11 Osteoarthr itis of hip 485103940 Active eJssica cantu, [place] - [facility] & [place] 3 13:07:11 Mixed hyperlipid emia 441824228 Active Jessica cantu, [place] - [facility] - [facility] & [place] 3 13:07:11 Essential hypertensi on 27304166 Active Jessica cantu, [place] - [place] - [facility] & [place] 3 13:07:11 Allergic rhinitis 87859491 Active Jessica cantu, [place] - [facility] - [facility] & [place] 3 13:07:11 History of total hip arthroplas ty 746328971516 Active Jessica cantu, [place] - [place] - [facility] & [place] 3 13:07:11 Problem Notes None recorded. Procedures Surgical History Date Name Laterality Status Provider Name and Address Organization Details Recorded Time 02/16/19 20 Joint Replacement completed Kassidy MALLORY - LPNT - [facility] & [place] 11/05/2022 11:23:29 02/16/19 20 Hip Surgery completed Kassidy MALLORY - LPNT - [facility] & [place] 11/05/2022 11:23:29 02/16/19 19 Colonoscopy completed Kassidy MALLORY - LPNT - [facility] & [place] 11/05/2022 11:23:29 02/16/19 00 Other completed Kassidy MALLORY - LPNT [facility] & [place] 11/05/2022 11:23:29 02/16/18 65 Tonsillectomy/A denoidectomy completed Kassidy MALLORY [facility] & [place] 11/05/2022 11:23:29 Imaging Results Imaging Date Name Status LastModified by Organization Details LastModified Time 09/03/2022 trans-thoracic echocardiogram (TTE) (PROC) completed [address] [place], [address], 09/10/2022 10:04:36 Procedure Notes None recorded. Medical Equipment None Reported. Allergies No known drug allergies Medications Name Sig Start Date Stop Date Status Note LastModified by Organization Details LastModified Time cyclobenzap rine 10 mg tablet TAKE 1 TABLET BY MOUTH THREE TIMES DAILY NEEDED FOR PAIN active Not Available Not Available No t Available atorvastati n 40 mg tablet TAKE ONE TABLET BY MOUTH ONCE A DAY GENERIC FOR LIPITOR active Not Available Not Available No t Available methocarbam ol 500 mg tablet active Not Available Not Available Not Available carvedilol 25 mg tablet TAKE ONE TABLET BY MOUTH 2 TIMES A DAY WITH FOOD OR A SNACK active Not Available Not Available No t Available potassium chloride ER 10 mEq capsule,ext [...] Not Available Not Available No t Available doxycycline monohydrate 100 mg tablet TAKE 1 TABLET BY MOUTH TWICE DAILY FOR 10 DAYS WITH FULL MEALS active Not Available Not Available No t [...] Not Available Not Available No t Available mometasone 0.1 % topical ointment apply TO affected AREA of foot TWICE DAILY. USE FOR 3 WEEKS THEN take 1 WEEK break. Avoid use on face, armpits, groin. Repeat prn active Not Available Not Available No t [...] Not Avai lable Eliquis 5 mg tablet TAKE ONE TABLET BY MOUTH 2 TIMES A DAY active Not Available Not Available No t Available Vitals Date Recorded Body weight Body mass index (BMI) Body height Body temperature Heart rate Oxygen saturation Oxygen saturation in Arterial blood by Pulse oximetry Systolic blood pressure Diastolic blood pressure Provider Name and Address Organization Details Last Updated DateTime 3 86078.3 6 g 33.7 kg/m2 170.18 cm 98.1 [degF] 78 /min 98 % 98 % 192 mm[Hg] 105 mm[Hg] Idalia MALLORY [facility] & [place] 3 11:59:26 Date Recorded Body height Oxygen saturation Oxygen saturation in Arterial blood by Pulse oximetry Heart rate Body temperature Body mass index (BMI) Body weight Systolic blood pressure Diastolic blood pressure Provider Name and Address Organization Details Last Updated DateTime 3 170.18 cm 98 % 98 % 76 /min 98.7 [degF] 35.6 kg/m2 350859. 62 g 150 mm[Hg] 86 mm[Hg] Reta Nuñez [facility] & [place] 3 09:00:06 Date Recorded Body height Body mass index (BMI) Body weight Body temperature Heart rate Oxygen saturation Oxygen saturation in Arterial blood by Pulse oximetry Systolic blood pressure Diastolic blood pressure Provider Name and Address Organization Details Last Updated DateTime 3 170.18 cm 34.2 kg/m2 35802.5 7 g 98.6 [degF] 72 /min 96 % 96 % 138 mm[Hg] 100 mm[Hg] Kassidy Crisostomo [facility] & [place] 3 11:26:05 Date Recorded Body height Body mass index (BMI) Body weight Oxygen saturation Oxygen saturation in Arterial blood by Pulse oximetry Heart rate Systolic blood pressure Diastolic blood pressure Provider Name and Address Organization Details Last Updated DateTime 5 170.18 cm 39.3 kg/m2 475908. 68 g 97 % 97 % 65 /min 140 mm[Hg] 90 mm[Hg] Marry Mkceon [facility] & [place] 5 11:28:09 Social History Question Answer Notes LastModified by Organizat ion Details LastModified Time Tobacco Smoking Status Never Smoker Kassidy Crisostomo [facility] & [place] 11/05/2022 11:23:23 Do You Have An Advance Directive? Yes [email or web address] Information not available 11/05/2022 What Is Your Level Of Alcohol Consumption? None Information not available 11/05/2022 Are You Blind Or Do You Have Difficulty Seeing? No Information not available 11/05/2022 What Was The Date Of Your Most Recent Tobacco Screening? 08/21/2022 [email or web address] Information not available 11/05/2022 Are You Passively Exposed To Smoke? No Information no t available 11/05/2022 Do You Feel Stressed (tense, Restless, Nervous, Or Anxious, Or Unable To Sleep At Night)? [id number] [email or web address] Information not available 11/05/2022 Do You Use Any Illicit Or Recreational Drugs? No [email or web address] Information not available 11/05/2022 Sex: Unknown Functional Status Question Answer Note LastModified by Organizat ion Details LastModified Time What is your exercise level? Occasional [email or web address] Information not available 11/05/2022 Mental Status None recorded. Family History Relationship Description Onset Age of this Age Resolved Age Notes LastModified by Organization Details LastModified Time Father Heart disease pt. added direct ly (08/21) [email or web address] Not available 09/09/2022 14:27:07 Father Cerebrovascu lar accident pt. added direct ly (08/21) [email or web address] Not available 09/09/2022 14:27:07 Medical History Condition Response Heart Attack (PR) Y Arthritis Y Back Problems Y Hypertension Y Immunizations Vaccine Type Date Status Note Provider Nam e and Address Organization Details Recorded Time Tdap 12/17/2016 completed SHAWNEE Carmen [facility] & [place] 09/10/2022 13:07:18 Past Encounters Encounter ID Performer Location Encounter Start Date Encounter Closed Date Diagnosis/Indication Diagnosis SNOMED-CT Code Diagnosis ICD10 Code Diagnosis Note [id number] Zackary Quintanilla [facility]-C [facility] [address] [facility] [address] [place] [address] 08/22/2022 11:07:47 08/22/2022 13:25:34 Chronic pancreatitis 721416341 K86.1 Abnormal r adiographic imaging of pancreas 625625463 R93.3 History of polyp of colon 097433819 Z86.010 [id number] Malik Auguste MD [facility] [address] [facility] [address] [place] [address] 10/07/2022 08:46:37 10/07/2022 09:38:19 Osteomyelitis of vertebra 907455730 M46.20 This is a very complicate d [...] week. I removed his PICC line today. [id number] Malik Auguste MD [facility] [address] [place] [address] 11/05/2022 10:51:29 11/05/2022 11:59:48 Osteomyelitis of vertebra 740525229 M46.20 This involved the lumbar spine and [...] therapy followed by long-term suppressiv e therapy. [id number] BRITTNI MARSHALL MD [facility] Urology-1 [address] [place] [address] 05/17/2024 10:49:43 05/17/2024 11:46:49 Benign prostatic hyperplasia with outflow obstruction 861450733 N40.1 Screening for malignant neoplasm of prostate 764945933 Z12.5 [id number] BRITTNI MARSHALL MD [facility] Urology-[address] [place] [address] 06/20/2024 10:50:49 06/20/2024 11:15:18 Health Concerns Section Related Observation LastModified by Organization Detai ls LastModified Time None Recorded Concern Status LastModified by Organization Details LastModified Time None Recorded Advance Directives Directive Y: Payers Insurance Date Sequence Insurance Name Policy Number Policy Keith Covered Member ID Keith Member ID Guarantor Name 06/18/2024 2 [employer] OPTIONS (MEDICARE SUPPLEMENT) Rory Cervantes [id number] Rory Carroll Cervantes 06/17/2024 1 [place] Rory Cervantes [id number] Rory Cervantes Notes Date Note Type Note [...] recovery time for this. Zackary Quintanilla PA-C [address], [place], [address], [facility] - [place] - [place] & [place] 08/22/2022 14:12:42 10/07/2022 text/html This is a 71-yea r-old white male following up with ak for a lumbar spondylodiscitis. While he was [...] intravenous antibiotic infusions. Malik Auguste MD [address], [place], [address], [facility] 10/07/2022 10:25:59 11/05/2022 text/html This is a [...] fever other complaints.. Malik Auguste MD [address], [place], [address], [facility] 11/05/2022 11:56:31 05/17/2024 text/html 05/17/24 CC: [id number]-male referred to my office for BPH, nocturia 2-3x, incomplete emptying, taking tamsulosin 0.8mg w/o significant improvement. Rory Cervantes is a 73-year-old male who presents for a new patient visit. He has been on a double dose of tamsulosin for approximately three years, initially prescribed by a provider in [place]. Despite this treatment, he continues to experience urinary issues, including nocturia and a weak urinary stream. He reports that he often has to force urination and experiences intermittent bursts of urine flow. He also mentions a history of blood in the urine, which began during a five-week rehabilitation period following a 14-hour back surgery performed by Dr. Jacobo in [place] in August of the previous year. During [...] 42.2, Cr 0.90, GFR CT pelvis w ([facility]): bilateral bladder diverticular present, larger on R than L, there is lobular indentation of the prostate into the interior aspect of the cdlesix24/21/23 Cr 0.92, GFR 89, Hgb 10.2, Hct 31.808 Hgb 9.4, Hct 28.7, Cr 1.0, GFR Cr 0.9, GFR 86, Hgb 9.9, Hct 30.307/ Hgb 14.8, Hct 45.4, Cr 0.90, GFR 83 BRITTNI MARSHALL MD [address] [facility], [place], [address], [facility] - [facility] & [place] 05/17/2024 12:59:30
--- OUTSIDE RECORDS SUMMARY | 2024-06-24 07:47 | XMS_ITS | Continuity of Care Document ---
Author Organization [facility] Address [address] [place] [address] Assessment Encounter Date Assessment Date Assessment LastModified [...] serum or plasma 2024 025 glory [email or web address] [facility] (Registration ), [address] [facility], [place], [address], 05/24/2024 07:46:08 Referral None recorded. Procedures bladder scan (PROC) 2024 025 [email or web address] [facility] Urology-100, [address] [facility] [address], [place], [address], 05/17/2024 12:59:16 Surgeries None recorded. Imaging None recorded. Medication Orders None recorded. Patient TargetsNo targets recorded. Patient InstructionsNo instructions recorded. Reason for Referral None Reported. Results Created Date Observation Date Name Description Value Unit Range Abnormal Flag Note LastModifiedBy Organization Detail LastModifiedTime 05/18/1905/17/2024 bladd er scan (PROC ) Calculated Residual Urine: 317ml Not Available [facility]100 [address] [address], [place], [address], 05/17/2024 11:28:25 Result Notes None recorded. Problems Name Problem SNOMED Code Status Onset Date Resolution Date Notes Provider Name and Address Organization Details Recorded Time Benign prostatic hyperplasi a with outflow obstructio n 331957714 Active 2024 BRITTNI MARSHALL MD [address] [facility], [place], [address] , [place] - [facility] - [place] & [place] 5 11:41:30 Chronic pancreatit is 752773250 Active 2022 Jessica cantu, [place] - [place] - [place] & [place] 3 13:07:11 Abnormal radiograph ic imaging of pancreas 198801058 Active 2022 Jessica Cui null, [place] - [place] - [place] & [place] 3 13:07:11 Body mass index 30+ - obesity 571984954 Active Jessica C[place] - [place] & [place] 3 13:07:11 Sciatica 19359957 Active Jessica C[place] null[place] - [place] & [place] 3 13:07:11 Osteoarthr itis of hip 966367599 Active Jessica cantu, [place] - [place] & [place] 3 13:07:11 Mixed hyperlipid emia 247611096 Active Jessica cantu, [place] LPNT [facility] & [place] 3 13:07:11 Essential hypertensi on 62216276 Active Jessica catnu, [place] Hawkins LPNT [facility] & [place] 3 13:07:11 Allergic rhinitis 25236160 Active SHAWNEE Carmen [facility] & [place] 3 13:07:11 History of total hip arthroplas ty 654099245130 Active Jessica cantu, [place] Hawkins LPNT [facility] & [place] 3 13:07:11 Problem Notes None recorded. Procedures Surgical History Date Name Laterality Status Provider Name and Address Organization Details Recorded Time 02/16/19 20 Joint Replacement completed Kassidy DUMONT [facility] & [place] 11/05/2022 11:23:29 02/16/19 20 Hip Surgery completed Kassidy DUMONT [facility] & [place] 11/05/2022 11:23:29 02/16/19 19 Colonoscopy completed Kassidy DUMONT [facility] & [place] 11/05/2022 11:23:29 02/16/19 00 Other completed Kassidy Hawkins LPNT [facility] & [place] 11/05/2022 11:23:29 02/16/18 65 Tonsillectomy/A denoidectomy completed Kassidy Hawkins LPNT [facility] & [place] 11/05/2022 11:23:29 Imaging Results None recorded. Procedure [...] Updated DateTime 5 170.18 cm 39.3 kg/m2 819604. 68 g 97 % 97 % 65 /min 140 mm[Hg] 90 mm[Hg] Marry Mckeon [facility] & [place] 11:28:09 Social History Question Answer Notes LastModified by [employer] Details LastModified Time Tobacco Smoking Status Never Smoker Kassidy Crisostomo [facility], [facility] & [place] 11/05/2022 11:23:23 Do You Have An Advance Directive? Yes [email or web address] Information not available 11/05/2022 What Is Your Level Of Alcohol Consumption? None [email or web address] Information not available 11/05/2022 Are You Blind Or Do You Have Difficulty Seeing? No [email or web address] Information not available 11/05/2022 What Was The Date Of Your Most Recent Tobacco Screening? 08/21/2022 [email or web address] Information not available 11/05/2022 Are You Passively Exposed To Smoke? No [email or web address] Information no t available 11/05/2022 Do You Feel Stressed (tense, Restless, Nervous, Or Anxious, Or Unable To Sleep At Night)? [id number] [email or web address] Information not available 11/05/2022 Do You Use Any Illicit Or Recreational Drugs? No [email or web address] Information not available 11/05/2022 Sex: Unknown Functional Status Question Answer Note LastModified by Organizat ion Details LastModified Time What is your exercise level? Occasional [email or web address] Information not available 11/05/2022 Mental Status None recorded. Family History Relationship Description Onset Age of this Age Resolved Age Notes LastModified by Organization Details LastModified Time Father Heart disease pt. added direct ly (08/21) [email or web address] Not available 09/09/2022 14:27:07 Father Cerebrovascu lar accident pt. added direct ly (07/06 /23) [email or web address] Not available 09/09/2022 14:27:07 Medical History Condition Response Heart Attack (ME) Y Arthritis Y Back Problems Y Hypertension Y Immunizations Vaccine Type Date Status Note Provider Nam e and Address Organization Details Recorded Time Tdap 12/17/2016 completed Jessica cantu [place] - LPNT [facility] & [place] 09/10/2022 13:07:18 Past Encounters Encounter ID Performer Location Encounter Start Date Encounter Closed Date Diagnosis/Indication Diagnosis SNOMED-CT Code Diagnosis ICD10 Code Diagnosis Note [id number] BRITTNI MARSHALL MD [facility] Urology-[address] [place] [address] 05/17/2024 10:49:43 05/17/2024 11:46:49 Benign prostatic hyperplasia with outflow obstruction 520470898 N40.1 Screening for malignant neoplasm of prostate 551684931 Z12.5 Health Concerns Section Related Observation LastModified by Organization Detai ls LastModified Time None Recorded Concern Status LastModified by Organization Details LastModified Time None Recorded Payers Encounter Date Sequence Insurance Name Policy Number Policy Keith Covered Member ID Keith Member ID Guarantor Name 05/17/2024 1 [place] Rory Carroll Billy [id number] Rory C Billy 05/17/2024 2 [facility] HE[facility] OPTIONS (MEDICARE SUPPLEMENT) Rory Cervantes [id number] Rory Carroll Cervantes Notes Date Note Type Note Provider Name and Address Organization Details Recorded Time 05/17/2024 text/html 05/17/24 CC: [id number]-val-male referred to my office for BPH, nocturia 2-3x, incomplete emptying, taking tamsulosin 0.8mg w/o significant improvement. Rory Cervantes is a 73-year-old male who presents for a new patient visit. He has been on a double dose of tamsulosin for approximately three years, initially prescribed by a provider in [place]. Despite this treatment, he continues to experience urinary issues, including nocturia and a weak urinary stream. He reports that he often has to force urination and experiences intermittent bursts of urine flow. He also mentions a history of blood in the urine, which began during a five-week rehabilitation period following a 14-hour back surgery performed by Dr. Jacobo in [place] in August of the previous year. During [...] 42.2, Cr 0.90, GFR CT pelvis w ([facility]): bilateral bladder diverticular present, larger on R than L, there is lobular indentation of the prostate into the interior aspect of the yeyjamc95/21/23 Cr 0.92, GFR 89, Hgb 10.2, Hct 31.808/ Hgb 9.4, Hct 28.7, Cr 1.0, GFR Cr 0.9, GFR 86, Hgb 9.9, Hct 30.307/ Hgb 14.8, Hct 45.4, Cr 0.90, GFR 83 BRITTNI MARSHALL MD [address], [place], [address], [facility] & [place] 05/17/2024 12:59:30
--- OUTSIDE RECORDS SUMMARY | 2024-06-24 07:47 | XMS_ITS | Continuity of Care Document ---
Author Organization [facility]. If a dditional information is needed, contact Health Information Management at [phone] Address [address] [place] [address] Phone Care Team Providers Care Primary Counselor Name Role Phone Unavailable Unavailable Unavailable Unavailable Unavailable Unavailable Unavailable Unavailable Unavailable Problems Urinary tract infectious dis ease Onset:04-Apr-2022 Terrance Viktor APRNNP Blood in urine Onset:04-Apr-2022 Terrance Viktor APRNNP Allergies and Adverse Reactions Cephalexin(Allergy) Onset: 04-Apr-2022 Reaction:HIVES Social History Smoking Status Never smoked tobacco Recorded: 04-Apr-2022
--- NOTE | 2024-06-24 08:00 | US_ITS ---
FINAL REPORT CLINICAL HISTORY: LT THYROID NODULE -- LT THYROID FNA -- GIBRAN MAGALLON FINDINGS: Ultrasound guided thyroid biopsy. HISTORY: Thyroid mass. PROCEDURE: After informed consent was obtained and a time-out was performed, the patient was prepped and draped in usual sterile fashion over the anterior neck. Utilizing local anesthesia and sterile technique with a 25-gauge needle, access to the lesion in the upper polewas obtained. Four passes were made. In addition, preliminary imaging demonstrated a larger nodule in the extreme of the lower thyroid pole which was not mentioned on the prior study. This lesion measures 3.93 cm in diameter.. This lesion was then targeted for biopsy. 4 25-gauge needle aspirations were then made. The patient received no conscious sedation. The patient tolerated procedure well and left the department in good condition. IMPRESSION: Status post ultrasound guided biopsy of 2 left thyrroid nodules without immediate complication. Reviewed, Interpreted and Dictated by Gemini Valles MD Transcribed by NAUN Zepeda Authenticated and [facility]
== END 2024-06-24 23:59 | disposition home or self-care (01) ==
LOC: RAD 07:45
PROVIDERS: PCP Internal Medicine; Visit Provider Internal Medicine
DX: E04.2 Nontoxic multinodular goiter (principal)
CPT/HCPCS: 10005; 88173; 88305

== ENCOUNTER 2024-12-06 11:27 | Outpatient (CLI) | payer MEDICARE, SELFPAY ==
--- OUTSIDE RECORDS SUMMARY | 2024-11-10 11:00 | XMS_ITS | Encounter Summary ---
Author Organization [facility] Address [address] [place] [address] Care Team Providers Care Admissions Coordinator Name Role Phone Rory Pak DO Primary Care Provider + Reason for Visit * Reason Comments PAF * Consultation (Routine) - Closed Specialty Diagnoses / Procedures Referred By Contac t Referred To Contact Cardiology Diagnoses SSS (sick sinus syndrome) PAF (paroxysmal atrial fibrillation) Presence of cardiac pacemaker Provider, [place] [address] González Brothers MD [address] [place] [address] Phone: tel: fax: Referral ID Status Reason Start Date Expiration Date Visits Re quested Visits Authorized [id number] Closed 07/28/2024 10/27/2025 1 1 Encounter Details Date Type Department Care Team (Late st Contact Info) Description 11/10/2024 11:00 AM EDT Office Visit [facility] [address] [place] [address] González Brothers MD [address] [place] [address] AF (paroxysmal atrial fibrillation) (Primary Dx); SSS (sick sinus syndrome) Social History Tobacco Use Types Packs/Day Years Used Date Smoking Tobacco: Never Passive Smoke Exposure: Never Smokeless Tobacco: Never Tobacco Cessation:Counseling Given: Not Answered Alcohol Use Standard Drinks/Week Comments Never 0 (1 standard drink = 0.6 oz pur e alcohol) Sex and Gender Information Value Date Recorded Sex Assigned at Not on file Legal Sex Male 5:54 PM EDT Gender Identity Not on file Sexual Orientation Not on file documented as of this encounter Last Filed Vital Signs Vital Sign Reading Time Taken Comments Blood Pressure 102/56 11/10/2024 10:39 AM EDT Pulse 63 11/10/2024 10:39 AM EDT Temperature - - Respiratory Rate - - Oxygen Saturation 93% 11/10/2024 10:39 AM EDT Inhaled Oxygen Concentration - - Weight 112 kg (247 lb) 11/10/2024 10:39 AM EDT Height 170.2 cm (5' 7 ) 11/10/2024 10:39 AM EDT Body Mass Index 38.69 11/10/2024 10:39 AM EDT documented in this encounter Progress Notes * González Brothers MD - 11/10/2024 11:00 AM EDTAssociated Order(s): ECG 12 Lead Post-Procedure Diagnose(s): AF (paroxysmal atrial fibrillation); SSS (sick sinus syndrome) Electrophysiology Clinic Consult Rory Cervantes [id number] 1950 Referring Provider: Provider, No Known PCP: Rory Pak, [address] / [place] [id number] Chief Complaint Patient presents with PAF Problem List Sick sinus syndrome SJM DC PPM 07/07/2023 Echo, 06/21/23: EF 50-55%, mild AR, trace MR Paroxysmal atrial fibrillation / tachybradycardia syndrome [id number] 3 (age, HTN, CAD), anticoagulant Xarelto Coronary artery disease STEMI, 11/2018: PCI to RCA and circumflex (6 stents total) MPS, 06/18/23: No evidence of reversible ischemia, EF 38% Hypertension Chronic back pain History of Present Illness Rory Cervantes is a 74 y.o. male who presents to my electrophysiology clinic for evaluation of AF. Has a history of hematuria as well as major fall resulting in multiple rib fractures. Due to gaitinstability and history of major fall he is at risk of major bleeding. Referred to me for LAAO device implantation consideration. As far as A-fib is considered he is largely asymptomatic and paroxysmal in nature. Review of Systems Constitutional: Negative for activity change, fatigue and fever. Respiratory: Negative for chest tightness and shortness of breath. Cardiovascular: Negative for chest pain, palpitations and leg swelling. Gastrointestinal: Negative for constipation and diarrhea. Genitourinary: Negative for decreased urine volume and difficulty urinating. Skin: Negative for wound. Neurological: Negative for dizziness, syncope, weakness and light-headedness. Hematological: Bruises/bleeds easily. Psychiatric/Behavioral: Negative for suicidal ideas. Outpatient Medications Marked as Taking for the 11/10/24 encounter (Office Visit) with González Brothers MD Medication Sig Dispense Refill atorvastatin (LIPITOR) 40 MG tablet Take 0.5 tablets by mouth Daily. carvedilol (COREG) 25 MG tablet Take 1 tablet by mouth 2 (Two) Times a Day With Meals. Eliquis 5 MG tablet tablet Take 1 tablet by mouth 2 (Two) Times a Day. hydroCHLOROthiazide 25 MG tablet Take 1 tablet by mouth Daily. lisinopril (PRINIVIL,ZESTRIL) 40 MG tablet Take 1 tablet by mouth 2 (Two) Times a Day. mometasone (ELOCON) 0.1 % ointment Apply 1 Application topically to the appropriate area as directed As Needed. oxyCODONE-acetaminophen (PERCOCET) 5-325 MG per tablet Take by mouth As Needed. predniSONE (DELTASONE) 20 MG tablet Take 1 tablet by mouth Daily. promethazine-dextromethorphan (PROMETHAZINE-DM) 6.25-15 MG/5ML syrup As Needed. tadalafil (CIALIS) 10 MG tablet Take 1 tablet by mouth Daily. Physical Exam Vitals: 11/10/24 1039 BP: 102/56 BP Location: Left arm Patient Position: Sitting Cuff Size: Adult Pulse: 63 SpO2: 93% Weight: 112 kg (247 lb) Height: 170.2 cm (67 ) Body mass index is 38.69 kg/m??. Vitals and nursing note reviewed. Constitutional: Appearance: Healthy appearance. HENT: Head: Normocephalic and atraumatic. Nose: Nose normal. Neck: Vascular: No JVD. Pulmonary: Effort: Pulmonary effort is normal. Breath sounds: Normal breath sounds. Cardiovascular: PMI at left midclavicular line. Normal rate. Regular rhythm. Normal S1. Normal S2. Murmurs: There is no murmur. No gallop. Edema: Peripheral edema absent. Skin: General: Skin is warm and dry. Neurological: Mental Status: Oriented to person, place and time. Psychiatric: Behavior: Behavior normal. Diagnostic Data ECG 12 Lead Date/Time: 11/10/2024 12:16 PM Performed by: González Brothers MD Authorized by: González Brothers MD Comparison: not compared with previous ECG Previous ECG: no previous ECG available Rhythm: paced Ectopy: atrial premature contractions Rate: normal Conduction: conduction normal QRS axis: normal Other: no other findings Clinical impression: abnormal EKG No results found for: GLUCOSE , CALCIUM , NA , K , CO2 , CL , BUN , CREATININE , EGFRIFAFRI , EGFRIFNONA , BCR , ANIONGAP Lab Results Component Value Date WBC 8.63 05/24/2024 HGB 14.0 05/24/2024 HCT 40.3 05/24/2024 MCV 86 05/24/2024 PLT 163 05/24/2024 Lab Results Component Value Date INR 1.3 (H) 05/24/2024 No results found for: TSH , I4GYURI , W8YKJPJ , THYROIDAB I personally viewed and interpreted the patient's EKG/Telemetry/lab data Rory Cervantes reports that he has never smoked. He has never been exposed to tobacco smoke. He has never used smokeless tobacco. I have educated him on the risk of diseases from using tobacco products such as cancer, COPD, and heart disease. I spent 3 minutes counseling the patient. ACP discussion was declined by the patient. Patient does not have an advance directive, declines further assistance. Assessment and Plan Diagnoses and all orders for this visit: 1. AF (paroxysmal atrial fibrillation) (Primary) 2. SSS (sick sinus syndrome) Other orders - ECG 12 Lead Atrial fibrillation - Paroxysmal in nature; largely asymptomatic at this time - [id number] 3 (age, HTN, CAD), anticoagulant Xarelto - After extensive conversation regarding risks, benefits, or alternatives to the therapy (patient voiced understanding of risks, benefits, and alternative), patient elected to proceed with the LAAO procedure - LAAO with Amulet - CTA prior - hold Xarelto the night prior SSS - Device interrogation October 2024 [employer] dual-chamber pacemaker DDD 60 Right atrial pacing 85% P wave 3 pacing threshold 1.25@0.4 impedance 488 RV pacing 1% R wave 6 pacing threshold 0.75@0.4 impedance 430 Battery voltage 2.99 4% AMS Follow Up Return for Follow up after Procedure. Thank you for allowing me to participate in the care of your patient. Please to not hesitate to contact me with additional questions or concerns. documented in this encounter Plan of Treatment Scheduled Orders Name Type Priority Associated Diagnoses Orde r Schedule Cardiology Scan Cardiac Services Ord ered: 11/10/2024 Scheduled Procedures Name Priority Associated Diagnoses Date/Ti me LEFT ATRIAL APPENDAGE OCCLUSION AF (paroxysmal atrial fibrillation) Falls H/O hematuria documented as of this encounter Procedures Procedure Name Priority Date/Time Associated Diagnosis Comments ECG 12-LEAD Routine 11/10/2024 AF (paroxysmal atrial fibrillation) SSS (sick sinus syndrome) documented in this encounter Results * ECG 12-LEAD (11/10/2024) Narrative 11/10/2024 González Brothers MD 11/10/2024 12:21 PM ECG 12 Lead Date/Time: 11/10/2024 12:16 PM Performed by: González Brothers MD Authorized by: González Brothers MD Comparison: not compared with previous ECG Previous ECG: no previous ECG available Rhythm: paced Ectopy: atrial premature contractions Rate: normal Conduction: conduction normal QRS axis: normal Other: no other findings Clinical impression: abnormal EKG Procedure Note González Brothers MD - 11/10/2024 11:00 AM EDT Electrophysiology Clinic Consult Rory Cervantes [id number] 1950 Referring Provider: Provider, No Known PCP: Rory Pak, DO [address] / [place] [id number] Chief Complaint Patient presents with PAF Problem List Sick sinus syndrome SJM DC PPM 07/07/2023 Echo, 06/21/23: EF 50-55%, mild AR, trace MR Paroxysmal atrial fibrillation / tachybradycardia syndrome [id number] 3 (age, HTN, CAD), anticoagulant Xarelto Coronary artery disease STEMI, 11/2018: PCI to RCA and circumflex (6 stents total) MPS, 06/18/23: No evidence of reversible ischemia, EF 38% Hypertension Chronic back pain History of Present Illness Rory Cervantes is a 74 y.o. male who presents to my electrophysiologyclinic for evaluation of AF. Has a history of hematuria as well as majorfall resulting in multiple rib fractures. Due to gait instability andhistory of major fall he is at risk of major bleeding. [place]erred [place]. As far as A-fib is considered heis largely asymptomatic and paroxysmal in nature. Review of Systems Constitutional: Negative for activity change, fatigue and fever. Respiratory: Negative for chest tightness and shortness of breath. Cardiovascular: Negative for chest pain, palpitations and leg swelling. Gastrointestinal: Negative for constipation and diarrhea. Genitourinary: Negative for decreased urine volume and difficultyurinating. Skin: Negative for wound. Neurological: Negative for dizziness, syncope, weakness andlight-headedness. Hematological: Bruises/bleeds easily. Psychiatric/Behavioral: Negative for suicidal ideas. Outpatient Medications Marked as Taking for the 11/10/24 encounter (OfficeVisit) with González Brothers MD Medication Sig Dispense Refill atorvastatin (LIPITOR) 40 MG tablet Take 0.5 tablets by mouth Daily. carvedilol (COREG) 25 MG tablet Take 1 tablet by mouth 2 (Two) Times aDay With Meals. Eliquis 5 MG tablet tablet Take 1 tablet by mouth 2 (Two) Times a Day. hydroCHLOROthiazide 25 MG tablet Take 1 tablet by mouth Daily. lisinopril (PRINIVIL,ZESTRIL) 40 MG tablet Take 1 tablet by mouth 2 (Two)Times a Day. mometasone (ELOCON) 0.1 % ointment Apply 1 Application topically to theappropriate area as directed As Needed. oxyCODONE-acetaminophen (PERCOCET) 5-325 MG per tablet Take by mouth AsNeeded. predniSONE (DELTASONE) 20 MG tablet Take 1 tablet by mouth Daily. promethazine-dextromethorphan (PROMETHAZINE-DM) 6.25-15 MG/5ML syrup AsNeeded. tadalafil (CIALIS) 10 MG tablet Take 1 tablet by mouth Daily. Physical Exam Vitals: 09/25/25 1039 BP: 102/56 BP Location: Left arm Patient Position: Sitting Cuff Size: Adult Pulse: 63 SpO2: 93% Weight: 112 kg (247 lb) Height: 170.2 cm (67 ) Body mass index is 38.69 kg/m . Vitals and nursing note reviewed. Constitutional: Appearance: Healthy appearance. HENT: Head: Normocephalic and atraumatic. Nose: Nose normal. Neck: Vascular: No JVD. Pulmonary: Effort: Pulmonary effort is normal. Breath sounds: Normal breath sounds. Cardiovascular: PMI at left midclavicular line. Normal rate. Regular rhythm. Normal S1.Normal S2. Murmurs: There is no murmur. No gallop. Edema: Peripheral edema absent. Skin: General: Skin is warm and dry. Neurological: Mental Status: Oriented to person, place and time. Psychiatric: Behavior: Behavior normal. Diagnostic Data ECG 12 Lead Date/Time: 11/10/2024 12:16 PM Performed by: González Brothers MD Authorized by: González Brothers MD Comparison: not compared with previous ECG Previous ECG: no previous ECG available Rhythm: paced Ectopy: atrial premature contractions Rate: normal Conduction: conduction normal QRS axis: normal Other: no other findings Clinical impression: abnormal EKG No results found for: GLUCOSE , CALCIUM , NA , K , CO2 , CL , BUN , CREATININE , EGFRIFAFRI , EGFRIFNONA , BCR , ANIONGAP Lab Results Component Value Date WBC 8.63 05/24/2024 HGB 14.0 05/24/2024 HCT 40.3 05/24/2024 MCV 86 05/24/2024 PLT 163 05/24/2024 Lab Results Component Value Date INR 1.3 (H) 05/24/2024 No results found for: TSH , [id number] , H5KKMLY , THYROIDAB I personally viewed and interpreted the patient's EKG/Telemetry/lab data Rory Cervantes reports that he has never smoked. He has never beenexposed to tobacco smoke. He has never used smokeless tobacco. I haveeducated him on the risk of diseases from using tobacco products such ascancer, COPD, and heart disease. I spent 3 minutes counseling the patient. ACP discussion was declined by the patient. Patient does not have anadvance directive, declines further assistance. Assessment and Plan Diagnoses and all orders for this visit: 1. AF (paroxysmal atrial fibrillation) (Primary) 2. SSS (sick sinus syndrome) Other orders - ECG 12 Lead Atrial fibrillation - Paroxysmal in nature; largely asymptomatic at this time - [id number] 3 (age, HTN, CAD), anticoagulant Xarelto - After extensive conversation regarding risks, benefits, or alternativesto the therapy (patient voiced understanding of risks, benefits, andalternative), patient elected to proceed with the LAAO procedure - LAAO with Amulet - CTA prior - hold Xarelto the night prior SSS - Device interrogation October 2024 [employer] dual-chamber pacemaker DDD 60 Right atrial pacing 85% P wave 3 pacing threshold 1.25@0.4 impedance 488 RV pacing 1% R wave 6 pacing threshold 0.75@0.4 impedance 430 Battery voltage 2.99 4% AMS Follow Up Return for Follow up after Procedure. Thank you for allowing me to participate in the care of your patient.Please to not hesitate to contact me with additional questions orconcerns. us González Brothers MD ECG ORDERABLES Final Result documented in this encounter Visit Diagnoses Diagnosis AF (paroxysmal atrial fibrillation)- Primary Atrial fibrillation SSS (sick sinus syndrome) Sinoatrial node dysfunction documented in this encounter Care Teams Admissions Coordinator Relationship Specialty Start Date End Date Rory Pak DO [address] [place] [id number] PCP - General Internal Medicine 10/09/24 documented as of this encounter
--- NOTE | 2024-12-06 11:31 | XR_ITS ---
FINAL REPORT CLINICAL HISTORY: Cough, SOA x1 month COMPARISON: 01/08/2024 FINDINGS: No acute pulmonary density is evident. There is no evidence of effusion or other pleural disease. The mediastinum has a normal appearance. Left-sided pacer is identified. The cardiac silhouette is unremarkable. IMPRESSION: Unremarkable chest exam. Reviewed, Interpreted and Dictated by Carlton Morales MD Transcribed by Shante Mejia Authenticated and [facility]
--- OUTSIDE RECORDS SUMMARY | 2024-12-06 11:31 | XMS_ITS | Clinical Summary ---
Author Organization [facility] Address [address] [place] [address] Care Team Providers Care Reimbursement Spec Name Role Phone Rory Pak DO Primary Care Provider + Allergies Active Allergy Reactions Criticality Noted Date Comments Cephalexin Hives,Unknown (See Comments) Medium 024 Medications Eliquis 5 MG tablet tablet Take 1 tablet by mouth 2 (Two) Times a Day. Active atorvastatin (LIPITOR) 40 MG tablet Take 0.5 tablets by mouth Daily. Active carvedilol (COREG) 25 MG tablet Take 1 tablet by mouth 2 (Two) Times a Day With Meals. Active hydroCHLOROthia zide 25 MG tablet Take 1 tablet by mouth Daily. Active lisinopril (PRINIVIL,ZESTR IL) 40 MG tablet Take 1 tablet by mouth 2 (Two) Times a Day. Active mometasone (ELOCON) 0.1 % ointment Apply 1 Application topically to the appropriate area as directed As Needed. Active oxyCODONE-aceta minophen (PERCOCET) 5-325 MG per tablet Take by mouth As Needed. Active predniSONE (DELTASONE) 20 MG tablet Take 1 tablet by mouth Daily. Active promethazine-de xtromethorphan (PROMETHAZINE-D M) 6.25-15 MG/5ML syrup As Needed. Active tadalafil (CIALIS) 10 MG tablet Take 1 tablet by mouth Daily. Active Active Problems Problem Noted Date Diagnosed Date Falls 11/14/2024 H/O hematuria 11/14/2024 AF (paroxysmal atrial fibrillation) 11/10/2024 CAD S/P percutaneous coronary angioplasty 2024 SSS (sick sinus syndrome) 11/10/2024 Encounters Date Type Department Care Team Description 11/14/2024 Telephone [facility] [address] [facility] [address] [place] [address] González Brothers MD LAAO 11/10/2024 11:00 AM EDT Office Visit [facility] [address] [facility] [address] [place] [address] González Brothers MD AF (paroxysmal atrial fibrillation) (Primary Dx); SSS (sick sinus syndrome) 11/10/2024 Travel 10/26/2024 Travel from Last 3 Months Family History Medical History Relation Name Comments Stroke Father Cardiac problem s Cancer Mother Relation Name Status Comments Father Mother Social History Tobacco Use Types Packs/Day Years [...] on file Sexual Orientation Not on file Last Filed Vital Signs Vital Sign Reading [...] Mass Index 38.69 11/10/2024 10:39 AM EDT Plan of Treatment Scheduled Procedures Name Priority Associated Diagnoses Date/Ti me LEFT ATRIAL APPENDAGE OCCLUSION AF (paroxysmal atrial fibrillation) Falls H/O hematuria Health Maintenance Due Date Last Done Comments COLOGUARD 10/29/1996 COLON CANCER SCREENING 5 YEA R SIGMOIDOSCOPY 10/29/1996 CT COLONOGRAPHY 10/29/1996 FECAL OCCULT BLOOD TEST 10/29/1996 FIT Testing (1 year) 10/29/1996 ZOSTER VACCINE (1 of 2) 10/29/2001 INFLUENZA VACCINE 09/16/2024 11/03/2022, 11/01/2021 COVID-19 Vaccine (3 - season) 10/17/202409/2020, 05/01/2020 ANNUAL WELLNESS VISIT 11/07/2024 TDAP/TD VACCINES (2 - Td or Tdap) 12/17/2026 017 COLONOSCOPY 02/17/2028 02/16/2018 COLORECTAL CANCER SCREENING 02/17/2028 Pneumococcal Vaccine 50+ Completed 09/17/2022 HEPATITIS C SCREENING Completed 05/24/2024 Procedures Procedure Name Priority Date/Time Associated Diagnosis Comments ECG 12-LEAD Routine 11/10/2024 AF (paroxysmal atrial fibrillation) SSS (sick sinus syndrome) from Last 3 Months Results * ECG 12-LEAD (11/10/2024) Narrative 11/10/2024 [...] AM EDT Electrophysiology Clinic Consult Rory Cervantes [id number] 1950 Referring Provider: Provider, No Known PCP: Rory Pak, DO [address] / [place] [id number] Chief Complaint Patient presents with PAF Problem List Sick sinus syndrome SJM DC PPM 07/07/2023 Echo, 06/21/23: EF 50-55%, mild AR, trace MR Paroxysmal atrial fibrillation / tachybradycardia syndrome [id number] 3 (age, HTN, CAD), anticoagulant Xarelto Coronary [...] at risk of major bleeding. Referred to [place] forLAAO device implantation consideration. As far as [...] 05/24/2024 No results found for: TSH , E3AFQNK , D5JFYCW , THYROIDAB I personally viewed and interpreted [...] nature; largely asymptomatic at this time - [id number] 3 (age, HTN, CAD), anticoagulant Xarelto - [...] González Brothers MD ECG ORDERABLES Final Result from Last 3 Months Insurance [facility] [employer] MEDICARE A & B Care Teams Reimbursement Spec Relationship Specialty Start Date End Date Rory Pak DO [address] [place] [address] PCP - General Internal Medicine 10/09/24
--- OUTSIDE RECORDS SUMMARY | 2024-12-06 11:31 | XMS_ITS | Data Portability ---
Author Organization [place] - [facility] & [place] [facility] ADMIN Address [address] [place] [address] Assessment Encounter Date Assessment Date Assessment LastModified [...] management options. [email or web address] Not available 05/17/2024 11:42:03 07/07/2024 07/07/2024 ASSESSMENT: Rory Cervantes is a 73-year-old male with a large prostate, grade 3 trabeculations, and diverticula in the bladder. PLAN: 1. Discussed the findings of the cystoscopy with the patient, including the large prostate, trabeculations, and diverticula. 2. Recommended a bipolar TURP (transurethral resection of the prostate) to alleviate the obstruction and improve bladder function. 3. Explained the risks and benefits of the procedure, including potential bleeding, infection, injury to other structures, and the possibility of retrograde ejaculation. 4. Advised the patient to hold Eliquis for two days before the procedure and to obtain clearance from his associate embalmer/funeral director, Dr. Correa. 5. Scheduled the procedure and provided preoperative instructions. 6. Informed the patient that a catheter would be placed postoperatively and might need to stay overnight for observation. Please note this report was created using voice recognition/text compilation software with [facility] documentation services during the encounter with the patient; Please excuse any errors due to the account clerk process. [email or web address] Not available 07/07/2024 16:19:38 08/16/2024 08/16/2024 ASSESSMENT: Rory Cervantes is a 73-year-old male with improved urinary flow following a recent procedure to relieve bladder obstruction. PLAN: 1. Continue monitoring urinary symptoms, including spraying and urgency, as the bladder remodels over the next few months. 2. Advise the patient to use Benefiber or MiraLAX to maintain soft bowel movements and reduce straining during defecation, which may exacerbate bleeding. 3. Discuss the possibility of increasing Eliquis dosage to include a second dose at night, with close monitoring for any adverse effects. 4. Reassure the patient that bleeding and passing cauterized tissue are part of the normal healing process and should improve as the tissue smooths out. 5. Schedule a follow-up visit in six months to reassess progress and address any ongoing concerns. Please note this report was created using voice recognition/text compilation software documentation services during the encounter with the patient. [email or web address] Not available 08/16/2024 10:54:47 Plan of Treatment Reminders Order Date Submit Date Provider Last Modified By Organization Details Last Modified Time Details Appointments OV EST 15 2025 11:00A Marcus MARSHALL MD Not available Not available Not available Lab PSA, total, serum or plasma 2024 025 glory [email or web address] [facility] (Registration ), [address] , [place], [address], 05/24/2024 07:46:08 Referral None recorded. Procedures bladder scan (PROC) [address] [facility], [address], [place], [address], 08/16/2024 15:26:48 bladder scan (PROC) [address] [facility], [address], [place], [address], 05/17/2024 12:59:16 Surgeries transuret hral electrova por resection of the prostate (SURG) 2024 025 [email or web address] Not available 08/12/2024 10:24:10 Imaging None recorded. Medication Orders None recorded. Patient TargetsNo targets recorded. Patient InstructionsNo instructions recorded. Reason for Referral None Reported. Results Created Date Observation Date Name Description Value Unit Range Abnormal Flag Note LastModifiedBy Organization Detail LastModifiedTime 05/18/1905/17/2024 PROST ATE SPECI FIC AG (PSA) prostate specific Ag (PSA) 0.5 NG/mL 0-4.0 Not Available [facility] (Ccd) [address] [facility], [place], [address], 05/17/2024 13:52:16 05/18/1905/17/2024 bladd er scan (PROC ) Calculated Residual Urine: 317ml Not Available [facility] [address] [facility] [address], [place], [address], 05/17/2024 11:28:25 08/17/19 25 08/16/2024 bladd er scan (PROC ) Calculated Residual Urine: 37 ml Not Available [facility]100 [address] [facility] [address], [place], [address], 08/16/2024 10:48:29 07/27/1905/08/2024 pacem sarai check (PROC ) No observ ation record ed. [email or web address] [facility] (Med Record) [address] [place] [address] [address], [place], [address], 08/09/2024 09:00:10 Result Notes None recorded. Problems Name Problem SNOMED Code Status Onset Date Resolution Date Notes Provider Name and Address Organization Details Recorded Time Body mass index 30+ - obesity 557267759 Active Jessica cantu, [place] - [facility] - [facility] & [place] 3 13:07:11 Sciatica 18375844 Active Jesisca Cui null, [place] - [facility] - [facility] & [place] 3 13:07:11 Osteoarthr itis of hip 829977246 Active Jessica Cui null, [place] - [facility] - [facility] & [place] 3 13:07:11 Mixed hyperlipid emia 019246468 Active Jessica cantu, [place] - [facility] - [facility] & [place] 3 13:07:11 Essential hypertensi on 46999124 Active [place] cantu, [place] - [facility] - [facility] & [place] 3 13:07:11 Allergic rhinitis 36421878 Active Jessica cantu, [place] - [facility] - [facility] & [place] 3 13:07:11 History of total hip arthroplas ty 055966348465 Active Jessica cantu, [place] - [facility] - [facility] & [place] 3 13:07:11 Chronic pancreatit is 802800344 Active 2022 Jessica cantu, [place] - [facility] - [facility] & [place] 3 13:07:11 Abnormal radiograph ic imaging of pancreas 652192956 Active 2022 Jessica cantu, [place] - [facility] - [facility] & [place] 3 13:07:11 Benign prostatic hyperplasi a with outflow obstructio n 432001783 Active 2024 BRITTNI MARSHALL MD [address], [place], [address] , [place] - [facility] - [place] & [place] 5 15:26:42 Large prostate 056753375 Active 2024 BRITTNI MARSHALL MD [address], [place], [address] , [place] - [facility] [place] & [place] 5 07:37:47 Problem Notes None recorded. Procedures Surgical History Date Name Laterality Status Provider Name and Address Organization Details Recorded Time 07/08/19 25 Cystoscopy-Male completed BRITTNI MARSHALL MD [address], [place], [address], [place] [facility] [place] & [place] 07/07/2024 16:19:49 07/08/19 25 TRUS completed BRITTNI MARSHALL MD [address], [place], [address], [place] - [facility] & [place] 07/07/2024 16:20:04 02/16/19 20 Joint Replacement completed Kassidymilton Crisostomo [place] - [facility] & [place] 11/05/2022 11:23:29 02/16/19 20 Hip Surgery completed Kassidy Crisostomo [place] - [facility] & [place] 11/05/2022 11:23:29 02/16/19 19 Colonoscopy completed Kassidymilton Crisostomo [place] [facility] & [place] 11/05/2022 11:23:29 02/16/19 00 Other completed [facility] [place] - [facility] & [place] 11/05/2022 11:23:29 02/16/18 65 Tonsillectomy/A denoidectomy completed [facility] [place] - [facility] & [place] 11/05/2022 11:23:29 Imaging Results None recorded. Procedure [...] TAKE 1 TABLET BY MOUTH ONCE DAILY 07/25 completed Not Available Not Available Not Available sulfamethox azole 800 mg-trimetho prim 160 mg tablet TAKE 1 TABLET BY MOUTH 2 TIMES A DAY FOR 3 DAYS active Not Available Not Available No t Available doxycycline monohydrate 100 mg tablet TAKE 1 TABLET BY MOUTH TWICE DAILY FOR 10 DAYS WITH FULL MEALS active Not Available Not Available No t Available tramadol 50 mg tablet TAKE 1 TABLET BY MOUTH EVERY 6 HOURS NEEDED FOR moderate pain active Not Available Not Available No t [...] t Available hydrochloro thiazide 25 mg tablet TAKE ONE TABLET BY MOUTH ONCE A DAY active Not Available Not Available [...] Available Not Available lisinopril 40 mg tablet TAKE ONE TABLET BY MOUTH 2 TIMES A DAY FOR HIGH BLODD PRESSURE active Not Available Not Available No t Available ondansetron 4 mg disintegrat ing tablet [...] blood by Pulse oximetry Heart rate Systolic And Diastolic Provider Name and Address Organization Details Last Updated DateTime 5 170.18 cm 39.3 kg/m2 400359. 68 g 97 % 97 % 65 /min 140/90 mm[Hg] Marry Mckeon [facility] & [place] 11:28:09 Date Recorded Body height Provider Name an d Address Organization Details Last Updated DateTime 08/08/2024 170.18 cm Dinorah Hurtado [facility] & [place] 08/11/2024 10:06:29 Date Recorded Body height Body mass index (BMI) Body weight Oxygen saturation Oxygen saturation in Arterial blood by Pulse oximetry Heart rate Systolic And Diastolic Provider Name and Address Organization Details Last Updated DateTime 5 170.18 cm 37.7 kg/m2 619285. 76 g 96 % 96 % 60 /min 146/76 mm[Hg] Felipa Geronimoith [facility] & [place] 10:47:51 Social History Question Answer Notes LastModified by [employer] Details LastModified Time Tobacco Smoking Status Never [facility] [place] 11/05/2022 11:23:23 Do You Have An Advance Directive? Yes [email or web address] Information not available 11/05/2022 Are You Blind Or Do You Have Difficulty Seeing? No [email or web address] Information not available 11/05/2022 What Was The Date Of Your Most Recent Tobacco Screening? 08/21/2022 [email or web address] Information not available 11/05/2022 Are You Passively Exposed To Smoke? No [email or web address] Information not available 11/05/2022 Sex: Unknown Functional Status Question Answer Note LastModified by [employer] Details LastModified Time Do you use any illicit or recreational drugs? No [email or web address] Information not available 11/05/2022 What is your level of alcohol consumption? None [email or web address] Information not available 11/05/2022 What is your exercise level? Occasional [email or web address] Information not available 11/05/2022 Mental Status Question Answer Note LastModified by Organization D etails LastModified Time Do you feel stressed (tense, restless, nervous, or anxious, or unable to sleep at night)? [id number] [email or web address] Information not available 11/05/2022 Family History Relationship Description Onset Age of this Age Resolved Age Notes LastModified by Organization Details LastModified Time Father Heart disease pt. added direct ly (08/21) [email or web address] Not available 09/09/2022 14:27:07 Father Cerebrovascu lar accident pt. added direct ly (08/21) [email or web address] Not available 09/09/2022 14:27:07 Medical History Condition Response Arthritis Y Heart Attack ([place]) Y Back Problems Y Hypertension Y Immunizations Vaccine Type Date Status Note Provider Nam e and Address Organization Details Recorded Time Tdap 12/17/2016 completed SHAWNEE Carmen - [facility] - [place] & [place] 09/10/2022 13:07:18 Past Encounters Encounter ID Performer Location Encounter Start Date Encounter Closed Date Diagnosis/Indication Diagnosis SNOMED-CT Code Diagnosis ICD10 Code Diagnosis IMO Codes Diagnosis Note [id number] Zackary Quintanilla PA-C [facility] [address] [facility] [address] [place] [address] 08/22/2022 11:07:47 08/22/2022 13:25:34 Chronic pancreatitis 393190146 K86.1 Abnormal r adiographic imaging of pancreas 746995014 R93.3 History of polyp of colon 387009358 Z86.010 [id number] Malik Auguste MD [facility] [address] [facility] [address] [place] [address] 10/07/2022 08:46:37 10/07/2022 09:38:19 Osteomyelitis of vertebra 139301771 M46.20 This is a very complicate d [...] week. I removed his PICC line today. [id number] Malik Auguste MD [facility] [address] [place] [address] 11/05/2022 10:51:29 11/05/2022 11:59:48 Osteomyelitis of vertebra 260421987 M46.20 This involved the lumbar spine and [...] therapy followed by long-term suppressiv e therapy. [id number] BRITTNI MARSHALL MD [facility] Urology-1 00 [address] [facility] [address] [place] [address] 05/17/2024 10:49:43 05/17/2024 11:46:49 Benign prostatic hyperplasia with outflow obstruction 977202444 N40.1 373677 Screening for malignant neoplasm of prostate 327043791 Z12.5 450993 [id number] BRITTNI MARSHALL MD [facility] Urology- 00 [address] [facility] [address] 0 07/07/2024 15:18:05 07/12/2024 12:47:25 Benign prostatic hyperplasia with outflow obstruction 109872273 N40.1 N13.8 078778 [id number] BRITTNI MARSHALL MD [facility] Urology-1 00 [address] [facility] [address] [place] [address] 06/20/2024 10:50:49 06/20/2024 11:15:18 Benign prostatic hyperplasia with outflow obstruction 481145137 N40.1 N13.8 974040 [id number] BRITTNI MARSHALL MD [facility] Urology- 00 [address] [place] [address] 08/16/2024 10:30:31 08/16/2024 10:56:12 Benign prostatic hyperplasia with outflow obstruction 503336404 N40.1 N13.8 202040 [id number] BRITTNI MARSHALL MD [facility] Urology- 00 [address] 0 08/08/2024 10:21:01 08/08/2024 10:45:01 Large prostate 797531978 N40.0 617020 Health Concerns Section Related Observation LastModified by Organization Detai ls LastModified Time None Recorded Concern Status LastModified by Organization Details LastModified Time None Recorded Advance Directives Directive Y: Payers Insurance Date Sequence Insurance Name Policy Number Policy Keith Covered Member ID Keith Member ID Guarantor Name 08/16/2024 2 [employer] (MEDICARE SUPPLEMENT) Rory Cervantes [id number] Rory Cervantes 08/16/2024 1 [place] Rory Cervantes [id number] Rory Cervantes Notes Date Note Type Note Provider Name and Address Organization Details Recorded Time 08/01/2024 text/plain Operative/Proced ure Note [facility] Name Rory Cervantes Date of Service 1305 [id number] (M) Attending ROLANDO ELKINS Naresh SANCHEZ Admitted [id number] Discharged Primary DRISS COSTELLO D - Pre-Procedure Diagnosis BPH with obstructive voiding symptoms Post- Procedure Diagnosis Same Procedure / Surgery None Cystoscopy with bipolar transurethral resection of prostate Anesthesia Type General anesthesia Estimated Blood Loss 100 mL Complications None Procedure Description / Findings After informed consent was obtained from the patient, he was taken the operating room where he was placed in a comfortable supine position on the procedure table. Time-out was performed confirming correct patient, correct procedure, and correct operative site. General anesthesia was induced and preoperative IV antibiotics were administered. He was then placed in dorsal lithotomy position and genitals were prepped and draped in the usual sterile fashion. We began by inserting the rigid 21 Estonian cystoscope into the urethra and guided this into the bladder. Large median lobe was noted. With manipulation of the scope, we are able to identify the left and right ureteral orifices. We then inserted the bipolar resectoscope. Using the band loop, we began Transurethral resection of the floor of the prostate. The verumontanum served as our distal limit of resection. We resected tissue down until we reached the capsule and at this time systematically began resecting the left and right lateral lobes. The band loop was ineffective at times and we periodically which switched out for the plasma button to perform electrode vaporization. We continued our resection of the lateral lobes followed by resection of the anterior prostate tissue was this dropped downward. The [employer] evacuator was used to remove prostate chips periodically. Once we reached the surgical capsule, we then withdrew the scope to the level of the veru and visualized a widely patent channel directly under the bladder. We then advanced the scope and visualized the left and right ureteral orifices which were well away from the area of resection. At this time, we used the plasmabutton to fulgurate the tissue until hemostasis was achieved. The scope was then withdrawn and a 24 Estonian three-way Arvizu catheter with a 30 cc balloon was then inserted and connected to continuous bladder irrigation with normal saline. The procedure was terminated, the patient was awoken and transferred to the PACU with CBI running. Specimens Prostate chips Tubes/Drains 24Fr three-way Arvizu catheter connected to CBI with normal saline 1 of 2 Operative/Procedure Note [facility] Name Rory Cervantes Date of Service 1305 [id number] (M) Attending ROLANDO SANCHEZ Admitted [id number] Discharged Primary DRISS COSTELLO D - Implants None Disposition of Patient Stable to PACU. We will observe for at least 1 hour to assess whether admission will be needed for CBI Electronically signed by ROLANDO SANCHEZ on 1308 2 of 2 CC'ed Logic: Ordering Provider: ROLANDO ELKINS Attending Provider: ROLANDO ELKINS Admitting Provider: ROLANDO Jacobs NP, [address] [place], [address], [facility] & [place] 08/08/2024 08:37:22 05/17/2024 text/html ROS as noted in the HPI 05/17/24 CC: [id number]-svq-male referred to my office for BPH, nocturia 2-3x, incomplete emptying, taking tamsulosin 0.8mg w/o significant improvement. Rory Cervantes is a 73-year-old male who presents for a new patient visit. He has been on a double dose of tamsulosin for approximately three years, initially prescribed by a provider in [place]. Despite this treatment, he continues to experience urinary issues, including nocturia and a weak urinary stream. He reports that he often has to force urination and experiences intermittent bursts of urine flow. He also mentions a history of blood in the urine, which began during a five-week rehabilitation period following a 14-hour back surgery performed by Dr. Jacobo in [place] in August of the previous year. During [...] 0.90, GFR CT pelvis w ([facility]): bilateral bladder diverticular present, larger on R than L, there is lobular indentation of the prostate into the interior aspect of the hjxecpw56/21/23 Cr 0.92, GFR 89, Hgb 10.2, Hct 31.808/ Hgb 9.4, Hct 28.7, Cr 1.0, GFR Cr 0.9, GFR 86, Hgb 9.9, Hct 30.307/ Hgb 14.8, Hct 45.4, Cr 0.90, GFR 83 BRITTNI MARSHALL MD [address] [facility], [place], [address], [facility] - NT [facility] & [place] 05/17/2024 12:59:30 07/07/2024 text/html 07/07/24 [id number]-muf-male returns to my office for cystoscopy with US. Rory Cervantes is a 73-year-old male who presents for a procedure cystoscopy. He has a history of a fall while walking his dogs, resulting in fractured ribs on his left side, which have since healed. He also has a displaced T3 rib causing muscle frustration, for which he is seeing a chiropractor. He has a history of a UroCuff procedure and reports that his PSA is 0.5. His pressure flow study indicates a high-pressure, low-flow system, with a maximum flow rate of 8 mL/s. He has a large prostate, approximately 80 grams, with half growing into the bladder and the other half not. He has grade 3 trabeculations and diverticula in the bladder, indicating a high-pressure bladder struggling to work. 05/17/24CC: [id number]-sun-male referred to my office for BPH, nocturia 2-3x, incomplete emptying, taking tamsulosin 0.8mg w/o significant improvement.Rory Cervantes is a 73-year-old male who presents for a new patient visit. He has been on a double dose of tamsulosin for approximately three years, initially prescribed by a provider in [place]. Despite this treatment, he continues to experience urinary issues, including nocturia and a weak urinary stream. He reports that he often has to force urination and experiences intermittent bursts of urine flow. He also mentions a history of blood in the urine, which began during a five-week rehabilitation period following a 14-hour back surgery performed by Dr. Jacobo in [place] in August of the previous year. During this period, he had a catheter placed, which was later replaced due to complications, including constipation.Mr. Cervantes has a history of urinary tract infections, occurring at least once or twice a year. He denies any family history of prostate issues or prostate cancer. He has not had a recent PSA test. He also reports experiencing retrograde ejaculation, which he attributes to his tamsulosin use and possibly his back surgery. 0 06/23/24 Urocuff: Qmax 8.3 ml/s, Pcuffint 200 cm H2O (high pressure, low flow)05/17/24 PSA 0.502 Hgb 14.6, Hct 42.2, Cr 0.90, GFR CT pelvis w ([facility]): bilateral bladder diverticular present, larger on R than L, there is lobular indentation of the prostate into the interior aspect of the /21/23 Cr 0.92, GFR 89, Hgb 10.2, Hct 31.808/ Hgb 9.4, Hct 28.7, Cr 1.0, GFR Cr 0.9, GFR 86, Hgb 9.9, Hct 30.307/ Hgb 14.8, Hct 45.4, Cr 0.90, GFR 83 BRITTNI MARSHALL MD [address], [place], [address], [facility] 07/12/2024 07:39:54 08/16/2024 text/html ROS as noted in the HPI 08/16/24 Patient returns to my office for TURP follow up. Rory Cervantes is a 73-year-old male who presents for a follow-up visit. He reports significant improvement in urinary flow following a recent procedure to relieve bladder obstruction. Prior to the procedure, bladder scans demonstrated post-void residuals of approximately 317 mL, whereas current scans show a reduction to 37 mL. He describes episodes of spraying during urination, which he attributes to the bladder adjusting to the removal of the obstruction. He notes occasional urgency and spraying, particularly when using portable urinals, but states these symptoms are improving. He denies any urinary incontinence, such as leakage during coughing or sneezing. He reports intermittent bleeding during urination, which he associates with the use of Eliquis. He describes passing blood clots and cauterized tissue, which he understands to be part of the healing process. He also notes increased bleeding when straining during bowel movements, which he attributes to firm stools and constipation. He has been using Depends for precautionary measures but anticipates discontinuing their use as symptoms improve. He restarted Eliquis on Thursday or Thursday following a voiding trial and has been taking one dose in the morning. He inquires about increasing the dosage to include a second dose at night. He reports no adverse effects from Eliquis thus far. 08/08/24 pt comes in for voiding trail after TRANSURETHRAL ELECTROVAPOR RESECTION OF THE PROSTATE. Put in 250 of sterile water into bladder. Catheter was taken out without any issues. Patient voided 50 mL's of pinkish urine. Patient voided more when pt got home, pt reported no issues voiding. ---- 07/08/25714010-qlsj-zgt- male returns to my office for cystoscopy with US.Rory Cervantes is a 73-year-old male who presents for a procedure cystoscopy. He has a history of a fall while walking his dogs, resulting in fractured ribs on his left side, which have since healed. He also has a displaced T3 rib causing muscle frustration, for which he is seeing a chiropractor. He has a history of a UroCuff procedure and reports that his PSA is 0.5. His pressure flow study indicates a high-pressure, low-flow system, with a maximum flow rate of 8 mL/s. He has a large prostate, approximately 80 grams, with half growing into the bladder and the other half not. He has grade 3 trabeculations and diverticula in the bladder, indicating a high-pressure bladder struggling to work. CC: [id number]-eop-male referred to my office for BPH, nocturia 2-3x, incomplete emptying, taking tamsulosin 0.8mg w/o significant improvement. Rory Cervantes is a 73-year-old male who presents for a new patient visit. He has been on a double dose of tamsulosin for approximately three years, initially prescribed by a provider in [place]. Despite this treatment, he continues to experience urinary issues, including nocturia and a weak urinary stream. He reports that he often has to force urination and experiences intermittent bursts of urine flow. He also mentions a history of blood in the urine, which began during a five-week rehabilitation period following a 14-hour back surgery performed by Dr. Jacobo in [place] in August of the previous year. During this period, he had a catheter placed, which was later replaced due to complications, including constipation.Mr. Cervantes has a history of urinary tract infections, occurring at least once or twice a year. He denies any family history of prostate issues or prostate cancer. He has not had a recent PSA test. He also reports experiencing retrograde ejaculation, which he attributes to his tamsulosin use and possibly his back surgery. 08/01/24 TURP (path: benign tissue, glandular and stromal hyperplasia)06/23/24 Urocuff: Qmax 8.3 ml/s, Pcuffint 200 cm H2O (high pressure, low flow)05/17/24 PSA 0.502 Hgb 14.6, Hct 42.2, Cr 0.90, GFR CT pelvis w ([facility]): bilateral bladder diverticular present, larger on R than L, there is lobular indentation of the prostate into the interior aspect of the dkrruiu55/21/23 Cr 0.92, GFR 89, Hgb 10.2, Hct 31.808/ Hgb 9.4, Hct 28.7, Cr 1.0, GFR Cr 0.9, GFR 86, Hgb 9.9, Hct 30.307/ Hgb 14.8, Hct 45.4, Cr 0.90, GFR 83 BRITTNI MARSHALL MD [address], [place], [address], [facility] - [place] - [place] & [place] 08/16/2024 15:27:02
--- OUTSIDE RECORDS SUMMARY | 2024-12-06 11:31 | XMS_ITS | Encounter Summary ---
Author Organization Healthcare Address [address] [place] [address] Care Team Providers Care Erp Implementation Consultant Name Role Phone Rory Pak DO Primary Care Provider [phone] Encounter Details Date Type Department Care Team (Late st Contact Info) Description 09/02/2022 Lab Requisition [facility] [address] [place] [address] Wu Jacobo MD [facility] [place] [address] Encounter for general adult medical examination without abnormal findings Social History Tobacco Use Types Packs/Day Years Used Date Smoking Tobacco: Never Assessed Sex and Gender Information Value Date Recorded Sex Assigned at Not on file Legal Sex Male 3:03 PM EDT Gender Identity Not on file Sexual Orientation Not on file documented as of this encounter Plan of Treatment Not on file documented as of this encounter Procedures Procedure Name Priority Date/Time Associated Diagnosis Comments BONE CULTURE AND GRAM STAIN Routine 09/02/2022 11:31 AM EDT Encounter for general adult medical examination without abnormal findings ANAEROBIC CULTURE Routine 09/02/2022 11: 31 AM EDT Encounter for general adult medical examination without abnormal findings documented in this encounter Results * Anaerobic Culture (09/02/2022 11:31 AM EDT) Culture No growth at day 4 09/09/2022 10:58 AM EDT [facility] Bone 09/02/2022 11:3 1 AM EDT 09/02/2022 3:07 PM EDT Wu Jacobo MD LAB MICROBIOLOGY - GENERAL ORDER ULISES Final Result Performing Organization Address City/State/[facility] de Phone Number HEALTHCARE LAB [address] [place] [address] * Bone Culture and Gram Stain (09/02/2022 11:31 AM EDT) Culture No growth at day 4 2022 1:28 PM EDT [facility] Gram Stain Result No polymorphonuclear leukocytes seen 09/06/2022 1:28 PM EDT [facility] Gram Stain Result No organisms seen 09/06/2022 1:28 PM EDT [facility] Bone 09/02/2022 11:3 1 AM EDT 09/02/2022 3:07 PM EDT us Wu Jacobo MD LAB MICROBIOLOGY - GENERAL ORDER ULISES Final Result Performing Organization Address [facility] de Phone Number HEALTHCARE LAB [address] [place] [address] documented in this encounter Visit Diagnoses Diagnosis Encounter for general adult medical examination without abnormal findings documented in this encounter Care Teams Erp Implementation Consultant Relationship Specialty Start Date End Date Rory Pak DO [address] [place] [address] [place] [address] PCP - General 05/24/24 documented as of this encounter
--- OUTSIDE RECORDS SUMMARY | 2024-12-06 11:31 | XMS_ITS | Encounter Summary ---
[facility] Address [address] [place] [address] Care Team Providers Care Print Color Operator Name Role Phone Rory Pak DO Primary Care Provider + Encounter Details Date Type Department Care Team (Latest Contact Info) Description 11/10/2024 Travel Social History Tobacco Use Types Packs/Day Years Used Date Smoking Tobacco: Never Passive Smoke Exposure: Never Smokeless Tobacco: Never Alcohol Use Standard Drinks/Week Comments Never 0 (1 standard drink = 0.6 oz pur e alcohol) Sex and Gender Information Value Date Recorded Sex Assigned at Not on file Legal Sex Male 5:54 PM EDT Gender Identity Not on file Sexual Orientation Not on file documented as of this encounter Plan of Treatment Scheduled Procedures Name Priority Associated Diagnoses Date/Ti me LEFT ATRIAL APPENDAGE OCCLUSION AF (paroxysmal atrial fibrillation) Falls H/O hematuria documented as of this encounter Visit Diagnoses Not on filedocumented in this encounter Care Teams Print Color Operator Relationship Specialty Start Date End Date Rory Pak DO [address] [place] [address] [facility] [place] [address] PCP - General Internal Medicine 10/09/24 documented as of this encounter
--- OUTSIDE RECORDS SUMMARY | 2024-12-06 11:31 | XMS_ITS | Encounter Summary ---
Author Organization [facility] Address [address] [place] [address] Care Team Providers Care Senior Quantity Surveyor Name Role Phone Rory Pak DO Primary Care Provider + Reason for Referral * Diagnostic Imaging (Routine) - Authorized Specialty Diagnoses / Procedures Referred By Contac t Referred To Contact Diagnoses AF (paroxysmal atrial fibrillation) Falls H/O hematuria Procedures Intra-Op Structural Heart PEGGY (Cardiology Read) González Brothers MD [address] [place] [address] Phone: tel: fax: Referral ID Status Reason Start Date Expiration Date V isits Requested Visits Authorized [id number] Authorized 11/25/2024 02/24/2026 1 1 * MRI/CAT/PET Scan (Routine) - Authorized Specialty Diagnoses / Procedures Referred By Contac t Referred To Contact Radiology Diagnoses AF (paroxysmal atrial fibrillation) Falls H/O hematuria Preop examination Procedures CT Angiogram Chest González Borthers MD [address] [place] [address] Phone: tel: fax: Referral ID Status Reason Start Date Expiration Date V isits Requested Visits Authorized [id number] Authorized 11/25/2024 02/24/2026 1 1 Reason for Visit * Reason Onset Date Comments LAAO 11/14/2024 Encounter Details Date Type Department Care Team (Late st Contact Info) Description 11/14/2024 Telephone [facility] [address] [facility] [address] [place] [address] González Brothers MD [address] [facility] [address] [place] [address] LAAO Social History Tobacco Use Types Packs/Day Years [...] on file documented as of this encounter Progress Notes * Anne Saha RN - 11/25/2024 10:57 AM EDTAddended by: ANNE SAHA on: 11/25/2024 10:57 AM Modules accepted: Orders documented in this encounter Miscellaneous Notes * Telephone Encounter - Anne Saha RN - 11/25/2024 10:38 AM EDT LAAO Nurse Navigator Patient referred for Left Atrial Appendage Closure Device. Atrial fibrillation / Atrial flutter: Quality Measure History & Risk Factors (prior to Watchman implant) [id number] Risk Factors: Congestive HF [x] No [] Yes LV Dysfunction [x] No [] Yes Hypertension [] No [x] Yes Diabetes [x] No [] Yes Stroke [x] No [] Yes TIA [x] No [] Yes Thromboembolism [x] No [] Yes Vascular Disease [] No [x] Yes If Yes, Type [x] Prior PR [x] CAD [] Aortic Plaque HAS-BLED- Hypertension-1 Abnormal renal-0 Abnormal liver-0 Hx Stroke-0 Bleeding tendency or predisposition- 1 Labile INR-0 Age (greater than 65)-1 Drugs-0 Alcohol-0 HAS-BLED Score: 3 Anticoagulation plan: Planning on LAAO in April after he returns from somewhere warm. He will hold is Eliquis the morning of surgery and start a daily 81 MG ASA that morning. I will call him when I have the dates for April. Statin Therapy (for patients with a history of CAD, CVA/TIA, PVA, DM) Yes, Lipitor Reviewed LAAO information with patient, particularly procedural information and shared decision making. Pamphlet mailed for future reference. Verbalized understanding. I gave them my contact information and encouraged to call me with questions or concerns in the interim. 11/25/24 10:38 EDT * Telephone Encounter - Anne Saha RN - 11/14/2024 1:20 PM EDT Lvm for pt to return call at [phone] regarding LAAO procedure. Packet mailed to pt. Anne Saha RN * Telephone Encounter - Anne Saha RN - 11/14/2024 1:19 PM EDT ----- Message from Corin Infante sent at 11/10/2024 11:47 AM EDT ----- Heahter Parham, CTA prior, Hold Eliquis morning of procedure documented in this encounter Plan of Treatment Scheduled Orders Name Type Priority Associated Diagnoses Orde r Schedule CT Angiogram Chest Imaging Routine AF (paroxysmal atrial fibrillation) Falls H/O hematuria Preop examination Expected: 04/24/2025, Expires: 11/25/2025 Intra-Op Structural Heart PEGGY (Cardiology Read) Echocardiography Routine AF (paroxysmal atrial fibrillation) [place] H/O hematuria Expected: 11/30/2024, Expires: 11/25/2025 Scheduled Procedures Name Priority Associated Diagnoses Date/Ti me LEFT ATRIAL APPENDAGE OCCLUSION AF (paroxysmal atrial fibrillation) [place] H/O hematuria documented as of this encounter Visit Diagnoses Diagnosis AF (paroxysmal atrial fibrillation)- Primary Atrial fibrillation Falls H/O hematuria Preop examination Unspecified pre-operative examination documented in this encounter Care Teams Senior Quantity Surveyor Relationship Specialty Start Date End Date Rory Pak DO [address] [place] [address] PCP - General Internal Medicine 10/09/24 documented as of this encounter
--- OUTSIDE RECORDS SUMMARY | 2024-12-06 11:31 | XMS_ITS | Encounter Summary ---
[facility] Address [address] [place] [address] Care Team Providers Care Photogrammetric Engineer Name Role Phone Rory Pak DO Primary Care Provider + Encounter Details Date Type Department Care Team (Latest Contact Info) Description 10/26/2024 Travel Social History Tobacco Use Types Packs/Day [...] on filedocumented in this encounter Care Teams Photogrammetric Engineer Relationship Specialty Start Date End Date Rory Pak DO [address] [place] [address] PCP - General Internal Medicine 10/09/24 documented as of this encounter
--- OUTSIDE RECORDS SUMMARY | 2024-12-06 11:31 | XMS_ITS | Clinical Summary ---
Author Organization Healthcare Address [address] [id number] Care Team Providers Care Pantograph Engraver Name Role Phone Rory Pak DO Primary Care Provider [phone] Allergies Active Allergy Reactions Criticality Noted Date Comments Cephalexin Unknown - Patient st ates they do not know rxn details Medium 05/25/2024 Medications Lidocaine (HM Lidocaine Patch) 4 % patch Apply 1 patch topically once a day, every 24 hours as needed (Apply patch to affected area once every 24hrs as needed (leave patch on for 12hrs/off for 12 hrs)). 14 patch 5 Active methocarbamol (Robaxin) 500 MG tablet Take 2 tablets by mouth in the morning and 2 tablets at noon and 2 tablets before bedtime. Do all this for 14 days. 84 tablet 5 Active naloxone (Narcan) 4 mg/0.1 mL nasal spray 1. Give 1 spray in nostril for no/slow breathing or cannot wake after opioid use 2. Call 911 3. Repeat in other nostril if symptoms continue 1 each 5 Active carvedilol (Coreg) 25 MG tablet Take 1 tablet by mouth in the morning and 1 tablet in the evening. Take with meals. Active apixaban (Eliquis) 5 MG tablet Take 1 tablet by mouth in the morning and 1 tablet before bedtime. Active tamsulosin (Flomax) 0.4 MG 24 hr capsule Take 2 capsules by mouth 1 (one) time each day with dinner. Active lisinopril 40 MG tablet Take 1 tablet by mouth daily. Active amLODIPine (Norvasc) 10 MG tablet Take 1 tablet by mouth daily. Active hydroCHLOROthia zide (HYDRODiuril) 25 MG tablet Take 1 tablet by mouth daily. Active atorvastatin (Lipitor) 40 MG tablet Take 1 tablet by mouth daily. Active Active Problems Problem Noted Date Diagnosed Date Fall from ground level 05/25/2024 Overview (05/25/2024): Admit to SGT Tertiary 05/25 Fracture of multiple ribs of left side Overview (05/25/2024): L 7-8th rib fxs Support O2 sat >92% MMPC IS Pulm toilet CAD (coronary artery disease) 05/25/2024 Overview (05/25/2024): Resume meds pending med rec A-fib 05/25/2024 Overview (05/25/2024): Resume home meds pending pharm med rec Electrolyte abnormality 05/25/2024 Overview (05/25/2024): Hypomag hypoK Skin tear of left elbow without complication 10/2024 Overview (05/25/2024): Wound care Vertebral artery stenosis 05/25/2024 Overview (05/25/2024): Incidental finding Follow up with PCP for further surveillance Bilateral inguinal hernia 05/25/2024 Overview (05/25/2024): Bilateral fat containing inguinal hernias Incidental finding Follow up with PCP for further surveillance Social History Tobacco Use Types Packs/Day Years Used Date Smoking Tobacco: Never Assessed Sex and Gender Information Value Date Recorded Sex Assigned at Not on file Legal Sex Male 3:03 PM EDT Gender Identity Not on file Sexual Orientation Not on file Last Filed Vital Signs Vital Sign Reading Time Taken Comments Blood Pressure 150/91 05/25/2024 2:18 PM EDT Pulse 62 05/25/2024 2:18 PM EDT Temperature 36.9 C (98.4 F) 05/25/2024 10:07 AM EDT Respiratory Rate 18 05/25/2024 2:18 PM EDT Oxygen Saturation 95% 05/25/2024 2:18 PM EDT Inhaled Oxygen Concentration - - Weight 110 kg (243 lb 6.2 oz) 05/24/2024 10:28 P M EDT Height - - Body Mass Index - - Plan of Treatment Health Maintenance Due Date Last Done Comments [facility]-Depression Screening 1950 [facility]-Medicare Annual Wellness (AWV) 1950 [facility]-Infant/Child/Adol SDOH Screenings 1950 [facility]- SDOH Screenings 10/29/1969 [facility]-Adult SDOH Screenings 10/29/1969 CT Colonography 10/29/1996 Colonoscopy 10/29/1996 FIT-DNA 10/29/1996 FIT 10/29/1996 FOBT 10/29/1996 Sigmoidoscopy 10/29/1996 [facility]-Colorectal Cancer Screening 10/29/1996 [facility]-Zoster Vaccines (1 of 2) 10/29/2001 NZX-PNAEL-88 Vaccine (3 - season) 2024 01/23/2021, 05/01/2020 [facility]-Influenza Vaccine (#1) 10/17/202411/03, 11/01/2021 [facility]-RSV Vaccine: 60+ Years o r (1 - 1-dose 75+ series) 10/29/2026 [facility]-DTaP,Tdap,and Td Vaccine s (2 - Td or Tdap) 12/17/2026 12/17/2016 [facility]-Pneumococcal Vaccine: 50 + Years Completed 09/17/2022 [facility]-Hepatitis C Screening Completed 05/24/2024 HPV Vaccines Aged Out No longer eligi ble based on patient's age to complete this topic [facility]-HIB Vaccines Aged Out No longer e ligible based on patient's age to complete this topic [facility]-Hepatitis A Vaccines Aged Out No longer eligible based on patient's age to complete this topic [facility]-IPV Vaccines Aged Out No longer e ligible based on patient's age to complete this topic [facility]-Rotavirus Vaccines Aged Out No lo nger eligible based on patient's age to complete this topic Procedures Procedure Name Priority Date/Time Associated Diagnosis Comments HEPATITIS C ANTIBODY - ED W/REFLEX TO HCV QUANT PCR STAT 05/24/2024 11:24 PM EDT from Last 3 Months or Most Recently Relevant to Health Maintenance Results * Hepatitis C Antibody - ED (05/24/2024 11:24 PM EDT) Hepatitis C Antibody Negative Negative 05/25/2024 12:24 AM EDT [facility] Blood Venous blood specimen / Unknown Venipuncture / Unknown 05/24/2024 11:24 PM EDT 05/24/2024 11:43 PM EDT us Cuh Jang MD LAB BLOOD ORDERABLES Final Resul t [facility] [address] [place] [address] from Last 3 Months or Most Recently Relevant to Health Maintenance Insurance [facility] MEDIC[facility] Advance Directives * Full Code (Latest Code Status on File) Date Activated Date Inactivated Comments 05/25/2024 3:21 AM 05/25/2024 4:43 PM Care Teams Pantograph Engraver Relationship Specialty Start Date End Date Rory Pak DO [address] [place] [address] [facility] - General 05/24/24
== END 2024-12-06 23:59 | disposition home or self-care (01) ==
LOC: RAD 11:29
PROVIDERS: PCP Internal Medicine; Visit Provider Internal Medicine
DX: J06.9 Acute upper respiratory infection, unspecified (principal); R06.02 Shortness of breath; R05.9 Cough, unspecified
CPT/HCPCS: 71046